=== PATIENT | male | born 1990 | race Caucasian/White ===

== ENCOUNTER 2017-07-18 14:12 | Emergency (ER) | payer MEDICAID, OTHER ==
[~2017-07-18] VITALS: Ht 177.8 cm; Wt 77.1 kg
[2017-07-18 14:45] LABS: BASOPHILS # (AUTO) 0.1 10^3/uL (0.0-0.1); BASOPHILS % (AUTO) 1 % (0-10); EOSINOPHILS # (AUTO) 0.3 10^3/uL (0.0-0.3); EOSINOPHILS % (AUTO) 3 % (0-10); LYMPHOCYTES # (AUTO) 2.3 X 10^3 (1.0-4.0); LYMPHOCYTES % (AUTO) 24 % (12-44); MEAN CORPUSCULAR HEMOGLOBIN 33 PG (25-34); MEAN CORPUSCULAR HGB CONC 35 G/DL (32-36); MEAN CORPUSCULAR VOLUME 94 FL (80-99); MONOCYTES # (AUTO) 0.6 X 10^3 (0.0-1.0); MONOCYTES % (AUTO) 6 % (0-12); NEUTROPHILS # (AUTO) 6.3 X 10^3 (1.8-7.8); NEUTROPHILS % (AUTO) 66 % (42-75); PLATELET COUNT 215 10^3/uL (130-400); RED BLOOD COUNT 4.99 10^6/uL (4.35-5.85); RED CELL DISTRIBUTION WIDTH 13.3 % (10.0-14.5); WHITE BLOOD COUNT 9.5 10^3/uL (4.3-11.0)
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
[2017-07-18 14:53] LABS: ALANINE AMINOTRANSFERASE 31 U/L (0-55); ALBUMIN 4.3 GM/DL (3.2-4.5); ANION GAP 8 MMOL/L (5-14); ASPARTATE AMINO TRANSFERASE 23 U/L (5-34); BILIRUBIN,TOTAL 0.4 MG/DL (0.1-1.0); BLOOD UREA NITROGEN 14 MG/DL (7-18); BUN/CREATININE RATIO 17; CALCIUM 9.3 MG/DL (8.5-10.1); CARBON DIOXIDE 26 MMOL/L (21-32); CHLORIDE 105 MMOL/L (98-107); CREATININE SERUM 0.83 MG/DL (0.60-1.30); GFR ESTIMATED > 60; GLUCOSE 94 MG/DL (70-105); POTASSIUM 3.8 MMOL/L (3.6-5.0); SODIUM 139 MMOL/L (135-145); TOTAL PROTEIN 6.8 GM/DL (6.4-8.2)
[2017-07-18 14:59] LABS: CARBAMAZEPINE (TEGRETOL) < 2.0 UG/ML (4.0-12.0)
--- NOTE | 2017-07-18 15:24 | Diagnostic Imaging Report ---
INDICATION: Syncopal episode. TECHNIQUE: Routine non contrast-enhanced axial images were obtained from the skull base to the vertex. COMPARISON: None. FINDINGS: The ventricles and cortical sulci are normal in size and contour. There is no midline shift or mass-effect. No acute intra-axial hemorrhage is seen. There are no abnormal areas of increased or decreased density to suggest acute hemorrhage or edema. No extra-axial masses or collections are present. The bony calvarium is intact. The visualized paranasal sinuses are unremarkable. The mastoid air cells are clear. IMPRESSION: 1. No acute intracranial abnormality. No CT evidence of mass, acute infarct or intracranial hemorrhage. Dictated by: Dictated on workstation # [id number]
[2017-07-18 16:45] VITALS: BP 130/86
== END 2017-07-18 16:45 | disposition home or self-care (01) ==
LOC: ER 14:18
DX: G40.909 Epilepsy, unspecified, not intractable, without status epilepticus (principal)
CPT/HCPCS: 36415; 70450; 80053; 80156; 83735; 85025

== ENCOUNTER 2017-07-21 14:02 | Emergency (ER) | payer MEDICAID ==
[~2017-07-21] VITALS: Ht 177.8 cm; Wt 81.6 kg
[2017-07-21 14:21] LABS: BASOPHILS # (AUTO) 0.1 10^3/uL (0.0-0.1); BASOPHILS % (AUTO) 1 % (0-10); EOSINOPHILS # (AUTO) 0.3 10^3/uL (0.0-0.3); EOSINOPHILS % (AUTO) 5 % (0-10); LYMPHOCYTES # (AUTO) 1.4 X 10^3 (1.0-4.0); LYMPHOCYTES % (AUTO) 21 % (12-44); MEAN CORPUSCULAR HEMOGLOBIN 33 PG (25-34); MEAN CORPUSCULAR HGB CONC 35 G/DL (32-36); MEAN CORPUSCULAR VOLUME 93 FL (80-99); MEAN PLATELET VOLUME 9.8 FL (7.4-10.4); MONOCYTES # (AUTO) 0.5 X 10^3 (0.0-1.0); MONOCYTES % (AUTO) 7 % (0-12); NEUTROPHILS # (AUTO) 4.5 X 10^3 (1.8-7.8); NEUTROPHILS % (AUTO) 66 % (42-75); PLATELET COUNT 218 10^3/uL (130-400); RED BLOOD COUNT 5.11 10^6/uL (4.35-5.85); RED CELL DISTRIBUTION WIDTH 13.4 % (10.0-14.5); WHITE BLOOD COUNT 6.8 10^3/uL (4.3-11.0)
[2017-07-21 14:44] LABS: ALANINE AMINOTRANSFERASE 29 U/L (0-55); ALBUMIN 4.2 GM/DL (3.2-4.5); ALCOHOL < 10 MG/DL (<10); ANION GAP 10 MMOL/L (5-14); ASPARTATE AMINO TRANSFERASE 23 U/L (5-34); BILIRUBIN,TOTAL 0.3 MG/DL (0.1-1.0); BLOOD UREA NITROGEN 12 MG/DL (7-18); BUN/CREATININE RATIO 15; CALCIUM 9.6 MG/DL (8.5-10.1); CARBON DIOXIDE 25 MMOL/L (21-32); CHLORIDE 106 MMOL/L (98-107); GFR ESTIMATED > 60; GLUCOSE 80 MG/DL (70-105); MAGNESIUM 1.9 MG/DL (1.8-2.4); POTASSIUM 3.8 MMOL/L (3.6-5.0); SODIUM 141 MMOL/L (135-145); TOTAL PROTEIN 6.7 GM/DL (6.4-8.2)
--- NOTE | 2017-07-21 15:31 | ED Neurological Problem ---
General Chief Complaint: Neurological Problems Stated Complaint: SEIZURES Nursing Triage Note: [facility] staff reports pt had seizure like activity friday and again today. Staff reports pt has been in there care since June and Friday was first witnessed seizure. Staff reports previous facilty reported "behavioral seizures". 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 Pt sedated upon arrival. Nursing Sepsis Screen: No Definite Risk Allergies and Home Medications Allergies Coded Allergies: No Known Drug Allergies (Unverified , 07/18/17) Home Medications Levetiracetam 500 Mg Tablet, 500 MG PO BID, #60 Prescribed by: ELROY GONZALEZ on 07/21/17 1719 Oxcarbazepine 600 Mg Tablet, 600 MG PO TID, #90 Prescribed by: ELROY GONZALEZ on 07/21/17 1719 Past Nfapvwe-Ammmqc-Qdlrpn Hx Patient Social History Alcohol Use: Denies Use Recreational Drug Use: No Smoking Status: Current Everyday Smoker Type Used: Cigarettes Recent Foreign Travel: No Contact w/Someone Who Travel: No Recent Infectious Disease Expo: No Recent Hopitalizations: No Physical Abuse: No Sexual Abuse: No Mistreated: No Fear: No Surgeries History of Surgeries: No (UNKNOWN) Respiratory History of Respiratory Disorde: No Cardiovascular History of Cardiac Disorders: Yes (UNKNOWN) Neurological History of Neurological Disord: Yes Neurological Disorders: Seizure Disorder Genitourinary History of Genitourinary Disor: Yes (urinary incontinence) Musculoskeletal History of Musculoskeletal Dis: No (UNKNOWN) Psychosocial History of Psychiatric Problem: Yes (PSYCOSIS) Behavioral Health Disorders: Sleep Difficulties, Anxiety Suicide Risk Score: 0 Family Medical History Significant Family History: No Pertinent Family Hx Physical Exam Vital Signs Vital Sign - Last 12Hours 07/21/17 14:30 Temp 98.1 Pulse 77 Resp 18 B/P (MAP) 118/73 Pulse Ox 96 Capillary Refill : Less Than 3 Seconds Progress/Results/Core Measures Results/Orders Lab Results Laboratory Tests Test 07/21/17 14:12 07/21/17 15:41 07/21/17 16:25 Range/Units White Blood Count 6.8 4.3-11.0 10^3/uL Red Blood Count 5.11 4.35-5.85 10^6/uL Hemoglobin 16.6 13.3-17.7 G/DL Hematocrit 48 40-54 % Mean Corpuscular Volume 93 80-99 FL Mean Corpuscular Hemoglobin 33 25-34 PG Mean Corpuscular Hemoglobin Concent 35 32-36 G/DL Red Cell Distribution Width 13.4 10.0-14.5 % Platelet Count 218 130-400 10^3/uL Mean Platelet Volume 9.8 7.4-10.4 FL Neutrophils (%) (Auto) 66 42-75 % Lymphocytes (%) (Auto) 21 12-44 % Monocytes (%) (Auto) 7 0-12 % Eosinophils (%) (Auto) 5 0-10 % Basophils (%) (Auto) 1 0-10 % Neutrophils # (Auto) 4.5 1.8-7.8 X 10^3 Lymphocytes # (Auto) 1.4 1.0-4.0 X 10^3 Monocytes # (Auto) 0.5 0.0-1.0 X 10^3 Eosinophils # (Auto) 0.3 0.0-0.3 10^3/uL Basophils # (Auto) 0.1 0.0-0.1 10^3/uL Sodium Level 141 135-145 MMOL/L Potassium Level 3.8 3.6-5.0 MMOL/L Chloride Level 106 98-107 MMOL/L Carbon Dioxide Level 25 21-32 MMOL/L Anion Gap 10 5-14 MMOL/L Blood Urea Nitrogen 12 7-18 MG/DL Creatinine 0.80 0.60-1.30 MG/DL Estimat Glomerular Filtration Rate > 60 BUN/Creatinine Ratio 15 Glucose Level 80 70-105 MG/DL Calcium Level 9.6 8.5-10.1 MG/DL Magnesium Level 1.9 1.8-2.4 MG/DL Total Bilirubin 0.3 0.1-1.0 MG/DL Aspartate Amino Transf (AST/SGOT) 23 5-34 U/L Alanine Aminotransferase (ALT/SGPT) 29 0-55 U/L Alkaline Phosphatase 56 40-136 U/L Total Protein 6.7 6.4-8.2 GM/DL Albumin 4.2 3.2-4.5 GM/DL Serum Alcohol < 10 <10 MG/DL Urine Color YELLOW Urine Clarity CLEAR Urine pH 6.5 5-9 Urine Specific [place] 1.020 1.016-1.022 Urine Protein NEGATIVE NEGATIVE Urine Glucose (UA) NEGATIVE NEGATIVE Urine Ketones NEGATIVE NEGATIVE Urine Nitrite NEGATIVE NEGATIVE Urine Bilirubin NEGATIVE NEGATIVE Urine Urobilinogen NORMAL NORMAL MG/DL Urine Leukocyte Esterase 1+ H NEGATIVE Urine RBC (Auto) NEGATIVE NEGATIVE Urine RBC RARE /HPF Urine WBC RARE /HPF Urine Crystals NONE /LPF Urine Bacteria NEGATIVE /HPF Urine Casts NONE /LPF Urine Mucus NEGATIVE /LPF Urine Culture Indicated NO Urine Opiates Screen NEGATIVE NEGATIVE Urine Oxycodone Screen NEGATIVE NEGATIVE Urine Methadone Screen NEGATIVE NEGATIVE Urine Propoxyphene Screen NEGATIVE NEGATIVE Urine Barbiturates Screen NEGATIVE NEGATIVE Ur Tricyclic Antidepressants Screen NEGATIVE NEGATIVE Urine Phencyclidine Screen NEGATIVE NEGATIVE Urine Amphetamines Screen NEGATIVE NEGATIVE Urine Methamphetamines Screen NEGATIVE NEGATIVE Urine Benzodiazepines Screen NEGATIVE NEGATIVE Urine Cocaine Screen NEGATIVE NEGATIVE Urine Cannabinoids Screen NEGATIVE NEGATIVE My Orders Orders - ELROY CHAMORRO MD Alcohol (07/21/17 14:06) Cbc With Automated Diff (07/21/17 14:06) Comprehensive Metabolic Panel (07/21/17 14:06) Drug Screen Stat (Urine) (07/21/17 14:06) Magnesium (07/21/17 14:06) Ua Culture If Indicated (07/21/17 14:06) Accucheck Stat ONCE (07/21/17 14:06) Saline Lock/Iv-Start (07/21/17 14:06) Monitor-Rhythm Ecg Trace Only (07/21/17 14:06) Trileptal (07/21/17 15:27) Oxcarbazepine Tablet (Trileptal Tablet) (07/21/17 15:45) Levetiracetam Injection (Keppra Injectio (07/21/17 21:00) Ns (Ivpb) (Sodium Chloride 0.9% Ivpb Bag (07/21/17 16:53) Levetiracetam Injection (Keppra Injectio (07/21/17 16:54) Medications Given in ED Current Medications Medications Dose Ordered Sig/Omar Route Start Time Stop Time Status Last Admin Dose Admin Levetiracetam 500 mg/Sodium Chloride 55 ml @ 220 mls/hr BID ONCE IV 07/21/17 21:00 07/21/17 21:14 07/21/17 17:10 220 MLS/HR Oxcarbazepine 600 mg ONCE ONCE PO 07/21/17 15:45 07/21/17 15:46 DC 07/21/17 16:28 600 MG Vital Signs/I&O Vital Sign - Last 12Hours 07/21/17 14:30 Temp 98.1 Pulse 77 Resp 18 B/P (MAP) 118/73 Pulse Ox 96 Intake and Output 07/22/17 00:00 Intake Total 500 ml Balance 500 ml Blood Pressure Mean: 88 Progress Note : Progress Note Patient is now arousable. He states he feels sleepy. Documentation from prior visit was reviewed. Unfortunately, a Tegretol level was ordered but patient is on Trileptal. A Trileptal level was ordered to be added to present labs. In the meantime an additional dose of Trileptal will be ordered. Departure Impression Impression: Primary Impression: Seizures Additional Impression: Cerumen impaction Qualified Codes: H61.23 - Impacted cerumen, bilateral Disposition: 01 HOME, SELF-CARE Condition: Improved Departure-Patient Inst. Decision time for Depature: 17:15 Referrals: NO,LOCAL PHYSICIAN (PCP/Family) Primary Care Physician Patient Instructions: Ear Wax Impaction, Seizures, Adult (DC) Add. Discharge Instructions: Increase his Trileptal (oxcarbazepine) to 3 times daily. A new prescription is being provided to account for the increased dosing. Add Keppra as prescribed for further seizure treatment. Establish with his new primary care provider or see his old primary care provider as soon as possible. Seek referral to a neurologist. Return to emergency room if symptoms worsen or persist. You may use [id number] ear wax removal drops to start loosening that ear wax. Do not use Q-tips. Irrigation of the ear wax may be possible in the outpatient setting after wax is loosened with drops. All discharge instructions reviewed with patient and/or family. Voiced understanding. Scripts Oxcarbazepine (Oxcarbazepine) 600 Mg Tablet 600 MG PO TID, #90 TAB Prov: ELROY CHAMORRO MD 07/21/17 Levetiracetam (Keppra) 500 Mg Tablet 500 MG PO BID, #60 TAB Prov: ELROY CHAMORRO MD 07/21/17 ELROY CHAMORRO MD Jul 21, 2017 15:31
[2017-07-21] MEDS ORDERED: OXcarbazepine (TRILEPTAL) 300 MG TAB PO ONE (15:45)
[2017-07-21 15:52] LABS: BILIRUBIN,URINE NEGATIVE (NEGATIVE); KETONES,URINE NEGATIVE (NEGATIVE); LEUKOCYTE ESTERASE ,URINE 1+ (NEGATIVE); NITRITE,URINE NEGATIVE (NEGATIVE); PH,URINE 6.5 (5-9); PROTEIN,URINE NEGATIVE (NEGATIVE); UROBILINOGEN,URINE NORMAL (NORMAL)
[2017-07-21 16:00] LABS: WBC,URINE RARE /HPF
[2017-07-21] MEDS ORDERED: NS (IVPB) 50 ML ONE (16:53)
[2017-07-21] MEDS ORDERED: LEVETIRACETAM 500 MG/5 ML (KEPPRA) VIAL IV ONE (16:54)
[2017-07-21] MEDS ORDERED: OXCA600T PO (17:19)
[2017-07-21] MEDS ORDERED: LEVE500T99 PO (17:19)
[2017-07-21 17:38] VITALS: BP 123/70
[2017-07-21] MEDS ORDERED: LEVETIRACETAM INJECTION 500 MG in NS (IVPB) 50 ML IV ONE (21:00)
[2017-07-21] MEDS ORDERED: LOXA10CA (21:32)
[2017-07-21] MEDS ORDERED: OLOP5DRO7 (21:32)
[2017-07-21] MEDS ORDERED: BENZ1TAB6 (21:32)
[2017-07-21] MEDS ORDERED: DESM0.2T2 (21:32)
[2017-07-21] MEDS ORDERED: BUSP10TA95 (21:32)
[2017-07-21] MEDS ORDERED: CYPR4TAB (21:32)
[2017-07-21] MEDS ORDERED: ARIP20TA9 (21:32)
== END 2017-07-21 17:38 | disposition home or self-care (01) ==
LOC: EDUNIT# 14:02 → ER 14:04
DX: G40.909 Epilepsy, unspecified, not intractable, without status epilepticus (principal); H61.20 Impacted cerumen, unspecified ear; F41.9 Anxiety disorder, unspecified; F17.210 Nicotine dependence, cigarettes, uncomplicated
CPT/HCPCS: 36415; 80053; 80183; 80306; 80320; 81000; 83735; 85025; 93041

== ENCOUNTER 2017-07-21 21:25 | Emergency (ER) | payer MEDICAID ==
[~2017-07-21] VITALS: Ht 177.8 cm; Wt 81.6 kg
[~2017-07-21 21:25] MED LIST: LEVE500T99 PO; OXCA600T PO
[2017-07-21] MEDS ORDERED: DESM0.2T2 (21:32)
[2017-07-21] MEDS ORDERED: BENZ1TAB6 (21:32)
[2017-07-21] MEDS ORDERED: OLOP5DRO7 (21:32)
[2017-07-21] MEDS ORDERED: CYPR4TAB (21:32)
[2017-07-21] MEDS ORDERED: LOXA10CA (21:32)
[2017-07-21] MEDS ORDERED: BUSP10TA95 (21:32)
[2017-07-21] MEDS ORDERED: ARIP20TA9 (21:32)
--- NOTE | 2017-07-21 21:49 | ED Neurological Problem ---
General Chief Complaint: Neurological Problems Stated Complaint: SEIZURES Nursing Triage Note: brought in by [facility] for seizure activity Nursing Sepsis Screen: No Definite Risk Source: patient, EMS, old records Exam Limitations: clinical condition History of Present Illness Time seen by provider: 21:24 Initial Comments Patient presents to ER by EMS with chief complaint of seizure-like activity. EMS reports that the staff told them they heard a thud in his room they went and investigate and he was laying on the floor shaking his arm and nonresponsive. They called EMS EMS arrived said that he was shaking his right arm so they loaded him on the gurney and has her putting him in the truck they noticed his right arm began to shake worse and spread to his left arm and then his whole body and he sat up opened his eyes and spoke to them saying he felt cold and did not feel well. He then promptly close his eyes again and laid on the bed with his arm shaking and refused to follow commands. EMS noted when they tried opening his eyelids he resisted. There is no incontinence. They gave him 2-1/2 mg of Versed en route area the patient is sedated on arrival to the ER and unable to give any meaningful history at this time. Reviewed records from this morning when he was here for similar incident and had his Trileptal increased as well as Keppra given IV. Staff advised that he recently moved to their facility from another facility reported he had behavioral seizures around June 2017. He has not had any witnessed seizures until today per staff. No report of him missing any medications. Allergies and Home Medications Allergies Coded Allergies: No Known Drug Allergies (Unverified , 07/18/17) Home Medications Aripiprazole 20 Mg Tablet, (Reported) Benztropine Mesylate 1 Mg Tablet, (Reported) Buspirone HCl 10 Mg Tablet, (Reported) Cyproheptadine HCl 4 Mg Tablet, (Reported) Desmopressin Acetate 0.2 Mg Tablet, (Reported) Levetiracetam 500 Mg Tablet, 500 MG PO BID, #60 Prescribed by: ELROY GONZALEZ on 07/21/171718 Loxapine Succinate 10 Mg Capsule, (Reported) Olopatadine HCl 5 Ml Drops, (Reported) Oxcarbazepine 600 Mg Tablet, 600 MG PO TID, #90 Prescribed by: ELROY GONZALEZ on 10/16/17 1719 Constitutional: see HPI (unable to obtain a meaningful review of systems as the patient is sedated and not giving any history.) Past Wfjzapn-Iwdsgm-Fekdbj Hx Patient Social History Alcohol Use: Denies Use Recreational Drug Use: No Smoking Status: Current Everyday Smoker Type Used: Cigarettes Recent Foreign Travel: No Contact w/Someone Who Travel: No Recent Infectious Disease Expo: No Recent Hopitalizations: Yes (e.d.) Immunizations Up To Date Tetanus Booster (TDap): Unknown Seasonal Allergies Seasonal Allergies: No Surgeries History of Surgeries: No (UNKNOWN) Respiratory History of Respiratory Disorde: No Cardiovascular History of Cardiac Disorders: Yes (UNKNOWN) Neurological History of Neurological Disord: Yes Neurological Disorders: Seizure Disorder Genitourinary History of Genitourinary Disor: Yes (urinary incontinence) Musculoskeletal History of Musculoskeletal Dis: No (UNKNOWN) Psychosocial History of Psychiatric Problem: Yes (PSYCOSIS) Behavioral Health Disorders: Sleep Difficulties, Anxiety Integumentary History of Skin or Integumenta: No Family Medical History Significant Family History: No Pertinent Family Hx Physical Exam Vital Signs Vital Sign - Last 12Hours 07/21/17 21:32 Temp 96.2 Pulse 66 Resp 16 B/P (MAP) 122/74 Pulse Ox 99 O2 Delivery Nasal Cannula O2 Flow Rate 2.00 Capillary Refill : Less Than 3 Seconds General Appearance: WD/WN, no apparent distress (sedate him to sleep) HEENT: PERRL/EOMI, pharynx normal, TM abnormal (R) (cerumen impaction), TM abnormal (L) (cerumen impaction) Neck: non-tender, full range of motion, supple, normal inspection Respiratory: chest non-tender, lungs clear, normal breath sounds, no respiratory distress, no accessory muscle use Cardiovascular: normal peripheral pulses, regular rate, rhythm, no edema, no murmur Peripheral Pulses: 2+ Dorsalis Pedis (R), 2+ Left Dors-Pedis (L) Gastrointestinal: normal bowel sounds, non tender, soft, no organomegaly Extremities: normal range of motion, non-tender, no pedal edema, no calf tenderness Neurologic/Psychiatric: other (muted response to noxious stimuli but resists opening eye and I avoids the light.) Skin: normal color, warm/dry Progress/Results/Core Measures Results/Orders Lab Results Laboratory Tests Test 07/21/17 00:01 07/21/17 21:34 07/21/17 23:59 Range/Units White Blood Count 7.4 4.3-11.0 10^3/uL Red Blood Count 5.04 4.35-5.85 10^6/uL Hemoglobin 16.4 13.3-17.7 G/DL Hematocrit 47 40-54 % Mean Corpuscular Volume 93 80-99 FL Mean Corpuscular Hemoglobin 33 25-34 PG Mean Corpuscular Hemoglobin Concent 35 32-36 G/DL Red Cell Distribution Width 13.4 10.0-14.5 % Platelet Count 206 130-400 10^3/uL Mean Platelet Volume 10.1 7.4-10.4 FL Neutrophils (%) (Auto) 53 42-75 % Lymphocytes (%) (Auto) 33 12-44 % Monocytes (%) (Auto) 7 0-12 % Eosinophils (%) (Auto) 7 0-10 % Basophils (%) (Auto) 1 0-10 % Neutrophils # (Auto) 3.9 1.8-7.8 X 10^3 Lymphocytes # (Auto) 2.4 1.0-4.0 X 10^3 Monocytes # (Auto) 0.5 0.0-1.0 X 10^3 Eosinophils # (Auto) 0.5 H 0.0-0.3 10^3/uL Basophils # (Auto) 0.1 0.0-0.1 10^3/uL Sodium Level 141 135-145 MMOL/L Potassium Level 3.6 3.6-5.0 MMOL/L Chloride Level 106 98-107 MMOL/L Carbon Dioxide Level 25 21-32 MMOL/L Anion Gap 10 5-14 MMOL/L Blood Urea Nitrogen 13 7-18 MG/DL Creatinine 0.79 0.60-1.30 MG/DL Estimat Glomerular Filtration Rate > 60 BUN/Creatinine Ratio 16 Glucose Level 111 H 70-105 MG/DL Calcium Level 9.2 8.5-10.1 MG/DL Total Bilirubin 0.4 0.1-1.0 MG/DL Aspartate Amino Transf (AST/SGOT) 21 5-34 U/L Alanine Aminotransferase (ALT/SGPT) 27 0-55 U/L Alkaline Phosphatase 55 40-136 U/L C-Reactive Protein High Sensitivity 0.22 0.00-0.50 MG/DL Total Protein 6.4 6.4-8.2 GM/DL Albumin 4.1 3.2-4.5 GM/DL Serum Alcohol < 10 <10 MG/DL Urine Opiates Screen NEGATIVE NEGATIVE Urine Oxycodone Screen NEGATIVE NEGATIVE Urine Methadone Screen NEGATIVE NEGATIVE Urine Propoxyphene Screen NEGATIVE NEGATIVE Urine Barbiturates Screen NEGATIVE NEGATIVE Ur Tricyclic Antidepressants Screen NEGATIVE NEGATIVE Urine Phencyclidine Screen NEGATIVE NEGATIVE Urine Amphetamines Screen NEGATIVE NEGATIVE Urine Methamphetamines Screen NEGATIVE NEGATIVE Urine Benzodiazepines Screen NEGATIVE NEGATIVE Urine Cocaine Screen NEGATIVE NEGATIVE Urine Cannabinoids Screen NEGATIVE NEGATIVE My Orders Orders - MIGUEL ÁNGEL APODACA Alcohol (07/21/17 21:40) Cbc With Automated Diff (07/21/17 21:40) Comprehensive Metabolic Panel (07/21/17 21:40) Hs C Reactive Protein (07/21/17 21:40) Drug Screen Stat (Urine) (07/21/17 21:40) Chest 1 View, Ap/Pa Only (07/21/17 21:40) Ekg Tracing (07/21/17 21:59) Ua Culture If Indicated (07/22/17 00:59) Vital Signs/I&O Vital Sign - Last 12Hours 07/21/17 21:32 Temp 96.2 Pulse 66 Resp 16 B/P (MAP) 122/74 Pulse Ox 99 O2 Delivery Nasal Cannula O2 Flow Rate 2.00 Blood Pressure Mean: 90 Progress Note : Time: 02:40 Progress Note Patient is sleeping but easily arouses and states that he is tired and wants to go home. Denies any pain, shortness of breath, nausea, vomiting, diarrhea. Caregiver relates the same story is EMS gave the patient was going out for a smoke and came back and said he was tired and wanted to go to bed went to his room and then caregiver her to side went and found him on the floor with his right arm shaking. Laboratories unrevealing for any concerning issues so we'll go and allow the patient to go home with instructions on seizure management and keep the medications at same level that were raised just this morning. Highly implored the caregiver to get the patient in for neurology. Apparently he has an appointment in the next 1-2 weeks with primary care physician and Linda. ECG Initial ECG Impression Date: Jul 21, 2017 Initial ECG Impression Time: 21:28 Initial ECG Rate: 69 Initial ECG Rhythm: Normal Sinus Initial ECG Intervals: Normal Initial ECG Impression: Normal Initial ECG Comparisson: No Previous ECG Available Comment No T-wave elevation or depression Diagnostic Imaging Diagonstic Imaging: Xray Plain Films/CT/US/NM/MRI: chest (1v) Comments Poor inspiratory effort. No acute cardiopulmonary processes noted. Reviewed: Reviewed by Me Departure Impression Impression: Primary Impression: Seizure disorder Disposition: 01 HOME, SELF-CARE Condition: Stable Departure-Patient Inst. Decision time for Depature: 02:42 Referrals: NO,LOCAL PHYSICIAN (PCP) Primary Care Physician Patient Instructions: Seizures, Adult (DC) Add. Discharge Instructions: If the patient has a seizure or seizure-like activity again and is encouraged to keep the patient in a safe position and do not place anything near and around his mouth. Time the seizure-like activity and if it lasts for more than 20 minutes you may bring him to the ER. Otherwise just allow him to recover and when he feels like he can get up and move around just keep a log of his seizures and present them to the primary care physician. When you next see the primary care physician's important to try and find out what neurologic workup has been done for his seizures and see if he needs a video EEG or other workup to help elucidate what is seizure and what is behavioral. All discharge instructions reviewed with patient and/or family. Voiced understanding. MIGUEL ÁNGEL APODACA Jul 21, 2017 21:49
[2017-07-21 22:06] LABS: BASOPHILS # (AUTO) 0.1 10^3/uL (0.0-0.1); BASOPHILS % (AUTO) 1 % (0-10); EOSINOPHILS # (AUTO) 0.5 10^3/uL (0.0-0.3); EOSINOPHILS % (AUTO) 7 % (0-10); LYMPHOCYTES # (AUTO) 2.4 X 10^3 (1.0-4.0); LYMPHOCYTES % (AUTO) 33 % (12-44); MEAN CORPUSCULAR HEMOGLOBIN 33 PG (25-34); MEAN CORPUSCULAR HGB CONC 35 G/DL (32-36); MEAN CORPUSCULAR VOLUME 93 FL (80-99); MEAN PLATELET VOLUME 10.1 FL (7.4-10.4); MONOCYTES # (AUTO) 0.5 X 10^3 (0.0-1.0); MONOCYTES % (AUTO) 7 % (0-12); NEUTROPHILS # (AUTO) 3.9 X 10^3 (1.8-7.8); NEUTROPHILS % (AUTO) 53 % (42-75); PLATELET COUNT 206 10^3/uL (130-400); RED BLOOD COUNT 5.04 10^6/uL (4.35-5.85); RED CELL DISTRIBUTION WIDTH 13.4 % (10.0-14.5); WHITE BLOOD COUNT 7.4 10^3/uL (4.3-11.0)
[2017-07-21 22:09] LABS: ALANINE AMINOTRANSFERASE 27 U/L (0-55); ALBUMIN 4.1 GM/DL (3.2-4.5); ALCOHOL < 10 MG/DL (<10); ANION GAP 10 MMOL/L (5-14); ASPARTATE AMINO TRANSFERASE 21 U/L (5-34); BILIRUBIN,TOTAL 0.4 MG/DL (0.1-1.0); BLOOD UREA NITROGEN 13 MG/DL (7-18); BUN/CREATININE RATIO 16; CALCIUM 9.2 MG/DL (8.5-10.1); CARBON DIOXIDE 25 MMOL/L (21-32); CHLORIDE 106 MMOL/L (98-107); CREATININE SERUM 0.79 MG/DL (0.60-1.30); GFR ESTIMATED > 60; GLUCOSE 111 MG/DL (70-105); POTASSIUM 3.6 MMOL/L (3.6-5.0); SODIUM 141 MMOL/L (135-145); TOTAL PROTEIN 6.4 GM/DL (6.4-8.2); hs C REACTIVE PROTEIN 0.22 MG/DL (0.00-0.50)
[2017-07-22 02:34] LABS: BILIRUBIN,URINE NEGATIVE (NEGATIVE); KETONES,URINE NEGATIVE (NEGATIVE); LEUKOCYTE ESTERASE ,URINE 1+ (NEGATIVE); NITRITE,URINE NEGATIVE (NEGATIVE); PH,URINE 7 (5-9); PROTEIN,URINE 1+ (NEGATIVE); UROBILINOGEN,URINE 1 MG/DL (NORMAL)
[2017-07-22 02:40] LABS: SQUAMOUS EPITHELIAL CELL,UR RARE /HPF; WBC,URINE RARE /HPF
[2017-07-22 02:49] VITALS: BP 122/76
--- NOTE | 2017-07-22 07:28 | Diagnostic Imaging Report ---
INDICATION: Seizure. FINDINGS: Portable chest shows some volume loss in the lung bases more prominent on the right. Could not exclude mild infiltrate in right lung base as well. The lungs are otherwise clear. Heart is not enlarged. No pulmonary edema. No evidence of rib fractures. IMPRESSION: Right basilar atelectasis. Could not exclude mild infiltrate right lung base as well. Clinical correlation. Dictated by: Dictated on workstation # [id number]
== END 2017-07-22 02:49 | disposition home or self-care (01) ==
LOC: EDUNIT# 21:25 → ER 21:26
DX: G40.909 Epilepsy, unspecified, not intractable, without status epilepticus (principal); F41.9 Anxiety disorder, unspecified; G47.9 Sleep disorder, unspecified; F17.210 Nicotine dependence, cigarettes, uncomplicated
CPT/HCPCS: 36415; 71010; 80053; 80306; 80320; 81000; 85025; 86141; 93005

== ENCOUNTER 2017-09-21 09:04 | Emergency (ER) | payer MEDICAID ==
[~2017-09-21] VITALS: Ht 175.3 cm; Wt 81.6 kg
[~2017-09-21 09:04] MED LIST changes: +ARIP20TA9; +BENZ1TAB6; +BUSP10TA95; +CYPR4TAB; +DESM0.2T2; +LOXA10CA; +OLOP5DRO7
--- NOTE | 2017-09-21 09:51 | ED Abdominal Pain ---
General Chief Complaint: Abdominal/GI Problems Stated Complaint: STOMACH PAIN Nursing Triage Note: PT CO OF ABD PAIN THAT STARTED THIS AM AT APPROX 0630. DENIES N/V HAS PAIN, DISTENTION, TENDERNESS AND DIARRHEA THIS AM Sepsis Screen: No Definite Risk Source of Information: Patient, Caregiver Exam Limitations: Other (the patient's special needs limit his ability to offer a full history.) History of Present Illness Time Seen By Provider: 09:48 Initial Comments This 27-year-old white male presents with a complaint of abdominal pain that began this morning approximately 3 hours ago. He's had associated periumbilical pain and distention. The patient has had an episode of diarrhea this morning. He denies associated nausea or vomiting. Patient is on Depokote. Allergies and Home Medications Allergies Coded Allergies: No Known Drug Allergies (Unverified , 07/18/17) Home Medications Aripiprazole 20 Mg Tablet, (Reported) Benztropine Mesylate 1 Mg Tablet, (Reported) Buspirone HCl 10 Mg Tablet, (Reported) Cyproheptadine HCl 4 Mg Tablet, (Reported) Desmopressin Acetate 0.2 Mg Tablet, (Reported) Levetiracetam 500 Mg Tablet, 500 MG PO BID, #60 Prescribed by: ELROY GONZALEZ on 07/21/17 1719 Loxapine Succinate 10 Mg Capsule, (Reported) Olopatadine HCl 5 Ml Drops, (Reported) Oxcarbazepine 600 Mg Tablet, 600 MG PO TID, #90 Prescribed by: ELROY GONZALEZ on 07/21/17 1719 Review of Systems Constitutional: No chills, No fever EENTM: No Blurred Vision Respiratory: Denies Cough Cardiovascular: Denies Chest Pain Gastrointestinal: Abdomen Distended, Abdominal Pain, Diarrhea, Denies Nausea, Denies Vomiting Genitourinary: Burning, Frequency Musculoskeletal: No back pain Skin: No change in color, No rash Psychiatric/Neurological: No Symptoms Reported Endocrine: No Symptoms Reported Hematologic/Lymphatic: No Symptoms Reported Past [id number] Hx Patient Social History Alcohol Use: Denies Use Recreational Drug Use: No Type Used: Cigarettes Recent Foreign Travel: No Contact w/Someone Who Travel: No Recent Infectious Disease Expo: No Recent Hopitalizations: Yes (e.d.) Physical Abuse: No Sexual Abuse: No Immunizations Up To Date Tetanus Booster (TDap): Unknown Seasonal Allergies Seasonal Allergies: No Surgeries History of Surgeries: Yes (UNKNOWN) Surgeries: Ear Surgery Respiratory History of Respiratory Disorde: No Cardiovascular History of Cardiac Disorders: No (UNKNOWN) Neurological History of Neurological Disord: Yes Neurological Disorders: Seizure Disorder Genitourinary History of Genitourinary Disor: Yes (urinary incontinence) Gastrointestinal History of Gastrointestinal Di: No Musculoskeletal History of Musculoskeletal Dis: No Endocrine History of Endocrine Disorders: No HEENT History of HEENT Disorders: No Cancer History of Cancer: No Psychosocial History of Psychiatric Problem: Yes (PSYCOSIS) Behavioral Health Disorders: Sleep Difficulties, Anxiety Suicide Risk Score: 0 Integumentary History of Skin or Integumenta: No Reviewed Nursing Assessment Reviewed/Agree w Nursing PMH: Yes Family Medical History Significant Family History: No Pertinent Family Hx Physical Exam Vital Signs VS - Last 72 Hours, by Label 09/21/17 09:05 Temp 96.8 Pulse 92 Resp 18 B/P (MAP) 127/81 (96) Pulse Ox 97 Capillary Refill : Less Than 3 Seconds General Appearance: WD/WN, no apparent distress HEENT: normal ENT inspection Neck: normal inspection Respiratory: lungs clear Cardiovascular: normal peripheral pulses, regular rate, rhythm Gastrointestinal: normal bowel sounds, non tender, soft, abnormal bowel sounds (hypoactive), distended Extremities: normal range of motion, non-tender, normal inspection Back: normal inspection Neurologic/Psychiatric: no motor/sensory deficits, alert, normal mood/affect, other (the patient demonstrates developmental delay.) Skin: normal color, warm/dry Progress/Results/Core Measures Results/Orders Lab Results Laboratory Tests Test 09/21/17 09:25 Range/Units White Blood Count 12.7 H 4.3-11.0 10^3/uL Red Blood Count 5.31 4.35-5.85 10^6/uL Hemoglobin 17.1 13.3-17.7 G/DL Hematocrit 49 40-54 % Mean Corpuscular Volume 93 80-99 FL Mean Corpuscular Hemoglobin 32 25-34 PG Mean Corpuscular Hemoglobin Concent 35 32-36 G/DL Red Cell Distribution Width 13.6 10.0-14.5 % Platelet Count 220 130-400 10^3/uL Mean Platelet Volume 10.3 7.4-10.4 FL Neutrophils (%) (Auto) 73 42-75 % Lymphocytes (%) (Auto) 16 12-44 % Monocytes (%) (Auto) 6 0-12 % Eosinophils (%) (Auto) 4 0-10 % Basophils (%) (Auto) 1 0-10 % Neutrophils # (Auto) 9.3 H 1.8-7.8 X 10^3 Lymphocytes # (Auto) 2.0 1.0-4.0 X 10^3 Monocytes # (Auto) 0.8 0.0-1.0 X 10^3 Eosinophils # (Auto) 0.5 H 0.0-0.3 10^3/uL Basophils # (Auto) 0.1 0.0-0.1 10^3/uL Urine Color YELLOW Urine Clarity CLEAR Urine pH 6.5 5-9 Urine Specific [place] 1.020 1.016-1.022 Urine Protein NEGATIVE NEGATIVE Urine Glucose (UA) NEGATIVE NEGATIVE Urine Ketones NEGATIVE NEGATIVE Urine Nitrite NEGATIVE NEGATIVE Urine Bilirubin NEGATIVE NEGATIVE Urine Urobilinogen 1 NORMAL MG/DL Urine Leukocyte Esterase 1+ H NEGATIVE Urine RBC (Auto) NEGATIVE NEGATIVE Urine RBC NONE /HPF Urine WBC 0-2 /HPF Urine Crystals NONE /LPF Urine Bacteria TRACE /HPF Urine Casts NONE /LPF Urine Mucus NEGATIVE /LPF Urine Culture Indicated NO Sodium Level 144 135-145 MMOL/L Potassium Level 4.1 3.6-5.0 MMOL/L Chloride Level 107 98-107 MMOL/L Carbon Dioxide Level 24 21-32 MMOL/L Anion Gap 13 5-14 MMOL/L Blood Urea Nitrogen 12 7-18 MG/DL Creatinine 0.83 0.60-1.30 MG/DL Estimat Glomerular Filtration Rate > 60 BUN/Creatinine Ratio 14 Glucose Level 118 H 70-105 MG/DL Calcium Level 9.8 8.5-10.1 MG/DL Total Bilirubin 0.2 0.1-1.0 MG/DL Aspartate Amino Transf (AST/SGOT) 31 5-34 U/L Alanine Aminotransferase (ALT/SGPT) 37 0-55 U/L Alkaline Phosphatase 64 40-136 U/L Total Protein 7.3 6.4-8.2 GM/DL Albumin 4.3 3.2-4.5 GM/DL Lipase 13 8-78 U/L My Orders Orders - MIRANDA OSBORNE MD Ct Abd/Pelv W (Appendicitis) (09/21/17 09:46) Cbc With Automated Diff (09/21/17 09:46) Comprehensive Metabolic Panel (09/21/17 09:46) Lipase (09/21/17 09:46) Ua Culture If Indicated (09/21/17 09:46) Ns Iv 1000 Ml (Sodium Chloride 0.9%) (09/21/17 10:00) Iohexol Injection (Omnipaque 350 Mg/Ml 1 (09/21/17 10:00) Sodium Chloride Flush (Catheter Flush Sy (09/21/17 10:00) Ns (Ivpb) (Sodium Chloride 0.9% Ivpb Bag (09/21/17 10:00) Pharmacy Communication (Pharmacy Communi (09/21/17 09:53) Medications Given in ED Current Medications Medications Dose Ordered Sig/Omar Route Start Time Stop Time Status Last Admin Dose Admin Iohexol 100 ml ONCE ONCE IV 09/21/17 10:00 09/21/17 10:01 DC 09/21/17 10:04 100 ML Sodium Chloride 10 ml NEEDED PRN IV 09/21/17 10:00 09/21/17 10:04 10 ML Sodium Chloride 100 ml ONCE ONCE IV 09/21/17 10:00 09/21/17 10:01 DC 09/21/17 10:04 80 ML Vital Signs/I&O Vital Sign - Last 12Hours 09/21/17 09:05 Temp 96.8 Pulse 92 Resp 18 B/P (MAP) 127/81 (96) Pulse Ox 97 Blood Pressure Mean: 96 Progress Note : Time: 11:[address] of the abdomen and pelvis failed to demonstrate evidence of acute pathology. The patient's laboratory evaluation was similarly unremarkable. Patient received a liter of normal saline the emergency department. The patient stated that he felt somewhat improved. I believe the patient has a viral gastroenteritis. I do recommend clear liquids rest today. I asked patient to follow-up with his caregivers tomorrow. I invited him to return the emergency Department if any further problems. Departure Impression Impression: Primary Impression: Gastroenteritis Disposition: 01 HOME, SELF-CARE Condition: Improved Departure-Patient Inst. Decision time for Depature: 11:29 Referrals: [facility] (PCP) Primary Care Physician SEEMA GILBERT (Family) Primary Care Physician Patient Instructions: [id number] Add. Discharge Instructions: Clinical liquids today. Rest at home. Follow-up with doctor tomorrow. Return if any problems. All discharge instructions reviewed with patient and/or family. Voiced understanding. MIRANDA OSBORNE MD Sep 21, 2017 09:51
[2017-09-21 09:54] LABS: BASOPHILS # (AUTO) 0.1 10^3/uL (0.0-0.1); BASOPHILS % (AUTO) 1 % (0-10); BILIRUBIN,URINE NEGATIVE (NEGATIVE); EOSINOPHILS # (AUTO) 0.5 10^3/uL (0.0-0.3); EOSINOPHILS % (AUTO) 4 % (0-10); KETONES,URINE NEGATIVE (NEGATIVE); LEUKOCYTE ESTERASE ,URINE 1+ (NEGATIVE); LYMPHOCYTES % (AUTO) 16 % (12-44); MEAN CORPUSCULAR HEMOGLOBIN 32 PG (25-34); MEAN CORPUSCULAR HGB CONC 35 G/DL (32-36); MEAN CORPUSCULAR VOLUME 93 FL (80-99); MEAN PLATELET VOLUME 10.3 FL (7.4-10.4); MONOCYTES # (AUTO) 0.8 X 10^3 (0.0-1.0); MONOCYTES % (AUTO) 6 % (0-12); NEUTROPHILS # (AUTO) 9.3 X 10^3 (1.8-7.8); NEUTROPHILS % (AUTO) 73 % (42-75); NITRITE,URINE NEGATIVE (NEGATIVE); PH,URINE 6.5 (5-9); PLATELET COUNT 220 10^3/uL (130-400); PROTEIN,URINE NEGATIVE (NEGATIVE); RED BLOOD COUNT 5.31 10^6/uL (4.35-5.85); RED CELL DISTRIBUTION WIDTH 13.6 % (10.0-14.5); UROBILINOGEN,URINE 1 MG/DL (NORMAL); WHITE BLOOD COUNT 12.7 10^3/uL (4.3-11.0)
[2017-09-21] MEDS ORDERED: IOHEXOL 350 MG/ML 100 ML (OMNIPAQUE 350) VIAL IV ONE (10:00)
[2017-09-21] MEDS ORDERED: CATHETER FLUSH 10 ML SYR IV PRN (10:00)
[2017-09-21] MEDS ORDERED: NS 100 ML (IVPB) BAG IV ONE (10:00)
[2017-09-21] MEDS ORDERED: NS IV 1000 ML 1,000 ML IV SCH (10:00)
[2017-09-21 10:06] LABS: ALANINE AMINOTRANSFERASE 37 U/L (0-55); ALBUMIN 4.3 GM/DL (3.2-4.5); ANION GAP 13 MMOL/L (5-14); ASPARTATE AMINO TRANSFERASE 31 U/L (5-34); BILIRUBIN,TOTAL 0.2 MG/DL (0.1-1.0); BLOOD UREA NITROGEN 12 MG/DL (7-18); BUN/CREATININE RATIO 14; CALCIUM 9.8 MG/DL (8.5-10.1); CARBON DIOXIDE 24 MMOL/L (21-32); CHLORIDE 107 MMOL/L (98-107); CREATININE SERUM 0.83 MG/DL (0.60-1.30); GFR ESTIMATED > 60; GLUCOSE 118 MG/DL (70-105); LIPASE 13 U/L (8-78); POTASSIUM 4.1 MMOL/L (3.6-5.0); SODIUM 144 MMOL/L (135-145); TOTAL PROTEIN 7.3 GM/DL (6.4-8.2)
--- NOTE | 2017-09-21 10:21 | Diagnostic Imaging Report ---
PROCEDURE: CT abdomen and pelvis with contrast, rule out appendicitis. TECHNIQUE: Multiple contiguous axial images were obtained through the abdomen and pelvis after the administration of intravenous contrast. INDICATION: Mid abdominal pain and diarrhea. COMPARISON: None available. FINDINGS: Lower chest: The lung bases are clear. No pericardial or pleural effusion. Peritoneum: No free intraperitoneal air or fluid. Liver and biliary system: The liver is normal. The gallbladder is normal. No biliary duct dilation. Spleen and Pancreas: Spleen is normal. The pancreas enhances normally without mass lesion or peripancreatic inflammatory changes. Adrenals: Normal. tract: The kidneys enhance normally without suspicious mass or obstruction. Urinary bladder is incompletely distended with apparent wall thickening likely due to incomplete distention. Prostate is normal. GI tract: Stomach is mildly distended with fluid and there is no gastric wall thickening. No bowel obstruction. No pericolonic inflammatory changes. Normal appendix. Vasculature and Lymph nodes: Normal caliber aorta. No abdominal or pelvic lymphadenopathy. Musculoskeletal: No concerning osseous lesion. IMPRESSION: 1. No acute inflammatory or obstructive process in the abdomen or pelvis. 2. The appendix is normal. Dictated by: Dictated on workstation # [id number]
[2017-09-21 10:43] LABS: WBC,URINE 0-2 /HPF
[2017-09-21 12:05] VITALS: BP 123/79
== END 2017-09-21 12:00 | disposition home or self-care (01) ==
LOC: EDUNIT# 09:04 → ER 09:06
DX: K52.9 Noninfective gastroenteritis and colitis, unspecified (principal); F41.9 Anxiety disorder, unspecified; G47.9 Sleep disorder, unspecified; G40.909 Epilepsy, unspecified, not intractable, without status epilepticus; Z98.890 Other specified postprocedural states
CPT/HCPCS: 36415; 74177; 80053; 81000; 83690; 85025

== ENCOUNTER → 2017-11-27 | Outpatient (CLI) | payer MEDICAID | LOC: LAB 10:17 | PROVIDERS: ATTEND Psychiatry & Neurology Neurology | DX: G40.909 Epilepsy, unspecified, not intractable, without status epilepticus (principal); Z79.899 Other long term (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 | CPT/HCPCS: 36415; 80164 ==

== ENCOUNTER 2017-12-23 14:09 | Emergency (ER) | payer MEDICAID ==
[~2017-12-23] VITALS: Ht 175.3 cm; Wt 81.6 kg
--- NOTE | 2017-12-23 14:52 | ED General ---
General Chief Complaint: Psych/Social Disorder Stated Complaint: PSYCH ISSUES Source of Information: Patient Exam Limitations: No Limitations History of Present Illness Date Seen by Provider: Dec 23, 2017 Time Seen by Provider: 14:48 Initial Comments This individual actually disabled young man who is a [employer] client brought to the emergency room by his caregiver from [employer] with reports of "hearing voices ". Patient states that this just began after lunch today and that the voices are telling him to kill. He cannot elaborate on this and states that he does not want to kill himself or anybody that he lives with. He is not sure who the voices want him to kill. He does have extensive psychiatric issues and is on a plethora of psychiatric medications. He is established with [facility] Timing/Duration: 1 Hour Severity: Moderate Allergies and Home Medications Allergies Coded Allergies: No Known Drug Allergies (Unverified , 07/18/17) Home Medications Levetiracetam 500 Mg Tablet, 500 MG PO BID Prescribed by: ELROY GONZALEZ on 07/21/171718 Oxcarbazepine 600 Mg Tablet, 600 MG PO TID Prescribed by: ELROY GONZALEZ on 07/21/171718 Patient Home Medication List Home Medication List Reviewed: Yes Constitutional: see HPI EENTM: see HPI Respiratory: no symptoms reported Cardiovascular: no symptoms reported Genitourinary: no symptoms reported Musculoskeletal: no symptoms reported Skin: no symptoms reported Psychiatric/Neurological: See HPI Hematologic/Lymphatic: No Symptoms Reported Past Ynietqy-Zlstpr-Kyifle Hx Patient Social History Type Used: Cigarettes Recent Foreign Travel: No Contact w/Someone Who Travel: No Recent Hopitalizations: Yes (e.d.) Immunizations Up To Date Tetanus Booster (TDap): Unknown Seasonal Allergies Seasonal Allergies: No Surgeries History of Surgeries: Yes (UNKNOWN) Surgeries: Ear Surgery Respiratory History of Respiratory Disorde: No Cardiovascular History of Cardiac Disorders: No (UNKNOWN) Neurological History of Neurological Disord: Yes Neurological Disorders: Seizure Disorder Genitourinary History of Genitourinary Disor: Yes (urinary incontinence) Gastrointestinal History of Gastrointestinal Di: No Musculoskeletal History of Musculoskeletal Dis: No Endocrine History of Endocrine Disorders: No HEENT History of HEENT Disorders: No Cancer History of Cancer: No Psychosocial History of Psychiatric Problem: Yes (PSYCOSIS) Behavioral Health Disorders: Sleep Difficulties, Anxiety Integumentary History of Skin or Integumenta: No Family Medical History Significant Family History: No Pertinent Family Hx Physical Exam Vital Signs Vital Signs - First Documented 12/23/17 14:35 Temp 98.3 Pulse 81 Resp 18 B/P (MAP) 147/81 (103) Pulse Ox 97 Capillary Refill : General Appearance: No Apparent Distress, WD/WN Eyes: Bilateral Eye Normal Inspection, Bilateral Eye PERRL, Bilateral Eye EOMI HEENT: PERRL/EOMI, TMs Normal Neck: Full Range of Motion, Normal Inspection Respiratory: No Accessory Muscle Use, No Respiratory Distress Cardiovascular: Regular Rate, Rhythm, Normal Peripheral Pulses Gastrointestinal: Normal Bowel Sounds, Non Tender, Soft Extremity: Normal Capillary Refill, Normal Inspection Neurologic/Psychiatric: Alert, Oriented x3, No Motor/Sensory Deficits, Other ( he has alert cooperative and pleasant but states that he is still hearing voices ) Skin: Normal Color, Warm/Dry Progress/Results/Core Measures Suspected Sepsis SIRS Temperature: Pulse: Respiratory Rate: Laboratory Tests 12/23/17 14:55: White Blood Count 8.5 Blood Pressure / Mean: Laboratory Tests 12/23/17 14:55: Creatinine 0.74, Platelet Count 203, Total Bilirubin 0.3 Results/Orders Lab Results Laboratory Tests Test 12/23/17 14:55 12/23/17 15:00 Range/Units White Blood Count 8.5 4.3-11.0 10^3/uL Red Blood Count 4.98 4.35-5.85 10^6/uL Hemoglobin 16.3 13.3-17.7 G/DL Hematocrit 47 40-54 % Mean Corpuscular Volume 95 80-99 FL Mean Corpuscular Hemoglobin 33 25-34 PG Mean Corpuscular Hemoglobin Concent 35 32-36 G/DL Red Cell Distribution Width 13.4 10.0-14.5 % Platelet Count 203 130-400 10^3/uL Mean Platelet Volume 10.1 7.4-10.4 FL Neutrophils (%) (Auto) 63 42-75 % Lymphocytes (%) (Auto) 25 12-44 % Monocytes (%) (Auto) 6 0-12 % Eosinophils (%) (Auto) 5 0-10 % Basophils (%) (Auto) 1 0-10 % Neutrophils # (Auto) 5.3 1.8-7.8 X 10^3 Lymphocytes # (Auto) 2.1 1.0-4.0 X 10^3 Monocytes # (Auto) 0.5 0.0-1.0 X 10^3 Eosinophils # (Auto) 0.4 H 0.0-0.3 10^3/uL Basophils # (Auto) 0.1 0.0-0.1 10^3/uL Sodium Level 138 135-145 MMOL/L Potassium Level 3.7 3.6-5.0 MMOL/L Chloride Level 106 98-107 MMOL/L Carbon Dioxide Level 24 21-32 MMOL/L Anion Gap 8 5-14 MMOL/L Blood Urea Nitrogen 15 7-18 MG/DL Creatinine 0.74 0.60-1.30 MG/DL Estimat Glomerular Filtration Rate > 60 BUN/Creatinine Ratio 20 Glucose Level 119 H 70-105 MG/DL Calcium Level 9.1 8.5-10.1 MG/DL Total Bilirubin 0.3 0.1-1.0 MG/DL Aspartate Amino Transf (AST/SGOT) 32 5-34 U/L Alanine Aminotransferase (ALT/SGPT) 49 0-55 U/L Alkaline Phosphatase 54 40-136 U/L Total Protein 6.4 6.4-8.2 GM/DL Albumin 4.1 3.2-4.5 GM/DL Valproic Acid (Depakene) Level 45.6 L 50.0-100.0 UG/ML Urine Color YELLOW Urine Clarity SLIGHTLY CLOUDY Urine pH 6 5-9 Urine Specific [place] 1.020 1.016-1.022 Urine Protein NEGATIVE NEGATIVE Urine Glucose (UA) NEGATIVE NEGATIVE Urine Ketones NEGATIVE NEGATIVE Urine Nitrite NEGATIVE NEGATIVE Urine Bilirubin NEGATIVE NEGATIVE Urine Urobilinogen NORMAL NORMAL MG/DL Urine Leukocyte Esterase 1+ H NEGATIVE Urine RBC (Auto) 1+ H NEGATIVE Urine RBC 0-2 /HPF Urine WBC RARE /HPF Urine Squamous Epithelial Cells RARE /HPF Urine Crystals NONE /LPF Urine Bacteria NEGATIVE /HPF Urine Casts NONE /LPF Urine Mucus NEGATIVE /LPF Urine Culture Indicated NO Urine Opiates Screen NEGATIVE NEGATIVE Urine Oxycodone Screen NEGATIVE NEGATIVE Urine Methadone Screen NEGATIVE NEGATIVE Urine Propoxyphene Screen NEGATIVE NEGATIVE Urine Barbiturates Screen NEGATIVE NEGATIVE Ur Tricyclic Antidepressants Screen NEGATIVE NEGATIVE Urine Phencyclidine Screen NEGATIVE NEGATIVE Urine Amphetamines Screen NEGATIVE NEGATIVE Urine Methamphetamines Screen NEGATIVE NEGATIVE Urine Benzodiazepines Screen NEGATIVE NEGATIVE Urine Cocaine Screen NEGATIVE NEGATIVE Urine Cannabinoids Screen NEGATIVE NEGATIVE My Orders Orders - CECIL HEREDIA APRN Cbc With Automated Diff (12/23/17 14:48) Comprehensive Metabolic Panel (12/23/17 14:48) Valproic Acid (12/23/17 14:48) Ua Culture If Indicated (12/23/17 14:48) Drug Screen Stat (Urine) (12/23/17 14:48) Olanzapine Orally Dissolve Tab (Zyprexa (12/23/17 15:00) Medications Given in ED Current Medications Medications Dose Ordered Sig/Omar Route Start Time Stop Time Status Last Admin Dose Admin Olanzapine 5 mg ONCE ONCE PO 12/23/17 15:00 12/23/17 15:01 DC 12/23/17 15:07 5 MG Vital Signs/I&O Vital Sign - Last 12Hours 12/23/17 14:35 Temp 98.3 Pulse 81 Resp 18 B/P (MAP) 147/81 (103) Pulse Ox 97 Capillary Refill : Departure Communication (Admissions) Progress Notes 1600-I have made an appointment on the patient's behalf with [facility] nurse practitioner Allison Addison tomorrow at 5 PM. We will discharge him to home with his caregiver. Patient states the voices are gone, he no longer hears voices telling him to kill anyone, they're both ([employer] and caregiver) satisfied with plan to see [facility] tomorrow at 5 PM. Impression Impression: Primary Impression: Hallucinations Disposition: 01 HOME, SELF-CARE Condition: Stable Departure-Patient Inst. Decision time for Depature: 15:52 Referrals: [facility] (PCP/Family) Primary Care Physician Patient Instructions: NO INSTRUCTIONS GIVEN Add. Discharge Instructions: 1. Youre scheduled to see [facility] tomorrow at 5 PM. Return to ER for any concerns. All discharge instructions reviewed with patient and/or family. Voiced understanding. Copy Copies To 1: FRANCO JETER PETER J APRN Dec 23, 2017 14:52
[2017-12-23] MEDS ORDERED: OLANZapine 5 MG ODT (ZyPREXA ZYDIS) PO ONE (15:00)
[2017-12-23 15:09] LABS: BILIRUBIN,URINE NEGATIVE (NEGATIVE); CLARITY,URINE SLIGHTLY CLOUDY; COLOR,URINE YELLOW; GLUCOSE, URINE (UA) NEGATIVE (NEGATIVE); KETONES,URINE NEGATIVE (NEGATIVE); LEUKOCYTE ESTERASE ,URINE 1+ (NEGATIVE); NITRITE,URINE NEGATIVE (NEGATIVE); PH,URINE 6 (5-9); PROTEIN,URINE NEGATIVE (NEGATIVE); UROBILINOGEN,URINE NORMAL (NORMAL)
[2017-12-23 15:14] LABS: BASOPHILS # (AUTO) 0.1 10^3/uL (0.0-0.1); BASOPHILS % (AUTO) 1 % (0-10); EOSINOPHILS # (AUTO) 0.4 10^3/uL (0.0-0.3); EOSINOPHILS % (AUTO) 5 % (0-10); HEMATOCRIT 47 % (40-54); HEMOGLOBIN 16.3 G/DL (13.3-17.7); LYMPHOCYTES # (AUTO) 2.1 X 10^3 (1.0-4.0); LYMPHOCYTES % (AUTO) 25 % (12-44); MEAN CORPUSCULAR HEMOGLOBIN 33 PG (25-34); MEAN CORPUSCULAR HGB CONC 35 G/DL (32-36); MEAN CORPUSCULAR VOLUME 95 FL (80-99); MEAN PLATELET VOLUME 10.1 FL (7.4-10.4); MONOCYTES # (AUTO) 0.5 X 10^3 (0.0-1.0); MONOCYTES % (AUTO) 6 % (0-12); NEUTROPHILS # (AUTO) 5.3 X 10^3 (1.8-7.8); NEUTROPHILS % (AUTO) 63 % (42-75); PLATELET COUNT 203 10^3/uL (130-400); RED BLOOD COUNT 4.98 10^6/uL (4.35-5.85); RED CELL DISTRIBUTION WIDTH 13.4 % (10.0-14.5); WHITE BLOOD COUNT 8.5 10^3/uL (4.3-11.0)
[2017-12-23 15:17] LABS: BACTERIA,URINE NEGATIVE /HPF; RBC,URINE 0-2 /HPF; SQUAMOUS EPITHELIAL CELL,UR RARE /HPF; WBC,URINE RARE /HPF
[2017-12-23 15:35] LABS: ALANINE AMINOTRANSFERASE 49 U/L (0-55); ALBUMIN 4.1 GM/DL (3.2-4.5); ALKALINE PHOSPHATASE 54 U/L (40-136); BILIRUBIN,TOTAL 0.3 MG/DL (0.1-1.0); BUN/CREATININE RATIO 20; CALCIUM 9.1 MG/DL (8.5-10.1); CARBON DIOXIDE 24 MMOL/L (21-32); CHLORIDE 106 MMOL/L (98-107); CREATININE SERUM 0.74 MG/DL (0.60-1.30); GFR ESTIMATED > 60; GLUCOSE 119 MG/DL (70-105); POTASSIUM 3.7 MMOL/L (3.6-5.0); SODIUM 138 MMOL/L (135-145); TOTAL PROTEIN 6.4 GM/DL (6.4-8.2)
[2017-12-23 15:41] LABS: VALPROIC ACID 45.6 UG/ML (50.0-100.0)
[2017-12-23 15:50] LABS: AMPHETAMINE SCREEN, URINE NEGATIVE (NEGATIVE); BARBITURATE SCREEN URINE NEGATIVE (NEGATIVE); BENZODIAZEPINES SCREEN URINE NEGATIVE (NEGATIVE); CANNABINOID SCREEN, URINE NEGATIVE (NEGATIVE); COCAINE SCREEN URINE NEGATIVE (NEGATIVE); METHADONE STAT NEGATIVE (NEGATIVE); METHAMPHETAMINE SCREEN URINE S NEGATIVE (NEGATIVE); OPIATE SCREEN URINE NEGATIVE (NEGATIVE); TRICYCLIC ANTIDEPRESSANTS SCRE NEGATIVE (NEGATIVE)
[2017-12-23 15:51] LABS: OXYCODONE STAT NEGATIVE (NEGATIVE); PROPOXYPHENE STAT NEGATIVE (NEGATIVE)
[2017-12-23 16:01] VITALS: BP 147/81
== END 2017-12-23 16:01 | disposition home or self-care (01) ==
LOC: EDUNIT# 14:09 → ER 14:13
DX: R44.0 Auditory hallucinations (principal); G40.909 Epilepsy, unspecified, not intractable, without status epilepticus; F41.9 Anxiety disorder, unspecified; Z87.448 Personal history of other diseases of urinary system
CPT/HCPCS: 36415; 80053; 80164; 80306; 81000; 85025; 99283

== ENCOUNTER 2018-04-22 21:05 | Emergency (ER) | payer MEDICAID ==
[~2018-04-22] VITALS: Ht 175.3 cm; Wt 81.6 kg
[~2018-04-22 21:05] MED LIST changes: -CYPR4TAB; +CYPR4TAB41; +OLOP5DRO13; -OLOP5DRO7
--- OUTSIDE RECORDS SUMMARY | 2018-04-22 21:11 | XMS REPORT ---
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 Active 55654445 Problem Developmental delay, gross motor F82 Active 311093040 Problem Other schizophrenia F20.89 Active 95566281 Problem Intermittent explosive disorder F63.81 Active 18245417 Problem Schizophrenia, unspecified type F20.9 Active 38147777 Problem Adjustment disorder, unspecified type F43.20 Active 85461190 Problem ADHD (attention deficit hyperactivity disorder), combined type F90.2 Active 52899131 Problem ANA LILIA (generalized anxiety disorder) F41.1 Active 75917062 ALLERGIES No Information ENCOUNTERS Encounter Location Date Diagnosis [facility] [address] [id number] Apr, [facility] [address] [address] Apr, [facility] [id number] [place] [address] Apr, [facility] [address] [address] Apr, [facility] [address] [id number] Mar, Dental examination Z01.20 [facility] [address] [address] Mar, Schizophrenia, unspecified type F20.9 and Intermittent explosive disorder F63.81 [facility] [address], [place] [address] Mar, Acute nonintractable headache, unspecified headache type R51 [facility] [id number] [place] [address] February, Schizophrenia, unspecified type F20.9 ; ANA LILIA (generalized anxiety disorder) F41.1 ; Intermittent explosive disorder F63.81 and ADHD ( attention deficit hyperactivity disorder), combined type F90.2 [facility] [id number] [place] [address] February, Schizophrenia, unspecified type F20.9 and Intermittent explosive disorder F63.81 [facility] [id number] [place] [address] February, [facility] [id number] [place] [address] February, Schizophrenia, unspecified type F20.9 [facility] [id number] [place] [address] Jan, Schizophrenia, unspecified type F20.9 ; ANA LILIA (generalized anxiety disorder) F41.1 ; Intermittent explosive disorder F63.81 and ADHD ( attention deficit hyperactivity disorder), combined type F90.2 [facility] [address], [place] [address] Jan, Schizophrenia, unspecified type F20.9 and Intermittent explosive disorder F63.81 [facility] [address], [place] [address] Jan, Schizophrenia, unspecified type F20.9 ; ANA LILIA (generalized anxiety disorder) F41.1 ; Intermittent explosive disorder F63.81 and ADHD ( attention deficit hyperactivity disorder), combined type F90.2 [facility] [address], [place] [address] Jan, Schizophrenia, unspecified type F20.9 ; ANA LILIA (generalized anxiety disorder) F41.1 ; Intermittent explosive disorder F63.81 and ADHD ( attention deficit hyperactivity disorder), combined type F90.2 [facility] [address], [place] [address] Dec, [facility] [address] [place] [address] Dec, Schizophrenia, unspecified type F20.9 ; ANA LILIA (generalized anxiety disorder) F41.1 ; Intermittent explosive disorder F63.81 and ADHD ( attention deficit hyperactivity disorder), combined type F90.2 [facility] [address], [place] [address] Dec, [facility] [id number] [id number] Dec, Encounter for dental examination Z01.20 [facility] [address], [place] [address] Dec, Schizophrenia, unspecified type F20.9 ; ANA LILIA (generalized anxiety disorder) F41.1 ; Intermittent explosive disorder F63.81 and ADHD ( attention deficit hyperactivity disorder), combined type F90.2 [facility] [address], [place] [address] Dec, Schizophrenia, unspecified type F20.9 ; ANA LILIA (generalized anxiety disorder) F41.1 ; Intermittent explosive disorder F63.81 and ADHD ( attention deficit hyperactivity disorder), combined type F90.2 [facility] [address], [place] [address] Dec, Seizures R56.9 ; Intermittent explosive disorder F63.81 and Developmental delay, gross motor F82 [facility] [address], [place] [address] Nov, ANA LILIA (generalized anxiety disorder) F41.1 ; Intermittent explosive disorder F63.81 ; ADHD (attention deficit hyperactivity disorder), combined type F90.2 ; 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 ; Adjustment disorder, unspecified type F43.20 and Other schizophrenia F20.89 [facility] [address], [place] [address] Nov, Schizophrenia, unspecified type F20.9 [facility] [address] [place] [address] Oct, ANA LILIA (generalized anxiety disorder) F41.1 ; Intermittent explosive disorder F63.81 ; ADHD (attention deficit hyperactivity disorder), combined type F90.2 ; Other [facility]p (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 and Adjustment disorder, unspecified type F43.20 [facility] [address], [place] [address] Oct, Schizophrenia, unspecified type F20.9 ; ANA LILIA (generalized anxiety disorder) F41.1 ; Intermittent explosive disorder F63.81 and ADHD ( attention deficit hyperactivity disorder), combined type F90.2 [facility] [address] [id number] Oct, Dental examination Z01.20 [facility] [address], [place] [address] Oct, [facility] [address] [place] [address] Oct, 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 [facility] [address] [place] [address] Sep, ANA LILIA (generalized anxiety disorder) F41.1 ; Intermittent explosive disorder F63.81 ; ADHD (attention deficit hyperactivity disorder), combined type F90.2 ; Other [facility] (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 and Adjustment disorder, unspecified type F43.20 [facility] [id number] [address] Sep, Schizophrenia, unspecified type F20.9 ; ANA LILIA (generalized anxiety disorder) F41.1 ; Intermittent explosive disorder F63.81 ; ADHD ( attention deficit hyperactivity disorder), combined type F90.2 and 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 [facility] [id number] [address] 18 Sep, 2017 Gastroenteritis K52.9 [facility] [id number] [id number] 13 Sep, 2017 Encounter for dental examination Z01.20 [facility] [address] [place] [address] 22 Aug, 2017 Annual physical exam Z00.00 and Seizures R56.9 [facility] [address] [place] [address] 22 Aug, 2017 Adjustment disorder with disturbance of emotion F43.29 ; Developmental delay disorder R62.50 ; Developmental delay, gross motor F82 and 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 [facility] [address], [place] [address] 15 Aug, 2017 Moderate left ankle sprain, initial encounter S93.402A [facility] [address] [place] [address] 07 Aug, 2017 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 ; Developmental delay, gross motor F82 and Adjustment disorder with disturbance of emotion F43.29 [facility] [address], [place] [address] Aug, Fatigue, unspecified type R53.83 IMMUNIZATIONS No Known Immunizations SOCIAL HISTORY Never Assessed REASON FOR VISIT medication PLAN OF CARE VITAL SIGNS MEDICATIONS Medication Instructions Dosage Frequency Start Date End Date Duration Status Abilify 5 mg Orally Once a day at 4 PM 1 tablet Oct, 30 day(s ) Active RESULTS No Results PROCEDURES No Known procedures INSTRUCTIONS MEDICATIONS ADMINISTERED No Known Medications MEDICAL (GENERAL) HISTORY Type Description Date Medical History Schizophrenia Medical History Intermitten Explosive Disorder Medical History Generalized anxiety disorder Medical History Moderate intellectual disability Medical History Bipolar Medical History asthma exercise induced Medical History Seizure disorder Surgical History Tubes in ears
--- OUTSIDE RECORDS SUMMARY | 2018-04-22 21:11 | XMS REPORT ---
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 93200836 Problem Developmental delay, gross motor F82 Active 649184964 Problem Other schizophrenia F20.89 Active 30790205 Problem Intermittent explosive disorder F63.81 Active 73364359 Problem Schizophrenia, unspecified type F20.9 Active 02953183 Problem Adjustment disorder, unspecified type F43.20 Active 04143814 Problem ADHD (attention deficit hyperactivity disorder), combined type F90.2 Active 86275225 Problem ANA LILIA (generalized anxiety disorder) F41.1 Active 03316851 ALLERGIES No Information ENCOUNTERS Encounter Location Date Diagnosis [facility] [address] [address] Apr, [facility] [id number] [place] [address] Apr, [facility] [id number] [place] [phone] Mar, [facility] [id number] [place] [address] Mar, [facility] [address] [address] February, Schizophrenia, unspecified type F20.9 ; ANA LILIA (generalized anxiety disorder) F41.1 ; Intermittent explosive disorder F63.81 and ADHD ( attention deficit hyperactivity disorder), combined type F90.2 [facility] [address] [address] February, Schizophrenia, unspecified type F20.9 and Intermittent explosive disorder F63.81 [facility] [address], [place] [address] February, [place] [address] [address] February, Schizophrenia, unspecified type F20.9 [place] [address], [place] [address] Jan, Schizophrenia, unspecified type F20.9 ; ANA LILIA (generalized anxiety disorder) F41.1 ; Intermittent explosive disorder F63.81 and ADHD ( attention deficit hyperactivity disorder), combined type F90.2 [place] [address], [place] [address] Jan, Schizophrenia, unspecified type F20.9 and Intermittent explosive disorder F63.81 [place] [address], [place] [address] Jan, Schizophrenia, unspecified type F20.9 ; ANA LILIA (generalized anxiety disorder) F41.1 ; Intermittent explosive disorder F63.81 and ADHD ( attention deficit hyperactivity disorder), combined type F90.2 [place] [address], [place] [address] Jan, Schizophrenia, unspecified type F20.9 ; ANA LILIA (generalized anxiety disorder) F41.1 ; Intermittent explosive disorder F63.81 and ADHD ( attention deficit hyperactivity disorder), combined type F90.2 [place] [address] [address] Dec, [place] [address] [address] Dec, Schizophrenia, unspecified type F20.9 ; ANA LILIA (generalized anxiety disorder) F41.1 ; Intermittent explosive disorder F63.81 and ADHD ( attention deficit hyperactivity disorder), combined type F90.2 [place] [address], [place] [address] Dec, [facility] [id number] [id number] Dec, Encounter for dental examination Z01.20 [facility] [address], [place] [address] Dec, Schizophrenia, unspecified type F20.9 ; ANA LILIA (generalized anxiety disorder) F41.1 ; Intermittent explosive disorder F63.81 and ADHD ( attention deficit hyperactivity disorder), combined type F90.2 [facility] [address], [place] [address] Dec, Schizophrenia, unspecified type F20.9 ; ANA LILIA (generalized anxiety disorder) F41.1 ; Intermittent explosive disorder F63.81 and ADHD ( attention deficit hyperactivity disorder), combined type F90.2 [place] [address], [place] [address] Dec, Seizures R56.9 ; Intermittent explosive disorder F63.81 and Developmental delay, gross motor F82 [facility] [address] [place] [address] Nov, ANA LILIA (generalized anxiety disorder) F41.1 ; Intermittent explosive disorder F63.81 ; ADHD (attention deficit hyperactivity disorder), combined type F90.2 ; Other group home (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 ; Adjustment disorder, unspecified type F43.20 and Other schizophrenia F20.89 [facility] [address], [place] [address] Nov, Schizophrenia, unspecified type F20.9 [facility] [address], [place] [address] Oct, ANA LILIA (generalized anxiety disorder) F41.1 ; Intermittent explosive disorder F63.81 ; ADHD (attention deficit hyperactivity disorder), combined type F90.2 ; Other group home (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 and Adjustment disorder, unspecified type F43.20 [facility] [address], [place] [address] Oct, Schizophrenia, unspecified type F20.9 ; ANA LILIA (generalized anxiety disorder) F41.1 ; Intermittent explosive disorder F63.81 and ADHD ( attention deficit hyperactivity disorder), combined type F90.2 [facility] [address] [place] [id number] Oct, Dental examination Z01.20 [facility] [id number] [place] [address] Oct, [facility] [id number] [place] [address]- [address] Oct, 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 [facility] [id number] [place] [address]- [address] Sep, ANA LILIA (generalized anxiety disorder) F41.1 ; Intermittent explosive disorder F63.81 ; ADHD (attention deficit hyperactivity disorder), combined type F90.2 ; 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 and Adjustment disorder, unspecified type F43.20 [facility] [id number] [place] [address] Sep, Schizophrenia, unspecified type F20.9 ; ANA LILIA (generalized anxiety disorder) F41.1 ; Intermittent explosive disorder F63.81 ; ADHD ( attention deficit hyperactivity disorder), combined type F90.2 and Other group home (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 [facility] [address] [place] [address]- [address] Sep, Gastroenteritis K52.9 [facility] [id number] [place] [phone] Sep, Encounter for dental examination Z01.20 [facility] [address] [place] [address] Aug, Annual physical exam Z00.00 and Seizures R56.9 [facility] [address] [address] Aug, Adjustment disorder with disturbance of emotion F43.29 ; Developmental delay disorder R62.50 ; Developmental delay, gross motor F82 and 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 [facility] [address], [place] [address] Aug, Moderate left ankle sprain, initial encounter S93.402A [facility] [address] [place] [address] Aug, 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 ; Developmental delay, gross motor F82 and Adjustment disorder with disturbance of emotion F43.29 [facility] [address] [place] [address] [address] Aug, Fatigue, unspecified type R53.83 IMMUNIZATIONS No Known Immunizations SOCIAL HISTORY Never Assessed REASON FOR VISIT Eye Exam PLAN OF CARE VITAL SIGNS MEDICATIONS Unknown Medications RESULTS No Results PROCEDURES No Known procedures INSTRUCTIONS MEDICATIONS ADMINISTERED No Known Medications MEDICAL (GENERAL) HISTORY Type Description Date Medical History Schizophrenia Medical History Intermitten Explosive Disorder Medical History Generalized anxiety disorder Medical History Moderate intellectual disability Medical History Bipolar Medical History asthma exercise induced Medical History Seizure disorder Surgical History Tubes in ears
--- OUTSIDE RECORDS SUMMARY | 2018-04-22 21:11 | XMS REPORT ---
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 Active 45057848 Problem Developmental delay, gross motor F82 Active 130954375 Problem Other schizophrenia F20.89 Active 50838207 Problem Intermittent explosive disorder F63.81 Active 28147995 Problem Schizophrenia, unspecified type F20.9 Active 32223822 Problem Adjustment disorder, unspecified type F43.20 Active 29612417 Problem ADHD (attention deficit hyperactivity disorder), combined type F90.2 Active 58637003 Problem ANA LILIA (generalized anxiety disorder) F41.1 Active 01168959 ALLERGIES Substance Reaction Event Type Date Status Augmentin Unknown Drug Allergy Sep, Active Latex Unknown Non Drug Allergy Sep, Active ENCOUNTERS Encounter Location Date Diagnosis [facility] [address] [place] [address] Apr, [facility] [id number] [place] [address]- [address] Apr, [facility] [address] [place] [phone] Mar, [facility] [address] [address] Mar, [facility] [id number] [place] [address]- [address] February, Schizophrenia, unspecified type F20.9 ; ANA LILIA (generalized anxiety disorder) F41.1 ; Intermittent explosive disorder F63.81 and ADHD ( attention deficit hyperactivity disorder), combined type F90.2 [facility] [address], [place] [address] February, Schizophrenia, unspecified type F20.9 and Intermittent explosive disorder F63.81 [facility] [address], [place] [address] February, [place] [id number] [place] [address]- [address] February, Schizophrenia, unspecified type F20.9 [place] [id number] [place] [address]- [address] Jan, Schizophrenia, unspecified type F20.9 ; ANA LILIA (generalized anxiety disorder) F41.1 ; Intermittent explosive disorder F63.81 and ADHD ( attention deficit hyperactivity disorder), combined type F90.2 [place] [id number] [place] [address]- [address] Jan, Schizophrenia, unspecified type F20.9 and Intermittent explosive disorder F63.81 [place] [address], [place] [address] Jan, Schizophrenia, unspecified type F20.9 ; ANA LILIA (generalized anxiety disorder) F41.1 ; Intermittent explosive disorder F63.81 and ADHD ( attention deficit hyperactivity disorder), combined type F90.2 [place] [address], [place] [address]- [address] Jan, Schizophrenia, unspecified type F20.9 ; ANA LILIA (generalized anxiety disorder) F41.1 ; Intermittent explosive disorder F63.81 and ADHD ( attention deficit hyperactivity disorder), combined type F90.2 [facility] [id number] [place] [address]65- 9073 Dec, [facility] [address] [place] [address] 83921- [address]288 Dec, Schizophrenia, unspecified type F20.9 ; ANA LILIA (generalized anxiety disorder) F41.1 ; Intermittent explosive disorder F63.81 and ADHD ( attention deficit hyperactivity disorder), combined type F90.2 [facility] [place] [address], [place] [address] Dec, [facility] [address] [id number] Dec, Encounter for dental examination Z01.20 [facility] [address] [place] [address] 25238- [address]64 Dec, Schizophrenia, unspecified type F20.9 ; ANA LILIA (generalized anxiety disorder) F41.1 ; Intermittent explosive disorder F63.81 and ADHD ( attention deficit hyperactivity disorder), combined type F90.2 [facility] [address] [place] [address] 23556- 2249 Dec, Schizophrenia, unspecified type F20.9 ; ANA LILIA (generalized anxiety disorder) F41.1 ; Intermittent explosive disorder F63.81 and ADHD ( attention deficit hyperactivity disorder), combined type F90.2 [facility] [address], [place] [address] Dec, Seizures R56.9 ; Intermittent explosive disorder F63.81 and Developmental delay, gross motor F82 [facility] [address], [place] [address] Nov, ANA LILIA (generalized anxiety disorder) F41.1 ; Intermittent explosive disorder F63.81 ; ADHD (attention deficit hyperactivity disorder), combined type F90.2 ; 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 ; Adjustment disorder, unspecified type F43.20 and Other schizophrenia F20.89 [facility] [place] [address], [place] [address]- [address] Nov, Schizophrenia, unspecified type F20.9 [facility] [place] [address], [place] [address]- [address] Oct, ANA LILIA (generalized anxiety disorder) F41.1 ; Intermittent explosive disorder F63.81 ; ADHD (attention deficit hyperactivity disorder), combined type F90.2 ; 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 and Adjustment disorder, unspecified type F43.20 [facility] [place] [id number] [place] [address] 8[address]79- [address] Oct, Schizophrenia, unspecified type F20.9 ; ANA LILIA (generalized anxiety disorder) F41.1 ; Intermittent explosive disorder F63.81 and ADHD ( attention deficit hyperactivity disorder), combined type F90.2 [facility] [address] [place] [phone] Oct, Dental examination Z01.20 [facility] [place] [id number] [place] [address]6582- [address] Oct, [facility] [place] [id number] [place] [address] 268[address]- 9804 Oct, Other snf (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 [facility] [id number] [place] [address]42- 9348 Sep, ANA LILIA (generalized anxiety disorder) F41.1 ; Intermittent explosive disorder F63.81 ; ADHD (attention deficit hyperactivity disorder), combined type F90.2 ; Other snf (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 and Adjustment disorder, unspecified type F43.20 [facility] [address] [place] [address] 21454- 78[address] Sep, Schizophrenia, unspecified type F20.9 ; ANA LILIA (generalized anxiety disorder) F41.1 ; Intermittent explosive disorder F63.81 ; ADHD ( attention deficit hyperactivity disorder), combined type F90.2 and 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 [facility] [id number] [place] [address] 01027- 3316 Sep, Gastroenteritis K52.9 [facility] [address] [place] [phone] Sep, Encounter for dental examination Z01.20 [facility] [id number] [place] [address] 12954- 1066 Aug, Annual physical exam Z00.00 and Seizures R56.9 [facility] [address], [place] [address] Aug, Adjustment disorder with disturbance of emotion F43.29 ; Developmental delay disorder R62.50 ; Developmental delay, gross motor F82 and 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 [facility] [address], [place] [address] Aug, 2017 Moderate left ankle sprain, initial encounter S93.402A [facility] [place] [address], [place] [address] 07 Aug, 2017 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 ; Developmental delay, gross motor F82 and Adjustment disorder with disturbance of emotion F43.29 [facility] [address], [place] [address] Aug, Fatigue, unspecified type R53.83 IMMUNIZATIONS No Known Immunizations SOCIAL HISTORY Never Assessed REASON FOR VISIT stomach cramps----DBennettRN, [facility] f/u 09/21/17, gastroenteritis PLAN OF CARE Activity Details Follow Up prn Reason: VITAL SIGNS Weight 195 lbs 2017-09-22 Temperature 98.4 degrees Fahrenheit 2017-09-22 Heart Rate 90 bpm 2017-09-22 Respiratory Rate 20 2017-09-22 Blood pressure systolic 120 mmHg 2017-09-22 Blood pressure diastolic 80 mmHg 2017-09-22 MEDICATIONS Medication Instructions Dosage Frequency Start Date End Date Duration Status Melatonin 3 MG Orally Once a day 1 tablet at bedtime as needed with food 24h Active Acetaminophen 500 MG Orally every 6 hrs 2 capsules as needed 6h Active Levetiracetam 500 MG Orally Twice a day 1 tablet 12h Active Loxitane 10 MG Orally HS 1 capsule Active Chlorhexidine - Active Aripiprazole 10 MG Orally BID 1 tablet 12h Active Siltussin SA 100 MG/5ML Orally every 4 hrs 10 ml as needed 4h Active Clindamycin-Benzoyl Per-Cleans 1-5 % Active Oxcarbazepine 600 MG Orally TID 1 tablet 8h Active Thera M Plus - Active BusPIRone HCl 10 MG Orally Twice a day 1 tablet 12h Active Desmopressin Acetate 0.2 MG Orally Once a day 2 tablet at bedtime 24h Active Olopatadine HCl 0.1 % Ophthalmic TID 1 drop into affected eye 8h Active Benztropine Mesylate 1 MG Orally BID 1 tablet at bedtime 12h Active Cyproheptadine HCl 4 MG Orally HS 2 tablet Active Divalproex Sodium 500 mg Orally at bedtime 1 tablet Active RESULTS No Results PROCEDURES No Known procedures INSTRUCTIONS MEDICATIONS ADMINISTERED No Known Medications MEDICAL (GENERAL) HISTORY Type Description Date Medical History Schizophrenia Medical History Intermitten Explosive Disorder Medical History Generalized anxiety disorder Medical History Moderate intellectual disability Medical History Bipolar Medical History asthma exercise induced Medical History Seizure disorder Surgical History Tubes in ears
--- OUTSIDE RECORDS SUMMARY | 2018-04-22 21:11 | XMS REPORT ---
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 Active 62794301 Problem Developmental delay, gross motor F82 Active 879833814 Problem Other schizophrenia F20.89 Active 18332762 Problem Intermittent explosive disorder F63.81 Active 49424035 Problem Schizophrenia, unspecified type F20.9 Active 17116003 Problem Adjustment disorder, unspecified type F43.20 Active 09917451 Problem ADHD (attention deficit hyperactivity disorder), combined type F90.2 Active 61088653 Problem ANA LILIA (generalized anxiety disorder) F41.1 Active 76098022 ALLERGIES No Known Allergies ENCOUNTERS Encounter Location Date Diagnosis [facility] [address] [id number] Mar, [facility] [id number] [place] [address] 07641[address] 5016 Mar, [facility] [id number] [place] [address] 92430- 4463 February, [facility] [id number] [place] [address] 55503- 1704 February, Schizophrenia, unspecified type F20.9 and Intermittent explosive disorder F63.81 [facility] [id number] [place] [address] 92694- 5394 February, [facility] [id number] [place] [address] 94753- 4895 February, Schizophrenia, unspecified type F20.9 [place] [address], [place] [address] Jan, Schizophrenia, unspecified type F20.9 ; ANA LILIA (generalized anxiety disorder) F41.1 ; Intermittent explosive disorder F63.81 and ADHD ( attention deficit hyperactivity disorder), combined type F90.2 [facility] [address], [place] [address] Jan, Schizophrenia, unspecified type F20.9 and Intermittent explosive disorder F63.81 [facility] [address], [place] [address] Jan, Schizophrenia, unspecified type F20.9 ; ANA LILIA (generalized anxiety disorder) F41.1 ; Intermittent explosive disorder F63.81 and ADHD ( attention deficit hyperactivity disorder), combined type F90.2 [facility] [address], [place] [address] Jan, Schizophrenia, unspecified type F20.9 ; ANA LILIA (generalized anxiety disorder) F41.1 ; Intermittent explosive disorder F63.81 and ADHD ( attention deficit hyperactivity disorder), combined type F90.2 [facility] [address] [place] [address] 27289[address] Dec, [facility] [address], [place] [address] Dec, Schizophrenia, unspecified type F20.9 ; ANA LILIA (generalized anxiety disorder) F41.1 ; Intermittent explosive disorder F63.81 and ADHD ( attention deficit hyperactivity disorder), combined type F90.2 [facility] [address], [place] [address] Dec, [facility] [address] [place] [id number] Dec, Encounter for dental examination Z01.20 [facility] [address], [place] [address] Dec, Schizophrenia, unspecified type F20.9 ; ANA LILIA (generalized anxiety disorder) F41.1 ; Intermittent explosive disorder F63.81 and ADHD ( attention deficit hyperactivity disorder), combined type F90.2 [facility] [address] [place] [address] 63062- 3840 Dec, Schizophrenia, unspecified type F20.9 ; ANA LILIA (generalized anxiety disorder) F41.1 ; Intermittent explosive disorder F63.81 and ADHD ( attention deficit hyperactivity disorder), combined type F90.2 [facility] [id number] [place] [address] 24452- 9364 Dec, Seizures R56.9 ; Intermittent explosive disorder F63.81 and Developmental delay, gross motor F82 [facility] [id number] [place] [address] 46823- 4351 Nov, ANA LILIA (generalized anxiety disorder) F41.1 ; Intermittent explosive disorder F63.81 ; ADHD (attention deficit hyperactivity disorder), combined type F90.2 ; 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 ; Adjustment disorder, unspecified type F43.20 and Other schizophrenia F20.89 [facility] [address], [place] [address] Nov, Schizophrenia, unspecified type F20.9 [facility] [address] [place] [address] 20237- 7315 Oct, ANA LILIA (generalized anxiety disorder) F41.1 ; Intermittent explosive disorder F63.81 ; ADHD (attention deficit hyperactivity disorder), combined type F90.2 ; 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 and Adjustment disorder, unspecified type F43.20 [facility] [address], [place] [address] Oct, Schizophrenia, unspecified type F20.9 ; ANA LILIA (generalized anxiety disorder) F41.1 ; Intermittent explosive disorder F63.81 and ADHD ( attention deficit hyperactivity disorder), combined type F90.2 [facility] [address] [id number] Oct, Dental examination Z01.20 [facility] [address] [place] [address] 82113- 2566 03 Oct, 2017 [facility] [id number] [place] [address] 76383- 3876 Oct, Other prison (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 [facility] [id number] [place] [address] 65213- 9892 Sep, ANA LILIA (generalized anxiety disorder) F41.1 ; Intermittent explosive disorder F63.81 ; ADHD (attention deficit hyperactivity disorder), combined type F90.2 ; Other prison (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 and Adjustment disorder, unspecified type F43.20 [facility] [id number] [place] [address] 74884- 1229 Sep, Schizophrenia, unspecified type F20.9 ; ANA LILIA (generalized anxiety disorder) F41.1 ; Intermittent explosive disorder F63.81 ; ADHD ( attention deficit hyperactivity disorder), combined type F90.2 and 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 [facility] [id number] [place] [address] 04138- 5018 18 Sep, 2017 Gastroenteritis K52.9 [facility] [id number] [place] [address] [id number] 13 Sep, 2017 Encounter for dental examination Z01.20 [facility] [id number] [place] [address] 06192- 6132 22 Aug, 2017 Annual physical exam Z00.00 and Seizures R56.9 [facility] [id number] [place] [address] 78580- 9931 22 Aug, 2017 Adjustment disorder with disturbance of emotion F43.29 ; Developmental delay disorder R62.50 ; Developmental delay, gross motor F82 and 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 [facility] [address] [place] [address] 68042 -7158 15 Aug, 2017 Moderate left ankle sprain, initial encounter S93.402A [facility] [address] [facility] [id number] [place] [address] Aug, 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 ; Developmental delay, gross motor F82 and Adjustment disorder with disturbance of emotion F43.29 [facility] [address] [facility] [id number] [place] [address] Aug, Fatigue, unspecified type R53.83 IMMUNIZATIONS No Known Immunizations SOCIAL HISTORY Never Assessed REASON FOR VISIT Fell today and injured left foot/ankle JStrasseRRN PLAN OF CARE VITAL SIGNS Weight 195.4 lbs 2017-08-20 Temperature 98.9 degrees Fahrenheit 2017-08-20 Heart Rate 92 bpm 2017-08-20 Respiratory Rate 22 2017-08-20 Blood pressure systolic 140 mmHg 2017-08-20 Blood pressure diastolic 90 mmHg 2017-08-20 MEDICATIONS Medication Instructions Dosage Frequency Start Date End Date Duration Status Loxitane 10 MG Orally HS 1 capsule Active Chlorhexidine - Active Oxcarbazepine 600 MG Orally TID 1 tablet 8h Active Melatonin 3 MG Orally Once a day 1 tablet at bedtime as needed with food 24h Active Siltussin SA 100 MG/5ML Orally every 4 hrs 10 ml as needed 4h Active Benztropine Mesylate 1 MG Orally BID 1 tablet at bedtime 12h Active Cyproheptadine HCl 4 MG Orally HS 2 tablet Active Acetaminophen 500 MG Orally every 6 hrs 2 capsules as needed 6h Active Thera M Plus - Active Clindamycin-Benzoyl Per-Cleans 1-5 % Active BusPIRone HCl 10 MG Orally Twice a day 1 tablet 12h Active Olopatadine HCl 0.1 % Ophthalmic TID 1 drop into affected eye 8h Active Levetiracetam 500 MG Orally Twice a day 1 tablet 12h Active Aripiprazole 10 MG Orally BID 1 tablet 12h Active Desmopressin Acetate 0.2 MG Orally Once a day 2 tablet at bedtime 24h Active RESULTS Name Result Date Reference Range Xray : Ankle, Left, 3 views (IN HOUSE) 2017-08-20 PROCEDURES Procedure Date Ordered Result Body Site X-RAY EXAM OF ANKLE Aug 20, 2017 INSTRUCTIONS MEDICATIONS ADMINISTERED No Known Medications MEDICAL (GENERAL) HISTORY Type Description Date Medical History Schizophrenia Medical History Intermitten Explosive Disorder Medical History Generalized anxiety disorder Medical History Moderate intellectual disability Medical History Bipolar Medical History asthma exercise induced Medical History Seizure disorder Surgical History Tubes in ears
--- OUTSIDE RECORDS SUMMARY | 2018-04-22 21:12 | XMS REPORT ---
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 Active 36146979 Problem Developmental delay, gross motor F82 Active 836397620 Problem Other schizophrenia F20.89 Active 31099399 Problem Intermittent explosive disorder F63.81 Active 74754012 Problem Schizophrenia, unspecified type F20.9 Active 25000293 Problem Adjustment disorder, unspecified type F43.20 Active 06317444 Problem ADHD (attention deficit hyperactivity disorder), combined type F90.2 Active 41202954 Problem ANA LILIA (generalized anxiety disorder) F41.1 Active 73138162 ALLERGIES No Information ENCOUNTERS Encounter Location Date Diagnosis [facility] [id number] [place] [id number] Mar, [facility] [id number] [place] [address] 48893- 5542 February, [facility] [id number] [place] [address] 07369- 8455 February, [facility] [id number] [place] [address] 34883- 8927 February, [facility] [id number] [place] [address] 01390- 9646 February, Schizophrenia, unspecified type F20.9 [facility] [id number] [place] [address] 06011- 8160 Jan, Schizophrenia, unspecified type F20.9 ; ANA LILIA (generalized anxiety disorder) F41.1 ; Intermittent explosive disorder F63.81 and ADHD ( attention deficit hyperactivity disorder), combined type F90.2 [facility] [id number] [place] [address] 07147- 3785 Jan, Schizophrenia, unspecified type F20.9 and Intermittent explosive disorder F63.81 [facility] [id number] [place] [address] 77004- 7633 Jan, Schizophrenia, unspecified type F20.9 ; ANA LILIA (generalized anxiety disorder) F41.1 ; Intermittent explosive disorder F63.81 and ADHD ( attention deficit hyperactivity disorder), combined type F90.2 [facility] [id number] [place] [address] 22019- 6256 Jan, Schizophrenia, unspecified type F20.9 ; ANA LILIA (generalized anxiety disorder) F41.1 ; Intermittent explosive disorder F63.81 and ADHD ( attention deficit hyperactivity disorder), combined type F90.2 [facility] [id number] [place] [address] 81754- 6592 Dec, [facility] [id number] [place] [address] 37705- 9302 Dec, Schizophrenia, unspecified type F20.9 ; ANA LILIA (generalized anxiety disorder) F41.1 ; Intermittent explosive disorder F63.81 and ADHD ( attention deficit hyperactivity disorder), combined type F90.2 [facility] [id number] [place] [address] 58209- 8316 Dec, [facility] [id number] [place] [address] [id number] Dec, Encounter for dental examination Z01.20 [facility] [id number] [place] [address] 18444- 3837 Dec, Schizophrenia, unspecified type F20.9 ; ANA LILIA (generalized anxiety disorder) F41.1 ; Intermittent explosive disorder F63.81 and ADHD ( attention deficit hyperactivity disorder), combined type F90.2 [facility] [id number] [place] [address] 55319- 6689 Dec, Schizophrenia, unspecified type F20.9 ; ANA LILIA (generalized anxiety disorder) F41.1 ; Intermittent explosive disorder F63.81 and ADHD ( attention deficit hyperactivity disorder), combined type F90.2 [facility] [id number] [place] [address] 85146- 3865 Dec, Seizures R56.9 ; Intermittent explosive disorder F63.81 and Developmental delay, gross motor F82 [facility] [id number] [place] [address] 74201- 7252 Nov, ANA LILIA (generalized anxiety disorder) F41.1 ; Intermittent explosive disorder F63.81 ; ADHD (attention deficit hyperactivity disorder), combined type F90.2 ; Other assisted (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 ; Adjustment disorder, unspecified type F43.20 and Other schizophrenia F20.89 [facility] [id number] [place] [address] 86410- 5682 Nov, Schizophrenia, unspecified type F20.9 [facility] [id number] [place] [address] 96806- 4845 Oct, ANA LILIA (generalized anxiety disorder) F41.1 ; Intermittent explosive disorder F63.81 ; ADHD (attention deficit hyperactivity disorder), combined type F90.2 ; Other assisted (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 and Adjustment disorder, unspecified type F43.20 [facility] [id number] [place] [address] 90344- 0630 Oct, Schizophrenia, unspecified type F20.9 ; ANA LILIA (generalized anxiety disorder) F41.1 ; Intermittent explosive disorder F63.81 and ADHD ( attention deficit hyperactivity disorder), combined type F90.2 [facility] [id number] [place] [address] [id number] Oct, Dental examination Z01.20 [facility] [address], [place] [address] Oct, [facility] [id number] [place] [address] 54737- 4277 Oct, 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 [facility] [id number] [place] [address] 01779- 4358 Sep, ANA LILIA (generalized anxiety disorder) F41.1 ; Intermittent explosive disorder F63.81 ; ADHD (attention deficit hyperactivity disorder), combined type F90.2 ; 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 and Adjustment disorder, unspecified type F43.20 [facility] [id number] [place] [address] 15914- 0428 21 Sep, 2017 Schizophrenia, unspecified type F20.9 ; ANA LILIA (generalized anxiety disorder) F41.1 ; Intermittent explosive disorder F63.81 ; ADHD ( attention deficit hyperactivity disorder), combined type F90.2 and 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 [facility] [id number] [place] [address] 83888- 4528 18 Sep, 2017 Gastroenteritis K52.9 [facility] [address] [id number] 13 Sep, 2017 Encounter for dental examination Z01.20 [facility] [id number] [place] [address] 49201- 9219 22 Aug, 2017 Annual physical exam Z00.00 and Seizures R56.9 [facility] [id number] [place] [address] 76298- 2656 Aug, Adjustment disorder with disturbance of emotion F43.29 ; Developmental delay disorder R62.50 ; Developmental delay, gross motor F82 and 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 [facility] [id number] [place] [address] 22930 -8450 15 Aug, 2017 Moderate left ankle sprain, initial encounter S93.402A [facility] [address] [place] [address] 33058- 7218 07 Aug, 2017 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 ; Developmental delay, gross motor F82 and Adjustment disorder with disturbance of emotion F43.29 [facility] [address] [facility] [id number] [place] [address] Aug, Fatigue, unspecified type R53.83 IMMUNIZATIONS No Known Immunizations SOCIAL HISTORY Never Assessed REASON FOR VISIT Fatigue since starting new meds JStrasserRN PLAN OF CARE Activity Details Follow Up prn Reason: VITAL SIGNS Weight 192 lbs 2017-08-06 Temperature 99.3 degrees Fahrenheit 2017-08-06 Heart Rate 80 bpm 2017-08-06 Respiratory Rate 20 2017-08-06 Blood pressure systolic 130 mmHg 2017-08-06 Blood pressure diastolic 90 mmHg 2017-08-06 MEDICATIONS Medication Instructions Dosage Frequency Start Date End Date Duration Status Thera M Plus - Active Benztropine Mesylate 1 MG Orally BID 1 tablet at bedtime 12h Active Acetaminophen 500 MG Orally every 6 hrs 2 capsules as needed 6h Active Chlorhexidine - Active Aripiprazole 10 MG Orally BID 1 tablet 12h Active Olopatadine HCl 0.1 % Ophthalmic TID 1 drop into affected eye 8h Active Oxcarbazepine 600 MG Orally TID 1 tablet 8h Active BusPIRone HCl 10 MG Orally Twice a day 1 tablet 12h Active Desmopressin Acetate 0.2 MG Orally Once a day 2 tablet at bedtime 24h Active Cyproheptadine HCl 4 MG Orally HS 2 tablet Active Loxitane 10 MG Orally HS 1 capsule Active Clindamycin-Benzoyl Per-Cleans 1-5 % Active Siltussin SA 100 MG/5ML Orally every 4 hrs 10 ml as needed 4h Active Melatonin 3 MG Orally Once a day 1 tablet at bedtime as needed with food 24h Active Levetiracetam 500 MG Orally Twice a day 1 tablet 12h Active RESULTS No Results PROCEDURES Procedure Date Ordered Result Body Site LAB NOT B[facility] Aug 06, 2017 VENIPUNCT, ROUTINE* Aug 06, 2017 INSTRUCTIONS MEDICATIONS ADMINISTERED No Known Medications MEDICAL (GENERAL) HISTORY Type Description Date Medical History Schizophrenia Medical History Intermitten Explosive Disorder Medical History Generalized anxiety disorder Medical History Moderate intellectual disability Medical History Bipolar Medical History asthma exercise induced Medical History Seizure disorder Surgical History Tubes in ears
--- OUTSIDE RECORDS SUMMARY | 2018-04-22 21:12 | XMS REPORT ---
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 Active 48395947 Problem Developmental delay, gross motor F82 Active 431624922 Problem Other schizophrenia F20.89 Active 28029271 Problem Intermittent explosive disorder F63.81 Active 66763091 Problem Schizophrenia, unspecified type F20.9 Active 11460207 Problem Adjustment disorder, unspecified type F43.20 Active 08017273 Problem ADHD (attention deficit hyperactivity disorder), combined type F90.2 Active 33901585 Problem ANA LILIA (generalized anxiety disorder) F41.1 Active 29908015 ALLERGIES Substance Reaction Event Type Date Status PredniSONE Unknown Drug Allergy Sep, Active Augmentin Unknown Drug Allergy Sep, Active Natural Rubber Unknown Non Drug Allergy Sep, Active Latex Unknown Non Drug Allergy Sep, Active ENCOUNTERS Encounter Location Date Diagnosis [facility] [id number], [place] [address] Apr, [facility] [id number] [place] [address] Apr, [facility] [id number] [id number] Mar, [facility] [id number] [place] [address]69[address] Mar, [facility] [address], [place] [address] February, Schizophrenia, unspecified type F20.9 ; ANA LILIA (generalized anxiety disorder) F41.1 ; Intermittent explosive disorder F63.81 and ADHD ( attention deficit hyperactivity disorder), combined type F90.2 [place] [address] [place] [address] February, Schizophrenia, unspecified type F20.9 and Intermittent explosive disorder F63.81 [facility] [address], [place] [address] February, [place] [id number] [place] [address] 24961[address] 5162 February, Schizophrenia, unspecified type F20.9 [place] [id number] [place] [address] Jan, Schizophrenia, unspecified type F20.9 ; ANA LILIA (generalized anxiety disorder) F41.1 ; Intermittent explosive disorder F63.81 and ADHD ( attention deficit hyperactivity disorder), combined type F90.2 [place] [address] [place] [address]3664- 9158 Jan, Schizophrenia, unspecified type F20.9 and Intermittent explosive disorder F63.81 [place] [address], [place] [address] Jan, Schizophrenia, unspecified type F20.9 ; ANA LILIA (generalized anxiety disorder) F41.1 ; Intermittent explosive disorder F63.81 and ADHD ( attention deficit hyperactivity disorder), combined type F90.2 [place] [address], [place] [address] Jan, Schizophrenia, unspecified type F20.9 ; ANA LILIA (generalized anxiety disorder) F41.1 ; Intermittent explosive disorder F63.81 and ADHD ( attention deficit hyperactivity disorder), combined type F90.2 [facility] [address], [place] [address] Dec, [place] [address], [place] [address] Dec, Schizophrenia, unspecified type F20.9 ; ANA LILIA (generalized anxiety disorder) F41.1 ; Intermittent explosive disorder F63.81 and ADHD ( attention deficit hyperactivity disorder), combined type F90.2 [facility] [address], [place] [address] Dec, [facility] [id number] [id number] Dec, Encounter for dental examination Z01.20 [facility] [id number] [place] [address]68[address] Dec, Schizophrenia, unspecified type F20.9 ; ANA LILIA (generalized anxiety disorder) F41.1 ; Intermittent explosive disorder F63.81 and ADHD ( attention deficit hyperactivity disorder), combined type F90.2 [facility] [address], [place] [address] Dec, Schizophrenia, unspecified type F20.9 ; ANA LILIA (generalized anxiety disorder) F41.1 ; Intermittent explosive disorder F63.81 and ADHD ( attention deficit hyperactivity disorder), combined type F90.2 [facility] [address], [place] [address] Dec, Seizures R56.9 ; Intermittent explosive disorder F63.81 and Developmental delay, gross motor F82 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 [address], [place] [address] Nov, Schizophrenia, unspecified type F20.9 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 [address] [place] [address]29[address] 9662 Oct, Schizophrenia, unspecified type F20.9 ; ANA LILIA (generalized anxiety disorder) F41.1 ; Intermittent explosive disorder F63.81 and ADHD ( attention deficit hyperactivity disorder), combined type F90.2 [facility] [id number] [place] [id number] Oct, Dental examination Z01.20 [facility] [id number] [place] [address] 38678[address]896 Oct, [facility] [id number] [place] [address] 09025- 2971 Oct, Other halfway (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 [id number], [place] [address] Sep, Schizophrenia, unspecified type F20.9 ; ANA LILIA (generalized anxiety disorder) F41.1 ; Intermittent explosive disorder F63.81 ; ADHD ( attention deficit hyperactivity disorder), combined type F90.2 and Other halfway (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 [facility] [id number] [place] [address] 40857- 2696 Sep, Gastroenteritis K52.9 [facility] [address] [facility] [id number] [place] [id number] 13 Sep, 2017 Encounter for dental examination Z01.20 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 [facility] [id number] [place] [address]28 [address] 15 Aug, 2017 Moderate left ankle sprain, initial encounter S93.402A [place] [id number] [place] [address] 07 Aug, 2017 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 ; Developmental delay, gross motor F82 and Adjustment disorder with disturbance of emotion F43.29 [facility] [place] [id number] [place] [address] Aug, Fatigue, unspecified type R53.83 IMMUNIZATIONS No Known Immunizations SOCIAL HISTORY Never Assessed REASON FOR VISIT intake PLAN OF CARE Activity Details Follow Up 4 Weeks Reason: f/u VITAL SIGNS Height 70.25 in 2017-09-25 Weight 192.5 lbs 2017-09-25 Heart Rate 92 bpm 2017-09-25 Respiratory Rate 20 2017-09-25 BMI 27.42 kg/m2 2017-09-25 Blood pressure systolic 120 mmHg 2017-09-25 Blood pressure diastolic 82 mmHg 2017-09-25 MEDICATIONS Medication Instructions Dosage Frequency Start Date End Date Duration Status Thera M Plus - Active Divalproex Sodium 500 mg Orally 2 times a day 1 tablet 12h Active Clindamycin-Benzoyl Per-Cleans 1-5 % Active Acetaminophen 500 MG Orally every 6 hrs 2 capsules as needed 6h Active Siltussin SA 100 MG/5ML Orally every 4 hrs 10 ml as needed 4h Active Desmopressin Acetate 0.2 MG Orally Once a day 2 tablet at bedtime 24h Active Loxitane 10 MG Orally HS 1 capsule Active Cyproheptadine HCl 4 MG Orally HS 2 tablet Active Aripiprazole 10 MG Orally BID 1 tablet 12h Active Benztropine Mesylate 1 MG Orally BID 1 tablet 12h Active Melatonin 3 MG Orally Once a day 1 tablet at bedtime as needed with food 24h Active Oxcarbazepine 600 MG Orally TID 1 tablet 8h Active Chlorhexidine - Active Levetiracetam 500 MG Orally Twice a day 1 tablet 12h Active Olopatadine HCl 0.1 % Ophthalmic TID 1 drop into affected eye 8h Active BusPIRone HCl 10 MG Orally Twice a day 1 tablet 12h Active RESULTS No Results PROCEDURES No Known procedures INSTRUCTIONS MEDICATIONS ADMINISTERED No Known Medications MEDICAL (GENERAL) HISTORY Type Description Date Medical History Schizophrenia Medical History Intermitten Explosive Disorder Medical History Generalized anxiety disorder Medical History Moderate intellectual disability Medical History Bipolar Medical History asthma exercise induced Medical History Seizure disorder Surgical History Tubes in ears
--- OUTSIDE RECORDS SUMMARY | 2018-04-22 21:12 | XMS REPORT ---
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 Active 80396348 Problem Developmental delay, gross motor F82 Active 178120671 Problem Other schizophrenia F20.89 Active 61741196 Problem Intermittent explosive disorder F63.81 Active 30189266 Problem Schizophrenia, unspecified type F20.9 Active 87890617 Problem Adjustment disorder, unspecified type F43.20 Active 95545691 Problem ADHD (attention deficit hyperactivity disorder), combined type F90.2 Active 07402038 Problem ANA LILIA (generalized anxiety disorder) F41.1 Active 39169310 ALLERGIES No Information ENCOUNTERS Encounter Location Date Diagnosis [facility] [address] [place] [address] 14769- [address]97 Apr, [facility] [id number] [place] [address] 20338- 3881 Apr, [facility] [id number] [place] [id number] Mar, [facility] [id number] [place] [address] 28123- 4130 Mar, [facility] [address] [address] February, Schizophrenia, unspecified type F20.9 ; ANA LILIA (generalized anxiety disorder) F41.1 ; Intermittent explosive disorder F63.81 and ADHD ( attention deficit hyperactivity disorder), combined type F90.2 [facility] [address], [place] [address] February, Schizophrenia, unspecified type F20.9 and Intermittent explosive disorder F63.81 [facility] [address] [address] February, [place] [address], [place] [address] February, Schizophrenia, unspecified type F20.9 [place] [address], [place] [address] Jan, Schizophrenia, unspecified type F20.9 ; ANA LILIA (generalized anxiety disorder) F41.1 ; Intermittent explosive disorder F63.81 and ADHD ( attention deficit hyperactivity disorder), combined type F90.2 [place] [address], [place] [address] Jan, Schizophrenia, unspecified type F20.9 and Intermittent explosive disorder F63.81 [place] [address], [place] [address] Jan, Schizophrenia, unspecified type F20.9 ; ANA LILIA (generalized anxiety disorder) F41.1 ; Intermittent explosive disorder F63.81 and ADHD ( attention deficit hyperactivity disorder), combined type F90.2 [place] [address], [place] [address]- [address] Jan, Schizophrenia, unspecified type F20.9 ; ANA LILIA (generalized anxiety disorder) F41.1 ; Intermittent explosive disorder F63.81 and ADHD ( attention deficit hyperactivity disorder), combined type F90.2 [place] [address], [place] [address] Dec, [facility] [address], [place] [address] Dec, Schizophrenia, unspecified type F20.9 ; ANA LILIA (generalized anxiety disorder) F41.1 ; Intermittent explosive disorder F63.81 and ADHD ( attention deficit hyperactivity disorder), combined type F90.2 [facility] [id number], [place] [address] Dec, [facility] [address] [id number] Dec, Encounter for dental examination Z01.20 [facility] [address], [place] [address] Dec, Schizophrenia, unspecified type F20.9 ; ANA LILIA (generalized anxiety disorder) F41.1 ; Intermittent explosive disorder F63.81 and ADHD ( attention deficit hyperactivity disorder), combined type F90.2 [facility] [address], [place] [address] Dec, Schizophrenia, unspecified type F20.9 ; ANA LILIA (generalized anxiety disorder) F41.1 ; Intermittent explosive disorder F63.81 and ADHD ( attention deficit hyperactivity disorder), combined type F90.2 [facility] [address], [place] [address] Dec, Seizures R56.9 ; Intermittent explosive disorder F63.81 and Developmental delay, gross motor F82 [facility] [address] [place] [address] 61722- 5846 Nov, ANA LILIA (generalized anxiety disorder) F41.1 ; Intermittent explosive disorder F63.81 ; ADHD (attention deficit hyperactivity disorder), combined type F90.2 ; Other long term care phlebotomist (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 ; Adjustment disorder, unspecified type F43.20 and Other schizophrenia F20.89 [facility] [id number], [place] [address] Nov, Schizophrenia, unspecified type F20.9 [facility] [address], [place] [address] Oct, ANA LILIA (generalized anxiety disorder) F41.1 ; Intermittent explosive disorder F63.81 ; ADHD (attention deficit hyperactivity disorder), combined type F90.2 ; Other senior living (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 and Adjustment disorder, unspecified type F43.20 [facility] [address] [place] [address] 47424- 2653 Oct, Schizophrenia, unspecified type F20.9 ; ANA LILIA (generalized anxiety disorder) F41.1 ; Intermittent explosive disorder F63.81 and ADHD ( attention deficit hyperactivity disorder), combined type F90.2 [facility] [address] [place] [phone] Oct, Dental examination Z01.20 [facility] [address] [address] Oct, [facility] [address] [address]- [address] Oct, Other senior living (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 [facility] [id number] [place] [address] 54522- 1129 Sep, ANA LILIA (generalized anxiety disorder) F41.1 ; Intermittent explosive disorder F63.81 ; ADHD (attention deficit hyperactivity disorder), combined type F90.2 ; Other senior living (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 and Adjustment disorder, unspecified type F43.20 [facility] [id number] [place] [address] 60824- 1409 Sep, Schizophrenia, unspecified type F20.9 ; ANA LILIA (generalized anxiety disorder) F41.1 ; Intermittent explosive disorder F63.81 ; ADHD ( attention deficit hyperactivity disorder), combined type F90.2 and Other long term care phlebotomist (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 [facility] [address] [place] [address] 92093- 8143 Sep, Gastroenteritis K52.9 [facility] [id number] [place] [phone] Sep, Encounter for dental examination Z01.20 [facility] [id number] [place] [address] 29769- 3492 Aug, Annual physical exam Z00.00 and Seizures R56.9 [facility] [address] [facility] [id number] [address] Aug, Adjustment disorder with disturbance of emotion F43.29 ; Developmental delay disorder R62.50 ; Developmental delay, gross motor F82 and 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 [facility] [address], [place] [address] 15 Aug, 2017 Moderate left ankle sprain, initial encounter S93.402A [facility] [id number] [place] [address] 78698- [address] 07 Aug, 2017 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 ; Developmental delay, gross motor F82 and Adjustment disorder with disturbance of emotion F43.29 [facility] [id number], [place] [address] Aug, Fatigue, unspecified type R53.83 IMMUNIZATIONS No Known Immunizations SOCIAL HISTORY Never Assessed REASON FOR VISIT intake PLAN OF CARE Activity Details Follow Up 2 Weeks Reason:Adjustment disorder VITAL SIGNS MEDICATIONS Medication Instructions Dosage Frequency Start Date End Date Duration Status Aripiprazole 10 MG Orally BID 1 tablet 12h Unknown Levetiracetam 500 MG Orally Twice a day 1 tablet 12h Unknown BusPIRone HCl 10 MG Orally Twice a day 1 tablet 12h Unknown Siltussin SA 100 MG/5ML Orally every 4 hrs 10 ml as needed 4h Unknown Melatonin 3 MG Orally Once a day 1 tablet at bedtime as needed with food 24h Unknown Thera M Plus - Unknown Oxcarbazepine 600 MG Orally TID 1 tablet 8h Unknown Loxitane 10 MG Orally HS 1 capsule Unknown Cyproheptadine HCl 4 MG Orally HS 2 tablet Unknown Desmopressin Acetate 0.2 MG Orally Once a day 2 tablet at bedtime 24h Unknown Chlorhexidine - Unknown Benztropine Mesylate 1 MG Orally BID 1 tablet at bedtime 12h Unknown Acetaminophen 500 MG Orally every 6 hrs 2 capsules as needed 6h Unknown Olopatadine HCl 0.1 % Ophthalmic TID 1 drop into affected eye 8h Unknown Clindamycin-Benzoyl Per-Cleans 1-5 % Unknown RESULTS No Results PROCEDURES Procedure Date Ordered Result Body Site Psych diagnostic evaluation, new patient Aug 12, 2017 INSTRUCTIONS MEDICATIONS ADMINISTERED No Known Medications MEDICAL (GENERAL) HISTORY Type Description Date Medical History Schizophrenia Medical History Intermitten Explosive Disorder Medical History Generalized anxiety disorder Medical History Moderate intellectual disability Medical History Bipolar Medical History asthma exercise induced Medical History Seizure disorder Surgical History Tubes in ears
--- OUTSIDE RECORDS SUMMARY | 2018-04-22 21:12 | XMS REPORT ---
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 Active 76166407 Problem Developmental delay, gross motor F82 Active 679765728 Problem Other schizophrenia F20.89 Active 91026670 Problem Intermittent explosive disorder F63.81 Active 49352001 Problem Schizophrenia, unspecified type F20.9 Active 73570440 Problem Adjustment disorder, unspecified type F43.20 Active 11564105 Problem ADHD (attention deficit hyperactivity disorder), combined type F90.2 Active 02946662 Problem ANA LILIA (generalized anxiety disorder) F41.1 Active 60536067 ALLERGIES No Information ENCOUNTERS Encounter Location Date Diagnosis [facility] [id number] [place] [address] Apr, [facility] [id number] [place] [address]87- 2606 Apr, [facility] [id number] [place] [address] [id number] Mar, [facility] [id number] [place] [address] 06[address] Mar, [facility] [address] [address] February, Schizophrenia, unspecified type F20.9 ; ANA LILIA (generalized anxiety disorder) F41.1 ; Intermittent explosive disorder F63.81 and ADHD ( attention deficit hyperactivity disorder), combined type F90.2 [facility] [address] [address] February, Schizophrenia, unspecified type F20.9 and Intermittent explosive disorder F63.81 [facility] [id number] [address] February, [place] [address] [address] February, Schizophrenia, unspecified type F20.9 [place] [address] [address] Jan, Schizophrenia, unspecified type F20.9 ; ANA LILIA (generalized anxiety disorder) F41.1 ; Intermittent explosive disorder F63.81 and ADHD ( attention deficit hyperactivity disorder), combined type F90.2 [place] [address] [address] Jan, Schizophrenia, unspecified type F20.9 and Intermittent explosive disorder F63.81 [place] [address] [address] Jan, Schizophrenia, unspecified type F20.9 ; ANA LILIA (generalized anxiety disorder) F41.1 ; Intermittent explosive disorder F63.81 and ADHD ( attention deficit hyperactivity disorder), combined type F90.2 [place] [address] [address] Jan, Schizophrenia, unspecified type F20.9 ; ANA LILIA (generalized anxiety disorder) F41.1 ; Intermittent explosive disorder F63.81 and ADHD ( attention deficit hyperactivity disorder), combined type F90.2 [place] [address] [address] Dec, [facility] [address] [address] Dec, Schizophrenia, unspecified type F20.9 ; ANA LILIA (generalized anxiety disorder) F41.1 ; Intermittent explosive disorder F63.81 and ADHD ( attention deficit hyperactivity disorder), combined type F90.2 [facility] [id number], [place] [address] Dec, [facility] [address] [address] Dec, Encounter for dental examination Z01.20 [facility] [address], [place] [address] Dec, Schizophrenia, unspecified type F20.9 ; ANA LILIA (generalized anxiety disorder) F41.1 ; Intermittent explosive disorder F63.81 and ADHD ( attention deficit hyperactivity disorder), combined type F90.2 [facility] [address], [place] [address] Dec, Schizophrenia, unspecified type F20.9 ; ANA LILIA (generalized anxiety disorder) F41.1 ; Intermittent explosive disorder F63.81 and ADHD ( attention deficit hyperactivity disorder), combined type F90.2 [facility] [address], [place] [address] Dec, Seizures R56.9 ; Intermittent explosive disorder F63.81 and Developmental delay, gross motor F82 [facility] [address] [place] [address]- 7061 Nov, ANA LILIA (generalized anxiety disorder) F41.1 ; Intermittent explosive disorder F63.81 ; ADHD (attention deficit hyperactivity disorder), combined type F90.2 ; Other wind energy project manager (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 ; Adjustment disorder, unspecified type F43.20 and Other schizophrenia F20.89 [facility] [id number] [address] Nov, Schizophrenia, unspecified type F20.9 [facility] [address], [place] [address] Oct, ANA LILIA (generalized anxiety disorder) F41.1 ; Intermittent explosive disorder F63.81 ; ADHD (attention deficit hyperactivity disorder), combined type F90.2 ; Other half-way (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 and Adjustment disorder, unspecified type F43.20 [facility] [address] [place] [address] Oct, Schizophrenia, unspecified type F20.9 ; ANA LILIA (generalized anxiety disorder) F41.1 ; Intermittent explosive disorder F63.81 and ADHD ( attention deficit hyperactivity disorder), combined type F90.2 [facility] [address] [place] [id number] Oct, Dental examination Z01.20 [facility] [address] [address] Oct, [facility] [address] [address] Oct, Other half-way (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 [facility] [id number] [place] [address] 25306- 26[address] Sep, ANA LILIA (generalized anxiety disorder) F41.1 ; Intermittent explosive disorder F63.81 ; ADHD (attention deficit hyperactivity disorder), combined type F90.2 ; Other half-way (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 and Adjustment disorder, unspecified type F43.20 [facility] [id number] [place] [address]- 3883 Sep, Schizophrenia, unspecified type F20.9 ; ANA LILIA (generalized anxiety disorder) F41.1 ; Intermittent explosive disorder F63.81 ; ADHD ( attention deficit hyperactivity disorder), combined type F90.2 and Other wind energy project manager (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 [facility] [address] [place] [address]282- 4246 Sep, Gastroenteritis K52.9 [facility] [id number] [place] [address] [id number] Sep, Encounter for dental examination Z01.20 [facility] [id number] [place] [address]71 Aug, Annual physical exam Z00.00 and Seizures R56.9 [facility] [address] 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 [id number] [address] Aug, Fatigue, unspecified type R53.83 IMMUNIZATIONS No Known Immunizations SOCIAL HISTORY Never Assessed REASON FOR VISIT f/u PLAN OF CARE Activity Details Follow Up Next available Reason:Adjustment disorder VITAL SIGNS MEDICATIONS Medication Instructions Dosage Frequency Start Date End Date Duration Status Clindamycin-Benzoyl Per-Cleans 1-5 % Unknown Benztropine Mesylate 1 MG Orally BID 1 tablet 12h Active Aripiprazole 10 MG Orally BID 1 tablet 12h Active Chlorhexidine - Unknown Cyproheptadine HCl 4 MG Orally HS 2 tablet Active BusPIRone HCl 10 MG Orally Twice a day 1 tablet 12h Active Levetiracetam 500 MG Orally Twice a day 1 tablet 12h Unknown Loxitane 10 MG Orally HS 1 capsule Active Siltussin SA 100 MG/5ML Orally every 4 hrs 10 ml as needed 4h Unknown Divalproex Sodium 500 mg Orally 2 times a day 1 tablet 12h Unknown Desmopressin Acetate 0.2 MG Orally Once a day 2 tablet at bedtime 24h Unknown Acetaminophen 500 MG Orally every 6 hrs 2 capsules as needed 6h Unknown Thera M Plus - Unknown Melatonin 3 MG Orally Once a day 1 tablet at bedtime as needed with food 24h Active Oxcarbazepine 600 MG Orally TID 1 tablet 8h Unknown Olopatadine HCl 0.1 % Ophthalmic TID 1 drop into affected eye 8h Unknown RESULTS No Results PROCEDURES Procedure Date Ordered Result Body Site Psychotherapy, patient &/family, 45 minutes, established patient Sep 25, 2017 INSTRUCTIONS MEDICATIONS ADMINISTERED No Known Medications MEDICAL (GENERAL) HISTORY Type Description Date Medical History Schizophrenia Medical History Intermitten Explosive Disorder Medical History Generalized anxiety disorder Medical History Moderate intellectual disability Medical History Bipolar Medical History asthma exercise induced Medical History Seizure disorder Surgical History Tubes in ears
--- OUTSIDE RECORDS SUMMARY | 2018-04-22 21:13 | XMS REPORT ---
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 Active 60944633 Problem Developmental delay, gross motor F82 Active 774654398 Problem Other schizophrenia F20.89 Active 31693517 Problem Intermittent explosive disorder F63.81 Active 30138690 Problem Schizophrenia, unspecified type F20.9 Active 47363833 Problem Adjustment disorder, unspecified type F43.20 Active 79791843 Problem ADHD (attention deficit hyperactivity disorder), combined type F90.2 Active 04233605 Problem ANA LILIA (generalized anxiety disorder) F41.1 Active 64064134 ALLERGIES No Information ENCOUNTERS Encounter Location Date Diagnosis [facility] [id number] [place] [address] Apr, [facility] [id number] [place] [address] 85522- 2441 Apr, [facility] [address] [place] [id number] Mar, [facility] [id number] [place] [address] 55586- 7746 Mar, [facility] [address] [address] February, Schizophrenia, unspecified type F20.9 ; ANA LILIA (generalized anxiety disorder) F41.1 ; Intermittent explosive disorder F63.81 and ADHD ( attention deficit hyperactivity disorder), combined type F90.2 [facility] [address] [address] February, Schizophrenia, unspecified type F20.9 and Intermittent explosive disorder F63.81 [facility] [id number] [address] February, [facility] [address] [address] February, Schizophrenia, unspecified type F20.9 [facility] [id number] [place] [address] 96496- 8889 Jan, Schizophrenia, unspecified type F20.9 ; ANA LILIA (generalized anxiety disorder) F41.1 ; Intermittent explosive disorder F63.81 and ADHD ( attention deficit hyperactivity disorder), combined type F90.2 [place] [address] [address] Jan, Schizophrenia, unspecified type F20.9 and Intermittent explosive disorder F63.81 [place] [address] [address] Jan, Schizophrenia, unspecified type F20.9 ; ANA LILIA (generalized anxiety disorder) F41.1 ; Intermittent explosive disorder F63.81 and ADHD ( attention deficit hyperactivity disorder), combined type F90.2 [place] [address] [address] Jan, Schizophrenia, unspecified type F20.9 ; ANA LILIA (generalized anxiety disorder) F41.1 ; Intermittent explosive disorder F63.81 and ADHD ( attention deficit hyperactivity disorder), combined type F90.2 [facility] [address], [place] [address] Dec, [facility] [id number] [place] [address] 20911- 0363 Dec, Schizophrenia, unspecified type F20.9 ; ANA LILIA (generalized anxiety disorder) F41.1 ; Intermittent explosive disorder F63.81 and ADHD ( attention deficit hyperactivity disorder), combined type F90.2 [place] [address] [address] Dec, [facility] [address] [id number] Dec, Encounter for dental examination Z01.20 [facility] [address] [address] Dec, Schizophrenia, unspecified type F20.9 ; ANA LILIA (generalized anxiety disorder) F41.1 ; Intermittent explosive disorder F63.81 and ADHD ( attention deficit hyperactivity disorder), combined type F90.2 [facility] [address] [place] [address] 19652- 7773 Dec, Schizophrenia, unspecified type F20.9 ; ANA LILIA (generalized anxiety disorder) F41.1 ; Intermittent explosive disorder F63.81 and ADHD ( attention deficit hyperactivity disorder), combined type F90.2 [facility] [address] [place] [address] 98387- 5081 Dec, Seizures R56.9 ; Intermittent explosive disorder F63.81 and Developmental delay, gross motor F82 [facility] [address] [place] [address] 13667- 9503 Nov, ANA LILIA (generalized anxiety disorder) F41.1 ; Intermittent explosive disorder F63.81 ; ADHD (attention deficit hyperactivity disorder), combined type F90.2 ; Other fci (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 ; Adjustment disorder, unspecified type F43.20 and Other schizophrenia F20.89 [facility] [address] [address] Nov, Schizophrenia, unspecified type F20.9 [facility] [id number] [place] [address] 09625- 0136 Oct, ANA LILIA (generalized anxiety disorder) F41.1 ; Intermittent explosive disorder F63.81 ; ADHD (attention deficit hyperactivity disorder), combined type F90.2 ; Other sample maker (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 and Adjustment disorder, unspecified type F43.20 [facility] [address] [place] [address] 16436- 4866 Oct, Schizophrenia, unspecified type F20.9 ; ANA LILIA (generalized anxiety disorder) F41.1 ; Intermittent explosive disorder F63.81 and ADHD ( attention deficit hyperactivity disorder), combined type F90.2 [facility] [id number] [place] [address] [id number] Oct, Dental examination Z01.20 [facility] [id number] [place] [address] 44915- 2712 Oct, [place] [address] [address]- [address] Oct, Other sample maker (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 [facility] [id number] [place] [address] 16276- 3242 Sep, ANA LILIA (generalized anxiety disorder) F41.1 ; Intermittent explosive disorder F63.81 ; ADHD (attention deficit hyperactivity disorder), combined type F90.2 ; Other sample maker (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 and Adjustment disorder, unspecified type F43.20 [facility] [id number] [place] [address] 04514- 9109 Sep, Schizophrenia, unspecified type F20.9 ; ANA LILIA (generalized anxiety disorder) F41.1 ; Intermittent explosive disorder F63.81 ; ADHD ( attention deficit hyperactivity disorder), combined type F90.2 and Other fci (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 [facility] [address] [place] [address] 94488- 4428 Sep, Gastroenteritis K52.9 [facility] [id number] [place] [address] [phone] Sep, Encounter for dental examination Z01.20 [facility] [id number] [place] [address] 82978- 3604 Aug, Annual physical exam Z00.00 and Seizures R56.9 [facility] [id number] [address] Aug, Adjustment disorder with disturbance of emotion F43.29 ; Developmental delay disorder R62.50 ; Developmental delay, gross motor F82 and 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 [facility] [id number] [address] 15 Aug, 2017 Moderate left ankle sprain, initial encounter S93.402A [facility] [id number] [place] [address] 67128- 9362 07 Aug, 2017 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 ; Developmental delay, gross motor F82 and Adjustment disorder with disturbance of emotion F43.29 [facility] [id number] [address] Aug, Fatigue, unspecified type R53.83 IMMUNIZATIONS No Known Immunizations SOCIAL HISTORY Never Assessed REASON FOR VISIT Lab (walk-in) PLAN OF CARE VITAL SIGNS MEDICATIONS Unknown Medications RESULTS No Results PROCEDURES Procedure Date Ordered Result Body Site LAB NOT BILLED BY [facility] Oct 08, 2017 VENIPUNCT, ROUTINE* Oct 08, 2017 INSTRUCTIONS MEDICATIONS ADMINISTERED No Known Medications MEDICAL (GENERAL) HISTORY Type Description Date Medical History Schizophrenia Medical History Intermitten Explosive Disorder Medical History Generalized anxiety disorder Medical History Moderate intellectual disability Medical History Bipolar Medical History asthma exercise induced Medical History Seizure disorder Surgical History Tubes in ears
--- OUTSIDE RECORDS SUMMARY | 2018-04-22 21:13 | XMS REPORT ---
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 Active 51810838 Problem Developmental delay, gross motor F82 Active 160439448 Problem Other schizophrenia F20.89 Active 93103017 Problem Intermittent explosive disorder F63.81 Active 85212375 Problem Schizophrenia, unspecified type F20.9 Active 46150275 Problem Adjustment disorder, unspecified type F43.20 Active 87838641 Problem ADHD (attention deficit hyperactivity disorder), combined type F90.2 Active 72219501 Problem ANA LILIA (generalized anxiety disorder) F41.1 Active 21766840 ALLERGIES Substance Reaction Event Type Date Status Augmentin Unknown Drug Allergy Sep, Active Latex Unknown Non Drug Allergy Sep, Active ENCOUNTERS Encounter Location Date Diagnosis [facility] [id number] [place] [address] Apr, [facility] [id number] [place] [address] 66742[address] 3[address] Apr, [facility] [address] [place] [id number] Mar, [facility] [id number] [place] [address] 19164- 9476 Mar, [facility] [id number] [place] [address] 78301- [address]9 February, Schizophrenia, unspecified type F20.9 ; ANA LILIA (generalized anxiety disorder) F41.1 ; Intermittent explosive disorder F63.81 and ADHD ( attention deficit hyperactivity disorder), combined type F90.2 [facility] [address] [address] February, Schizophrenia, unspecified type F20.9 and Intermittent explosive disorder F63.81 [facility] [address] [address] February, [facility] [address] [address] February, Schizophrenia, unspecified type F20.9 [facility] [address] [address] Jan, Schizophrenia, unspecified type F20.9 ; ANA LILIA (generalized anxiety disorder) F41.1 ; Intermittent explosive disorder F63.81 and ADHD ( attention deficit hyperactivity disorder), combined type F90.2 [facility] [address] [address] Jan, Schizophrenia, unspecified type F20.9 and Intermittent explosive disorder F63.81 [facility] [address] [address] Jan, Schizophrenia, unspecified type F20.9 ; ANA LILIA (generalized anxiety disorder) F41.1 ; Intermittent explosive disorder F63.81 and ADHD ( attention deficit hyperactivity disorder), combined type F90.2 [facility] [address] [address] Jan, Schizophrenia, unspecified type F20.9 ; ANA LILIA (generalized anxiety disorder) F41.1 ; Intermittent explosive disorder F63.81 and ADHD ( attention deficit hyperactivity disorder), combined type F90.2 [facility] [address] [address] Dec, [facility] [address] [address] Dec, Schizophrenia, unspecified type F20.9 ; ANA LILIA (generalized anxiety disorder) F41.1 ; Intermittent explosive disorder F63.81 and ADHD ( attention deficit hyperactivity disorder), combined type F90.2 [facility] [address] [address] Dec, [facility] [id number] [id number] Dec, Encounter for dental examination Z01.20 [facility] [address] [place] [address] 576[address] 7[address] Dec, Schizophrenia, unspecified type F20.9 ; ANA LILIA (generalized anxiety disorder) F41.1 ; Intermittent explosive disorder F63.81 and ADHD ( attention deficit hyperactivity disorder), combined type F90.2 [facility] [address] [place] [address] 02575- 8[address] Dec, Schizophrenia, unspecified type F20.9 ; ANA LILIA (generalized anxiety disorder) F41.1 ; Intermittent explosive disorder F63.81 and ADHD ( attention deficit hyperactivity disorder), combined type F90.2 [facility] [address] [address] Dec, Seizures R56.9 ; Intermittent explosive disorder F63.81 and Developmental delay, gross motor F82 [facility] [address] [address] Nov, ANA LILIA (generalized anxiety disorder) F41.1 ; Intermittent explosive disorder F63.81 ; ADHD (attention deficit hyperactivity disorder), combined type F90.2 ; Other residential (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 ; Adjustment disorder, unspecified type F43.20 and Other schizophrenia F20.89 [facility] [address] [address] Nov, Schizophrenia, unspecified type F20.9 [facility] [address] [address] Oct, ANA LILIA (generalized anxiety disorder) F41.1 ; Intermittent explosive disorder F63.81 ; ADHD (attention deficit hyperactivity disorder), combined type F90.2 ; Other rn long term care (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 and Adjustment disorder, unspecified type F43.20 [facility] [id number] [place] [address] 80602- 5557 Oct, Schizophrenia, unspecified type F20.9 ; ANA LILIA (generalized anxiety disorder) F41.1 ; Intermittent explosive disorder F63.81 and ADHD ( attention deficit hyperactivity disorder), combined type F90.2 [facility] [id number] [place] [id number] Oct, Dental examination Z01.20 [facility] [id number] [place] [address] 15516- 8866 Oct, [facility] [id number] [place] [address] 53843- 0771 Oct, Other rn long term care (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 [facility] [id number] [place] [address] 63518- 0265 Sep, ANA LILIA (generalized anxiety disorder) F41.1 ; Intermittent explosive disorder F63.81 ; ADHD (attention deficit hyperactivity disorder), combined type F90.2 ; Other rn long term care (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 and Adjustment disorder, unspecified type F43.20 [facility] [address] [place] [address] 54985- 8171 Sep, Schizophrenia, unspecified type F20.9 ; ANA LILIA (generalized anxiety disorder) F41.1 ; Intermittent explosive disorder F63.81 ; ADHD ( attention deficit hyperactivity disorder), combined type F90.2 and Other residential (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 [facility] [address] [place] [address] 93689- 8156 Sep, Gastroenteritis K52.9 [facility] [id number] [place] [id number] Sep, Encounter for dental examination Z01.20 [facility] [id number] [place] [address] 11638- 4642 Aug, Annual physical exam Z00.00 and Seizures R56.9 [facility] [id number] [address] Aug, Adjustment disorder with disturbance of emotion F43.29 ; Developmental delay disorder R62.50 ; Developmental delay, gross motor F82 and 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 [facility] [address] [address] Aug, 2017 Moderate left ankle sprain, initial encounter S93.402A [facility] [id number] [address] 07 Aug, 2017 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 ; Developmental delay, gross motor F82 and Adjustment disorder with disturbance of emotion F43.29 [facility] [id number] [address] Aug, Fatigue, unspecified type R53.83 IMMUNIZATIONS No Known Immunizations SOCIAL HISTORY Never Assessed REASON FOR VISIT PROPHY/IRASEMA PLAN OF CARE Activity Details Follow Up FRANDY Reason:TE #16 VITAL SIGNS Heart Rate 73 bpm 2017-09-17 Blood pressure systolic 126 mmHg 2017-09-17 Blood pressure diastolic 86 mmHg 2017-09-17 MEDICATIONS Medication Instructions Dosage Frequency Start Date End Date Duration Status Loxitane 10 MG Orally HS 1 capsule Active Thera M Plus - Active Olopatadine HCl 0.1 % Ophthalmic TID 1 drop into affected eye 8h Active Levetiracetam 500 MG Orally Twice a day 1 tablet 12h Active Chlorhexidine - Active Siltussin SA 100 MG/5ML Orally every 4 hrs 10 ml as needed 4h Active BusPIRone HCl 10 MG Orally Twice a day 1 tablet 12h Active Oxcarbazepine 600 MG Orally TID 1 tablet 8h Active Clindamycin-Benzoyl Per-Cleans 1-5 % Active Acetaminophen 500 MG Orally every 6 hrs 2 capsules as needed 6h Active Benztropine Mesylate 1 MG Orally BID 1 tablet at bedtime 12h Active Melatonin 3 MG Orally Once a day 1 tablet at bedtime as needed with food 24h Active Desmopressin Acetate 0.2 MG Orally Once a day 2 tablet at bedtime 24h Active Cyproheptadine HCl 4 MG Orally HS 2 tablet Active Aripiprazole 10 MG Orally BID 1 tablet 12h Active RESULTS No Results PROCEDURES Procedure Date Ordered Result Body Site COMP ORAL EVALUATION - NEW/EST PT Sep 17, 2017 INTRAORL-PERIAPICAL 1 FILM 68133 Sep 17, 2017 PROPHYLAXIS - ADULT Sep 17, 2017 PANORAMIC FILM SEE ALSO CODE 03200 Sep 17, 2017 TOPICAL FLUORIDE VARNISH Sep 17, 2017 INTRAORL-PERIAPICAL EA ADD FILM Sep 17, 2017 INTRAORL-PERIAPICAL EA ADD FILM Sep 17, 2017 BITEWINGS - FOUR FILMS Sep 17, 2017 INTRAORL-PERIAPICAL EA ADD FILM Sep 17, 2017 INSTRUCTIONS MEDICATIONS ADMINISTERED No Known Medications MEDICAL (GENERAL) HISTORY Type Description Date Medical History Schizophrenia Medical History Intermitten Explosive Disorder Medical History Generalized anxiety disorder Medical History Moderate intellectual disability Medical History Bipolar Medical History asthma exercise induced Medical History Seizure disorder Surgical History Tubes in ears
--- OUTSIDE RECORDS SUMMARY | 2018-04-22 21:14 | XMS REPORT ---
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 Active 29376923 Problem Developmental delay, gross motor F82 Active 995894064 Problem Other schizophrenia F20.89 Active 04208709 Problem Intermittent explosive disorder F63.81 Active 44100634 Problem Schizophrenia, unspecified type F20.9 Active 39063230 Problem Adjustment disorder, unspecified type F43.20 Active 71936688 Problem ADHD (attention deficit hyperactivity disorder), combined type F90.2 Active 52905790 Problem ANA LILIA (generalized anxiety disorder) F41.1 Active 27986385 ALLERGIES No Known Allergies ENCOUNTERS Encounter Location Date Diagnosis [facility] [id number] [place] [address]243- 5049 Apr, [facility] [id number] [place] [address] 60662- 2986 Apr, [facility] [id number] [place] [address] [id number] Mar, [facility] [id number] [place] [address] 57585- 6995 Mar, [facility] [address] [address] February, Schizophrenia, unspecified type F20.9 ; ANA LILIA (generalized anxiety disorder) F41.1 ; Intermittent explosive disorder F63.81 and ADHD ( attention deficit hyperactivity disorder), combined type F90.2 [facility] [id number] [address] February, Schizophrenia, unspecified type F20.9 and Intermittent explosive disorder F63.81 [facility] [id number] [address] February, [place] [id number], [place] [address]- [address] February, Schizophrenia, unspecified type F20.9 [place] [address], [place] [address]- [address] Jan, Schizophrenia, unspecified type F20.9 ; ANA LILIA (generalized anxiety disorder) F41.1 ; Intermittent explosive disorder F63.81 and ADHD ( attention deficit hyperactivity disorder), combined type F90.2 [place] [address] [address], [place] [address]- 8[address] Jan, Schizophrenia, unspecified type F20.9 and Intermittent explosive disorder F63.81 [place] [address], [place] [address]- [address] Jan, Schizophrenia, unspecified type F20.9 ; ANA LILIA (generalized anxiety disorder) F41.1 ; Intermittent explosive disorder F63.81 and ADHD ( attention deficit hyperactivity disorder), combined type F90.2 [place] [address], [place] [address]- [address] Jan, Schizophrenia, unspecified type F20.9 ; ANA LILIA (generalized anxiety disorder) F41.1 ; Intermittent explosive disorder F63.81 and ADHD ( attention deficit hyperactivity disorder), combined type F90.2 [place] [address], [place] [address]- [address] Dec, [facility] [address] [place] [address] 67312- 2957 Dec, Schizophrenia, unspecified type F20.9 ; ANA LILIA (generalized anxiety disorder) F41.1 ; Intermittent explosive disorder F63.81 and ADHD ( attention deficit hyperactivity disorder), combined type F90.2 [facility] [id number], [place] [address] Dec, [facility] [id number] [id number] Dec, Encounter for dental examination Z01.20 [facility] [address], [place] [address]- [address] Dec, Schizophrenia, unspecified type F20.9 ; ANA LILIA (generalized anxiety disorder) F41.1 ; Intermittent explosive disorder F63.81 and ADHD ( attention deficit hyperactivity disorder), combined type F90.2 [facility] [address], [place] [address]- 9[address] Dec, Schizophrenia, unspecified type F20.9 ; ANA LILIA (generalized anxiety disorder) F41.1 ; Intermittent explosive disorder F63.81 and ADHD ( attention deficit hyperactivity disorder), combined type F90.2 [facility] [address], [place] [address]- 4568 Dec, Seizures R56.9 ; Intermittent explosive disorder F63.81 and Developmental delay, gross motor F82 [facility] [address] [place] [address] 56772- 5411 Nov, ANA LILIA (generalized anxiety disorder) F41.1 ; Intermittent explosive disorder F63.81 ; ADHD (attention deficit hyperactivity disorder), combined type F90.2 ; 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 ; Adjustment disorder, unspecified type F43.20 and Other schizophrenia F20.89 [facility] [id number], [place] [address]- 39[address] Nov, Schizophrenia, unspecified type F20.9 [facility] [address], [place] [address]- 5489 Oct, ANA LILIA (generalized anxiety disorder) F41.1 ; Intermittent explosive disorder F63.81 ; ADHD (attention deficit hyperactivity disorder), combined type F90.2 ; Other custodial (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 and Adjustment disorder, unspecified type F43.20 [facility] [address] [place] [address] 12272- 2659 Oct, Schizophrenia, unspecified type F20.9 ; ANA LILIA (generalized anxiety disorder) F41.1 ; Intermittent explosive disorder F63.81 and ADHD ( attention deficit hyperactivity disorder), combined type F90.2 [facility] [address] [place] [id number] Oct, Dental examination Z01.20 [facility] [address] [address] Oct, [facility] [address] [address]- 2824 Oct, Other custodial (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 [facility] [id number] [place] [address] 07657- 2014 Sep, ANA LILIA (generalized anxiety disorder) F41.1 ; Intermittent explosive disorder F63.81 ; ADHD (attention deficit hyperactivity disorder), combined type F90.2 ; Other custodial (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 and Adjustment disorder, unspecified type F43.20 [facility] [id number] [place] [address] 99082- 7572 Sep, Schizophrenia, unspecified type F20.9 ; ANA LILIA (generalized anxiety disorder) F41.1 ; Intermittent explosive disorder F63.81 ; ADHD ( attention deficit hyperactivity disorder), combined type F90.2 and 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 [facility] [address] [place] [address] 66010- 9293 Sep, Gastroenteritis K52.9 [facility] [id number] [place] [address] [id number] Sep, Encounter for dental examination Z01.20 [facility] [id number] [place] [address] 85334- 6311 Aug, Annual physical exam Z00.00 and Seizures R56.9 [place] [id number] [facility] [id number] [address] Aug, Adjustment disorder with disturbance of emotion F43.29 ; Developmental delay disorder R62.50 ; Developmental delay, gross motor F82 and 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 [facility] [address], [place] [address] 15 Aug, 2017 Moderate left ankle sprain, initial encounter S93.402A [facility] [id number] [place] [address] 81062- 7571 07 Aug, 2017 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 ; Developmental delay, gross motor F82 and Adjustment disorder with disturbance of emotion F43.29 [facility] [id number], [place] [address] Aug, Fatigue, unspecified type R53.83 IMMUNIZATIONS No Known Immunizations SOCIAL HISTORY Never Assessed REASON FOR VISIT Mosia physical--Daryl Rowell MA PLAN OF CARE Activity Details Follow Up 6 Weeks Reason:seizures VITAL SIGNS Weight 198.4 lbs 2017-08-27 Temperature 98.1 degrees Fahrenheit 2017-08-27 Heart Rate 80 bpm 2017-08-27 Respiratory Rate 20 2017-08-27 Oximetry 98 % 2017-08-27 Blood pressure systolic 130 mmHg 2017-08-27 Blood pressure diastolic 88 mmHg 2017-08-27 MEDICATIONS Medication Instructions Dosage Frequency Start Date End Date Duration Status Desmopressin Acetate 0.2 MG Orally Once a day 2 tablet at bedtime 24h Active Olopatadine HCl 0.1 % Ophthalmic TID 1 drop into affected eye 8h Active Benztropine Mesylate 1 MG Orally BID 1 tablet at bedtime 12h Active Cyproheptadine HCl 4 MG Orally HS 2 tablet Active Thera M Plus - Active Acetaminophen 500 MG Orally every 6 hrs 2 capsules as needed 6h Active Clindamycin-Benzoyl Per-Cleans 1-5 % Active Oxcarbazepine 600 MG Orally TID 1 tablet 8h Active Loxitane 10 MG Orally HS 1 capsule Active Melatonin 3 MG Orally Once a day 1 tablet at bedtime as needed with food 24h Active Siltussin SA 100 MG/5ML Orally every 4 hrs 10 ml as needed 4h Active Aripiprazole 10 MG Orally BID 1 tablet 12h Active Levetiracetam 500 MG Orally Twice a day 1 tablet 12h Active Chlorhexidine - Active BusPIRone HCl 10 MG Orally Twice a day 1 tablet 12h Active RESULTS No Results PROCEDURES Procedure Date Ordered Result Body Site MEASURE BLOOD OXYGEN LEVEL Aug 27, 2017 INSTRUCTIONS MEDICATIONS ADMINISTERED No Known Medications MEDICAL (GENERAL) HISTORY Type Description Date Medical History Schizophrenia Medical History Intermitten Explosive Disorder Medical History Generalized anxiety disorder Medical History Moderate intellectual disability Medical History Bipolar Medical History asthma exercise induced Medical History Seizure disorder Surgical History Tubes in ears
--- OUTSIDE RECORDS SUMMARY | 2018-04-22 21:14 | XMS REPORT ---
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 Active 48681394 Problem Developmental delay, gross motor F82 Active 010466502 Problem Other schizophrenia F20.89 Active 58895281 Problem Intermittent explosive disorder F63.81 Active 12535463 Problem Schizophrenia, unspecified type F20.9 Active 04455126 Problem Adjustment disorder, unspecified type F43.20 Active 37056842 Problem ADHD (attention deficit hyperactivity disorder), combined type F90.2 Active 51656091 Problem ANA LILIA (generalized anxiety disorder) F41.1 Active 78801018 ALLERGIES Substance Reaction Event Type Date Status PredniSONE Unknown Drug Allergy Oct, Active Augmentin Unknown Drug Allergy Oct, Active Natural Rubber Unknown Non Drug Allergy Oct, Active Latex Unknown Non Drug Allergy Oct, Active ENCOUNTERS Encounter Location Date Diagnosis [facility] [address] [id number] Apr, [facility] [id number] [place] [address]698[address] 7947 Apr, [facility] [id number] [place] [address] 06379- 6783 Apr, [facility] [id number] [place] [address] [phone] Apr, [facility] [address] [id number] Mar, Dental examination Z01.20 [facility] [address], [place] [address] Mar, Schizophrenia, unspecified type F20.9 and Intermittent explosive disorder F63.81 [facility] [address], [place] [address] Mar, Acute nonintractable headache, unspecified headache type R51 [facility] [id number] [place] [address] 78610[address] February, Schizophrenia, unspecified type F20.9 ; ANA LILIA (generalized anxiety disorder) F41.1 ; Intermittent explosive disorder F63.81 and ADHD ( attention deficit hyperactivity disorder), combined type F90.2 [facility] [id number] [place] [address] 22349[address] February, Schizophrenia, unspecified type F20.9 and Intermittent explosive disorder F63.81 [facility] [id number] [place] [address] 55905- 60[address] February, [facility] [id number] [place] [address] 88158- 9129 February, Schizophrenia, unspecified type F20.9 [facility] [id number] [place] [address] 01149- 5[address] Jan, Schizophrenia, unspecified type F20.9 ; ANA LILIA (generalized anxiety disorder) F41.1 ; Intermittent explosive disorder F63.81 and ADHD ( attention deficit hyperactivity disorder), combined type F90.2 [facility] [address], [place] [address] Jan, Schizophrenia, unspecified type F20.9 and Intermittent explosive disorder F63.81 [facility] [address], [place] [address] Jan, Schizophrenia, unspecified type F20.9 ; ANA LILIA (generalized anxiety disorder) F41.1 ; Intermittent explosive disorder F63.81 and ADHD ( attention deficit hyperactivity disorder), combined type F90.2 [facility] [address], [place] [address] Jan, Schizophrenia, unspecified type F20.9 ; ANA LILIA (generalized anxiety disorder) F41.1 ; Intermittent explosive disorder F63.81 and ADHD ( attention deficit hyperactivity disorder), combined type F90.2 [facility] [address], [place] [address] Dec, [facility] [id number] [place] [address] 41761- 5068 Dec, Schizophrenia, unspecified type F20.9 ; ANA LILIA (generalized anxiety disorder) F41.1 ; Intermittent explosive disorder F63.81 and ADHD ( attention deficit hyperactivity disorder), combined type F90.2 [facility] [address], [place] [address] Dec, [facility] [id number] [place] [id number] Dec, Encounter for dental examination Z01.20 [facility] [id number] [place] [address] 96085- 2506 Dec, Schizophrenia, unspecified type F20.9 ; ANA LILIA (generalized anxiety disorder) F41.1 ; Intermittent explosive disorder F63.81 and ADHD ( attention deficit hyperactivity disorder), combined type F90.2 [facility] [address], [place] [address] Dec, Schizophrenia, unspecified type F20.9 ; ANA LILIA (generalized anxiety disorder) F41.1 ; Intermittent explosive disorder F63.81 and ADHD ( attention deficit hyperactivity disorder), combined type F90.2 [facility] [address] [place] [address] 55957- 9698 Dec, Seizures R56.9 ; Intermittent explosive disorder F63.81 and Developmental delay, gross motor F82 [facility] [address], [place] [address] Nov, ANA LILIA (generalized anxiety disorder) F41.1 ; Intermittent explosive disorder F63.81 ; ADHD (attention deficit hyperactivity disorder), combined type F90.2 ; Other group home (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 ; Adjustment disorder, unspecified type F43.20 and Other schizophrenia F20.89 [facility] [address], [place] [address] Nov, Schizophrenia, unspecified type F20.9 [facility] [id number] [place] [address] 78426- 2875 Oct, ANA LILIA (generalized anxiety disorder) F41.1 ; Intermittent explosive disorder F63.81 ; ADHD (attention deficit hyperactivity disorder), combined type F90.2 ; Other intermediate designer (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 and Adjustment disorder, unspecified type F43.20 [facility] [address] [place] [address] 70559- 6699 Oct, Schizophrenia, unspecified type F20.9 ; ANA LILIA (generalized anxiety disorder) F41.1 ; Intermittent explosive disorder F63.81 and ADHD ( attention deficit hyperactivity disorder), combined type F90.2 [facility] [address] [place] [phone] Oct, Dental examination Z01.20 [facility] [address] [place] [address] 96069- 5342 Oct, [facility] [address] [place] [address] 49078- 2360 Oct, Other group home (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 [facility] [address] [place] [address] 34060- 5574 Sep, ANA LILIA (generalized anxiety disorder) F41.1 ; Intermittent explosive disorder F63.81 ; ADHD (attention deficit hyperactivity disorder), combined type F90.2 ; Other intermediate designer (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 and Adjustment disorder, unspecified type F43.20 [facility] [address] [place] [address] 95942- 2580 21 Dec, 2017 Schizophrenia, unspecified type F20.9 ; ANA LILIA (generalized anxiety disorder) F41.1 ; Intermittent explosive disorder F63.81 ; ADHD ( attention deficit hyperactivity disorder), combined type F90.2 and Other group home (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 [facility] [id number] [place] [address] 69878- 0944 18 Sep, 2017 Gastroenteritis K52.9 [facility] [address] [id number] 13 Sep, 2017 Encounter for dental examination Z01.20 [facility] [address] [address] 22 Aug, 2017 Annual physical exam Z00.00 and Seizures R56.9 [facility] [id number] [place] [address] 33694- 5322 22 Aug, 2017 Adjustment disorder with disturbance of emotion F43.29 ; Developmental delay disorder R62.50 ; Developmental delay, gross motor F82 and 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 [facility] [id number] [place] [address] 27297 [address]10[address] 15 Aug, 2017 Moderate left ankle sprain, initial encounter S93.402A [facility] [id number] [place] [address] 35982- 2478 07 Aug, 2017 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 ; Developmental delay, gross motor F82 and Adjustment disorder with disturbance of emotion F43.29 [facility] [id number] [place] [address] 07093 -0594 Aug, Fatigue, unspecified type R53.83 IMMUNIZATIONS No Known Immunizations SOCIAL HISTORY Never Assessed REASON FOR VISIT f/u PLAN OF CARE Activity Details Follow Up Next available Reason:Adjustment disorderA VITAL SIGNS MEDICATIONS Medication Instructions Dosage Frequency Start Date End Date Duration Status Benztropine Mesylate 1 MG Orally BID 1 tablet 12h Active Acetaminophen 500 MG Orally every 6 hrs 2 capsules as needed 6h Unknown Loxitane 10 MG Orally HS 1 capsule Active Benztropine Mesylate 1 MG TAKE 1 TABLET BY MOUTH TWICE DAILY Unknown Clindamycin-Benzoyl Per-Cleans 1-5 % Unknown Aripiprazole 10 MG Orally BID 1 tablet 12h Active Melatonin 3 MG Orally Once a day 1 tablet at bedtime as needed with food 24h Active Divalproex Sodium 500 mg Orally 2 times a day 1 tablet 12h Unknown Oxcarbazepine 600 MG Orally TID 1 tablet 8h Unknown Thera M Plus - Unknown BusPIRone HCl 10 MG Orally Twice a day 1 tablet 12h Active Desmopressin Acetate 0.2 MG Orally Once a day 2 tablet at bedtime 24h Unknown Cyproheptadine HCl 4 MG Orally HS 2 tablet Active Cyproheptadine HCl 4 MG TAKE TWO TABLETS BY MOUTH DAILY AT BEDTIME Unknown Olopatadine HCl 0.1 % Ophthalmic TID 1 drop into affected eye 8h Unknown Loxapine Succinate 10 mg Orally Once a day at bedtime 1 capsule Unknown Abilify 5 mg Orally Once a day at 4 PM 1 tablet Oct, 30 day(s ) Unknown Chlorhexidine - Unknown Siltussin SA 100 MG/5ML Orally every 4 hrs 10 ml as needed 4h Unknown Aripiprazole 20 MG TAKE 1/2 TABLET BY MOUTH TWICE DAILY Unknown Levetiracetam 500 MG Orally Twice a day 1 tablet 12h Unknown RESULTS No Results PROCEDURES Procedure Date Ordered Result Body Site Psychotherapy, patient &/family, 30 minutes, established patient Oct 27, 2017 INSTRUCTIONS MEDICATIONS ADMINISTERED No Known Medications MEDICAL (GENERAL) HISTORY Type Description Date Medical History Schizophrenia Medical History Intermitten Explosive Disorder Medical History Generalized anxiety disorder Medical History Moderate intellectual disability Medical History Bipolar Medical History asthma exercise induced Medical History Seizure disorder Surgical History Tubes in ears
[2018-04-22] MEDS ORDERED: fentaNYL INJECTION 100 MCG/2 ML AMP IVP ONE ×2 (21:15→22:30)
--- OUTSIDE RECORDS SUMMARY | 2018-04-22 21:15 | XMS REPORT ---
Author Author CESIA Roberts Organization 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 [address] [place] [address]321[address] Apr, [facility] [id number] [place] [address] 39675[phone] Apr, [facility] [id number] [place] [id number] Mar, [facility] [id number] [place] [address] 22075- 2767 Mar, [facility] [address] [address] February, Schizophrenia, unspecified type F20.9 ; ANA LILIA (generalized anxiety disorder) F41.1 ; Intermittent explosive disorder F63.81 and ADHD ( attention deficit hyperactivity disorder), combined type F90.2 [facility] [address] [address] February, Schizophrenia, unspecified type F20.9 and Intermittent explosive disorder F63.81 [facility] [id number] [address] February, [facility] [address] [address] February, Schizophrenia, unspecified type F20.9 [facility] [address] [address] Jan, Schizophrenia, unspecified type F20.9 ; ANA LILIA (generalized anxiety disorder) F41.1 ; Intermittent explosive disorder F63.81 and ADHD ( attention deficit hyperactivity disorder), combined type F90.2 [facility] [address] [address] Jan, Schizophrenia, unspecified type F20.9 and Intermittent explosive disorder F63.81 [facility] [address] [address]- [address] Jan, Schizophrenia, unspecified type F20.9 ; ANA LILIA (generalized anxiety disorder) F41.1 ; Intermittent explosive disorder F63.81 and ADHD ( attention deficit hyperactivity disorder), combined type F90.2 [facility] [address] [address] Jan, Schizophrenia, unspecified type F20.9 ; ANA LILIA (generalized anxiety disorder) F41.1 ; Intermittent explosive disorder F63.81 and ADHD ( attention deficit hyperactivity disorder), combined type F90.2 [facility] [address] [address] Dec, [facility] [address] [address] Dec, Schizophrenia, unspecified type F20.9 ; ANA LILIA (generalized anxiety disorder) F41.1 ; Intermittent explosive disorder F63.81 and ADHD ( attention deficit hyperactivity disorder), combined type F90.2 [facility] [id number] [address] Dec, [facility] [address] [id number] Dec, Encounter for dental examination Z01.20 [facility] [address] [address] Dec, Schizophrenia, unspecified type F20.9 ; ANA LILIA (generalized anxiety disorder) F41.1 ; Intermittent explosive disorder F63.81 and ADHD ( attention deficit hyperactivity disorder), combined type F90.2 [facility] [address] [address] Dec, Schizophrenia, unspecified type F20.9 ; ANA LILIA (generalized anxiety disorder) F41.1 ; Intermittent explosive disorder F63.81 and ADHD ( attention deficit hyperactivity disorder), combined type F90.2 [facility] [address] [address]- [address] Dec, Seizures R56.9 ; Intermittent explosive disorder F63.81 and Developmental delay, gross motor F82 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 [id number] [address] Nov, Schizophrenia, unspecified type F20.9 [facility] [address] [address] Oct, ANA LILIA (generalized anxiety disorder) F41.1 ; Intermittent explosive disorder F63.81 ; ADHD (attention deficit hyperactivity disorder), combined type F90.2 ; Other detention (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 and Adjustment disorder, unspecified type F43.20 [facility] [address] [place] [address] 62980- 9071 Oct, Schizophrenia, unspecified type F20.9 ; ANA LILIA (generalized anxiety disorder) F41.1 ; Intermittent explosive disorder F63.81 and ADHD ( attention deficit hyperactivity disorder), combined type F90.2 [facility] [address] [place] [id number] Oct, Dental examination Z01.20 [facility] [address] [address] Oct, [facility] [address] [address] Oct, Other detention (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 [facility] [id number] [place] [address] 61465- 7779 Sep, ANA LILIA (generalized anxiety disorder) F41.1 ; Intermittent explosive disorder F63.81 ; ADHD (attention deficit hyperactivity disorder), combined type F90.2 ; Other detention (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 and Adjustment disorder, unspecified type F43.20 [facility] [id number] [place] [address] 25150- 4261 Sep, Schizophrenia, unspecified type F20.9 ; ANA LILIA (generalized anxiety disorder) F41.1 ; Intermittent explosive disorder F63.81 ; ADHD ( attention deficit hyperactivity disorder), combined type F90.2 and Other transit mixer driver (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 [facility] [address] [place] [address] 29307- 4693 Sep, Gastroenteritis K52.9 [facility] [id number] [place] [address] [id number] Sep, Encounter for dental examination Z01.20 [facility] [id number] [place] [address] 46846- 9218 Aug, Annual physical exam Z00.[address] 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 ; Developmental delay, gross motor F82 and Adjustment disorder with disturbance of emotion F43.29 [facility] [id number] [address] Aug, Fatigue, unspecified type R53.83 IMMUNIZATIONS No Known Immunizations SOCIAL HISTORY Never Assessed REASON FOR VISIT f/u PLAN OF CARE Activity Details Follow Up Next available, 4 Weeks Reason:Adjustment Disorder, social anxiety VITAL SIGNS MEDICATIONS Unknown Medications RESULTS No Results PROCEDURES Procedure Date Ordered Result Body Site Psychotherapy, patient &/family, 60 minutes, new patient Aug 27, 2017 INSTRUCTIONS MEDICATIONS ADMINISTERED No Known Medications MEDICAL (GENERAL) HISTORY Type Description Date Medical History Schizophrenia Medical History Intermitten Explosive Disorder Medical History Generalized anxiety disorder Medical History Moderate intellectual disability Medical History Bipolar Medical History asthma exercise induced Medical History Seizure disorder Surgical History Tubes in ears
--- NOTE | 2018-04-22 21:17 | ED Lower Extremity ---
General Chief Complaint: Lower Extremity Stated Complaint: FALL, ANKLE PAIN Source: patient, EMS Exam Limitations: physical impairment (patient is a resident at and is [place].) History of Present Illness Date Seen by Provider: Apr 22, 2018 Time Seen by Provider: 21:12 Initial Comments Patient is a 28-year-old male who is brought in by [facility] for a fall, left ankle pain and left ankle deformity. The patient reports that he was just walking and his left ankle gave out from under him. EMS gave him 50 g of fentanyl in route seemed to help his pain. On arrival to ED his pulses in the foot are adequate. Onset: just prior to arrival Pain/Injury Location: left ankle Method of Injury: fell Modifying Factors: Improves With Immobilization; Worse With Movement; Improves With Pain Medication Allergies and Home Medications Allergies Coded Allergies: No Known Drug Allergies (Unverified , 07/18/17) Home Medications Levetiracetam 500 Mg Tablet, 500 MG PO BID Prescribed by: ELROY GONZALEZ on 07/21/171718 Oxcarbazepine 600 Mg Tablet, 600 MG PO TID Prescribed by: ELROY GONZALEZ on 07/21/171718 Patient Home Medication List Home Medication List Reviewed: Yes Constitutional: see HPI; No chills, No diaphoresis EENTM: no symptoms reported Respiratory: see HPI; No dyspnea on exertion, No short of breath, No wheezing Cardiovascular: see HPI; No edema, No Hx of Intervention, No palpitations Gastrointestinal: see HPI; No abdominal pain, No constipation, No diarrhea Genitourinary: see HPI; No decreased output, No discharge, No dysuria Musculoskeletal: see HPI, joint pain (left ankle pain and deformity), joint swelling Skin: see HPI; No change in color, No change in hair/nails, No dryness Psychiatric/Neurological: See HPI; Denies Anxiety, Denies Depressed All Other Systems Reviewed Negative Unless Noted: Yes Past Odyhsms-Uosrbt-Japuhu Hx Past Med/Social Hx: Reviewed Nursing Past Med/Soc Hx Patient Social History Alcohol Use: Denies Use Recreational Drug Use: No Type Used: Cigars 2nd Hand Smoke Exposure: Yes Recent Hopitalizations: No Immunizations Up To Date Tetanus Booster (TDap): Unknown Seasonal Allergies Seasonal Allergies: No Past Medical History Surgeries: Yes (UNKNOWN) Ear Surgery Respiratory: No Cardiac: No (UNKNOWN) Neurological: Yes Seizure Disorder Genitourinary: Yes (urinary incontinence) UTI-Chronic Gastrointestinal: No Musculoskeletal: No Endocrine: No HEENT: No Cancer: No Psychosocial: Yes (MR) Schizophrenia Integumentary: No Blood Disorders: No Family Medical History Reviewed Nursing Family Hx No Pertinent Family Hx Physical Exam Vital Signs Vital Signs - First Documented 04/22/18 21:05 Temp 97.1 Pulse 97 Resp 18 B/P (MAP) 126/87 (100) Pulse Ox 94 O2 Delivery Room Air Capillary Refill : Height, Weight, BMI Height: 5'9.00" Weight: 180lbs. oz. 81.118885aq; BMI Method:Estimated General Appearance: WD/WN, no apparent distress HEENT: PERRL/EOMI, normal ENT inspection, TMs normal, pharynx normal Neck: non-tender, full range of motion, supple, normal inspection Cardiovascular: regular rate, rhythm, no edema, no gallop, no JVD, no murmur Respiratory: chest non-tender, lungs clear, normal breath sounds, no respiratory distress, no accessory muscle use Gastrointestinal: normal bowel sounds, non tender, soft, no organomegaly, no pulsatile mass Back: normal inspection, no CVA tenderness, no vertebral tenderness Hips: bilateral hip non-tender, bilateral hip normal inspection, bilateral hip normal range of motion, bilateral hip no evidence of injury Legs: bilateral leg non-tender, bilateral leg normal inspection, bilateral leg normal range of motion, bilateral leg no evidence of injury Knees: bilateral knee non-tender, bilateral knee normal inspection, bilateral knee normal range of motion, bilateral knee no evidence of injury Ankles: right ankle bone tenderness; bilateral ankle deformity (the patient has bilateral talipes equinovarus); right ankle pain, right ankle swelling ( effusion to the calcaneal joint.) Feet: bilateral foot non-tender, bilateral foot normal inspection, bilateral foot normal range of motion, bilateral foot no evidence of injury, bilateral foot deformity (bilateral talipes equinovarus) Neurologic/Psychiatric: alert, normal mood/affect, oriented x 3 Skin: normal color, warm/dry Lymphatic: no adenopathy Progress/Results/Core Measures Results/Orders My Orders Orders - MOHIT CAMPOS Ankle, Left, 3 Views (04/22/18 21:10) Fentanyl Injection (Sublimaze Injection (04/22/18 21:15) Fentanyl Injection (Sublimaze Injection (04/22/18 22:30) Ct Extremity Lower Left Wo (04/22/18 22:16) Iv Push Toxicology Teacher Ed (04/22/18 ) Medications Given in ED Vital Signs/I&O 04/22/18 04/22/18 21:05 23:37 Temp 97.1 97.0 Pulse 97 81 Resp 18 18 B/P (MAP) 126/87 (100) 122/78 (100) Pulse Ox 94 95 O2 Delivery Room Air Room Air Progress Progress Note : Time: 22:45 Progress Note The patient was able to stand and bear weight and transfer into a wheelchair with minimal difficulty to go to CT scan. 2[address] CT report showed talipies equinovarus the patient was able to ambulate the length of the room without difficulty. An air stirrup was placed for support. Diagnostic Imaging Diagonstic Imaging: Xray Plain Films/CT/US/NM/MRI: ankle Comments NAME: MEGAN TIDWELL J MED REC#: [id number] PT STATUS: REG ER : 1990 PHYSICIAN: MOHIT CAMPOS ADMIT DATE: 04/22/18/ER Signed Date of Exam:04/22/18 ANKLE, LEFT, 3 VIEWS Clinical indication: Patient states that the left leg along the now complains of pain. Exam: X-ray of the left ankle, 3 views. Comparison: None. Findings: There are calcification seen distal to the lateral malleolus of unknown age. There is mild spurring of the medial malleolus distally. There is varus angulation of the tibiotalar joint seen with minimal widening of the lateral ankle mortise region. Unknown if this is due to patient positioning or true joint abnormality. There are also small calcifications seen posterior to the distal tibia only seen on lateral view. Os trigonum is noted. Impression: 1: There is small calcification seen distal to the lateral malleolus and posterior to the distal tibia region which are of unknown age. Small fracture fragments can't be completely excluded versus chronic calcifications. Comparison to prior x-rays of left ankle would better evaluate. Otherwise CT scan would better evaluate if there is concern for point tenderness in these regions. 2: There is varus angulation of the tibiotalar joint which may be related to patient positioning or true joint abnormality. If there is concern for ligamentous injury, then MRI would better evaluate. Dictated by: Dictated on workstation # [id number] Dict: 04/22/[id number] Trans: 04/22/182217 JOSE [id number] Interpreted by: MONICA MACIAS MD Electronically signed by: MONICA MACIAS MD 04/22/182217 Reviewed: Reviewed by Me Departure Impression Primary Impression: Ankle sprain Qualified Codes: S93.412A - Sprain of calcaneofibular ligament of left ankle, initial encounter Disposition: HOME, SELF-CARE Condition: Stable/Unchanged Departure-Patient Inst. Decision time for Depature: 23:31 Referrals: [facility] (PCP/Family) Primary Care Physician Patient Instructions: Ankle Sprain (DC) Add. Discharge Instructions: You may use ibuprofen and Tylenol as needed for pain. He may use ice pack was provided in the emergency room at 20 minute intervals. Follow-up with his doctor within 1 week for recheck. Return back to the emergency room for any concerns as needed. All discharge instructions reviewed with patient and/or family. Voiced understanding. MOHIT CAMPOS Apr 22, 2018 21:17
--- NOTE | 2018-04-22 22:00 | Diagnostic Imaging Report ---
Clinical indication: Patient states that the left leg along the now complains of pain. Exam: X-ray of the left ankle, 3 views. Comparison: None. Findings: There are calcification seen distal to the lateral malleolus of unknown age. There is mild spurring of the medial malleolus distally. There is varus angulation of the tibiotalar joint seen with minimal widening of the lateral ankle mortise region. Unknown if this is due to patient positioning or true joint abnormality. There are also small calcifications seen posterior to the distal tibia only seen on lateral view. Os trigonum is noted. Impression: 1: There is small calcification seen distal to the lateral malleolus and posterior to the distal tibia region which are of unknown age. Small fracture fragments can't be completely excluded versus chronic calcifications. Comparison to prior x-rays of left ankle would better evaluate. Otherwise CT scan would better evaluate if there is concern for point tenderness in these regions. 2: There is varus angulation of the tibiotalar joint which may be related to patient positioning or true joint abnormality. If there is concern for ligamentous injury, then MRI would better evaluate. Dictated by: Dictated on workstation # [id number]
[2018-04-22 23:37] VITALS: BP 122/78
--- NOTE | 2018-04-23 08:47 | Diagnostic Imaging Report ---
PROCEDURE: CT left lower extremity without contrast. TECHNIQUE: Multiple contiguous axial images were obtained through the left lower extremity without the use of intravenous contrast. Sagittal and coronal reformations were then performed. INDICATION: Left ankle deformity. Status post injury. EXAMINATION: CT left lower extremity 04/22/2018 FINDINGS: Deformity at the ankle is noted with a deviation of the foot at the level of the tibiotalar joint space. Widening of the lateral ankle mortise is noted. There are multiple osseous fragments about the ankle however these appear well-corticated and chronic in appearance with a definite acute fracture not seen. Soft tissues demonstrate minimal edema about the foot but no significant edema with minimal lateral edema also noted at the level of the ankle. No significant edema however is appreciated. The remaining visualized soft tissues within normal limits. IMPRESSION: 1. 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 If prior imaging is available for comparison this would be useful as well. 2. No obvious acute fractures visualized with osseous densities about the ankle, likely all chronic but if there is persistent pain, MRI could evaluate for edema in these regions. Dictated by: Dictated on workstation # [id number]
== END 2018-04-22 23:39 | disposition home or self-care (01) ==
LOC: EDUNIT# 21:05 → ER 21:06
DX: S93.412A Sprain of calcaneofibular ligament of left ankle, initial encounter (principal); G40.909 Epilepsy, unspecified, not intractable, without status epilepticus; F20.9 Schizophrenia, unspecified; Z87.440 Personal history of urinary (tract) infections; Z77.22 Contact with and (suspected) exposure to environmental tobacco smoke (acute) (chronic); W18.30XA Fall on same level, unspecified, initial encounter; Y93.01 Activity, walking, marching and hiking
CPT/HCPCS: 73610; 73700; 96374; 96376

== ENCOUNTER 2018-07-17 21:13 | Emergency (ER) | payer MEDICAID ==
[~2018-07-17] VITALS: Ht 160 cm; Wt 95.3 kg
[~2018-07-17 21:13] MED LIST changes: -OXCA600T PO; +OXCA600T10 PO
[2018-07-17] MEDS ORDERED: NS IV 1000 ML 1,000 ML IV ONE (22:24)
[2018-07-17] MEDS ORDERED: KETOROLAC 30 MG/ML VIAL IVP STA (22:25)
[2018-07-17] MEDS ORDERED: HYOSCYAMINE 0.125 MG (LEVSIN) TAB SL ONE (22:30)
--- NOTE | 2018-07-17 22:31 | ED Abdominal Pain ---
General Chief Complaint: Abdominal/GI Problems Stated Complaint: STOMACH PAIN Nursing Triage Note: Pt ambulatory to ED room 6 acc by program admin from [facility]. Pt reports lower abd pain starting this evening. Pt denies n/v/d and states he feels "gassy". Sepsis Screen: No Definite Risk Source of Information: Patient Exam Limitations: No Limitations History of Present Illness Date Seen by Provider: Jul 17, 2018 Time Seen by Provider: 22:11 Initial Comments Here with report of lower abdominal pain and significant this pain. Denies nausea, vomiting, diarrhea or fever. This is been intermittent over a couple months but much worse tonight causing them to present to the emergency department. Pain is periumbilical and lower. Patient does have underlying mental delay and seizure disorder. Pain onset after eating tonight. Apparently had bland broiled steak and to fried eggs. Had significant gas pain and passing gas afterwards with significant lower abdominal. Reports 10 out of 10 currently. Timing/Duration: 1-3 Hours, Intermittent, Other (chronic her child months) Severity/Quality: Moderate, Aching, Cramping Location: Periumbilical, Suprapubic Radiation: RLQ, LLQ Activities at Onset: None Modifying Factors: Worsens With Eating; Improves With Resting Associated Symptoms: No Back Pain, No Chest Pain, No Fever/Chills, No Nausea/ Vomiting, No Shortness of Air, No Weakness Allergies and Home Medications Allergies Coded Allergies: Latex, Natural Rubber (Unverified Allergy, Unknown, 07/17/18) amoxicillin (Unverified Allergy, Unknown, 07/17/18) clavulanic acid (Unverified Allergy, Unknown, 07/17/18) prednisone (Unverified Allergy, Unknown, 07/17/18) Home Medications Levetiracetam 500 Mg Tablet, 500 MG PO BID Prescribed by: ELROY GONZALEZ on 07/21/171718 Oxcarbazepine 600 Mg Tablet, 600 MG PO TID Prescribed by: ELROY GONZALEZ on 07/21/171718 Patient Home Medication List Home Medication List Reviewed: Yes Review of Systems Review of Systems Constitutional: see HPI; No chills, No fever EENTM: No Symptoms Reported Respiratory: No Symptoms Reported Cardiovascular: No Symptoms Reported Gastrointestinal: See HPI, Abdominal Pain; Denies Constipated, Denies Diarrhea Genitourinary: No Symptoms Reported Musculoskeletal: no symptoms reported All Other Systems Reviewed Negative Unless Noted: Yes Past Pcfwhtr-Kkyzzs-Adgnte Hx Past Med/Social Hx: Reviewed Nursing Past Med/Soc Hx Patient Social History Alcohol Use: Denies Use Recreational Drug Use: No Smoking Status: Never a Smoker Type Used: Cigars 2nd Hand Smoke Exposure: Yes Recent Foreign Travel: No Contact w/Someone Who Travel: No Recent Infectious Disease Expo: No Recent Hopitalizations: No Immunizations Up To Date Tetanus Booster (TDap): Unknown Seasonal Allergies Seasonal Allergies: No Past Medical History Surgeries: Yes (UNKNOWN) Ear Surgery Respiratory: No Cardiac: No (UNKNOWN) Neurological: Yes Seizure Disorder Genitourinary: Yes (urinary incontinence) UTI-Chronic Gastrointestinal: No Musculoskeletal: No Endocrine: No HEENT: No Cancer: No Psychosocial: Yes (MR) Schizophrenia Integumentary: No Blood Disorders: No Family Medical History Reviewed Nursing Family Hx No Pertinent Family Hx Physical Exam Vital Signs Vital Signs - First Documented 07/17/18 21:40 Temp 97.3 Pulse 75 Resp 18 B/P (MAP) 131/96 (108) Pulse Ox 97 O2 Delivery Room Air Capillary Refill : Less Than 3 Seconds Height/Weight/BMI Height: 5'3.00" Weight: 210lbs. oz. 95.201339qr; BMI Method:Stated General Appearance: WD/WN, no apparent distress HEENT: PERRL/EOMI, pharynx normal Neck: full range of motion, supple Respiratory: lungs clear, normal breath sounds Cardiovascular: regular rate, rhythm, no murmur Gastrointestinal: soft; No guarding, No rebound; tenderness (periumbilical/ suprapubic region) Extremities: non-tender, normal inspection Back: normal inspection, no CVA tenderness, no vertebral tenderness Neurologic/Psychiatric: alert, oriented x 3 Skin: normal color, warm/dry Progress/Results/Core Measures Results/Orders Lab Results Laboratory Tests Test 07/17/18 22:31 07/17/18 22:34 Range/Units White Blood Count 8.1 4.3-11.0 10^3/uL Red Blood Count 4.94 4.35-5.85 10^6/uL Hemoglobin 16.0 13.3-17.7 G/DL Hematocrit 44 40-54 % Mean Corpuscular Volume 89 80-99 FL Mean Corpuscular Hemoglobin 32 25-34 PG Mean Corpuscular Hemoglobin Concent 37 H 32-36 G/DL Red Cell Distribution Width 12.9 10.0-14.5 % Platelet Count 248 130-400 10^3/uL Mean Platelet Volume 9.0 7.4-10.4 FL Neutrophils (%) (Auto) 39 L 42-75 % Lymphocytes (%) (Auto) 45 H 12-44 % Monocytes (%) (Auto) 8 0-12 % Eosinophils (%) (Auto) 6 0-10 % Basophils (%) (Auto) 1 0-10 % Neutrophils # (Auto) 3.2 1.8-7.8 X 10^3 Lymphocytes # (Auto) 3.7 1.0-4.0 X 10^3 Monocytes # (Auto) 0.6 0.0-1.0 X 10^3 Eosinophils # (Auto) 0.5 H 0.0-0.3 10^3/uL Basophils # (Auto) 0.1 0.0-0.1 10^3/uL Sodium Level 130 L 135-145 MMOL/L Potassium Level 3.8 3.6-5.0 MMOL/L Chloride Level 93 L 98-107 MMOL/L Carbon Dioxide Level 23 21-32 MMOL/L Anion Gap 14 5-14 MMOL/L Blood Urea Nitrogen 8 7-18 MG/DL Creatinine 0.80 0.60-1.30 MG/DL Estimat Glomerular Filtration Rate > 60 BUN/Creatinine Ratio 10 Glucose Level 88 70-105 MG/DL Calcium Level 10.0 8.5-10.1 MG/DL Corrected Calcium 9.7 8.5-10.1 MG/DL Total Bilirubin 0.4 0.1-1.0 MG/DL Aspartate Amino Transf (AST/SGOT) 27 5-34 U/L Alanine Aminotransferase (ALT/SGPT) 40 0-55 U/L Alkaline Phosphatase 47 40-136 U/L Total Protein 6.6 6.4-8.2 GM/DL Albumin 4.4 3.2-4.5 GM/DL Urine Color YELLOW Urine Clarity SLIGHTLY CLOUDY Urine pH 8 5-9 Urine Specific [place] 1.010 L 1.016-1.022 Urine Protein NEGATIVE NEGATIVE Urine Glucose (UA) NEGATIVE NEGATIVE Urine Ketones NEGATIVE NEGATIVE Urine Nitrite NEGATIVE NEGATIVE Urine Bilirubin NEGATIVE NEGATIVE Urine Urobilinogen NORMAL NORMAL MG/DL Urine Leukocyte Esterase NEGATIVE NEGATIVE Urine RBC (Auto) NEGATIVE NEGATIVE Urine RBC NONE /HPF Urine WBC RARE /HPF Urine Crystals PRESENT H /LPF Urine Amorphous Sediment LARGE JAMES PHOSPHATE H /LPF Urine Bacteria NEGATIVE /HPF Urine Casts NONE /LPF Urine Mucus NEGATIVE /LPF Urine Culture Indicated NO My Orders Orders - JERRY HANKS MD Cbc With Automated Diff (07/17/18 22:24) Comprehensive Metabolic Panel (07/17/18 22:24) Ua Culture If Indicated (07/17/18 22:24) Saline Lock/Iv-Start (07/17/18 22:24) Ns Iv 1000 Ml (Sodium Chloride 0.9%) (07/17/18 22:24) Ct Abdomen/Pelvis W (07/17/18 22:24) Ketorolac Injection (Toradol Injection) (07/17/18 22:25) Hyoscyamine Sl Tablet (Levsin Sl Tablet) (07/17/18 22:30) Iohexol Injection (Omnipaque 350 Mg/Ml 1 (07/17/18 23:15) Ns (Ivpb) (Sodium Chloride 0.9%) (07/17/18 23:15) Medications Given in ED Current Medications Medications Dose Ordered Sig/Omar Route Start Time Stop Time Status Last Admin Dose Admin Hyoscyamine Sulfate 0.125 mg ONCE ONCE SL 07/17/18 22:30 07/17/18 22:31 DC 07/17/18 23:15 0.125 MG Iohexol 100 ml ONCE ONCE IV 07/17/18 23:15 07/17/18 23:16 DC 07/17/18 23:02 100 ML Sodium Chloride 250 ml ONCE ONCE IV 07/17/18 23:15 07/17/18 23:16 DC 07/17/18 23:02 80 ML Sodium Chloride 1,000 ml @ 0 mls/hr Q0M ONCE IV 07/17/18 22:24 07/17/18 22:26 DC 07/17/18 23:15 999 MLS/HR Vital Signs/I&O 07/17/18 21:40 Temp 97.3 Pulse 75 Resp 18 B/P (MAP) 131/96 (108) Pulse Ox 97 O2 Delivery Room Air Blood Pressure Mean: 108 Progress Progress Note : Progress Note Seen and evaluated. IV, labs, UA, normal saline 1 L bolus, Toradol 30 mg IV, Levsin 0.125 mg by mouth and CT abdomen pelvis ordered. Monitor patient. 2330 : CT complete. Patient does feel better. CT findings reviewed with the patient and family. I did also discuss the case with Dr. Fairbanks. Patient likely needs colonoscopy to evaluate the cecum further. He is to call Dr. Fairbanks's office this week for appointment. This was discussed with the patient and family who agree. Discharged home with return precautions. Patient family verbalize understanding instructions and agreement with plan. Diagnostic Imaging Diagonstic Imaging: CT Plain Films/CT/US/NM/MRI: abdomen, pelvis Comments Mild inflammation of the cecum. No evidence of appendicitis. Reviewed: Reviewed [place] Hawk Study, Reviewed by Me Departure Impression Primary Impression: Lower abdominal pain Disposition: HOME, SELF-CARE Condition: Improved Departure-Patient Inst. Decision time for Depature: 23:37 Referrals: [facility] (PCP/Family) Primary Care Physician MEGAN FAIRBANKS DO Patient Instructions: Acute Abdomen (Belly Pain), Adult (DC) Add. Discharge Instructions: All discharge instructions reviewed with patient and/or family. Voiced understanding. You need to eat a light diet and avoid heavy or fatty foods. Drink plenty of fluids. Call Dr. Fairbanks's office on Friday for appointment this week. Return for worse pain, fever, vomiting, weakness, breathing problems or other concerns as needed. Continue probiotic as previously prescribed. Copy Copies To 1: MEGAN FAIRBANKS TIMOTHY D MD Jul 17, 2018 22:31
[2018-07-17 22:39] LABS: BASOPHILS # (AUTO) 0.1 10^3/uL (0.0-0.1); BASOPHILS % (AUTO) 1 % (0-10); EOSINOPHILS # (AUTO) 0.5 10^3/uL (0.0-0.3); EOSINOPHILS % (AUTO) 6 % (0-10); HEMATOCRIT 44 % (40-54); LYMPHOCYTES # (AUTO) 3.7 X 10^3 (1.0-4.0); LYMPHOCYTES % (AUTO) 45 % (12-44); MEAN CORPUSCULAR HEMOGLOBIN 32 PG (25-34); MEAN CORPUSCULAR HGB CONC 37 G/DL (32-36); MEAN CORPUSCULAR VOLUME 89 FL (80-99); MONOCYTES # (AUTO) 0.6 X 10^3 (0.0-1.0); MONOCYTES % (AUTO) 8 % (0-12); NEUTROPHILS # (AUTO) 3.2 X 10^3 (1.8-7.8); NEUTROPHILS % (AUTO) 39 % (42-75); PLATELET COUNT 248 10^3/uL (130-400); RED BLOOD COUNT 4.94 10^6/uL (4.35-5.85); RED CELL DISTRIBUTION WIDTH 12.9 % (10.0-14.5); WHITE BLOOD COUNT 8.1 10^3/uL (4.3-11.0)
[2018-07-17 22:45] LABS: BILIRUBIN,URINE NEGATIVE (NEGATIVE); CLARITY,URINE SLIGHTLY CLOUDY; COLOR,URINE YELLOW; GLUCOSE, URINE (UA) NEGATIVE (NEGATIVE); KETONES,URINE NEGATIVE (NEGATIVE); LEUKOCYTE ESTERASE ,URINE NEGATIVE (NEGATIVE); NITRITE,URINE NEGATIVE (NEGATIVE); PH,URINE 8 (5-9); PROTEIN,URINE NEGATIVE (NEGATIVE); UROBILINOGEN,URINE NORMAL (NORMAL)
[2018-07-17 22:55] LABS: AMORPHOUS SEDIMENT,UR LARGE AMOR PHOSPHATE /LPF; BACTERIA,URINE NEGATIVE /HPF; WBC,URINE RARE /HPF
[2018-07-17 22:57] LABS: ALANINE AMINOTRANSFERASE 40 U/L (0-55); ALBUMIN 4.4 GM/DL (3.2-4.5); ALKALINE PHOSPHATASE 47 U/L (40-136); BILIRUBIN,TOTAL 0.4 MG/DL (0.1-1.0); BUN/CREATININE RATIO 10; CARBON DIOXIDE 23 MMOL/L (21-32); CHLORIDE 93 MMOL/L (98-107); GFR ESTIMATED > 60; GLUCOSE 88 MG/DL (70-105); POTASSIUM 3.8 MMOL/L (3.6-5.0); SODIUM 130 MMOL/L (135-145); TOTAL PROTEIN 6.6 GM/DL (6.4-8.2)
[2018-07-17] MEDS ORDERED: IOHEXOL 350 MG/ML 100 ML (OMNIPAQUE 350) VIAL IV ONE (23:15)
[2018-07-17] MEDS ORDERED: NS 250 ML (IVPB) BAG IV ONE (23:15)
[2018-07-17 23:43] VITALS: BP 120/86
--- NOTE | 2018-07-18 07:14 | Diagnostic Imaging Report ---
PROCEDURE: CT abdomen and pelvis with contrast. TECHNIQUE: Multiple contiguous axial images were obtained through the abdomen and pelvis after administration of intravenous contrast. INDICATION: Pain COMPARISON: 09/21/2017 FINDINGS: Stable subpleural 0.6 cm pulmonary nodule within the right lower lobe. Mild subpleural atelectasis within the right lower lobe. The liver, spleen, adrenal glands, and pancreas are unremarkable. The gallbladder is decompressed but otherwise unremarkable. The kidneys are unremarkable. No aneurysmal dilatation of the abdominal aorta. The urinary bladder is unremarkable. The appendix is unremarkable. Mild mural thickening with minimal adjacent fat stranding about the cecum. No bowel obstruction or pneumatosis. No significant adenopathy, free air, or free fluid within the abdomen or pelvis. No acute osseous abnormality. IMPRESSION: Mild inflammatory changes associated with the cecum, favored to relate to an infectious or inflammatory process. No evidence of acute appendicitis. Stable 0.6 cm right lower lobe pulmonary nodule. This is unchanged since September 2017. If patient is at high-risk for lung cancer, then a followup CT of the chest should be obtained in one year. Additional findings as described above. Report was called to Dr. Smyth/RN [facility] ER by enoch at 7:15 am. KATY Nicolas, was also notified. Dictated by: Dictated on workstation # [id number]
--- OUTSIDE RECORDS SUMMARY | 2018-07-18 14:09 | XMS REPORT ---
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 Active 39871910 Problem Adjustment disorder with disturbance of emotion F43.29 Active 58992849 Problem 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 Active 62164892 Problem Neuropathy G62.9 Active 883949956 Problem ADHD (attention deficit hyperactivity disorder), combined type F90.2 Active 39932182 Problem ANA LILIA (generalized anxiety disorder) F41.1 Active 62672648 Problem Other schizophrenia F20.89 Active 04791848 Problem Intermittent explosive disorder F63.81 Active 90526454 ALLERGIES No Information ENCOUNTERS Encounter Location Date Diagnosis [facility] [id number] [place] [address] 10635- 3816 Sep, [facility] [id number] [place] [address] [id number] Jul, [facility] [id number] [place] [address] 73329- 7631 Jul, [facility] [id number] [place] [address] 80244- 8346 Jul, [facility] [id number] [place] [address] 17212- 2962 Jul, Schizophrenia, unspecified type F20.9 ; ANA LILIA (generalized anxiety disorder) F41.1 ; Intermittent explosive disorder F63.81 ; ADHD ( attention deficit hyperactivity disorder), combined type F90.2 and 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 [facility] [id number] [place] [id number] 17 Jun, 2018 Excessive flatus R14.3 [facility] [id number] [place] [address] 89534- 3055 17 Jun, 2018 Schizophrenia, unspecified type F20.9 and Intermittent explosive disorder F63.81 [facility] [address] [address]2120 14 Jun, 2018 Excessive gas R14.3 [facility] [address] [id number] May, Dental examination Z01.20 [place] [address] 83[address]- 7[address] May, Cramp of extremity R25.2 and Neuropathy G62.9 [place] [address] 25341- 2548 May, Schizophrenia, unspecified type F20.9 and Intermittent explosive disorder F63.81 [facility] [id number] [place] [address] 49423 -7640 Apr, Viral URI J06.9 and Epigastric abdominal pain R10.13 [place] [id number] [place] [address] 09804- 7150 Apr, Schizophrenia, unspecified type F20.9 ; ANA LILIA (generalized anxiety disorder) F41.1 ; Intermittent explosive disorder F63.81 and ADHD ( attention deficit hyperactivity disorder), combined type F90.2 [facility] [address] 0[address]01- 8124 Apr, Schizophrenia, unspecified type F20.9 and Intermittent explosive disorder F63.81 [facility] [id number] [place] [address] [id number] Mar, Dental examination Z01.20 [facility] [address] [id number], [place] [address] Mar, Schizophrenia, unspecified type F20.9 and Intermittent explosive disorder F63.81 [facility] [id number] [place] [address] 98019 -7785 Mar, Acute nonintractable headache, unspecified headache type R51 [facility] [id number] [place] [address] 29111- 2399 February, Schizophrenia, unspecified type F20.9 ; ANA LILIA (generalized anxiety disorder) F41.1 ; Intermittent explosive disorder F63.81 and ADHD ( attention deficit hyperactivity disorder), combined type F90.2 [place] [id number] [place] [address] 87125- 5758 February, Schizophrenia, unspecified type F20.9 and Intermittent explosive disorder F63.81 [facility] [id number] [place] [address] 75413- 1273 February, [facility] [id number] [place] [address] 71352- 6627 February, Schizophrenia, unspecified type F20.9 [place] [id number] [place] [address] 07228- 6543 Jan, Schizophrenia, unspecified type F20.9 ; ANA LILIA (generalized anxiety disorder) F41.1 ; Intermittent explosive disorder F63.81 and ADHD ( attention deficit hyperactivity disorder), combined type F90.2 [facility] [address] [place] [address] 81800- 4702 Jan, Schizophrenia, unspecified type F20.9 and Intermittent explosive disorder F63.81 [place] [address] [place] [address] 99888- 0510 Jan, Schizophrenia, unspecified type F20.9 ; ANA LILIA (generalized anxiety disorder) F41.1 ; Intermittent explosive disorder F63.81 and ADHD ( attention deficit hyperactivity disorder), combined type F90.2 [place] [address] [place] [address] Jan, Schizophrenia, unspecified type F20.9 ; ANA LILIA (generalized anxiety disorder) F41.1 ; Intermittent explosive disorder F63.81 and ADHD ( attention deficit hyperactivity disorder), combined type F90.2 [facility] [id number] [place] [address] 92262- 4235 Dec, [facility] [id number] [place] [address] 06406- 7930 Dec, Schizophrenia, unspecified type F20.9 ; ANA LILIA (generalized anxiety disorder) F41.1 ; Intermittent explosive disorder F63.81 and ADHD ( attention deficit hyperactivity disorder), combined type F90.2 [place] [id number] [place] [address] 78682- 6811 Dec, [facility] [id number] [place] [address] [id number] Dec, Encounter for dental examination Z01.20 [facility] [id number] [place] [address] 20194- 7891 Dec, Schizophrenia, unspecified type F20.9 ; ANA LILIA (generalized anxiety disorder) F41.1 ; Intermittent explosive disorder F63.81 and ADHD ( attention deficit hyperactivity disorder), combined type F90.2 [facility] [address], [place] [address]- 9[address] Dec, Schizophrenia, unspecified type F20.9 ; ANA LILIA (generalized anxiety disorder) F41.1 ; Intermittent explosive disorder F63.81 and ADHD ( attention deficit hyperactivity disorder), combined type F90.2 [facility] [address], [place] [address] Dec, Seizures R56.9 ; Intermittent explosive disorder F63.81 and Developmental delay, gross motor F82 [facility] [address] [place] [address] 39551- 4454 Nov, ANA LILIA (generalized anxiety disorder) F41.1 ; Intermittent explosive disorder F63.81 ; ADHD (attention deficit hyperactivity disorder), combined type F90.2 ; Other usp (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 ; Adjustment disorder, unspecified type F43.20 and Other schizophrenia F20.89 [facility] [address], [place] [address] 8[address] Nov, Schizophrenia, unspecified type F20.9 [facility] [id number] [place] [address] 86882- 1284 Oct, ANA LILIA (generalized anxiety disorder) F41.1 ; Intermittent explosive disorder F63.81 ; ADHD (attention deficit hyperactivity disorder), combined type F90.2 ; Other usp (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 and Adjustment disorder, unspecified type F43.20 [facility] [address] [place] [address] 31835- 8387 Oct, Schizophrenia, unspecified type F20.9 ; ANA LILIA (generalized anxiety disorder) F41.1 ; Intermittent explosive disorder F63.81 and ADHD ( attention deficit hyperactivity disorder), combined type F90.2 [facility] [address] [id number] Oct, Dental examination Z01.20 [facility] [address] [place] [address] 81441- 6134 Oct, [facility] [address], [place] [address] 3[address] Oct, Other usp (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 [facility] [address] [place] [address] 29565- 0612 Sep, ANA LILIA (generalized anxiety disorder) F41.1 ; Intermittent explosive disorder F63.81 ; ADHD (attention deficit hyperactivity disorder), combined type F90.2 ; Other usp (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 and Adjustment disorder, unspecified type F43.20 [facility] [address], [place] [address] 9[address] Sep, Schizophrenia, unspecified type F20.9 ; ANA LILIA (generalized anxiety disorder) F41.1 ; Intermittent explosive disorder F63.81 ; ADHD ( attention deficit hyperactivity disorder), combined type F90.2 and Other chro (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 [facility] [address] [place] [address] 96314- 8961 18 Sep, 2017 Gastroenteritis K52.9 [facility] [address] [place] [address] [id number] 13 Sep, 2017 Encounter for dental examination Z01.20 [place] [id number] [place] [address] 11822- 8030 22 Aug, 2017 Annual physical exam Z00.00 and Seizures R56.9 [place] [id number] [place] [address] 09313- 3027 22 Aug, 2017 Adjustment disorder with disturbance of emotion F43.29 ; Developmental delay disorder R62.50 ; Developmental delay, gross motor F82 and 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 [facility] [id number] [place] [address] 37294 -0581 15 Aug, 2017 Moderate left ankle sprain, initial encounter S93.402A [place] [id number] [place] [address] 33679- 3014 07 Aug, 2017 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 ; Developmental delay, gross motor F82 and Adjustment disorder with disturbance of emotion F43.29 [facility] [id number] [place] [address] 21728 -5803 Aug, Fatigue, unspecified type R53.83 IMMUNIZATIONS No Known Immunizations SOCIAL HISTORY Never Assessed REASON FOR VISIT BH f/u PLAN OF CARE Activity Details Follow Up Next available Reason: F/U VITAL SIGNS MEDICATIONS Unknown Medications RESULTS No Results PROCEDURES Procedure Date Ordered Result Body Site Psychotherapy, patient &/family, 30 minutes, established patient Jun 22, 2018 INSTRUCTIONS MEDICATIONS ADMINISTERED No Known Medications MEDICAL (GENERAL) HISTORY Type Description Date Medical History Schizophrenia Medical History Intermitten Explosive Disorder Medical History Generalized anxiety disorder Medical History Moderate intellectual disability Medical History Bipolar Medical History asthma exercise induced Medical History Seizure disorder Surgical History Tubes in ears
--- OUTSIDE RECORDS SUMMARY | 2018-07-18 14:10 | XMS REPORT ---
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 Active 79717474 Problem Adjustment disorder with disturbance of emotion F43.29 Active 98732954 Problem Neuropathy G62.9 Active 015941710 Problem Other schizophrenia F20.89 Active 13462706 Problem ANA LILIA (generalized anxiety disorder) F41.1 Active 83990602 Problem Schizophrenia, unspecified type F20.9 Active 66819747 Problem Intermittent explosive disorder F63.81 Active 22413561 Problem ADHD (attention deficit hyperactivity disorder), combined type F90.2 Active 56399697 ALLERGIES No Information ENCOUNTERS Encounter Location Date Diagnosis [facility] [address] [id number] Jul, [facility] [id number] [place] [address] 80877- 1876 Jul, [facility] [id number] [place] [address] 84700- 6052 Jul, [facility] [address] 23962- 6002 Jul, [facility] [address] 30988- 0174 Jun, Excessive flatus R14.3 [facility] [id number] [place] [address] 66362- 1832 Jun, Schizophrenia, unspecified type F20.9 and Intermittent explosive disorder F63.81 [facility] [id number] [place] [address] 53069 -8026 14 Jun, 2018 Excessive gas R14.3 [facility] [id number] [place] [address] [id number] May, Dental examination Z01.20 [facility] [address] 64333- 0557 20 May, 2018 Cramp of extremity R25.2 and Neuropathy G62.9 [place] [address] 11523- 1728 May, Schizophrenia, unspecified type F20.9 and Intermittent explosive disorder F63.81 [facility] [id number] [place] [address] 95499 -5313 Apr, Viral URI J06.9 and Epigastric abdominal pain R10.13 [facility] [id number] [place] [address] 10720- 8767 Apr, Schizophrenia, unspecified type F20.9 ; ANA LILIA (generalized anxiety disorder) F41.1 ; Intermittent explosive disorder F63.81 and ADHD ( attention deficit hyperactivity disorder), combined type F90.2 [facility] [address] [place] [address] 55620- 8785 Apr, Schizophrenia, unspecified type F20.9 and Intermittent explosive disorder F63.81 [facility] [address] [place] [address] [id number] Mar, Dental examination Z01.20 [facility] [id number] [place] [address] 30039- 2976 Mar, Schizophrenia, unspecified type F20.9 and Intermittent explosive disorder F63.81 [facility] [id number] [place] [address] 07316 -9628 18 Mar, 2018 Acute nonintractable headache, unspecified headache type R51 [place] [id number] [address]- 66[address] February, Schizophrenia, unspecified type F20.9 ; ANA LILIA (generalized anxiety disorder) F41.1 ; Intermittent explosive disorder F63.81 and ADHD ( attention deficit hyperactivity disorder), combined type F90.2 [facility] [address], [place] [address]- 6[address] February, Schizophrenia, unspecified type F20.9 and Intermittent explosive disorder F63.81 [facility] [address], [place] [address]- 1041 February, [facility] [id number] [place] [address] 46233- 9113 February, Schizophrenia, unspecified type F20.9 [place] [id number] [place] [address] 53508- 2730 Jan, Schizophrenia, unspecified type F20.9 ; ANA LILIA (generalized anxiety disorder) F41.1 ; Intermittent explosive disorder F63.81 and ADHD ( attention deficit hyperactivity disorder), combined type F90.2 [facility] [address], [place] [address]- 1360 Jan, Schizophrenia, unspecified type F20.9 and Intermittent explosive disorder F63.81 [facility] [address], [place] [address]- 1515 Jan, Schizophrenia, unspecified type F20.9 ; ANA LILIA (generalized anxiety disorder) F41.1 ; Intermittent explosive disorder F63.81 and ADHD ( attention deficit hyperactivity disorder), combined type F90.2 [facility] [address], [place] [address]- 5690 Jan, Schizophrenia, unspecified type F20.9 ; ANA LILIA (generalized anxiety disorder) F41.1 ; Intermittent explosive disorder F63.81 and ADHD ( attention deficit hyperactivity disorder), combined type F90.2 [facility] [address], [place] [address]- 59[address] Dec, [facility] [address], [place] [address]- 6632 Dec, Schizophrenia, unspecified type F20.9 ; ANA LILIA (generalized anxiety disorder) F41.1 ; Intermittent explosive disorder F63.81 and ADHD ( attention deficit hyperactivity disorder), combined type F90.2 [facility] [address], [place] [address]- 0046 Dec, [facility] [address] [place] [address] [id number] Dec, Encounter for dental examination Z01.20 [place] [id number] [place] [address] 16695- 0235 Dec, Schizophrenia, unspecified type F20.9 ; ANA LILIA (generalized anxiety disorder) F41.1 ; Intermittent explosive disorder F63.81 and ADHD ( attention deficit hyperactivity disorder), combined type F90.2 [facility] [address] [place] [address] 56884- 0019 Dec, Schizophrenia, unspecified type F20.9 ; ANA LILIA (generalized anxiety disorder) F41.1 ; Intermittent explosive disorder F63.81 and ADHD ( attention deficit hyperactivity disorder), combined type F90.2 [facility] [address], [place] [address]- 6927 Dec, Seizures R56.9 ; Intermittent explosive disorder F63.81 and Developmental delay, gross motor F82 [facility] [address] [place] [address] 66736- 5353 Nov, ANA LILIA (generalized anxiety disorder) F41.1 ; Intermittent explosive disorder F63.81 ; ADHD (attention deficit hyperactivity disorder), combined type F90.2 ; Other long-term (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 ; Adjustment disorder, unspecified type F43.20 and Other schizophrenia F20.89 [facility] [address], [place] [address]- 7732 Nov, Schizophrenia, unspecified type F20.9 [place] [address], [place] [address]- 9747 Oct, ANA LILIA (generalized anxiety disorder) F41.1 ; Intermittent explosive disorder F63.81 ; ADHD (attention deficit hyperactivity disorder), combined type F90.2 ; Other long-term (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 and Adjustment disorder, unspecified type F43.20 [facility] [address] [place] [address] 56577- 5022 Oct, Schizophrenia, unspecified type F20.9 ; ANA LILIA (generalized anxiety disorder) F41.1 ; Intermittent explosive disorder F63.81 and ADHD ( attention deficit hyperactivity disorder), combined type F90.2 [facility] [address] [place] [address] [id number] Oct, Dental examination Z01.20 [facility] [id number] [place] [address] 54538- 9321 Oct, [facility] [id number] [place] [address] 33715- 2352 Oct, 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 [facility] [id number] [place] [address] 43140- 2546 Sep, ANA LILIA (generalized anxiety disorder) F41.1 ; Intermittent explosive disorder F63.81 ; ADHD (attention deficit hyperactivity disorder), combined type F90.2 ; Other long-term (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 and Adjustment disorder, unspecified type F43.20 [facility] [address] [place] [address] 68455- 1215 Sep, Schizophrenia, unspecified type F20.9 ; ANA LILIA (generalized anxiety disorder) F41.1 ; Intermittent explosive disorder F63.81 ; ADHD ( attention deficit hyperactivity disorder), combined type F90.2 and Other long-term (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 [facility] [address] [place] [address] 53123- 4282 Sep, Gastroenteritis K52.9 [facility] [id number] [id number] 13 Sep, 2017 Encounter for dental examination Z01.20 [place] [address] [place] [address] 26516- 7910 22 Aug, 2017 Annual physical exam Z00.00 and Seizures R56.9 [facility] [address], [place] [address]- 1113 22 Aug, 2017 Adjustment disorder with disturbance of emotion F43.29 ; Developmental delay disorder R62.50 ; Developmental delay, gross motor F82 and 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 [facility] [address], [place] [address] 15 Aug, 2017 Moderate left ankle sprain, initial encounter S93.[address] [place] [address] [place] [address] 55083- 9773 07 Aug, 2017 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 ; Developmental delay, gross motor F82 and Adjustment disorder with disturbance of emotion F43.29 [facility] [address], [place] [address] Aug, Fatigue, unspecified type R53.83 IMMUNIZATIONS No Known Immunizations SOCIAL HISTORY Never Assessed REASON FOR VISIT f/u PLAN OF CARE Activity Details Follow Up Next available Reason: F/U VITAL SIGNS MEDICATIONS Unknown Medications RESULTS No Results PROCEDURES Procedure Date Ordered Result Body Site Psychotherapy, patient &/family, 30 minutes, established patient May 18, 2018 INSTRUCTIONS MEDICATIONS ADMINISTERED No Known Medications MEDICAL (GENERAL) HISTORY Type Description Date Medical History Schizophrenia Medical History Intermitten Explosive Disorder Medical History Generalized anxiety disorder Medical History Moderate intellectual disability Medical History Bipolar Medical History asthma exercise induced Medical History Seizure disorder Surgical History Tubes in ears
--- OUTSIDE RECORDS SUMMARY | 2018-07-18 14:10 | XMS REPORT ---
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 Active 75099977 Problem Adjustment disorder with disturbance of emotion F43.29 Active 64360413 Problem 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 Active 36684279 Problem Neuropathy G62.9 Active 896412719 Problem ADHD (attention deficit hyperactivity disorder), combined type F90.2 Active 82155843 Problem ANA LILIA (generalized anxiety disorder) F41.1 Active 72033883 Problem Other schizophrenia F20.89 Active 44431302 Problem Intermittent explosive disorder F63.81 Active 61960242 ALLERGIES Substance Reaction Event Type Date Status PredniSONE Unknown Drug Allergy Jun, Active Augmentin Unknown Drug Allergy Jun, Active Natural Rubber Unknown Non Drug Allergy Jun, Active Latex Unknown Non Drug Allergy Jun, Active ENCOUNTERS Encounter Location Date Diagnosis [facility] [id number] [place] [address]245[address] Sep, [facility] [id number] [id number] Jul, [facility] [id number] [place] [address] 24411- 4386 Jul, [facility] [address] [place] [address] 42883- 1582 Jul, [facility] [id number] [place] [address] 27874- 5570 Jul, Schizophrenia, unspecified type F20.9 ; ANA LILIA (generalized anxiety disorder) F41.1 ; Intermittent explosive disorder F63.81 ; ADHD ( attention deficit hyperactivity disorder), combined type F90.2 and 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 [place] [id number] [place] [address] 30316- 3744 17 Jun, 2018 Excessive flatus R14.3 [place] [address] [address]- [address] 17 Jun, 2018 Schizophrenia, unspecified type F20.9 and Intermittent explosive disorder F63.81 [facility] [place] [address] [address]62 Jun, Excessive gas R14.3 [facility] [address] [id number] May, Dental examination Z01.20 [place] [address] [address]65[address] May, Cramp of extremity R25.2 and Neuropathy G62.9 [place] [address] [address] May, Schizophrenia, unspecified type F20.9 and Intermittent explosive disorder F63.81 [facility] [id number] [place] [address] 64661 [address]0380 Apr, Viral URI J06.9 and Epigastric abdominal pain R10.13 [place] [address] [address] Apr, Schizophrenia, unspecified type F20.9 ; ANA LILIA (generalized anxiety disorder) F41.1 ; Intermittent explosive disorder F63.81 and ADHD ( attention deficit hyperactivity disorder), combined type F90.2 [place] [id number] [place] [address] 21092- 8919 Apr, Schizophrenia, unspecified type F20.9 and Intermittent explosive disorder F63.81 [facility] [id number] [id number] Mar, Dental examination Z01.20 [facility] [id number] [place] [address] 63903- 0613 Mar, Schizophrenia, unspecified type F20.9 and Intermittent explosive disorder F63.81 [facility] [address] [place] [address] 40532 -5142 Mar, Acute nonintractable headache, unspecified headache type R51 [facility] [address] [place] [address] 79669- 1536 February, Schizophrenia, unspecified type F20.9 ; ANA LILIA (generalized anxiety disorder) F41.1 ; Intermittent explosive disorder F63.81 and ADHD ( attention deficit hyperactivity disorder), combined type F90.2 [place] [address] [place] [address] 18900- 6878 February, Schizophrenia, unspecified type F20.9 and Intermittent explosive disorder F63.81 [facility] [id number] [place] [address] 84794- 3734 February, [facility] [id number] [place] [address] 99308- 2130 February, Schizophrenia, unspecified type F20.9 [facility] [address] [place] [address] 15727- 9626 Jan, Schizophrenia, unspecified type F20.9 ; ANA LILIA (generalized anxiety disorder) F41.1 ; Intermittent explosive disorder F63.81 and ADHD ( attention deficit hyperactivity disorder), combined type F90.2 [facility] [address] [place] [address] 74799- 9413 Jan, Schizophrenia, unspecified type F20.9 and Intermittent explosive disorder F63.81 [facility] [address] [place] [address] 94361- 1417 Jan, Schizophrenia, unspecified type F20.9 ; ANA LILIA (generalized anxiety disorder) F41.1 ; Intermittent explosive disorder F63.81 and ADHD ( attention deficit hyperactivity disorder), combined type F90.2 [facility] [address] [place] [address] 08365- 3669 Jan, Schizophrenia, unspecified type F20.9 ; ANA LILIA (generalized anxiety disorder) F41.1 ; Intermittent explosive disorder F63.81 and ADHD ( attention deficit hyperactivity disorder), combined type F90.2 [place] [id number] [place] [address] 94989- 4696 Dec, [place] [id number] [place] [address] 27753- 8346 Dec, Schizophrenia, unspecified type F20.9 ; ANA LILIA (generalized anxiety disorder) F41.1 ; Intermittent explosive disorder F63.81 and ADHD ( attention deficit hyperactivity disorder), combined type F90.2 [place] [id number] [place] [address] 62091- 2611 Dec, [facility] [id number] [place] [id number] Dec, Encounter for dental examination Z01.20 [place] [id number] [place] [address] 63813- 0996 Dec, Schizophrenia, unspecified type F20.9 ; ANA LILIA (generalized anxiety disorder) F41.1 ; Intermittent explosive disorder F63.81 and ADHD ( attention deficit hyperactivity disorder), combined type F90.2 [facility] [address] [place] [address] 63311- 4013 Dec, Schizophrenia, unspecified type F20.9 ; NAA LILIA (generalized anxiety disorder) F41.1 ; Intermittent explosive disorder F63.81 and ADHD ( attention deficit hyperactivity disorder), combined type F90.2 [facility] [address] [address] Dec, Seizures R56.9 ; Intermittent explosive disorder F63.81 and Developmental delay, gross motor F82 [facility] [address] [address] Nov, ANA LILIA (generalized anxiety disorder) F41.1 ; Intermittent explosive disorder F63.81 ; ADHD (attention deficit hyperactivity disorder), combined type F90.2 ; Other shelter (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 ; Adjustment disorder, unspecified type F43.20 and Other schizophrenia F20.89 [facility] [address] [place] [address] 92890- 4753 Nov, Schizophrenia, unspecified type F20.9 [place] [address] [place] [address] 23491- 1385 Oct, ANA LILIA (generalized anxiety disorder) F41.1 ; Intermittent explosive disorder F63.81 ; ADHD (attention deficit hyperactivity disorder), combined type F90.2 ; Other shelter (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 and Adjustment disorder, unspecified type F43.20 [place] [address] [place] [address] 72186- 2911 Oct, Schizophrenia, unspecified type F20.9 ; ANA LILIA (generalized anxiety disorder) F41.1 ; Intermittent explosive disorder F63.81 and ADHD ( attention deficit hyperactivity disorder), combined type F90.2 [facility] [address] [id number] Oct, Dental examination Z01.20 [facility] [address] [address] Oct, [facility] [address] [address] Oct, Other shelter (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 [place] [id number] [place] [address] 01581- 5239 Sep, ANA LILIA (generalized anxiety disorder) F41.1 ; Intermittent explosive disorder F63.81 ; ADHD (attention deficit hyperactivity disorder), combined type F90.2 ; 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 and Adjustment disorder, unspecified type F43.20 [facility] [address] [place] [address] 07890- 8118 21 Sep, 2017 Schizophrenia, unspecified type F20.9 ; ANA LILIA (generalized anxiety disorder) F41.1 ; Intermittent explosive disorder F63.81 ; ADHD ( attention deficit hyperactivity disorder), combined type F90.2 and Other shelter (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 [facility] [address] [place] [address] 86412- 3375 18 Sep, 2017 Gastroenteritis K52.9 [facility] [address] [id number] Sep, 2017 Encounter for dental examination Z01.20 [place] [address] [address]- [address] Aug, Annual physical exam Z00.00 and Seizures R56.[address] [address] Aug, Adjustment disorder with disturbance of emotion F43.29 ; Developmental delay disorder R62.50 ; Developmental delay, gross motor F82 and 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 [facility] IN [place] [id number] [place] [address] 51567 -1158 Aug, Moderate left ankle sprain, initial encounter S93.402A [address] [address] Aug, 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 Pt has also having diarrhea off and on for about the same time frame. Pt also has cramping in the abdomen from time to time. Pt stated pain is generalized in all areas of abdomen. VANDA PLAN OF CARE Activity Details Follow Up w/ PCP, prn Reason:if symptoms worsen or not improving VITAL SIGNS Height 70.25 in 2018-06-19 Weight 209 lbs 2018-06-19 Temperature 98.8 degrees Fahrenheit 2018-06-19 Heart Rate 80 bpm 2018-06-19 Respiratory Rate 16 2018-06-19 BMI 29.77 kg/m2 2018-06-19 Blood pressure systolic 100 mmHg 2018-06-19 Blood pressure diastolic 76 mmHg 2018-06-19 MEDICATIONS Medication Instructions Dosage Frequency Start Date End Date Duration Status Olopatadine HCl 0.1 % Ophthalmic TID 1 drop into affected eye 8h Active Loxapine Succinate 10 MG TAKE 1 CAPSULE BY MOUTH TWICE DAILY 31 Active Thera M Plus - Active Acetaminophen 500 MG Orally every 6 hrs 2 capsules as needed 6h Active Divalproex Sodium 500 mg Orally 2 times a day 1 tablet 12h Active Aripiprazole 30 MG Orally Once a day every morning 1 tablet 30 Active BusPIRone HCl 10 MG TAKE 1 TABLET BY MOUTH TWICE DAILY 31 Active Bismuth Subsalicylate 262 MG/15ML Orally twice a day 30 ml as needed 12h Jun, Jun, 5 days Active Siltussin SA 100 MG/5ML Orally every 4 hrs 10 ml as needed 4h Active Oxcarbazepine 600 MG TAKE 1 TABLET BY MOUTH THREE TIMES DAILY 31 Active Melatonin 3 MG Orally Once a day 1 tablet at bedtime as needed with food 24h Active Simethicone 80 MG Orally Four times a day 1 tablet after meals and at bedtime as needed 6h Jun, Jun, 5 days Active Chlorhexidine - Active Desmopressin Acetate 0.2 MG Orally Once a day 3 tablet 24h Active Benztropine Mesylate 1 MG Orally daily 1 tablet in morning and two tablets at night 24h 30 Active Clindamycin-Benzoyl Per-Cleans 1-5 % Active Cyproheptadine HCl 4 MG Orally at bedtime 3 tablets 30 Active RESULTS No Results PROCEDURES No Known procedures INSTRUCTIONS MEDICATIONS ADMINISTERED No Known Medications MEDICAL (GENERAL) HISTORY Type Description Date Medical History Schizophrenia Medical History Intermitten Explosive Disorder Medical History Generalized anxiety disorder Medical History Moderate intellectual disability Medical History Bipolar Medical History asthma exercise induced Medical History Seizure disorder Surgical History Tubes in ears
--- OUTSIDE RECORDS SUMMARY | 2018-07-18 14:10 | XMS REPORT ---
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 Active 00030655 Problem Adjustment disorder with disturbance of emotion F43.29 Active 93606199 Problem Neuropathy G62.9 Active 990211030 Problem Other schizophrenia F20.89 Active 64282778 Problem ANA LILIA (generalized anxiety disorder) F41.1 Active 06080310 Problem Schizophrenia, unspecified type F20.9 Active 96389456 Problem Intermittent explosive disorder F63.81 Active 32601602 Problem ADHD (attention deficit hyperactivity disorder), combined type F90.2 Active 46665201 ALLERGIES Substance Reaction Event Type Date Status PredniSONE Unknown Drug Allergy May, Active Augmentin Unknown Drug Allergy May, Active Natural Rubber Unknown Non Drug Allergy May, Active Latex Unknown Non Drug Allergy May, Active ENCOUNTERS Encounter Location Date Diagnosis [facility] [id number] [id number] Jul, [facility] [id number] [address] Jul, [facility] [id number] [address] Jul, [facility] [id number] [place] [phone] Jul, [facility] [id number] [address] Jun, Excessive flatus R14.3 [facility] [id number] [place] [address] 17 Jun, 2018 Schizophrenia, unspecified type F20.9 and Intermittent explosive disorder F63.81 [facility] [place] [address] [address] 14 Jun, 2018 Excessive gas R14.3 [facility] [address] [id number] May, Dental examination Z01.20 [place] [address] [address] May, Cramp of extremity R25.2 and Neuropathy G62.9 [place] [address] [address] May, Schizophrenia, unspecified type F20.9 and Intermittent explosive disorder F63.81 [facility] [place] [address] [address] Apr, Viral URI J06.9 and Epigastric abdominal pain R10.13 [place] [address] [address] Apr, Schizophrenia, unspecified type F20.9 ; ANA LILIA (generalized anxiety disorder) F41.1 ; Intermittent explosive disorder F63.81 and ADHD ( attention deficit hyperactivity disorder), combined type F90.2 [place] [id number] [place] [address] Apr, Schizophrenia, unspecified type F20.9 and Intermittent explosive disorder F63.81 [facility] [id number] [place] [id number] Mar, Dental examination Z01.20 [place] [address] [address] Mar, Schizophrenia, unspecified type F20.9 and Intermittent explosive disorder F63.81 [facility] [id number] [place] [address] Mar, Acute nonintractable headache, unspecified headache type R51 [place] [id number] [place] [address] February, Schizophrenia, unspecified type F20.9 ; ANA LILIA (generalized anxiety disorder) F41.1 ; Intermittent explosive disorder F63.81 and ADHD ( attention deficit hyperactivity disorder), combined type F90.2 [place] [id number] [place] [address] February, Schizophrenia, unspecified type F20.9 and Intermittent explosive disorder F63.81 [place] [id number] [place] [address] February, [place] [id number] [place] [address] February, Schizophrenia, unspecified type F20.9 [place] [id number] [place] [address] Jan, Schizophrenia, unspecified type F20.9 ; ANA LILIA (generalized anxiety disorder) F41.1 ; Intermittent explosive disorder F63.81 and ADHD ( attention deficit hyperactivity disorder), combined type F90.2 [place] [id number] [place] [address] Jan, Schizophrenia, unspecified type F20.9 and Intermittent explosive disorder F63.81 [place] [id number] [place] [address] Jan, Schizophrenia, unspecified type F20.9 ; ANA LILIA (generalized anxiety disorder) F41.1 ; Intermittent explosive disorder F63.81 and ADHD ( attention deficit hyperactivity disorder), combined type F90.2 [place] [id number] [place] [address] Jan, Schizophrenia, unspecified type F20.9 ; ANA LILIA (generalized anxiety disorder) F41.1 ; Intermittent explosive disorder F63.81 and ADHD ( attention deficit hyperactivity disorder), combined type F90.2 [place] [address] [address] Dec, [facility] [id number] [place] [address] Dec, Schizophrenia, unspecified type F20.9 ; ANA LILIA (generalized anxiety disorder) F41.1 ; Intermittent explosive disorder F63.81 and ADHD ( attention deficit hyperactivity disorder), combined type F90.2 [facility] [id number] [place] [address] Dec, [facility] [id number] [place] [phone] Dec, Encounter for dental examination Z01.20 [place] [id number] [place] [address] Dec, Schizophrenia, unspecified type F20.9 ; ANA LILIA (generalized anxiety disorder) F41.1 ; Intermittent explosive disorder F63.81 and ADHD ( attention deficit hyperactivity disorder), combined type F90.2 [place] [address] [address] Dec, Schizophrenia, unspecified type F20.9 ; ANA LILIA (generalized anxiety disorder) F41.1 ; Intermittent explosive disorder F63.81 and ADHD ( attention deficit hyperactivity disorder), combined type F90.2 [place] [address] [address] Dec, Seizures R56.9 ; Intermittent explosive disorder F63.81 and Developmental delay, gross motor F82 [place] [id number] [place] [address] Nov, ANA LILIA (generalized anxiety disorder) F41.1 ; Intermittent explosive disorder F63.81 ; ADHD (attention deficit hyperactivity disorder), combined type F90.2 ; 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 ; Adjustment disorder, unspecified type F43.20 and Other schizophrenia F20.89 [facility] [id number] [place] [address] Nov, Schizophrenia, unspecified type F20.9 [facility] [address] [address] Oct, ANA LILIA (generalized anxiety disorder) F41.1 ; Intermittent explosive disorder F63.81 ; ADHD (attention deficit hyperactivity disorder), combined type F90.2 ; Other longterm (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 and Adjustment disorder, unspecified type F43.20 [facility] [id number] [place] [address] Oct, Schizophrenia, unspecified type F20.9 ; ANA LILIA (generalized anxiety disorder) F41.1 ; Intermittent explosive disorder F63.81 and ADHD ( attention deficit hyperactivity disorder), combined type F90.2 [facility] [address] [place] [phone] Oct, Dental examination Z01.20 [facility] [id number] [place] [address] Oct, [facility] [id number] [place] [address] Oct, Other longterm (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 [facility] [id number] [place] [address] Sep, ANA LILIA (generalized anxiety disorder) F41.1 ; Intermittent explosive disorder F63.81 ; ADHD (attention deficit hyperactivity disorder), combined type F90.2 ; Other longterm (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 and Adjustment disorder, unspecified type F43.20 [facility] [id number] [address] Sep, Schizophrenia, unspecified type F20.9 ; ANA LILIA (generalized anxiety disorder) F41.1 ; Intermittent explosive disorder F63.81 ; ADHD ( attention deficit hyperactivity disorder), combined type F90.2 and 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 [facility] [id number] [place] [address] 18 Sep, 2017 Gastroenteritis K52.9 [facility] [id number] [place] [phone] Sep, 2017 Encounter for dental examination Z01.20 [facility] [id number] [place] [address] 22 Aug, 2017 Annual physical exam Z00.00 and Seizures R56.9 [place] [id number] [place] [address] 22 Aug, 2017 Adjustment disorder with disturbance of emotion F43.29 ; Developmental delay disorder R62.50 ; Developmental delay, gross motor F82 and 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 [facility] [id number] [place] [address] 15 Aug, 2017 Moderate left ankle sprain, initial encounter S93.402A [place] [id number] [place] [address] 07 Aug, 2017 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 ; Developmental delay, gross motor F82 and Adjustment disorder with disturbance of emotion F43.29 [facility] IN [address] [place] [address] Aug, Fatigue, unspecified type R53.83 IMMUNIZATIONS No Known Immunizations SOCIAL HISTORY Never Assessed REASON FOR VISIT ALYSSA PLAN OF CARE Activity Details Follow Up prn Reason:restorative VITAL SIGNS Height 70.25 in 2018-05-27 Blood pressure systolic 100 mmHg 2018-05-27 Blood pressure diastolic 60 mmHg 2018-05-27 MEDICATIONS Medication Instructions Dosage Frequency Start Date End Date Duration Status Benztropine Mesylate 1 MG Orally daily 1 tablet in morning and two tablets at night 24h Active Chlorhexidine - Active Cyproheptadine HCl 4 MG Orally at bedtime 3 tablets Active Acetaminophen 500 MG Orally every 6 hrs 2 capsules as needed 6h Active Desmopressin Acetate 0.2 MG Orally Once a day 3 tablet 24h Active BusPIRone HCl 10 MG Orally Twice a day 1 tablet 12h Active Oxcarbazepine 600 MG TAKE 1 TABLET BY MOUTH THREE TIMES DAILY 31 Active Olopatadine HCl 0.1 % Ophthalmic TID 1 drop into affected eye 8h Active Siltussin SA 100 MG/5ML Orally every 4 hrs 10 ml as needed 4h Active Thera M Plus - Active Loxapine Succinate 10 MG TAKE 1 CAPSULE BY MOUTH TWICE DAILY 31 Active Clindamycin-Benzoyl Per-Cleans 1-5 % Active Aripiprazole 30 MG Orally Once a day every morning 1 tablet Active Divalproex Sodium 500 mg Orally 2 times a day 1 tablet 12h Active Melatonin 3 MG Orally Once a day 1 tablet at bedtime as needed with food 24h Active RESULTS No Results PROCEDURES Procedure Date Ordered Result Body Site PERIODIC ORAL EXAMINATION May 27, 2018 INSTRUCTIONS MEDICATIONS ADMINISTERED No Known Medications MEDICAL (GENERAL) HISTORY Type Description Date Medical History Schizophrenia Medical History Intermitten Explosive Disorder Medical History Generalized anxiety disorder Medical History Moderate intellectual disability Medical History Bipolar Medical History asthma exercise induced Medical History Seizure disorder Surgical History Tubes in ears
--- OUTSIDE RECORDS SUMMARY | 2018-07-18 14:10 | XMS REPORT ---
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 Active 19884908 Problem Adjustment disorder with disturbance of emotion F43.29 Active 18947564 Problem Neuropathy G62.9 Active 147355047 Problem Other schizophrenia F20.89 Active 97279599 Problem ANA LILIA (generalized anxiety disorder) F41.1 Active 51059036 Problem Schizophrenia, unspecified type F20.9 Active 07925642 Problem Intermittent explosive disorder F63.81 Active 13444832 Problem ADHD (attention deficit hyperactivity disorder), combined type F90.2 Active 89633760 ALLERGIES Substance Reaction Event Type Date Status PredniSONE Unknown Drug Allergy May, Active Augmentin Unknown Drug Allergy May, Active Natural Rubber Unknown Non Drug Allergy May, Active Latex Unknown Non Drug Allergy May, Active ENCOUNTERS Encounter Location Date Diagnosis [facility] [id number] [id number] Jul, [facility] [id number] [place] [address]190[address] 9667 Jul, [facility] [id number] [place] [address] 98689- 8317 Jul, [facility] [id number] [place] [address] 59715- 3565 Jul, [facility] [id number] [place] [address] 28687- 3834 Jun, Excessive flatus R14.3 [facility] [id number] [place] [address] 21657- 8771 17 Jun, 2018 Schizophrenia, unspecified type F20.9 and Intermittent explosive disorder F63.81 [facility] [id number] [place] [address] 46569 -9252 14 Jun, 2018 Excessive gas R14.3 [facility] [address] [id number] May, Dental examination Z01.20 [place] [address] [address] May, Cramp of extremity R25.2 and Neuropathy G62.9 [place] [id number] [place] [address] 34866- 4450 May, Schizophrenia, unspecified type F20.9 and Intermittent explosive disorder F63.81 [facility] [id number] [place] [address] 62816 -8706 Apr, Viral URI J06.9 and Epigastric abdominal pain R10.13 [place] [id number] [place] [address] 20946- 3576 Apr, Schizophrenia, unspecified type F20.9 ; ANA LILIA (generalized anxiety disorder) F41.1 ; Intermittent explosive disorder F63.81 and ADHD ( attention deficit hyperactivity disorder), combined type F90.2 [place] [id number] [place] [address] 61095- 2951 Apr, Schizophrenia, unspecified type F20.9 and Intermittent explosive disorder F63.81 [facility] [id number] [place] [id number] Mar, Dental examination Z01.20 [facility] [id number] [place] [address] 26277- 3630 Mar, Schizophrenia, unspecified type F20.9 and Intermittent explosive disorder F63.81 [facility] [id number], [place] [address] Mar, Acute nonintractable headache, unspecified headache type R51 [place] [id number] [place] [address] 86654- 9304 February, Schizophrenia, unspecified type F20.9 ; ANA LILIA (generalized anxiety disorder) F41.1 ; Intermittent explosive disorder F63.81 and ADHD ( attention deficit hyperactivity disorder), combined type F90.2 [place] [id number] [place] [address] 24138- 8277 February, Schizophrenia, unspecified type F20.9 and Intermittent explosive disorder F63.81 [place] [id number] [place] [address] 79964- 3462 February, [place] [id number] [place] [address] 53579- 8278 February, Schizophrenia, unspecified type F20.9 [place] [id number] [place] [address] 92511- 3761 Jan, Schizophrenia, unspecified type F20.9 ; ANA LILIA (generalized anxiety disorder) F41.1 ; Intermittent explosive disorder F63.81 and ADHD ( attention deficit hyperactivity disorder), combined type F90.2 [place] [id number] [place] [address] 14565- 1565 Jan, Schizophrenia, unspecified type F20.9 and Intermittent explosive disorder F63.81 [place] [address], [place] [address] Jan, Schizophrenia, unspecified type F20.9 ; ANA LILIA (generalized anxiety disorder) F41.1 ; Intermittent explosive disorder F63.81 and ADHD ( attention deficit hyperactivity disorder), combined type F90.2 [place] [address], [place] [address] Jan, Schizophrenia, unspecified type F20.9 ; ANA LILIA (generalized anxiety disorder) F41.1 ; Intermittent explosive disorder F63.81 and ADHD ( attention deficit hyperactivity disorder), combined type F90.2 [facility] [address], [place] [address] Dec, [facility] [id number] [place] [address] 66613- 6883 Dec, Schizophrenia, unspecified type F20.9 ; ANA LILIA (generalized anxiety disorder) F41.1 ; Intermittent explosive disorder F63.81 and ADHD ( attention deficit hyperactivity disorder), combined type F90.2 [facility] [address], [place] [address] Dec, [facility] [id number] [place] [id number] Dec, Encounter for dental examination Z01.20 [place] [id number] [place] [address] 60398- 0718 Dec, Schizophrenia, unspecified type F20.9 ; ANA LILIA (generalized anxiety disorder) F41.1 ; Intermittent explosive disorder F63.81 and ADHD ( attention deficit hyperactivity disorder), combined type F90.2 [facility] [address], [place] [address] Dec, Schizophrenia, unspecified type F20.9 ; ANA LILIA (generalized anxiety disorder) F41.1 ; Intermittent explosive disorder F63.81 and ADHD ( attention deficit hyperactivity disorder), combined type F90.2 [facility] [address], [place] [address] Dec, Seizures R56.9 ; Intermittent explosive disorder F63.81 and Developmental delay, gross motor F82 [facility] [id number] [place] [address] 68951- 6044 Nov, ANA LILIA (generalized anxiety disorder) F41.1 ; Intermittent explosive disorder F63.81 ; ADHD (attention deficit hyperactivity disorder), combined type F90.2 ; 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 ; Adjustment disorder, unspecified type F43.20 and Other schizophrenia F20.89 [place] [id number], [place] [address] Nov, Schizophrenia, unspecified type F20.9 [facility] [address], [place] [address] Oct, ANA LILIA (generalized anxiety disorder) F41.1 ; Intermittent explosive disorder F63.81 ; ADHD (attention deficit hyperactivity disorder), combined type F90.2 ; Other prison (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 and Adjustment disorder, unspecified type F43.20 [facility] [address], [place] [address] Oct, Schizophrenia, unspecified type F20.9 ; ANA LILIA (generalized anxiety disorder) F41.1 ; Intermittent explosive disorder F63.81 and ADHD ( attention deficit hyperactivity disorder), combined type F90.2 [facility] [address] [id number] Oct, Dental examination Z01.20 [facility] [address], [place] [address] Oct, [facility] [id number] [place] [address] 26460- 9504 Oct, Other prison (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 [facility] [address], [place] [address] Sep, ANA LILIA (generalized anxiety disorder) F41.1 ; Intermittent explosive disorder F63.81 ; ADHD (attention deficit hyperactivity disorder), combined type F90.2 ; 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 and Adjustment disorder, unspecified type F43.20 [facility] [id number], [place] [address] Sep, Schizophrenia, unspecified type F20.9 ; ANA LILIA (generalized anxiety disorder) F41.1 ; Intermittent explosive disorder F63.81 ; ADHD ( attention deficit hyperactivity disorder), combined type F90.2 and 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 [facility] [address] [place] [address] 18 Sep, 2017 Gastroenteritis K52.9 [facility] [id number] [place] [address] [phone] 13 Sep, 2017 Encounter for dental examination Z01.20 [facility] [id number] [place] [address] 34092- 6586 22 Aug, 2017 Annual physical exam Z00.00 and Seizures R56.9 [facility] [id number] [place] [address] 31050- 9613 22 Aug, 2017 Adjustment disorder with disturbance of emotion F43.29 ; Developmental delay disorder R62.50 ; Developmental delay, gross motor F82 and 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 [facility] [id number] [place] [address] 89046 -9343 15 Aug, 2017 Moderate left ankle sprain, initial encounter S93.[address] [place] [id number] [place] [address] 71020- 5429 07 Aug, 2017 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 - Aureliano ABREU PLAN OF CARE Activity Details Follow Up 6 Months Reason:seizures VITAL SIGNS Height 70.25 in 2018-05-25 Weight 212.9 lbs 2018-05-25 Temperature 97.8 degrees Fahrenheit 2018-05-25 Heart Rate 98 bpm 2018-05-25 Respiratory Rate 2018-05-25 Oximetry 94 % 2018-05-25 BMI 30.33 kg/m2 2018-05-25 Blood pressure systolic 132 mmHg 2018-05-25 Blood pressure diastolic 72 mmHg 2018-05-25 MEDICATIONS Medication Instructions Dosage Frequency Start Date End Date Duration Status Melatonin 3 MG Orally Once a day 1 tablet at bedtime as needed with food 24h Active Olopatadine HCl 0.1 % Ophthalmic TID 1 drop into affected eye 8h Active Cyproheptadine HCl 4 MG Orally at bedtime 3 tablets Active Benztropine Mesylate 1 MG Orally daily 1 tablet in morning and two tablets at night 24h Active Clindamycin-Benzoyl Per-Cleans 1-5 % Active Siltussin SA 100 MG/5ML Orally every 4 hrs 10 ml as needed 4h Active Oxcarbazepine 600 MG TAKE 1 TABLET BY MOUTH THREE TIMES DAILY 31 Active Acetaminophen 500 MG Orally every 6 hrs 2 capsules as needed 6h Active Chlorhexidine - Active Desmopressin Acetate 0.2 MG Orally Once a day 3 tablet 24h Active Divalproex Sodium 500 mg Orally 2 times a day 1 tablet 12h Active Aripiprazole 30 MG Orally Once a day every morning 1 tablet Active BusPIRone HCl 10 MG Orally Twice a day 1 tablet 12h Active Thera M Plus - Active Loxapine Succinate 10 MG TAKE 1 CAPSULE BY MOUTH TWICE DAILY 31 Active RESULTS No Results PROCEDURES Procedure Date Ordered Result [facility] INSTRUCTIONS MEDICATIONS ADMINISTERED No Known Medications MEDICAL (GENERAL) HISTORY Type Description Date Medical History Schizophrenia Medical History Intermitten Explosive Disorder Medical History Generalized anxiety disorder Medical History Moderate intellectual disability Medical History Bipolar Medical History asthma exercise induced Medical History Seizure disorder Surgical History Tubes in ears
--- OUTSIDE RECORDS SUMMARY | 2018-07-18 14:11 | XMS REPORT ---
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 Active 50964350 Problem Adjustment disorder with disturbance of emotion F43.29 Active 52847603 Problem Neuropathy G62.9 Active 171473308 Problem Other schizophrenia F20.89 Active 98648891 Problem ANA LILIA (generalized anxiety disorder) F41.1 Active 20065769 Problem Schizophrenia, unspecified type F20.9 Active 69159338 Problem Intermittent explosive disorder F63.81 Active 59887147 Problem ADHD (attention deficit hyperactivity disorder), combined type F90.2 Active 43087826 ALLERGIES Substance Reaction Event Type Date Status PredniSONE Unknown Drug Allergy Apr, Active Augmentin Unknown Drug Allergy Apr, Active Natural Rubber Unknown Non Drug Allergy Apr, Active Latex Unknown Non Drug Allergy Apr, Active ENCOUNTERS Encounter Location Date Diagnosis [facility] [address] [id number] Jul, [facility] [id number] [place] [address] Jul, [facility] [id number] [place] [address] Jun, [facility] [address] [id number] May, Dental examination Z01.20 [facility] [id number] [place] [address] May, Cramp of extremity R25.2 and Neuropathy G62.9 [place] [address] [address] May, Schizophrenia, unspecified type F20.9 and Intermittent explosive disorder F63.81 [facility] [id number] [place] [address] Apr, Viral URI J06.9 and Epigastric abdominal pain R10.13 [place] [address] [address] Apr, Schizophrenia, unspecified type F20.9 ; ANA LILIA (generalized anxiety disorder) F41.1 ; Intermittent explosive disorder F63.81 and ADHD ( attention deficit hyperactivity disorder), combined type F90.2 [place] [id number] [place] [address] Apr, Schizophrenia, unspecified type F20.9 and Intermittent explosive disorder F63.81 [facility] [address] [id number] Mar, Dental examination Z01.20 [place] [address] [address] Mar, Schizophrenia, unspecified type F20.9 and Intermittent explosive disorder F63.81 [facility] [id number] [place] [address] Mar, Acute nonintractable headache, unspecified headache type R51 [place] [id number] [place] [address] February, Schizophrenia, unspecified type F20.9 ; ANA LILIA (generalized anxiety disorder) F41.1 ; Intermittent explosive disorder F63.81 and ADHD ( attention deficit hyperactivity disorder), combined type F90.2 [facility] [id number] [place] [address] February, Schizophrenia, unspecified type F20.9 and Intermittent explosive disorder F63.81 [facility] [address] [address] February, [facility] [id number] [place] [address] February, Schizophrenia, unspecified type F20.9 [facility] [address] [address] Jan, Schizophrenia, unspecified type F20.9 ; ANA LILIA (generalized anxiety disorder) F41.1 ; Intermittent explosive disorder F63.81 and ADHD ( attention deficit hyperactivity disorder), combined type F90.2 [facility] [address] [place] [address] Jan, Schizophrenia, unspecified type F20.9 and Intermittent explosive disorder F63.81 [facility] [address] [place] [address] Jan, Schizophrenia, unspecified type F20.9 ; ANA LILIA (generalized anxiety disorder) F41.1 ; Intermittent explosive disorder F63.81 and ADHD ( attention deficit hyperactivity disorder), combined type F90.2 [facility] [address] [address] Jan, Schizophrenia, unspecified type F20.9 ; ANA LILIA (generalized anxiety disorder) F41.1 ; Intermittent explosive disorder F63.81 and ADHD ( attention deficit hyperactivity disorder), combined type F90.2 [facility] [address] [address] Dec, [facility] [id number] [address] Dec, Schizophrenia, unspecified type F20.9 ; ANA LILIA (generalized anxiety disorder) F41.1 ; Intermittent explosive disorder F63.81 and ADHD ( attention deficit hyperactivity disorder), combined type F90.2 [facility] [address] [address] Dec, [place] [address] [facility] [id number] [id number] Dec, Encounter for dental examination Z01.20 [facility] [address] [address] Dec, Schizophrenia, unspecified type F20.9 ; ANA LILIA (generalized anxiety disorder) F41.1 ; Intermittent explosive disorder F63.81 and ADHD ( attention deficit hyperactivity disorder), combined type F90.2 [facility] [address] [address] Dec, Schizophrenia, unspecified type F20.9 ; ANA LILIA (generalized anxiety disorder) F41.1 ; Intermittent explosive disorder F63.81 and ADHD ( attention deficit hyperactivity disorder), combined type F90.2 [place] [address] [address] Dec, Seizures R56.9 ; Intermittent explosive disorder F63.81 and Developmental delay, gross motor F82 [facility] [address] [address] Nov, ANA LILIA (generalized anxiety disorder) F41.1 ; Intermittent explosive disorder F63.81 ; ADHD (attention deficit hyperactivity disorder), combined type F90.2 ; Other fpc (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 ; Adjustment disorder, unspecified type F43.20 and Other schizophrenia F20.89 [facility] [address] [address] Nov, Schizophrenia, unspecified type F20.9 [facility] [id number] [address] Oct, ANA LILIA (generalized anxiety disorder) F41.1 ; Intermittent explosive disorder F63.81 ; ADHD (attention deficit hyperactivity disorder), combined type F90.2 ; Other fpc (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 and Adjustment disorder, unspecified type F43.20 [facility] [address] [address] Oct, Schizophrenia, unspecified type F20.9 ; ANA LILIA (generalized anxiety disorder) F41.1 ; Intermittent explosive disorder F63.81 and ADHD ( attention deficit hyperactivity disorder), combined type F90.2 [facility] [address] [place] [phone] Oct, Dental examination Z01.20 [facility] [id number] [place] [address] Oct, [facility] [address] [address] Oct, 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 [facility] [id number] [place] [address] Sep, ANA LILIA (generalized anxiety disorder) F41.1 ; Intermittent explosive disorder F63.81 ; ADHD (attention deficit hyperactivity disorder), combined type F90.2 ; 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 and Adjustment disorder, unspecified type F43.20 [facility] [id number] [place] [address] Sep, Schizophrenia, unspecified type F20.9 ; ANA LILIA (generalized anxiety disorder) F41.1 ; Intermittent explosive disorder F63.81 ; ADHD ( attention deficit hyperactivity disorder), combined type F90.2 and Other fpc (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 [facility] [address] [place] [address] Sep, Gastroenteritis K52.9 [facility] [address] [place] [id number] Sep, Encounter for dental examination Z01.20 [facility] [id number] [place] [address] Aug, Annual physical exam Z00.00 and Seizures R56.9 [facility] [id number] [place] [address] 22 Nov, 2017 Adjustment disorder with disturbance of emotion F43.29 ; Developmental delay disorder R62.50 ; Developmental delay, gross motor F82 and 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 [facility] [address] [facility] [id number] [address] Aug, 2017 Moderate left ankle sprain, initial encounter S93.402A [facility] [id number] [address] 07 Aug, 2017 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 The patient says his chest is hurting but it gets worse when he coughs.--LOIS Serrano PLAN OF CARE Activity Details Follow Up prn Reason: VITAL SIGNS Height 70.25 in 2018-05-04 Weight 215 lbs 2018-05-04 Temperature 99.0 degrees Fahrenheit 2018-05-04 Heart Rate 88 bpm 2018-05-04 Respiratory Rate 20 2018-05-04 BMI 30.63 kg/m2 2018-05-04 Blood pressure systolic 140 mmHg 2018-05-04 Blood pressure diastolic 100 mmHg 2018-05-04 MEDICATIONS Medication Instructions Dosage Frequency Start Date End Date Duration Status Acetaminophen 500 MG Orally every 6 hrs 2 capsules as needed 6h Active Aripiprazole 30 MG Orally Once a day every morning 1 tablet 30 Active Aripiprazole 30 MG Orally Once a day every morning 1 tablet Active Desmopressin Acetate 0.2 MG Orally Once a day 3 tablet 24h Active Olopatadine HCl 0.1 % Ophthalmic TID 1 drop into affected eye 8h Active Melatonin 3 MG Orally Once a day 1 tablet at bedtime as needed with food 24h Active Siltussin SA 100 MG/5ML Orally every 4 hrs 10 ml as needed 4h Active Divalproex Sodium 500 mg Orally 2 times a day 1 tablet 12h Active Clindamycin-Benzoyl Per-Cleans 1-5 % Active Oxcarbazepine 600 MG TAKE 1 TABLET BY MOUTH THREE TIMES DAILY 31 Active Benztropine Mesylate 1 MG Orally daily 1 tablet in morning and two tablets at night 24h 30 Active BusPIRone HCl 10 MG Orally Twice a day 1 tablet 12h Active Chlorhexidine - Active Cyproheptadine HCl 4 MG Orally at bedtime 3 tablets Active Benztropine Mesylate 1 MG Orally daily 1 tablet in morning and two tablets at night 24h Active Cyproheptadine HCl 4 MG Orally at bedtime 3 tablets 30 Active Loxitane 10 mg Orally BID 1 capsule 12h Active Thera M Plus - Active RESULTS No Results PROCEDURES No Known procedures INSTRUCTIONS MEDICATIONS ADMINISTERED No Known Medications MEDICAL (GENERAL) HISTORY Type Description Date Medical History Schizophrenia Medical History Intermitten Explosive Disorder Medical History Generalized anxiety disorder Medical History Moderate intellectual disability Medical History Bipolar Medical History asthma exercise induced Medical History Seizure disorder Surgical History Tubes in ears
--- OUTSIDE RECORDS SUMMARY | 2018-07-18 14:11 | XMS REPORT ---
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 Active 94913456 Problem Adjustment disorder with disturbance of emotion F43.29 Active 82700272 Problem Neuropathy G62.9 Active 943223519 Problem Other schizophrenia F20.89 Active 33860274 Problem ANA LILIA (generalized anxiety disorder) F41.1 Active 56329074 Problem Schizophrenia, unspecified type F20.9 Active 24929786 Problem Intermittent explosive disorder F63.81 Active 51680190 Problem ADHD (attention deficit hyperactivity disorder), combined type F90.2 Active 64171379 ALLERGIES Substance Reaction Event Type Date Status PredniSONE Unknown Drug Allergy Apr, Active Augmentin Unknown Drug Allergy Apr, Active Natural Rubber Unknown Non Drug Allergy Apr, Active Latex Unknown Non Drug Allergy Apr, Active ENCOUNTERS Encounter Location Date Diagnosis [facility] [id number] [place] [address] [id number] Jul, [facility] [id number] [place] [address] 14910- 8750 Jul, [facility] [id number] [place] [address] 34811- 6278 Jun, [facility] [id number] [place] [address] 12686 -1147 Jun, Excessive gas R14.3 [facility] [id number] [place] [address] [id number] May, Dental examination Z01.20 [facility] [address] [place] [address] 32274- 9735 May, Cramp of extremity R25.2 and Neuropathy G62.9 [facility] [id number] [place] [address] 29083- 9015 May, Schizophrenia, unspecified type F20.9 and Intermittent explosive disorder F63.81 [facility] [id number] [place] [address] 82202 -5048 Apr, Viral URI J06.9 and Epigastric abdominal pain R10.13 [place] [id number] [place] [address] 45997- 6826 Apr, Schizophrenia, unspecified type F20.9 ; ANA LILIA (generalized anxiety disorder) F41.1 ; Intermittent explosive disorder F63.81 and ADHD ( attention deficit hyperactivity disorder), combined type F90.2 [place] [id number] [place] [address] 09271- 9572 Apr, Schizophrenia, unspecified type F20.9 and Intermittent explosive disorder F63.81 [facility] [id number] [place] [address] [id number] Mar, Dental examination Z01.20 [place] [id number] [place] [address] 56293- 1944 Mar, Schizophrenia, unspecified type F20.9 and Intermittent explosive disorder F63.81 [facility] [address] [place] [address] 65963 -3297 Mar, Acute nonintractable headache, unspecified headache type R51 [place] [id number] [place] [address] 06913- 9528 February, Schizophrenia, unspecified type F20.9 ; ANA LILIA (generalized anxiety disorder) F41.1 ; Intermittent explosive disorder F63.81 and ADHD ( attention deficit hyperactivity disorder), combined type F90.2 [place] [id number] [address] February, Schizophrenia, unspecified type F20.9 and Intermittent explosive disorder F63.81 [facility] [id number] [address] February, [place] [address] [address] February, Schizophrenia, unspecified type F20.9 [place] [id number] [place] [address] 77756- 7418 Jan, Schizophrenia, unspecified type F20.9 ; ANA LILIA (generalized anxiety disorder) F41.1 ; Intermittent explosive disorder F63.81 and ADHD ( attention deficit hyperactivity disorder), combined type F90.2 [place] [address] [address] 75[address] Jan, Schizophrenia, unspecified type F20.9 and Intermittent explosive disorder F63.81 [place] [address] [address] Jan, Schizophrenia, unspecified type F20.9 ; ANA LILIA (generalized anxiety disorder) F41.1 ; Intermittent explosive disorder F63.81 and ADHD ( attention deficit hyperactivity disorder), combined type F90.2 [place] [address] [address] 0[address] Jan, Schizophrenia, unspecified type F20.9 ; ANA LILIA (generalized anxiety disorder) F41.1 ; Intermittent explosive disorder F63.81 and ADHD ( attention deficit hyperactivity disorder), combined type F90.2 [place] [address] [address] Dec, [place] [address] [place] [address] 68531- 5811 Dec, Schizophrenia, unspecified type F20.9 ; ANA LILIA (generalized anxiety disorder) F41.1 ; Intermittent explosive disorder F63.81 and ADHD ( attention deficit hyperactivity disorder), combined type F90.2 [facility] [id number] [address] Dec, [facility] [address] [id number] Dec, Encounter for dental examination Z01.20 [facility] [address] [address] Dec, Schizophrenia, unspecified type F20.9 ; ANA LILIA (generalized anxiety disorder) F41.1 ; Intermittent explosive disorder F63.81 and ADHD ( attention deficit hyperactivity disorder), combined type F90.2 [facility] [address] [address] Dec, Schizophrenia, unspecified type F20.9 ; ANA LILIA (generalized anxiety disorder) F41.1 ; Intermittent explosive disorder F63.81 and ADHD ( attention deficit hyperactivity disorder), combined type F90.2 [facility] [address] [address] Dec, Seizures R56.9 ; Intermittent explosive disorder F63.81 and Developmental delay, gross motor F82 [facility] [address] [place] [address] 83596- 4834 Nov, ANA LILIA (generalized anxiety disorder) F41.1 ; Intermittent explosive disorder F63.81 ; ADHD (attention deficit hyperactivity disorder), combined type F90.2 ; 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 ; Adjustment disorder, unspecified type F43.20 and Other schizophrenia F20.89 [facility] [address] [address] Nov, Schizophrenia, unspecified type F20.9 [facility] [address] [address] 3[address] Oct, ANA LILIA (generalized anxiety disorder) F41.1 ; Intermittent explosive disorder F63.81 ; ADHD (attention deficit hyperactivity disorder), combined type F90.2 ; Other mcc (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 and Adjustment disorder, unspecified type F43.20 [facility] [address] [place] [address] 38804- 3433 Oct, Schizophrenia, unspecified type F20.9 ; ANA LILIA (generalized anxiety disorder) F41.1 ; Intermittent explosive disorder F63.81 and ADHD ( attention deficit hyperactivity disorder), combined type F90.2 [facility] [address] [place] [address] [id number] Oct, Dental examination Z01.20 [facility] [id number] [place] [address] 00342- 7444 Oct, [facility] [address] 59[address]- 1395 Oct, Other mcc (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 [facility] [id number] [place] [address] 00549- 2355 Sep, ANA LILIA (generalized anxiety disorder) F41.1 ; Intermittent explosive disorder F63.81 ; ADHD (attention deficit hyperactivity disorder), combined type F90.2 ; 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 and Adjustment disorder, unspecified type F43.20 [facility] [id number] [place] [address] 90731- 2689 Sep, Schizophrenia, unspecified type F20.9 ; ANA LILIA (generalized anxiety disorder) F41.1 ; Intermittent explosive disorder F63.81 ; ADHD ( attention deficit hyperactivity disorder), combined type F90.2 and 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 ; Developmental delay, gross motor F82 and Adjustment disorder with disturbance of emotion F43.29 [facility] [id number] [address] Aug, Fatigue, unspecified type R53.83 IMMUNIZATIONS No Known Immunizations SOCIAL HISTORY Never Assessed REASON FOR VISIT f/u Jesus PLAN OF CARE Activity Details Follow Up 2 Months Reason: f/u VITAL SIGNS Height 70.25 in 2018-05-04 Weight 212.2 lbs 2018-05-04 Heart Rate 88 bpm 2018-05-04 Respiratory Rate 20 2018-05-04 BMI 30.23 kg/m2 2018-05-04 Blood pressure systolic 142 mmHg 2018-05-04 Blood pressure diastolic 74 mmHg 2018-05-04 MEDICATIONS Medication Instructions Dosage Frequency Start Date End Date Duration Status Olopatadine HCl 0.1 % Ophthalmic TID 1 drop into affected eye 8h Active Clindamycin-Benzoyl Per-Cleans 1-5 % Active Melatonin 3 MG Orally Once a day 1 tablet at bedtime as needed with food 24h Active Cyproheptadine HCl 4 MG Orally at bedtime 3 tablets 30 Active Aripiprazole 30 MG Orally Once a day every morning 1 tablet 30 Active Loxitane 10 mg Orally BID 1 capsule 12h Active Oxcarbazepine 600 MG TAKE 1 TABLET BY MOUTH THREE TIMES DAILY 31 Active Cyproheptadine HCl 4 MG Orally at bedtime 3 tablets Active Aripiprazole 30 MG Orally Once a day every morning 1 tablet Active BusPIRone HCl 10 MG Orally Twice a day 1 tablet 12h Active Siltussin SA 100 MG/5ML Orally every 4 hrs 10 ml as needed 4h Active Chlorhexidine - Active Desmopressin Acetate 0.2 MG Orally Once a day 3 tablet 24h Active Divalproex Sodium 500 mg Orally 2 times a day 1 tablet 12h Active Thera M Plus - Active Benztropine Mesylate 1 MG Orally daily 1 tablet in morning and two tablets at night 24h 30 Active Benztropine Mesylate 1 MG Orally daily 1 tablet in morning and two tablets at night 24h Active Acetaminophen 500 MG Orally every 6 hrs 2 capsules as needed 6h Active Levetiracetam 500 MG Orally Twice a day 1 tablet 12h Not-Taking RESULTS No Results PROCEDURES No Known procedures INSTRUCTIONS MEDICATIONS ADMINISTERED No Known Medications MEDICAL (GENERAL) HISTORY Type Description Date Medical History Schizophrenia Medical History Intermitten Explosive Disorder Medical History Generalized anxiety disorder Medical History Moderate intellectual disability Medical History Bipolar Medical History asthma exercise induced Medical History Seizure disorder Surgical History Tubes in ears
--- OUTSIDE RECORDS SUMMARY | 2018-07-18 14:11 | XMS REPORT ---
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 Active 10176004 Problem Adjustment disorder with disturbance of emotion F43.29 Active 41203448 Problem Neuropathy G62.9 Active 442277772 Problem Other schizophrenia F20.89 Active 90864308 Problem ANA LILIA (generalized anxiety disorder) F41.1 Active 27269860 Problem Schizophrenia, unspecified type F20.9 Active 64057606 Problem Intermittent explosive disorder F63.81 Active 26578176 Problem ADHD (attention deficit hyperactivity disorder), combined type F90.2 Active 41343537 ALLERGIES No Information ENCOUNTERS Encounter Location Date Diagnosis [facility] [address] [address] Jul, [facility] [address] [address]- [address]27 Jun, [facility] [address] [id number] May, Dental examination Z01.20 [facility] [address] [address]367- [address]329 May, Cramp of extremity R25.2 and Neuropathy G62.9 [facility] [address] [address]21- 2733 May, Schizophrenia, unspecified type F20.9 and Intermittent explosive disorder F63.81 [facility] [address], [place] [address] Apr, Viral URI J06.9 and Epigastric abdominal pain R10.13 [facility] [id number] [place] [address] 12488- 6373 Apr, Schizophrenia, unspecified type F20.9 ; ANA LILIA (generalized anxiety disorder) F41.1 ; Intermittent explosive disorder F63.81 and ADHD ( attention deficit hyperactivity disorder), combined type F90.2 [facility] [id number] [place] [address] 27139- 5604 Apr, Schizophrenia, unspecified type F20.9 and Intermittent explosive disorder F63.81 [facility] [id number] [place] [address] [id number] Mar, Dental examination Z01.20 [facility] [id number] [place] [address] 12773- 0043 Mar, Schizophrenia, unspecified type F20.9 and Intermittent explosive disorder F63.81 [facility] [id number] [place] [address] 84846 -0146 Mar, Acute nonintractable headache, unspecified headache type R51 [facility] [address] [place] [address] 02083- 8882 February, Schizophrenia, unspecified type F20.9 ; ANA LILIA (generalized anxiety disorder) F41.1 ; Intermittent explosive disorder F63.81 and ADHD ( attention deficit hyperactivity disorder), combined type F90.2 [facility] [address] [place] [address] 66089- 8586 February, Schizophrenia, unspecified type F20.9 and Intermittent explosive disorder F63.81 [facility] [id number] [place] [address] 02984- 1619 February, [facility] [id number] [place] [address] 07968- 9368 February, Schizophrenia, unspecified type F20.9 [facility] [address], [place] [address] Jan, Schizophrenia, unspecified type F20.9 ; ANA LILIA (generalized anxiety disorder) F41.1 ; Intermittent explosive disorder F63.81 and ADHD ( attention deficit hyperactivity disorder), combined type F90.2 [facility] [address], [place] [address]- 4687 Jan, Schizophrenia, unspecified type F20.9 and Intermittent explosive disorder F63.81 [facility] [id number] [place] [address] 12680- 0580 Jan, Schizophrenia, unspecified type F20.9 ; ANA LILIA (generalized anxiety disorder) F41.1 ; Intermittent explosive disorder F63.81 and ADHD ( attention deficit hyperactivity disorder), combined type F90.2 [facility] [address], [place] [address]- [address] Jan, Schizophrenia, unspecified type F20.9 ; ANA LILIA (generalized anxiety disorder) F41.1 ; Intermittent explosive disorder F63.81 and ADHD ( attention deficit hyperactivity disorder), combined type F90.2 [facility] [id number] [place] [address] 77929- 6555 Dec, [facility] [address] [place] [address] 00182- 6696 Dec, Schizophrenia, unspecified type F20.9 ; ANA LILIA (generalized anxiety disorder) F41.1 ; Intermittent explosive disorder F63.81 and ADHD ( attention deficit hyperactivity disorder), combined type F90.2 [facility] [address], [place] [address] Dec, [facility] [address] [place] [address] [id number] Dec, Encounter for dental examination Z01.20 [facility] [address] [place] [address] 13849- 1901 Dec, Schizophrenia, unspecified type F20.9 ; ANA LILIA (generalized anxiety disorder) F41.1 ; Intermittent explosive disorder F63.81 and ADHD ( attention deficit hyperactivity disorder), combined type F90.2 [facility] [address] [place] [address] 20118- 3264 Dec, Schizophrenia, unspecified type F20.9 ; ANA LILIA (generalized anxiety disorder) F41.1 ; Intermittent explosive disorder F63.81 and ADHD ( attention deficit hyperactivity disorder), combined type F90.2 [facility] [address] [place] [address] 37715- 6778 Dec, Seizures R56.9 ; Intermittent explosive disorder F63.81 and Developmental delay, gross motor F82 [facility] [id number] [place] [address] 94165- 8734 Nov, ANA LILIA (generalized anxiety disorder) F41.1 ; Intermittent explosive disorder F63.81 ; ADHD (attention deficit hyperactivity disorder), combined type F90.2 ; Other instructor extension work (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 ; Adjustment disorder, unspecified type F43.20 and Other schizophrenia F20.89 [facility] [address], [place] [address] Nov, Schizophrenia, unspecified type F20.9 [facility] [address] [place] [address] 34617- 5269 Oct, ANA LILIA (generalized anxiety disorder) F41.1 ; Intermittent explosive disorder F63.81 ; ADHD (attention deficit hyperactivity disorder), combined type F90.2 ; Other fpc (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 and Adjustment disorder, unspecified type F43.20 [facility] [address], [place] [address] Oct, Schizophrenia, unspecified type F20.9 ; ANA LILIA (generalized anxiety disorder) F41.1 ; Intermittent explosive disorder F63.81 and ADHD ( attention deficit hyperactivity disorder), combined type F90.2 [facility] [address] [place] [address] [id number] Oct, Dental examination Z01.20 [facility] [address] [place] [address] 25673- 7627 03 Oct, 2017 [facility] [id number] [place] [address] 08819- 2051 03 Oct, 2017 Other instructor extension work (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 [facility] [id number] [place] [address] 35454- 7362 Sep, ANA LILIA (generalized anxiety disorder) F41.1 ; Intermittent explosive disorder F63.81 ; ADHD (attention deficit hyperactivity disorder), combined type F90.2 ; Other fpc (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 and Adjustment disorder, unspecified type F43.20 [facility] [address] [place] [address] 91038- 0271 21 Sep, 2017 Schizophrenia, unspecified type F20.9 ; ANA LILIA (generalized anxiety disorder) F41.1 ; Intermittent explosive disorder F63.81 ; ADHD ( attention deficit hyperactivity disorder), combined type F90.2 and Other instructor extension work (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 [facility] [id number] [place] [address] 82056- 8990 18 Sep, 2017 Gastroenteritis K52.9 [facility] [id number] [place] [address] [phone] 13 Sep, 2017 Encounter for dental examination Z01.20 [facility] [id number] [place] [address] 26862- 8263 22 Aug, 2017 Annual physical exam Z00.00 and Seizures R56.9 [facility] [id number] [place] [address] 63793- 0020 22 Aug, 2017 Adjustment disorder with disturbance of emotion F43.29 ; Developmental delay disorder R62.50 ; Developmental delay, gross motor F82 and 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 [facility] [address] [place] [address] 67278 -3110 15 Aug, 2017 Moderate left ankle sprain, initial encounter S93.402A [place] [address] [facility] [id number] [place] [address] Aug, 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 ; Developmental delay, gross motor F82 and Adjustment disorder with disturbance of emotion F43.29 [facility] [address] [facility] [id number] [place] [address] Aug, Fatigue, unspecified type R53.83 IMMUNIZATIONS No Known Immunizations SOCIAL HISTORY Never Assessed REASON FOR VISIT f/u PLAN OF CARE Activity Details Follow Up Next available Reason: F/U VITAL SIGNS MEDICATIONS Unknown Medications RESULTS No Results PROCEDURES Procedure Date Ordered Result Body Site Psychotherapy, patient &/family, 30 minutes, established patient April 21, 2018 INSTRUCTIONS MEDICATIONS ADMINISTERED No Known Medications MEDICAL (GENERAL) HISTORY Type Description Date Medical History Schizophrenia Medical History Intermitten Explosive Disorder Medical History Generalized anxiety disorder Medical History Moderate intellectual disability Medical History Bipolar Medical History asthma exercise induced Medical History Seizure disorder Surgical History Tubes in ears
--- OUTSIDE RECORDS SUMMARY | 2018-07-18 14:12 | XMS REPORT ---
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 Active 66229262 Problem Adjustment disorder with disturbance of emotion F43.29 Active 90185723 Problem Neuropathy G62.9 Active 702638495 Problem Other schizophrenia F20.89 Active 52293590 Problem ANA LILIA (generalized anxiety disorder) F41.1 Active 30003700 Problem Schizophrenia, unspecified type F20.9 Active 80276594 Problem Intermittent explosive disorder F63.81 Active 13883080 Problem ADHD (attention deficit hyperactivity disorder), combined type F90.2 Active 49771549 ALLERGIES Substance Reaction Event Type Date Status PredniSONE Unknown Drug Allergy Mar, Active Augmentin Unknown Drug Allergy Mar, Active Latex Unknown Non Drug Allergy Mar, Active Natural Rubber Unknown Non Drug Allergy Mar, Active ENCOUNTERS Encounter Location Date Diagnosis [facility] [id number] [place] [address] 81250- 3504 Jul, [facility] [id number] [place] [address] 81434- 5901 Jun, [facility] [address] [id number] May, Dental examination Z01.20 [facility] [id number] [place] [address] 65114- 6679 May, Cramp of extremity R25.2 and Neuropathy G62.9 [facility] [id number] [place] [address] 70878- 8267 May, Schizophrenia, unspecified type F20.9 and Intermittent explosive disorder F63.81 [facility] [id number] [place] [address]01 -9764 Apr, Viral URI J06.9 and Epigastric abdominal pain R10.13 [facility] [id number] [place] [address] 61506- 9494 Apr, Schizophrenia, unspecified type F20.9 ; ANA LILIA (generalized anxiety disorder) F41.1 ; Intermittent explosive disorder F63.81 and ADHD ( attention deficit hyperactivity disorder), combined type F90.2 [facility] [id number] [place] [address] 03052- 4760 Apr, Schizophrenia, unspecified type F20.9 and Intermittent explosive disorder F63.81 [facility] [address] [id number] Mar, Dental examination Z01.20 [facility] [id number] [place] [address] 30174- 6157 Mar, Schizophrenia, unspecified type F20.9 and Intermittent explosive disorder F63.[address] [facility] IN [facility] [id number] [place] [address] 24436 -9048 Mar, Acute nonintractable headache, unspecified headache type R51 [facility] [facility] [id number] [place] [address] 07050- 5561 February, Schizophrenia, unspecified type F20.9 ; ANA LILIA (generalized anxiety disorder) F41.1 ; Intermittent explosive disorder F63.81 and ADHD ( attention deficit hyperactivity disorder), combined type F90.2 [facility] [id number] [place] [address] 42742- 7712 February, Schizophrenia, unspecified type F20.9 and Intermittent explosive disorder F63.81 [facility] [id number] [place] [address] 51162- 9589 February, [facility] [address] [address] February, Schizophrenia, unspecified type F20.9 [facility] [address] [address] 0[address] Jan, Schizophrenia, unspecified type F20.9 ; ANA LILIA (generalized anxiety disorder) F41.1 ; Intermittent explosive disorder F63.81 and ADHD ( attention deficit hyperactivity disorder), combined type F90.2 [facility] [address] [address] Jan, Schizophrenia, unspecified type F20.9 and Intermittent explosive disorder F63.81 [facility] [address] [address] Jan, Schizophrenia, unspecified type F20.9 ; ANA LILIA (generalized anxiety disorder) F41.1 ; Intermittent explosive disorder F63.81 and ADHD ( attention deficit hyperactivity disorder), combined type F90.2 [facility] [id number] [place] [address] 32570- 8402 Jan, Schizophrenia, unspecified type F20.9 ; ANA LILIA (generalized anxiety disorder) F41.1 ; Intermittent explosive disorder F63.81 and ADHD ( attention deficit hyperactivity disorder), combined type F90.2 [facility] [address] [address] Dec, [facility] [id number] [place] [address] 57399- 7344 Dec, Schizophrenia, unspecified type F20.9 ; ANA LILIA (generalized anxiety disorder) F41.1 ; Intermittent explosive disorder F63.81 and ADHD ( attention deficit hyperactivity disorder), combined type F90.2 [facility] [address] [address] Dec, [facility] [address] [id number] Dec, Encounter for dental examination Z01.20 [facility] [address] [address] Dec, Schizophrenia, unspecified type F20.9 ; ANA LILIA (generalized anxiety disorder) F41.1 ; Intermittent explosive disorder F63.81 and ADHD ( attention deficit hyperactivity disorder), combined type F90.2 [facility] [id number] [place] [address] 77108- 6614 Dec, Schizophrenia, unspecified type F20.9 ; ANA LILIA (generalized anxiety disorder) F41.1 ; Intermittent explosive disorder F63.81 and ADHD ( attention deficit hyperactivity disorder), combined type F90.2 [facility] [id number] [place] [address] 65107- 3736 Dec, Seizures R56.9 ; Intermittent explosive disorder F63.81 and Developmental delay, gross motor F82 [facility] [id number] [place] [address] 32742- 7470 Nov, ANA LILIA (generalized anxiety disorder) F41.1 ; Intermittent explosive disorder F63.81 ; ADHD (attention deficit hyperactivity disorder), combined type F90.2 ; Other jail (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 ; Adjustment disorder, unspecified type F43.20 and Other schizophrenia F20.89 [facility] [address] [place] [address] 39256- 1966 Nov, Schizophrenia, unspecified type F20.9 [facility] [address] [place] [address] 18645- 9378 Oct, ANA LILIA (generalized anxiety disorder) F41.1 ; Intermittent explosive disorder F63.81 ; ADHD (attention deficit hyperactivity disorder), combined type F90.2 ; Other manager intermediate (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 and Adjustment disorder, unspecified type F43.20 [facility] [address] [place] [address] 19852- 7595 Oct, Schizophrenia, unspecified type F20.9 ; ANA LILIA (generalized anxiety disorder) F41.1 ; Intermittent explosive disorder F63.81 and ADHD ( attention deficit hyperactivity disorder), combined type F90.2 [facility] [address] [id number] Oct, Dental examination Z01.20 [facility] [address] [place] [address] 22840- 3098 Oct, [facility] [id number] [place] [address] 43902- 1849 Oct, Other manager intermediate (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 [facility] [address] [place] [address] 32733- 8193 Sep, ANA LILIA (generalized anxiety disorder) F41.1 ; Intermittent explosive disorder F63.81 ; ADHD (attention deficit hyperactivity disorder), combined type F90.2 ; Other manager intermediate (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 and Adjustment disorder, unspecified type F43.20 [facility] [address] [place] [address] 41210- 6955 Sep, Schizophrenia, unspecified type F20.9 ; ANA LILIA (generalized anxiety disorder) F41.1 ; Intermittent explosive disorder F63.81 ; ADHD ( attention deficit hyperactivity disorder), combined type F90.2 and Other jail (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 [facility] [address] [place] [address] 35899- 9360 18 Sep, 2017 Gastroenteritis K52.9 [facility] [address] [place] [address] [id number] Sep, Encounter for dental examination Z01.20 [facility] [address] [place] [address] 86946- 7060 Aug, Annual physical exam Z00.00 and Seizures R56.9 [facility] [address] [place] [address] 15317- 2294 Aug, Adjustment disorder with disturbance of emotion F43.29 ; Developmental delay disorder R62.50 ; Developmental delay, gross motor F82 and 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 [id number] [address] 15 Aug, 2017 Moderate left ankle sprain, initial encounter S93.402A [facility] [address] 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 [id number] [address] Aug, Fatigue, unspecified type R53.83 IMMUNIZATIONS No Known Immunizations SOCIAL HISTORY Never Assessed REASON FOR VISIT Headache started this morning- had 2 Tylenol about 30 minutes ago JStrasserRN PLAN OF CARE Activity Details Follow Up prn Reason: VITAL SIGNS Height 70.25 in 2018-03-23 Weight 208 lbs 2018-03-23 Temperature 98.7 degrees Fahrenheit 2018-03-23 Heart Rate 92 bpm 2018-03-23 Respiratory Rate 18 2018-03-23 BMI 29.63 kg/m2 2018-03-23 Blood pressure systolic 140 mmHg 2018-03-23 Blood pressure diastolic 98 mmHg 2018-03-23 MEDICATIONS Medication Instructions Dosage Frequency Start Date End Date Duration Status Divalproex Sodium 500 mg Orally 2 times a day 1 tablet 12h Active Acetaminophen 500 MG Orally every 6 hrs 2 capsules as needed 6h Active Melatonin 3 MG Orally Once a day 1 tablet at bedtime as needed with food 24h Active Loxitane 10 mg Orally BID 1 capsule 12h Active Clindamycin-Benzoyl Per-Cleans 1-5 % Active Thera M Plus - Active Aripiprazole 30 MG Orally Once a day every morning 1 tablet 30 Active Desmopressin Acetate 0.2 MG Orally Once a day 3 tablet 24h Active Oxcarbazepine 600 MG TAKE 1 TABLET BY MOUTH THREE TIMES DAILY 31 Active BusPIRone HCl 10 MG Orally Twice a day 1 tablet 12h Active Cyproheptadine HCl 4 MG Orally at bedtime 3 tablets 30 Active Levetiracetam 500 MG Orally Twice a day 1 tablet 12h Unknown Siltussin SA 100 MG/5ML Orally every 4 hrs 10 ml as needed 4h Active Olopatadine HCl 0.1 % Ophthalmic TID 1 drop into affected eye 8h Active Chlorhexidine - Active Benztropine Mesylate 1 MG Orally daily 1 tablet in morning and two tablets at night 24h 30 Active RESULTS No Results PROCEDURES No Known procedures INSTRUCTIONS MEDICATIONS ADMINISTERED No Known Medications MEDICAL (GENERAL) HISTORY Type Description Date Medical History Schizophrenia Medical History Intermitten Explosive Disorder Medical History Generalized anxiety disorder Medical History Moderate intellectual disability Medical History Bipolar Medical History asthma exercise induced Medical History Seizure disorder Surgical History Tubes in ears
--- OUTSIDE RECORDS SUMMARY | 2018-07-18 14:12 | XMS REPORT ---
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 Active 54031199 Problem Adjustment disorder with disturbance of emotion F43.29 Active 70055861 Problem Neuropathy G62.9 Active 411900835 Problem Other schizophrenia F20.89 Active 72368055 Problem ANA LILIA (generalized anxiety disorder) F41.1 Active 26857250 Problem Schizophrenia, unspecified type F20.9 Active 11978968 Problem Intermittent explosive disorder F63.81 Active 64712536 Problem ADHD (attention deficit hyperactivity disorder), combined type F90.2 Active 71045518 ALLERGIES Substance Reaction Event Type Date Status PredniSONE Unknown Drug Allergy February, Active Augmentin Unknown Drug Allergy February, Active Natural Rubber Unknown Non Drug Allergy February, Active Latex Unknown Non Drug Allergy February, Active ENCOUNTERS Encounter Location Date Diagnosis [facility] [address] [place] [address] 59218- 1804 Jul, [facility] [id number] [place] [address] 69451- 2627 Jun, [facility] [address] [place] [address] [id number] May, [facility] [id number] [place] [address] 85351- 2742 May, Cramp of extremity R25.2 and Neuropathy G62.9 [facility] [id number] [place] [address] 79631- 8665 May, Schizophrenia, unspecified type F20.9 and Intermittent explosive disorder F63.81 [facility] [id number] [place] [address] 21772 -9027 Apr, Viral URI J06.9 and Epigastric abdominal pain R10.13 [facility] [address] 8[address]31- 2807 Apr, Schizophrenia, unspecified type F20.9 ; ANA LILIA (generalized anxiety disorder) F41.1 ; Intermittent explosive disorder F63.81 and ADHD ( attention deficit hyperactivity disorder), combined type F90.2 [facility] [id number] [place] [address] 65212- 5068 Apr, Schizophrenia, unspecified type F20.9 and Intermittent explosive disorder F63.81 [facility] [id number] [place] [address] [id number] Mar, Dental examination Z01.20 [facility] [id number] [place] [address] 14422- 6515 Mar, Schizophrenia, unspecified type F20.9 and Intermittent explosive disorder F63.81 [facility] [id number] [place] [address] 85084 -8097 Mar, Acute nonintractable headache, unspecified headache type R51 [place] [id number] [place] [address] 94346- 4031 February, Schizophrenia, unspecified type F20.9 ; ANA LILIA (generalized anxiety disorder) F41.1 ; Intermittent explosive disorder F63.81 and ADHD ( attention deficit hyperactivity disorder), combined type F90.2 [facility] [id number] [place] [address] 63848- 8386 February, Schizophrenia, unspecified type F20.9 and Intermittent explosive disorder F63.81 [facility] [id number] [place] [address] 79183- 8769 February, [facility] [address] [address] February, Schizophrenia, unspecified type F20.9 [facility] [address], [place] [address]- 96[address] Jan, Schizophrenia, unspecified type F20.9 ; ANA LILIA (generalized anxiety disorder) F41.1 ; Intermittent explosive disorder F63.81 and ADHD ( attention deficit hyperactivity disorder), combined type F90.2 [facility] [address] [address]- 8897 Jan, Schizophrenia, unspecified type F20.9 and Intermittent explosive disorder F63.81 [place] [address] [place] [address] 13801- 3834 Jan, Schizophrenia, unspecified type F20.9 ; ANA LILIA (generalized anxiety disorder) F41.1 ; Intermittent explosive disorder F63.81 and ADHD ( attention deficit hyperactivity disorder), combined type F90.2 [facility] [address] [address]- 12[address] Jan, Schizophrenia, unspecified type F20.9 ; ANA LILIA (generalized anxiety disorder) F41.1 ; Intermittent explosive disorder F63.81 and ADHD ( attention deficit hyperactivity disorder), combined type F90.2 [place] [address] [address]- [address] Dec, [facility] [address] [address]- 4[address] Dec, Schizophrenia, unspecified type F20.9 ; ANA LILIA (generalized anxiety disorder) F41.1 ; Intermittent explosive disorder F63.81 and ADHD ( attention deficit hyperactivity disorder), combined type F90.2 [facility] [address], [place] [address]- 5692 Dec, [facility] [address] [id number] Dec, Encounter for dental examination Z01.20 [facility] [address] [address]- [address]2 Dec, Schizophrenia, unspecified type F20.9 ; ANA LILIA (generalized anxiety disorder) F41.1 ; Intermittent explosive disorder F63.81 and ADHD ( attention deficit hyperactivity disorder), combined type F90.2 [place] [address] [place] [address] 54095- 9905 Dec, Schizophrenia, unspecified type F20.9 ; ANA LILIA (generalized anxiety disorder) F41.1 ; Intermittent explosive disorder F63.81 and ADHD ( attention deficit hyperactivity disorder), combined type F90.2 [facility] [id number] [place] [address] 89237- 9699 Dec, Seizures R56.9 ; Intermittent explosive disorder F63.81 and Developmental delay, gross motor F82 [facility] [id number] [place] [address] 33013- 6077 Nov, ANA LILIA (generalized anxiety disorder) F41.1 ; Intermittent explosive disorder F63.81 ; ADHD (attention deficit hyperactivity disorder), combined type F90.2 ; Other snf (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 ; Adjustment disorder, unspecified type F43.20 and Other schizophrenia F20.89 [facility] [place] [address], [place] [address] Nov, Schizophrenia, unspecified type F20.9 [facility] [place] [address] [place] [address] 73738- 2328 Oct, ANA LILIA (generalized anxiety disorder) F41.1 ; Intermittent explosive disorder F63.81 ; ADHD (attention deficit hyperactivity disorder), combined type F90.2 ; Other snf (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 and Adjustment disorder, unspecified type F43.20 [facility] [place] [address] [place] [address] 27980- 6537 Oct, Schizophrenia, unspecified type F20.9 ; ANA LILIA (generalized anxiety disorder) F41.1 ; Intermittent explosive disorder F63.81 and ADHD ( attention deficit hyperactivity disorder), combined type F90.2 [facility] [id number] [id number] Oct, Dental examination Z01.20 [facility] [address] [address]- [address] 03 Oct, 2017 [facility] [address] [address]- 0698 Oct, 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 [facility] [id number] [place] [address] 12053- 3214 Sep, ANA LILIA (generalized anxiety disorder) F41.1 ; Intermittent explosive disorder F63.81 ; ADHD (attention deficit hyperactivity disorder), combined type F90.2 ; 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 and Adjustment disorder, unspecified type F43.20 [facility] [address] [place] [address] 19677- 6639 Sep, Schizophrenia, unspecified type F20.9 ; ANA LILIA (generalized anxiety disorder) F41.1 ; Intermittent explosive disorder F63.81 ; ADHD ( attention deficit hyperactivity disorder), combined type F90.2 and 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 [facility] [address] [place] [address] 71907- 9527 18 Sep, 2017 Gastroenteritis K52.9 [facility] [address] [place] [address] [id number] 13 Sep, 2017 Encounter for dental examination Z01.20 [facility] [address] [place] [address] 09824- 8612 22 Aug, 2017 Annual physical exam Z00.00 and Seizures R56.9 [place] [address] [place] [address] 34867- 7637 22 Aug, 2017 Adjustment disorder with disturbance of emotion F43.29 ; Developmental delay disorder R62.50 ; Developmental delay, gross motor F82 and 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 [facility] [id number] [address] 15 Aug, 2017 Moderate left ankle sprain, initial encounter S93.402A [facility] [address] [facility] [id number] [address] 07 Aug, 2017 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 ; Developmental delay, gross motor F82 and Adjustment disorder with disturbance of emotion F43.29 [facility] [address] [facility] [id number] [address] Aug, Fatigue, unspecified type R53.83 IMMUNIZATIONS No Known Immunizations SOCIAL HISTORY Never Assessed REASON FOR VISIT f/u-Apollo ABREU PLAN OF CARE Activity Details Follow Up 2 Months Reason: f/u VITAL SIGNS Height 70.25 in 2018-03-03 Weight 205.4 lbs 2018-03-03 Heart Rate 82 bpm 2018-03-03 Respiratory Rate 20 2018-03-03 BMI 29.26 kg/m2 2018-03-03 Blood pressure systolic 124 mmHg 2018-03-03 Blood pressure diastolic 78 mmHg 2018-03-03 MEDICATIONS Medication Instructions Dosage Frequency Start Date End Date Duration Status Siltussin SA 100 MG/5ML Orally every 4 hrs 10 ml as needed 4h Not- Taking BusPIRone HCl 10 MG Orally Twice a day 1 tablet 12h Active Clindamycin-Benzoyl Per-Cleans 1-5 % Active Acetaminophen 500 MG Orally every 6 hrs 2 capsules as needed 6h Active Loxitane 10 mg Orally BID 1 capsule 12h Active BusPIRone HCl 10 MG TAKE 1 TABLET BY MOUTH TWICE DAILY 30 Not- Taking Benztropine Mesylate 1 MG Orally daily 1 tablet in morning and two tablets at night 24h Active Desmopressin Acetate 0.2 MG Orally Once a day 3 tablet 24h Active Divalproex Sodium 500 mg Orally 2 times a day 1 tablet 12h Not- Taking Melatonin 3 MG Orally Once a day 1 tablet at bedtime as needed with food 24h Active Levetiracetam 500 MG Orally Twice a day 1 tablet 12h Active Cyproheptadine HCl 4 MG Orally at bedtime 3 tablets Active Chlorhexidine - Not-Taking Thera M Plus - Not-Taking Oxcarbazepine 600 MG TAKE 1 TABLET BY MOUTH THREE TIMES DAILY 31 Active Olopatadine HCl 0.1 % Ophthalmic TID 1 drop into affected eye 8h Not-Taking Aripiprazole 30 MG Orally Once a day every morning 1 tablet Active RESULTS No Results PROCEDURES [...]
--- OUTSIDE RECORDS SUMMARY | 2018-07-18 14:12 | XMS REPORT ---
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 Active 36251917 Problem Adjustment disorder with disturbance of emotion F43.29 Active 94974012 Problem Neuropathy G62.9 Active 340449123 Problem Other schizophrenia F20.89 Active 50096344 Problem ANA LILIA (generalized anxiety disorder) F41.1 Active 52479368 Problem Schizophrenia, unspecified type F20.9 Active 71280072 Problem Intermittent explosive disorder F63.81 Active 94370955 Problem ADHD (attention deficit hyperactivity disorder), combined type F90.2 Active 92419707 ALLERGIES Substance Reaction Event Type Date Status PredniSONE Unknown Drug Allergy Mar, Active Augmentin Unknown Drug Allergy Mar, Active Natural Rubber Unknown Non Drug Allergy Mar, Active Latex Unknown Non Drug Allergy Mar, Active ENCOUNTERS Encounter Location Date Diagnosis [facility] [id number] [place] [address]1991[address] 0817 Jul, [facility] [id number] [place] [address] 44260- 9646 Jun, [facility] [id number] [place] [address] [id number] May, Dental examination Z01.20 [facility] [id number] [place] [address] 07815- 6495 May, Cramp of extremity R25.2 and Neuropathy G62.9 [facility] [id number] [place] [address] 31658- 8095 May, Schizophrenia, unspecified type F20.9 and Intermittent explosive disorder F63.81 [facility] [id number] [place] [address] 84583 -6112 Apr, Viral URI J06.9 and Epigastric abdominal pain R10.13 [facility] [address] 7[address] 9671 Apr, Schizophrenia, unspecified type F20.9 ; ANA LILIA (generalized anxiety disorder) F41.1 ; Intermittent explosive disorder F63.81 and ADHD ( attention deficit hyperactivity disorder), combined type F90.2 [facility] [address] 18722- [address]7 Apr, Schizophrenia, unspecified type F20.9 and Intermittent explosive disorder F63.81 [facility] [address] [id number] Mar, Dental examination Z01.20 [facility] [address] 729[address] Mar, Schizophrenia, unspecified type F20.9 and Intermittent explosive disorder F63.81 [facility] [id number] [place] [address] 73501 -7618 Mar, Acute nonintractable headache, unspecified headache type R51 [facility] [id number] [place] [address] 39595- 7058 February, Schizophrenia, unspecified type F20.9 ; ANA LILIA (generalized anxiety disorder) F41.1 ; Intermittent explosive disorder F63.81 and ADHD ( attention deficit hyperactivity disorder), combined type F90.2 [facility] [address] 68254- 6[address] February, Schizophrenia, unspecified type F20.9 and Intermittent explosive disorder F63.81 [facility] [address] 31481- 7892 February, [facility] [address] [place] [address] February, Schizophrenia, unspecified type F20.9 [facility] [id number] [place] [address] 67529- 4890 Jan, Schizophrenia, unspecified type F20.9 ; ANA LILIA (generalized anxiety disorder) F41.1 ; Intermittent explosive disorder F63.81 and ADHD ( attention deficit hyperactivity disorder), combined type F90.2 [facility] [id number] [place] [address] 98456- 6161 Jan, Schizophrenia, unspecified type F20.9 and Intermittent explosive disorder F63.81 [facility] [address] 02917- 4299 Jan, Schizophrenia, unspecified type F20.9 ; ANA LILIA (generalized anxiety disorder) F41.1 ; Intermittent explosive disorder F63.81 and ADHD ( attention deficit hyperactivity disorder), combined type F90.2 [facility] [id number] [place] [address] 97737- 0919 Jan, Schizophrenia, unspecified type F20.9 ; ANA LILIA (generalized anxiety disorder) F41.1 ; Intermittent explosive disorder F63.81 and ADHD ( attention deficit hyperactivity disorder), combined type F90.2 [facility] [id number] [place] [address] 77592- 4862 Dec, [facility] [id number] [place] [address] 39734- 9171 Dec, Schizophrenia, unspecified type F20.9 ; ANA LILIA (generalized anxiety disorder) F41.1 ; Intermittent explosive disorder F63.81 and ADHD ( attention deficit hyperactivity disorder), combined type F90.2 [facility] [id number] [place] [address] 77973- 8097 Dec, [facility] [id number] [place] [address] [id number] Dec, Encounter for dental examination Z01.20 [facility] [address] [place] [address] Dec, Schizophrenia, unspecified type F20.9 ; ANA LILIA (generalized anxiety disorder) F41.1 ; Intermittent explosive disorder F63.81 and ADHD ( attention deficit hyperactivity disorder), combined type F90.2 [facility] [address] [place] [address] 46723- 6680 Dec, Schizophrenia, unspecified type F20.9 ; ANA LILIA (generalized anxiety disorder) F41.1 ; Intermittent explosive disorder F63.81 and ADHD ( attention deficit hyperactivity disorder), combined type F90.2 [place] [id number] [place] [address] 37913- 3261 Dec, Seizures R56.9 ; Intermittent explosive disorder F63.81 and Developmental delay, gross motor F82 [facility] [id number] [place] [address] 88269- 5043 Nov, ANA LILIA (generalized anxiety disorder) F41.1 ; Intermittent explosive disorder F63.81 ; ADHD (attention deficit hyperactivity disorder), combined type F90.2 ; Other mcc (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 ; Adjustment disorder, unspecified type F43.20 and Other schizophrenia F20.89 [facility] [id number] [place] [address] 41384- 4080 Nov, Schizophrenia, unspecified type F20.9 [facility] [address] [place] [address] 26017- 8341 Oct, ANA LILIA (generalized anxiety disorder) F41.1 ; Intermittent explosive disorder F63.81 ; ADHD (attention deficit hyperactivity disorder), combined type F90.2 ; 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 and Adjustment disorder, unspecified type F43.20 [facility] [id number] [place] [address] 55089- 0133 Oct, Schizophrenia, unspecified type F20.9 ; ANA LILIA (generalized anxiety disorder) F41.1 ; Intermittent explosive disorder F63.81 and ADHD ( attention deficit hyperactivity disorder), combined type F90.2 [place] [address] [place] [address] [id number] Oct, Dental examination Z01.20 [facility] [id number] [place] [address] 48928- 5928 03 Oct, 2017 [facility] [id number] [place] [address] 16524- 4364 Oct, 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 [facility] [address] 023340- 3199 Sep, ANA LILIA (generalized anxiety disorder) F41.1 ; Intermittent explosive disorder F63.81 ; ADHD (attention deficit hyperactivity disorder), combined type F90.2 ; 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 and Adjustment disorder, unspecified type F43.20 [facility] [address] [place] [address] 91320- 1306 Sep, Schizophrenia, unspecified type F20.9 ; ANA LILIA (generalized anxiety disorder) F41.1 ; Intermittent explosive disorder F63.81 ; ADHD ( attention deficit hyperactivity disorder), combined type F90.2 and 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 [facility] [address] [place] [address] 08164- 6830 18 Sep, 2017 Gastroenteritis K52.9 [facility] [address] [place] [address] [phone] 13 Sep, 2017 Encounter for dental examination Z01.20 [facility] [address] [place] [address] 37000- 9146 22 Aug, 2017 Annual physical exam Z00.00 and Seizures R56.9 [facility] [address] 95322- 5889 Aug, Adjustment disorder with disturbance of emotion F43.29 ; Developmental delay disorder R62.50 ; Developmental delay, gross motor F82 and 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 [facility] [id number] [place] [address] 46610 -7521 Aug, Moderate left ankle sprain, initial encounter S93.402A [facility] [address] [facility] [id number] [address] 07 Aug, 2017 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 ; Developmental delay, gross motor F82 and Adjustment disorder with disturbance of emotion F43.29 [facility] [address] [facility] [id number] [address] Aug, Fatigue, unspecified type R53.83 IMMUNIZATIONS No Known Immunizations SOCIAL HISTORY Never Assessed REASON FOR VISIT 3 mo recall PLAN OF CARE VITAL SIGNS Blood pressure systolic 145 mmHg 2018-03-27 Blood pressure diastolic 96 mmHg 2018-03-27 MEDICATIONS Medication Instructions Dosage Frequency Start Date End Date Duration Status Levetiracetam 500 MG Orally Twice a day 1 tablet 12h Unknown Acetaminophen 500 MG Orally every 6 hrs 2 capsules as needed 6h Not-Taking Loxitane 10 mg Orally BID 1 capsule 12h Not-Taking Melatonin 3 MG Orally Once a day 1 tablet at bedtime as needed with food 24h Not-Taking Cyproheptadine HCl 4 MG Orally at bedtime 3 tablets 30 Not-Taking Chlorhexidine - Not-Taking Siltussin SA 100 MG/5ML Orally every 4 hrs 10 ml as needed 4h Not- Taking Benztropine Mesylate 1 MG Orally daily 1 tablet in morning and two tablets at night 24h 30 Not-Taking Oxcarbazepine 600 MG TAKE 1 TABLET BY MOUTH THREE TIMES DAILY 31 Not-Taking Desmopressin Acetate 0.2 MG Orally Once a day 3 tablet 24h Not- Taking Thera M Plus - Not-Taking BusPIRone HCl 10 MG Orally Twice a day 1 tablet 12h Not-Taking Clindamycin-Benzoyl Per-Cleans 1-5 % Not-Taking Aripiprazole 30 MG Orally Once a day every morning 1 tablet 30 Not -Taking Divalproex Sodium 500 mg Orally 2 times a day 1 tablet 12h Not- Taking Olopatadine HCl 0.1 % Ophthalmic TID 1 drop into affected eye 8h Not-Taking RESULTS No Results PROCEDURES Procedure Date Ordered Result Body Site PROPHYLAXIS - ADULT March 27, 2018 TOPICAL FLUORIDE VARNISH March 27, 2018 INSTRUCTIONS MEDICATIONS ADMINISTERED No Known Medications MEDICAL (GENERAL) HISTORY Type Description Date Medical History Schizophrenia Medical History Intermitten Explosive Disorder Medical History Generalized anxiety disorder Medical History Moderate intellectual disability Medical History Bipolar Medical History asthma exercise induced Medical History Seizure disorder Surgical History Tubes in ears
--- OUTSIDE RECORDS SUMMARY | 2018-07-18 14:12 | XMS REPORT ---
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 Active 10432820 Problem Adjustment disorder with disturbance of emotion F43.29 Active 10290949 Problem Neuropathy G62.9 Active 465105543 Problem Other schizophrenia F20.89 Active 17793842 Problem ANA LILIA (generalized anxiety disorder) F41.1 Active 17834111 Problem Schizophrenia, unspecified type F20.9 Active 62819851 Problem Intermittent explosive disorder F63.81 Active 42032960 Problem ADHD (attention deficit hyperactivity disorder), combined type F90.2 Active 96609518 ALLERGIES No Information ENCOUNTERS Encounter Location Date Diagnosis [facility] [address] [address] Jul, [facility] [address] [address] Jun, [facility] [address] [id number] May, Dental examination Z01.20 [facility] [address] [address]- [address] May, Cramp of extremity R25.2 and Neuropathy G62.9 [facility] [address] [address]- [address] May, Schizophrenia, unspecified type F20.9 and Intermittent explosive disorder F63.81 [facility] [address] [address] Apr, Viral URI J06.9 and Epigastric abdominal pain R10.13 [facility] [id number] [place] [address] 64125- 6813 Apr, Schizophrenia, unspecified type F20.9 ; ANA LILIA (generalized anxiety disorder) F41.1 ; Intermittent explosive disorder F63.81 and ADHD ( attention deficit hyperactivity disorder), combined type F90.2 [facility] [id number] [place] [address] 88068- 8164 Apr, Schizophrenia, unspecified type F20.9 and Intermittent explosive disorder F63.81 [facility] [id number] [place] [phone] Mar, Dental examination Z01.20 [facility] [id number] [place] [address] 57501- 4770 Mar, Schizophrenia, unspecified type F20.9 and Intermittent explosive disorder F63.81 [facility] [id number] [place] [address]81 -[address]177 Mar, Acute nonintractable headache, unspecified headache type R51 [facility] [address] [place] [address] 31364- 5253 February, Schizophrenia, unspecified type F20.9 ; ANA LILIA (generalized anxiety disorder) F41.1 ; Intermittent explosive disorder F63.81 and ADHD ( attention deficit hyperactivity disorder), combined type F90.2 [facility] [address] [place] [address] 31836- 7384 February, Schizophrenia, unspecified type F20.9 and Intermittent explosive disorder F63.81 [facility] [id number] [place] [address] 88797- 4144 February, [facility] [id number] [place] [address] 43194- 8326 February, Schizophrenia, unspecified type F20.9 [facility] [address] [address] Jan, Schizophrenia, unspecified type F20.9 ; ANA LILIA (generalized anxiety disorder) F41.1 ; Intermittent explosive disorder F63.81 and ADHD ( attention deficit hyperactivity disorder), combined type F90.2 [facility] [address] [address] Jan, Schizophrenia, unspecified type F20.9 and Intermittent explosive disorder F63.81 [facility] [id number] [place] [address] 66473- 0270 Jan, Schizophrenia, unspecified type F20.9 ; ANA LILIA (generalized anxiety disorder) F41.1 ; Intermittent explosive disorder F63.81 and ADHD ( attention deficit hyperactivity disorder), combined type F90.2 [facility] [address] [address] Jan, Schizophrenia, unspecified type F20.9 ; ANA LILIA (generalized anxiety disorder) F41.1 ; Intermittent explosive disorder F63.81 and ADHD ( attention deficit hyperactivity disorder), combined type F90.2 [facility] [id number] [place] [address] 14186- 8026 Dec, [facility] [address] [place] [address] 61791- 6213 Dec, Schizophrenia, unspecified type F20.9 ; ANA LILIA (generalized anxiety disorder) F41.1 ; Intermittent explosive disorder F63.81 and ADHD ( attention deficit hyperactivity disorder), combined type F90.2 [facility] [address], [place] [address] Dec, [facility] [address] [place] [address] [phone] Dec, Encounter for dental examination Z01.20 [facility] [address] [place] [address] 00038- 4400 Dec, Schizophrenia, unspecified type F20.9 ; ANA LILIA (generalized anxiety disorder) F41.1 ; Intermittent explosive disorder F63.81 and ADHD ( attention deficit hyperactivity disorder), combined type F90.2 [facility] [address] [place] [address] 30658- 8053 Dec, Schizophrenia, unspecified type F20.9 ; ANA LILIA (generalized anxiety disorder) F41.1 ; Intermittent explosive disorder F63.81 and ADHD ( attention deficit hyperactivity disorder), combined type F90.2 [facility] [address] [place] [address] 12999- 1485 Dec, Seizures R56.9 ; Intermittent explosive disorder F63.81 and Developmental delay, gross motor F82 [facility] [id number] [place] [address] 67682- 9845 Nov, ANA LILIA (generalized anxiety disorder) F41.1 ; Intermittent explosive disorder F63.81 ; ADHD (attention deficit hyperactivity disorder), combined type F90.2 ; Other manager terminal (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 ; Adjustment disorder, unspecified type F43.20 and Other schizophrenia F20.89 [facility] [address] [place] [address] Nov, Schizophrenia, unspecified type F20.9 [facility] [address] [place] [address] 25729- 5606 Oct, ANA LILIA (generalized anxiety disorder) F41.1 ; Intermittent explosive disorder F63.81 ; ADHD (attention deficit hyperactivity disorder), combined type F90.2 ; Other alf (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 and Adjustment disorder, unspecified type F43.20 [facility] [address] [place] [address] Oct, Schizophrenia, unspecified type F20.9 ; ANA LILIA (generalized anxiety disorder) F41.1 ; Intermittent explosive disorder F63.81 and ADHD ( attention deficit hyperactivity disorder), combined type F90.2 [facility] [address] [place] [address] [phone] Oct, Dental examination Z01.20 [facility] [address] [place] [address] 97628- 1779 03 Oct, 2017 [facility] [id number] [place] [address] 28196- 8506 03 Oct, 2017 Other manager terminal (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 [facility] [id number] [place] [address] 99705- 1535 Sep, ANA LILIA (generalized anxiety disorder) F41.1 ; Intermittent explosive disorder F63.81 ; ADHD (attention deficit hyperactivity disorder), combined type F90.2 ; Other alf (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 and Adjustment disorder, unspecified type F43.20 [facility] [address] [place] [address] 27103- 2733 21 Sep, 2017 Schizophrenia, unspecified type F20.9 ; ANA LILIA (generalized anxiety disorder) F41.1 ; Intermittent explosive disorder F63.81 ; ADHD ( attention deficit hyperactivity disorder), combined type F90.2 and Other manager terminal (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 [facility] [id number] [place] [address] 29119- 9097 18 Sep, [address] [facility] [id number] [place] [address] [phone] 13 Sep, 2017 Encounter for dental examination Z01.20 [facility] [id number] [place] [address] 83661- 8754 22 Aug, 2017 Annual physical exam Z00.00 and Seizures R56.9 [facility] [id number] [place] [address] 46152- 6163 22 Aug, 2017 Adjustment disorder with disturbance of emotion F43.29 ; Developmental delay disorder R62.50 ; Developmental delay, gross motor F82 and 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 [facility] [address] [place] [address] 69031 -1143 15 Aug, 2017 Moderate left ankle sprain, initial encounter S93.402A [place] [address] [facility] [id number] [place] [address] Aug, 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 ; Developmental delay, gross motor F82 and Adjustment disorder with disturbance of emotion F43.29 [facility] [address] [facility] [id number] [place] [address] Aug, Fatigue, unspecified type R53.83 IMMUNIZATIONS No Known Immunizations SOCIAL HISTORY Never Assessed REASON FOR VISIT f/u PLAN OF CARE Activity Details Follow Up Next available Reason: F/U VITAL SIGNS MEDICATIONS Unknown Medications RESULTS No Results PROCEDURES Procedure Date Ordered Result Body Site Psychotherapy, patient &/family, 45 minutes, established patient March 24, 2018 INSTRUCTIONS MEDICATIONS ADMINISTERED No Known Medications MEDICAL (GENERAL) HISTORY Type Description Date Medical History Schizophrenia Medical History Intermitten Explosive Disorder Medical History Generalized anxiety disorder Medical History Moderate intellectual disability Medical History Bipolar Medical History asthma exercise induced Medical History Seizure disorder Surgical History Tubes in ears
--- OUTSIDE RECORDS SUMMARY | 2018-07-18 14:13 | XMS REPORT ---
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 Active 25256504 Problem Developmental delay, gross motor F82 Active 994427365 Problem Other schizophrenia F20.89 Active 85837955 Problem Intermittent explosive disorder F63.81 Active 07866385 Problem Schizophrenia, unspecified type F20.9 Active 34166275 Problem Adjustment disorder, unspecified type F43.20 Active 18615396 Problem ADHD (attention deficit hyperactivity disorder), combined type F90.2 Active 28471346 Problem ANA LILIA (generalized anxiety disorder) F41.1 Active 01007453 ALLERGIES No Information ENCOUNTERS Encounter Location Date Diagnosis [facility] [address] [address] Jul, [facility] [address] [address] Jun, [facility] [address] [id number] May, [facility] [address] [address] May, [facility] [address] [address] May, Schizophrenia, unspecified type F20.9 and Intermittent explosive disorder F63.81 [facility] [address] [address] Apr, Viral URI J06.9 and Epigastric abdominal pain R10.13 [facility] [id number] [place] [address] 77828- [address]189 Apr, Schizophrenia, unspecified type F20.9 ; ANA LILIA (generalized anxiety disorder) F41.1 ; Intermittent explosive disorder F63.81 and ADHD ( attention deficit hyperactivity disorder), combined type F90.2 [facility] [id number] [place] [address] 57219- 5522 Apr, Schizophrenia, unspecified type F20.9 and Intermittent explosive disorder F63.81 [facility] [id number] [place] [id number] Mar, Dental examination Z01.20 [facility] [id number] [place] [address] 78007- 4167 Mar, Schizophrenia, unspecified type F20.9 and Intermittent explosive disorder F63.81 [facility] [id number] [place] [address]996 [address]64 Mar, Acute nonintractable headache, unspecified headache type R51 [facility] [id number] [place] [address]8936- [address] February, Schizophrenia, unspecified type F20.9 ; ANA LILIA (generalized anxiety disorder) F41.1 ; Intermittent explosive disorder F63.81 and ADHD ( attention deficit hyperactivity disorder), combined type F90.2 [facility] [id number] [place] [address] 62618- 2634 February, Schizophrenia, unspecified type F20.9 and Intermittent explosive disorder F63.81 [facility] [id number] [place] [address] 79573- 1446 February, [facility] [id number] [place] [address] 19492- 1686 February, Schizophrenia, unspecified type F20.9 [facility] [id number] [place] [address] 08266- 9508 Jan, Schizophrenia, unspecified type F20.9 ; ANA LILIA (generalized anxiety disorder) F41.1 ; Intermittent explosive disorder F63.81 and ADHD ( attention deficit hyperactivity disorder), combined type F90.2 [facility] [address] [place] [address] 19891- 2438 Jan, Schizophrenia, unspecified type F20.9 and Intermittent explosive disorder F63.81 [facility] [id number] [place] [address] 16096- 2533 Jan, Schizophrenia, unspecified type F20.9 ; ANAL ILIA (generalized anxiety disorder) F41.1 ; Intermittent explosive disorder F63.81 and ADHD ( attention deficit hyperactivity disorder), combined type F90.2 [facility] [address] [place] [address] 62768- 9338 Jan, Schizophrenia, unspecified type F20.9 ; ANA LILIA (generalized anxiety disorder) F41.1 ; Intermittent explosive disorder F63.81 and ADHD ( attention deficit hyperactivity disorder), combined type F90.2 [facility] [address] [place] [address] 18275- 5198 Dec, [facility] [id number] [place] [address] 88976- 4878 Dec, Schizophrenia, unspecified type F20.9 ; ANA LILIA (generalized anxiety disorder) F41.1 ; Intermittent explosive disorder F63.81 and ADHD ( attention deficit hyperactivity disorder), combined type F90.2 [facility] [address] [place] [address] 60957- 5947 Dec, [facility] [address] [place] [id number] Dec, Encounter for dental examination Z01.20 [facility] [address] [place] [address] 69728- 4660 Dec, Schizophrenia, unspecified type F20.9 ; ANA LILIA (generalized anxiety disorder) F41.1 ; Intermittent explosive disorder F63.81 and ADHD ( attention deficit hyperactivity disorder), combined type F90.2 [facility] [address] [address] Dec, Schizophrenia, unspecified type F20.9 ; ANA LILIA (generalized anxiety disorder) F41.1 ; Intermittent explosive disorder F63.81 and ADHD ( attention deficit hyperactivity disorder), combined type F90.2 [facility] [id number] [place] [address] 90274- 2825 Dec, Seizures R56.9 ; Intermittent explosive disorder F63.81 and Developmental delay, gross motor F82 [facility] [id number] [place] [address] 10794- 8840 Nov, ANA LILIA (generalized anxiety disorder) F41.1 ; Intermittent explosive disorder F63.81 ; ADHD (attention deficit hyperactivity disorder), combined type F90.2 ; Other shelter (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 ; Adjustment disorder, unspecified type F43.20 and Other schizophrenia F20.89 [facility] [id number] [place] [address] 00646- 4798 Nov, Schizophrenia, unspecified type F20.9 [facility] [id number] [place] [address] 13118- 3850 Oct, ANA LILIA (generalized anxiety disorder) F41.1 ; Intermittent explosive disorder F63.81 ; ADHD (attention deficit hyperactivity disorder), combined type F90.2 ; 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 and Adjustment disorder, unspecified type F43.20 [facility] [address] [place] [address] 04378- 8164 Oct, Schizophrenia, unspecified type F20.9 ; ANA LILIA (generalized anxiety disorder) F41.1 ; Intermittent explosive disorder F63.81 and ADHD ( attention deficit hyperactivity disorder), combined type F90.2 [facility] [address] [id number] Oct, Dental examination Z01.20 [facility] [id number] [place] [address] 99983- 7480 Oct, [facility] [address] [place] [address] 14828- 8772 03 Oct, 2017 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 [facility] [id number] [place] [address] 64034- 6906 Sep, ANA LILIA (generalized anxiety disorder) F41.1 ; Intermittent explosive disorder F63.81 ; ADHD (attention deficit hyperactivity disorder), combined type F90.2 ; Other shelter (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 and Adjustment disorder, unspecified type F43.20 [facility] [id number] [place] [address] 29177- 1561 Sep, Schizophrenia, unspecified type F20.9 ; ANA LILIA (generalized anxiety disorder) F41.1 ; Intermittent explosive disorder F63.81 ; ADHD ( attention deficit hyperactivity disorder), combined type F90.2 and 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 [facility] [id number] [place] [address] 09490- 3572 18 Sep, 2017 Gastroenteritis K52.9 [facility] [address] [id number] 13 Sep, 2017 Encounter for dental examination Z01.20 [facility] [id number] [place] [address] 08038- 3304 22 Aug, 2017 Annual physical exam Z00.00 and Seizures R56.9 [facility] [id number] [place] [address] 64374- 4346 22 Aug, 2017 Adjustment disorder with disturbance of emotion F43.29 ; Developmental delay disorder R62.50 ; Developmental delay, gross motor F82 and 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 [facility] [id number] [place] [address] 58223 -4450 15 Aug, 2017 Moderate left ankle sprain, initial encounter S93.402A [facility] [address] [address]- [address] 07 Aug, 2017 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
--- OUTSIDE RECORDS SUMMARY | 2018-07-18 14:13 | XMS REPORT ---
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 Active 33447648 Problem Developmental delay, gross motor F82 Active 477432553 Problem Other schizophrenia F20.89 Active 75482400 Problem Intermittent explosive disorder F63.81 Active 09823205 Problem Schizophrenia, unspecified type F20.9 Active 62626319 Problem Adjustment disorder, unspecified type F43.20 Active 59827932 Problem ADHD (attention deficit hyperactivity disorder), combined type F90.2 Active 12968202 Problem ANA LILIA (generalized anxiety disorder) F41.1 Active 44265928 ALLERGIES No Information ENCOUNTERS Encounter Location Date Diagnosis [facility] [address] [address] Jul, [facility] [address] [id number] May, [facility] [address] [address] May, [facility] [address] [address] May, [facility] [address] [address] Apr, Viral URI J06.9 and Epigastric abdominal pain R10.13 [facility] [address] [address]10- 14[address] Apr, Schizophrenia, unspecified type F20.9 ; ANA LILIA (generalized anxiety disorder) F41.1 ; Intermittent explosive disorder F63.81 and ADHD ( attention deficit hyperactivity disorder), combined type F90.2 [facility] [id number] [place] [address] 07170- 7890 Apr, Schizophrenia, unspecified type F20.9 and Intermittent explosive disorder F63.81 [facility] [address] [place] [address] [id number] Mar, Dental examination Z01.20 [facility] [id number] [place] [address] 03904- 5616 Mar, Schizophrenia, unspecified type F20.9 and Intermittent explosive disorder F63.81 [facility] [id number] [place] [address] 84400 -[address] Mar, Acute nonintractable headache, unspecified headache type R51 [facility] [id number] [place] [address] 27882- 3397 February, Schizophrenia, unspecified type F20.9 ; ANA LILIA (generalized anxiety disorder) F41.1 ; Intermittent explosive disorder F63.81 and ADHD ( attention deficit hyperactivity disorder), combined type F90.2 [facility] [id number] [place] [address] 21709- 0033 February, Schizophrenia, unspecified type F20.9 and Intermittent explosive disorder F63.81 [facility] [id number] [place] [address] 11437- 7202 February, [facility] [id number] [place] [address] 21729- 9423 February, Schizophrenia, unspecified type F20.9 [facility] [id number] [place] [address] 16318- 2154 Jan, Schizophrenia, unspecified type F20.9 ; ANA LILIA (generalized anxiety disorder) F41.1 ; Intermittent explosive disorder F63.81 and ADHD ( attention deficit hyperactivity disorder), combined type F90.2 [facility] [address] [address] Jan, Schizophrenia, unspecified type F20.9 and Intermittent explosive disorder F63.81 [facility] [id number] [place] [address] 64078- 0060 Jan, Schizophrenia, unspecified type F20.9 ; ANA LILIA (generalized anxiety disorder) F41.1 ; Intermittent explosive disorder F63.81 and ADHD ( attention deficit hyperactivity disorder), combined type F90.2 [facility] [id number] [place] [address] 78469- 7686 Jan, Schizophrenia, unspecified type F20.9 ; ANA LILIA (generalized anxiety disorder) F41.1 ; Intermittent explosive disorder F63.81 and ADHD ( attention deficit hyperactivity disorder), combined type F90.2 [facility] [id number] [place] [address] 47586- 0821 Dec, [facility] [id number] [place] [address] 97911- 2510 Dec, Schizophrenia, unspecified type F20.9 ; ANA LILIA (generalized anxiety disorder) F41.1 ; Intermittent explosive disorder F63.81 and ADHD ( attention deficit hyperactivity disorder), combined type F90.2 [facility] [address] [address] Dec, [facility] [address] [place] [address] [id number] Dec, Encounter for dental examination Z01.20 [facility] [address] [place] [address] 96576- 4930 Dec, Schizophrenia, unspecified type F20.9 ; ANA LILIA (generalized anxiety disorder) F41.1 ; Intermittent explosive disorder F63.81 and ADHD ( attention deficit hyperactivity disorder), combined type F90.2 [facility] [address], [place] [address] Dec, Schizophrenia, unspecified type F20.9 ; ANA LILIA (generalized anxiety disorder) F41.1 ; Intermittent explosive disorder F63.81 and ADHD ( attention deficit hyperactivity disorder), combined type F90.2 [facility] [id number] [place] [address] 30528- 8079 Dec, Seizures R56.9 ; Intermittent explosive disorder F63.81 and Developmental delay, gross motor F82 [facility] [id number] [place] [address] 75995- 2377 Nov, ANA LILIA (generalized anxiety disorder) F41.1 ; Intermittent explosive disorder F63.81 ; ADHD (attention deficit hyperactivity disorder), combined type F90.2 ; Other snf (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 ; Adjustment disorder, unspecified type F43.20 and Other schizophrenia F20.89 [facility] [id number] [place] [address] 71874- 0614 Nov, Schizophrenia, unspecified type F20.9 [facility] [id number] [place] [address] 87867- 3369 Oct, ANA LILIA (generalized anxiety disorder) F41.1 ; Intermittent explosive disorder F63.81 ; ADHD (attention deficit hyperactivity disorder), combined type F90.2 ; Other snf (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 and Adjustment disorder, unspecified type F43.20 [facility] [address] [place] [address] 75641- 1494 Oct, Schizophrenia, unspecified type F20.9 ; ANA LILIA (generalized anxiety disorder) F41.1 ; Intermittent explosive disorder F63.81 and ADHD ( attention deficit hyperactivity disorder), combined type F90.2 [facility] [address] [place] [address] [id number] Oct, Dental examination Z01.20 [facility] [id number] [place] [address] 41104- 4765 Oct, [facility] [id number] [place] [address] 17687- 6754 Oct, 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 [facility] [address] [place] [address] 83484- 9281 21 Sep, 2017 ANA LILIA (generalized anxiety disorder) F41.1 ; Intermittent explosive disorder F63.81 ; ADHD (attention deficit hyperactivity disorder), combined type F90.2 ; Other snf (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 and Adjustment disorder, unspecified type F43.20 [facility] [id number] [place] [address] 28445- 6617 21 Sep, 2017 Schizophrenia, unspecified type F20.9 ; ANA LILIA (generalized anxiety disorder) F41.1 ; Intermittent explosive disorder F63.81 ; ADHD ( attention deficit hyperactivity disorder), combined type F90.2 and Other snf (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 [facility] [id number] [place] [address] 59122- 0958 18 Sep, 2017 Gastroenteritis K52.9 [facility] [address] [id number] 13 Sep, 2017 Encounter for dental examination Z01.20 [facility] [id number] [place] [address] 78909- 7752 22 Aug, 2017 Annual physical exam Z00.00 and Seizures R56.9 [facility] [id number] [place] [address] 78219- 1921 22 Aug, 2017 Adjustment disorder with disturbance of emotion F43.29 ; Developmental delay disorder R62.50 ; Developmental delay, gross motor F82 and 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 [facility] [id number] [place] [address] 84410 -9932 15 Aug, 2017 Moderate left ankle sprain, initial encounter S93.402A [facility] [address] 35048- [address]8 07 Aug, 2017 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 ; Developmental delay, gross motor F82 and Adjustment disorder with disturbance of emotion F43.29 [facility] [id number] [place] [address] 74287 -1449 Aug, Fatigue, unspecified type R53.83 IMMUNIZATIONS No Known Immunizations SOCIAL HISTORY Never Assessed REASON FOR VISIT med refill PLAN OF CARE VITAL SIGNS MEDICATIONS Medication Instructions Dosage Frequency Start Date End Date Duration Status Loxitane 10 mg Orally BID 1 capsule 12h 30 days Active RESULTS No Results PROCEDURES No Known procedures INSTRUCTIONS MEDICATIONS ADMINISTERED No Known Medications MEDICAL (GENERAL) HISTORY Type Description Date Medical History Schizophrenia Medical History Intermitten Explosive Disorder Medical History Generalized anxiety disorder Medical History Moderate intellectual disability Medical History Bipolar Medical History asthma exercise induced Medical History Seizure disorder Surgical History Tubes in ears
--- OUTSIDE RECORDS SUMMARY | 2018-07-18 14:13 | XMS REPORT ---
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 Active 04723630 Problem Developmental delay, gross motor F82 Active 037535704 Problem Other schizophrenia F20.89 Active 57285574 Problem Intermittent explosive disorder F63.81 Active 44763556 Problem Schizophrenia, unspecified type F20.9 Active 01057122 Problem Adjustment disorder, unspecified type F43.20 Active 57307559 Problem ADHD (attention deficit hyperactivity disorder), combined type F90.2 Active 96844451 Problem ANA LILIA (generalized anxiety disorder) F41.1 Active 40410109 ALLERGIES No Information ENCOUNTERS Encounter Location Date Diagnosis [facility] [address] [address] Jul, [facility] [place] [address] [address] Jun, [facility] [id number] [place] [address] [id number] May, [facility] [place] [address] [address] May, [facility] [place] [address] [address] May, Schizophrenia, unspecified type F20.9 and Intermittent explosive disorder F63.81 [facility] [address] [address] Apr, Viral URI J06.9 and Epigastric abdominal pain R10.13 [facility] [place] [id number] [place] [address] 86363- 5707 Apr, Schizophrenia, unspecified type F20.9 ; ANA LILIA (generalized anxiety disorder) F41.1 ; Intermittent explosive disorder F63.81 and ADHD ( attention deficit hyperactivity disorder), combined type F90.2 [facility] [place] [id number] [place] [address] 64328- 6[address] Apr, Schizophrenia, unspecified type F20.9 and Intermittent explosive disorder F63.81 [facility] [id number] [place] [address] [id number] Mar, Dental examination Z01.20 [facility] [place] [id number] [place] [address] 43181- 6432 Mar, Schizophrenia, unspecified type F20.9 and Intermittent explosive disorder F63.81 [facility] [id number] [place] [address] 83692 -[phone] Mar, Acute nonintractable headache, unspecified headache type R51 [facility] [place] [id number] [place] [address] 82129- 1314 February, Schizophrenia, unspecified type F20.9 ; ANA LILIA (generalized anxiety disorder) F41.1 ; Intermittent explosive disorder F63.81 and ADHD ( attention deficit hyperactivity disorder), combined type F90.2 [facility] [place] [id number] [place] [address] 64930- 0553 February, Schizophrenia, unspecified type F20.9 and Intermittent explosive disorder F63.81 [facility] [place] [id number] [place] [address] 61191- 5673 February, [facility] [place] [id number] [place] [address] 13346- 7300 February, Schizophrenia, unspecified type F20.9 [facility] [place] [id number] [place] [address] 77783- 5209 Jan, Schizophrenia, unspecified type F20.9 ; ANA LILIA (generalized anxiety disorder) F41.1 ; Intermittent explosive disorder F63.81 and ADHD ( attention deficit hyperactivity disorder), combined type F90.2 [facility] [place] [id number] [place] [address] 41312- 2547 Jan, Schizophrenia, unspecified type F20.9 and Intermittent explosive disorder F63.81 [facility] [place] [id number] [place] [address] 50767- 7243 Jan, Schizophrenia, unspecified type F20.9 ; ANA LILIA (generalized anxiety disorder) F41.1 ; Intermittent explosive disorder F63.81 and ADHD ( attention deficit hyperactivity disorder), combined type F90.2 [facility] [place] [id number] [place] [address] 98193- 4704 Jan, Schizophrenia, unspecified type F20.9 ; ANA LILIA (generalized anxiety disorder) F41.1 ; Intermittent explosive disorder F63.81 and ADHD ( attention deficit hyperactivity disorder), combined type F90.2 [facility] [place] [id number] [place] [address] 91635- 5702 Dec, [facility] [place] [id number] [place] [address] 42130- 4370 Dec, Schizophrenia, unspecified type F20.9 ; ANA LILIA (generalized anxiety disorder) F41.1 ; Intermittent explosive disorder F63.81 and ADHD ( attention deficit hyperactivity disorder), combined type F90.2 [facility] [place] [id number] [place] [address] 75627- 6276 Dec, [facility] [id number] [place] [address] [id number] Dec, Encounter for dental examination Z01.20 [facility] [place] [id number] [place] [address] 71184- 9228 Dec, Schizophrenia, unspecified type F20.9 ; ANA LILIA (generalized anxiety disorder) F41.1 ; Intermittent explosive disorder F63.81 and ADHD ( attention deficit hyperactivity disorder), combined type F90.2 [facility] [place] [address] [address] Dec, Schizophrenia, unspecified type F20.9 ; ANA LILIA (generalized anxiety disorder) F41.1 ; Intermittent explosive disorder F63.81 and ADHD ( attention deficit hyperactivity disorder), combined type F90.2 [facility] [place] [id number] [place] [address] 17340- 4226 Dec, Seizures R56.9 ; Intermittent explosive disorder F63.81 and Developmental delay, gross motor F82 [facility] [place] [id number] [place] [address] 06894- 1690 Nov, ANA LILIA (generalized anxiety disorder) F41.1 ; Intermittent explosive disorder F63.81 ; ADHD (attention deficit hyperactivity disorder), combined type F90.2 ; 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 ; Adjustment disorder, unspecified type F43.20 and Other schizophrenia F20.89 [facility] [place] [id number] [place] [address] 50310- 2994 Nov, Schizophrenia, unspecified type F20.9 [facility] [place] [id number] [place] [address] 27112- 3336 Oct, ANA LILIA (generalized anxiety disorder) F41.1 ; Intermittent explosive disorder F63.81 ; ADHD (attention deficit hyperactivity disorder), combined type F90.2 ; 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 and Adjustment disorder, unspecified type F43.20 [facility] [place] [address] [place] [address] 38975- 3733 Oct, Schizophrenia, unspecified type F20.9 ; ANA LILIA (generalized anxiety disorder) F41.1 ; Intermittent explosive disorder F63.81 and ADHD ( attention deficit hyperactivity disorder), combined type F90.2 [facility] [address] [place] [address] [id number] Oct, Dental examination Z01.20 [facility] [place] [id number] [place] [address] 60015- 6860 Oct, [facility] [place] [address] [place] [address] 51656- 4681 03 Oct, 2017 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 [facility] [place] [id number] [place] [address] 75283- 2150 Sep, ANA LILIA (generalized anxiety disorder) F41.1 ; Intermittent explosive disorder F63.81 ; ADHD (attention deficit hyperactivity disorder), combined type F90.2 ; Other long-term (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 and Adjustment disorder, unspecified type F43.20 [facility] [place] [id number] [place] [address] 22272- 5226 21 Sep, 2017 Schizophrenia, unspecified type F20.9 ; ANA LILIA (generalized anxiety disorder) F41.1 ; Intermittent explosive disorder F63.81 ; ADHD ( attention deficit hyperactivity disorder), combined type F90.2 and 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 [facility] [place] [id number] [place] [address] 76077- 8827 18 Sep, 2017 Gastroenteritis K52.9 [facility] [address] [id number] 13 Sep, 2017 Encounter for dental examination Z01.20 [facility] [place] [id number] [place] [address] 22061- 5450 22 Aug, 2017 Annual physical exam Z00.00 and Seizures R56.9 [facility] [place] [id number] [place] [address] 16489- 1081 22 Aug, 2017 Adjustment disorder with disturbance of emotion F43.29 ; Developmental delay disorder R62.50 ; Developmental delay, gross motor F82 and 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 [id number] [address] Aug, Fatigue, unspecified type R53.83 IMMUNIZATIONS No Known Immunizations SOCIAL HISTORY Never Assessed REASON FOR VISIT f/u PLAN OF CARE Activity Details Follow Up Next available Reason: F/U VITAL SIGNS MEDICATIONS Unknown Medications RESULTS No Results PROCEDURES Procedure Date Ordered Result Body Site Psychotherapy, patient &/family, 45 minutes, established patient February 26, 2018 INSTRUCTIONS MEDICATIONS ADMINISTERED No Known Medications MEDICAL (GENERAL) HISTORY Type Description Date Medical History Schizophrenia Medical History Intermitten Explosive Disorder Medical History Generalized anxiety disorder Medical History Moderate intellectual disability Medical History Bipolar Medical History asthma exercise induced Medical History Seizure disorder Surgical History Tubes in ears
--- OUTSIDE RECORDS SUMMARY | 2018-07-18 14:13 | XMS REPORT ---
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 Active 20469972 Problem Developmental delay, gross motor F82 Active 377175321 Problem Other schizophrenia F20.89 Active 77658630 Problem Intermittent explosive disorder F63.81 Active 94984136 Problem Schizophrenia, unspecified type F20.9 Active 37347403 Problem Adjustment disorder, unspecified type F43.20 Active 17354950 Problem ADHD (attention deficit hyperactivity disorder), combined type F90.2 Active 87198590 Problem ANA LILIA (generalized anxiety disorder) F41.1 Active 55713389 ALLERGIES Substance Reaction Event Type Date Status PredniSONE Unknown Drug Allergy Jan, Active Augmentin Unknown Drug Allergy Jan, Active Natural Rubber Unknown Non Drug Allergy Jan, Active Latex Unknown Non Drug Allergy Jan, Active ENCOUNTERS Encounter Location Date Diagnosis [facility] [address] [address] Jul, [facility] [id number] [place] [address] [phone] May, [facility] [address] [address] May, [facility] [id number] [place] [address] 70457- 9961 May, [facility] [address] [address] Apr, Viral URI J06.9 and Epigastric abdominal pain R10.13 [facility] [address] [address] Apr, Schizophrenia, unspecified type F20.9 ; ANA LILIA (generalized anxiety disorder) F41.1 ; Intermittent explosive disorder F63.81 and ADHD ( attention deficit hyperactivity disorder), combined type F90.2 [facility] [id number] [place] [address] 18847- 4359 Apr, Schizophrenia, unspecified type F20.9 and Intermittent explosive disorder F63.81 [facility] [address] [place] [address] [id number] Mar, Dental examination Z01.20 [facility] [id number] [place] [address] 58762- 7899 Mar, Schizophrenia, unspecified type F20.9 and Intermittent explosive disorder F63.81 [facility] [id number] [place] [address] 44363 -5724 Mar, Acute nonintractable headache, unspecified headache type R51 [facility] [id number] [place] [address] 86807- 4382 February, Schizophrenia, unspecified type F20.9 ; ANA LILIA (generalized anxiety disorder) F41.1 ; Intermittent explosive disorder F63.81 and ADHD ( attention deficit hyperactivity disorder), combined type F90.2 [facility] [address] [place] [address] 94313- 3301 February, Schizophrenia, unspecified type F20.9 and Intermittent explosive disorder F63.81 [facility] [id number] [place] [address] 84621- 1124 February, [facility] [id number] [place] [address] 70174- 8778 February, Schizophrenia, unspecified type F20.9 [facility] [id number] [place] [address] 55321- 5592 Jan, Schizophrenia, unspecified type F20.9 ; ANA LILIA (generalized anxiety disorder) F41.1 ; Intermittent explosive disorder F63.81 and ADHD ( attention deficit hyperactivity disorder), combined type F90.2 [facility] [address] [place] [address] 13462- 9365 Jan, Schizophrenia, unspecified type F20.9 and Intermittent explosive disorder F63.81 [facility] [facility] [id number] [place] [address] 63533- 2591 Jan, Schizophrenia, unspecified type F20.9 ; ANA LILIA (generalized anxiety disorder) F41.1 ; Intermittent explosive disorder F63.81 and ADHD ( attention deficit hyperactivity disorder), combined type F90.2 [place] [facility] [id number] [place] [address] 30201- 1099 Jan, Schizophrenia, unspecified type F20.9 ; ANA LILIA (generalized anxiety disorder) F41.1 ; Intermittent explosive disorder F63.81 and ADHD ( attention deficit hyperactivity disorder), combined type F90.2 [facility] [address] [place] [address] 45934- 8099 Dec, [facility] [id number] [place] [address] 66917- 6889 Dec, Schizophrenia, unspecified type F20.9 ; ANA LILIA (generalized anxiety disorder) F41.1 ; Intermittent explosive disorder F63.81 and ADHD ( attention deficit hyperactivity disorder), combined type F90.2 [facility] [address] [place] [address] 36883- 9484 Dec, [facility] [address] [place] [address] [id number] Dec, Encounter for dental examination Z01.20 [facility] [id number] [place] [address] 48803- 8066 Dec, Schizophrenia, unspecified type F20.9 ; ANA LILIA (generalized anxiety disorder) F41.1 ; Intermittent explosive disorder F63.81 and ADHD ( attention deficit hyperactivity disorder), combined type F90.2 [place] [facility] [address] [place] [address] 37870- 0720 Dec, Schizophrenia, unspecified type F20.9 ; ANA LILIA (generalized anxiety disorder) F41.1 ; Intermittent explosive disorder F63.81 and ADHD ( attention deficit hyperactivity disorder), combined type F90.2 [place] [id number] [place] [address] 53558- 5074 Dec, Seizures R56.9 ; Intermittent explosive disorder F63.81 and Developmental delay, gross motor F82 [place] [facility] [id number] [place] [address] 33131- 1721 Nov, ANA LILIA (generalized anxiety disorder) F41.1 ; Intermittent explosive disorder F63.81 ; ADHD (attention deficit hyperactivity disorder), combined type F90.2 ; Other longterm (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 ; Adjustment disorder, unspecified type F43.20 and Other schizophrenia F20.89 [place] [id number] [place] [address] 60425- 6421 Nov, Schizophrenia, unspecified type F20.9 [place] [id number] [place] [address] 56794- 2808 Oct, ANA LILIA (generalized anxiety disorder) F41.1 ; Intermittent explosive disorder F63.81 ; ADHD (attention deficit hyperactivity disorder), combined type F90.2 ; 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 and Adjustment disorder, unspecified type F43.20 [place] [address] [place] [address] 91915- 5914 Oct, Schizophrenia, unspecified type F20.9 ; ANA LILIA (generalized anxiety disorder) F41.1 ; Intermittent explosive disorder F63.81 and ADHD ( attention deficit hyperactivity disorder), combined type F90.2 [facility] [address] [place] [address] [phone] Oct, Dental examination Z01.20 [facility] [id number] [place] [address] 79879- 8616 Oct, [facility] [address] [place] [address] 24611- 5431 Oct, Other longterm (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 [facility] [id number] [place] [address] 67946- 4657 Sep, ANA LILIA (generalized anxiety disorder) F41.1 ; Intermittent explosive disorder F63.81 ; ADHD (attention deficit hyperactivity disorder), combined type F90.2 ; Other longterm (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 and Adjustment disorder, unspecified type F43.20 [facility] [id number] [place] [address] 05841- 7612 Sep, Schizophrenia, unspecified type F20.9 ; ANA LILIA (generalized anxiety disorder) F41.1 ; Intermittent explosive disorder F63.81 ; ADHD ( attention deficit hyperactivity disorder), combined type F90.2 and 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 [facility] [id number] [place] [address] 66705- 7523 18 Sep, 2017 Gastroenteritis K52.9 [facility] [id number] [place] [address] [phone] 13 Sep, 2017 Encounter for dental examination Z01.20 [facility] [id number] [place] [address] 13045- 1860 22 Aug, 2017 Annual physical exam Z00.00 and Seizures R56.9 [facility] [id number] [place] [address] 56413- 6679 22 Aug, 2017 Adjustment disorder with disturbance of emotion F43.29 ; Developmental delay disorder R62.50 ; Developmental delay, gross motor F82 and 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 [facility] [id number] [place] [address] 52188 -6119 15 Aug, 2017 Moderate left ankle sprain, initial encounter S93.402A [facility] [id number] [place] [address] 81784- 1072 07 Aug, 2017 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 ; Developmental delay, gross motor F82 and Adjustment disorder with disturbance of emotion F43.29 [facility] [address] [facility] [id number] [address] Aug, Fatigue, unspecified type R53.83 IMMUNIZATIONS No Known Immunizations SOCIAL HISTORY Never Assessed REASON FOR VISIT f/u PLAN OF CARE Activity Details Follow Up 4 Weeks Reason: f/u VITAL SIGNS Height 70.25 in 2018-02-02 Weight 205.6 lbs 2018-02-02 Heart Rate 84 bpm 2018-02-02 Respiratory Rate 20 2018-02-02 BMI 29.29 kg/m2 2018-02-02 Blood pressure systolic 130 mmHg 2018-02-02 Blood pressure diastolic 88 mmHg 2018-02-02 MEDICATIONS Medication Instructions Dosage Frequency Start Date End Date Duration Status Benztropine Mesylate 1 MG Orally daily 1 tablet in morning and two tablets at night 24h Active Cyproheptadine HCl 4 MG Orally at bedtime 3 tablets Active Loxitane 10 mg Orally BID 1 capsule 12h Active BusPIRone HCl 10 MG Orally Twice a day 1 tablet 12h Active Olopatadine HCl 0.1 % Ophthalmic TID 1 drop into affected eye 8h Active Acetaminophen 500 MG Orally every 6 hrs 2 capsules as needed 6h Active Clindamycin-Benzoyl Per-Cleans 1-5 % Active Thera M Plus - Active Oxcarbazepine 600 MG TAKE 1 TABLET BY MOUTH THREE TIMES DAILY 31 Active Levetiracetam 500 MG Orally Twice a day 1 tablet 12h Active Divalproex Sodium 500 mg Orally 2 times a day 1 tablet 12h Active Desmopressin Acetate 0.2 MG Orally Once a day 3 tablet 24h Active Aripiprazole 30 MG Orally Once a day every morning 1 tablet Active Chlorhexidine - Active Melatonin 3 MG Orally Once a day 1 tablet at bedtime as needed with food 24h Active Siltussin SA 100 MG/5ML Orally every 4 hrs 10 ml as needed 4h Active RESULTS No Results PROCEDURES No Known procedures INSTRUCTIONS MEDICATIONS ADMINISTERED No Known Medications MEDICAL (GENERAL) HISTORY Type Description Date Medical History Schizophrenia Medical History Intermitten Explosive Disorder Medical History Generalized anxiety disorder Medical History Moderate intellectual disability Medical History Bipolar Medical History asthma exercise induced Medical History Seizure disorder Surgical History Tubes in ears
--- OUTSIDE RECORDS SUMMARY | 2018-07-18 14:14 | XMS REPORT ---
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 Active 56219911 Problem Developmental delay, gross motor F82 Active 884004971 Problem Other schizophrenia F20.89 Active 99986280 Problem Intermittent explosive disorder F63.81 Active 38593822 Problem Schizophrenia, unspecified type F20.9 Active 31996609 Problem Adjustment disorder, unspecified type F43.20 Active 89379200 Problem ADHD (attention deficit hyperactivity disorder), combined type F90.2 Active 70440334 Problem ANA LILIA (generalized anxiety disorder) F41.1 Active 39386290 ALLERGIES Substance Reaction Event Type Date Status PredniSONE Unknown Drug Allergy Dec, Active Augmentin Unknown Drug Allergy Dec, Active Natural Rubber Unknown Non Drug Allergy Dec, Active Latex Unknown Non Drug Allergy Dec, Active ENCOUNTERS Encounter Location Date Diagnosis [facility] [id number] [id number] May, [facility] [address], [place] [address] May, [facility] [address], [place] [address] May, [facility] [id number] [place] [address] 10596- 1429 Apr, [facility] [address], [place] [address] Apr, Schizophrenia, unspecified type F20.9 and Intermittent explosive disorder F63.81 [facility] [id number] [id number] Mar, Dental examination Z01.20 [facility] [id number] [place] [address] 74959- 6477 Mar, Schizophrenia, unspecified type F20.9 and Intermittent explosive disorder F63.81 [facility] [address] [place] [address]654 [address] Mar, Acute nonintractable headache, unspecified headache type R51 [facility] [address] [place] [address] 79904- 2444 February, Schizophrenia, unspecified type F20.9 ; ANA LILIA (generalized anxiety disorder) F41.1 ; Intermittent explosive disorder F63.81 and ADHD ( attention deficit hyperactivity disorder), combined type F90.2 [place] [id number] [place] [address] 24561- 4765 February, Schizophrenia, unspecified type F20.9 and Intermittent explosive disorder F63.81 [facility] [address] [place] [address] 79403- 6275 February, [facility] [id number] [place] [address] 46766- 7900 February, Schizophrenia, unspecified type F20.9 [facility] [address] [place] [address] 33143- 0321 Jan, Schizophrenia, unspecified type F20.9 ; ANA LILIA (generalized anxiety disorder) F41.1 ; Intermittent explosive disorder F63.81 and ADHD ( attention deficit hyperactivity disorder), combined type F90.2 [facility] [id number] [place] [address] 50151- 4278 Jan, Schizophrenia, unspecified type F20.9 and Intermittent explosive disorder F63.81 [facility] [address] [place] [address] 55450- 6832 Jan, Schizophrenia, unspecified type F20.9 ; ANA LILIA (generalized anxiety disorder) F41.1 ; Intermittent explosive disorder F63.81 and ADHD ( attention deficit hyperactivity disorder), combined type F90.2 [place] [id number] [place] [address] 69883- 8630 Jan, Schizophrenia, unspecified type F20.9 ; ANA LILIA (generalized anxiety disorder) F41.1 ; Intermittent explosive disorder F63.81 and ADHD ( attention deficit hyperactivity disorder), combined type F90.2 [place] [id number] [place] [address] 91386- 4268 Dec, [facility] [facility] [id number] [place] [address] 52443- 1161 Dec, Schizophrenia, unspecified type F20.9 ; ANA LILIA (generalized anxiety disorder) F41.1 ; Intermittent explosive disorder F63.81 and ADHD ( attention deficit hyperactivity disorder), combined type F90.2 [place] [id number] [place] [address] 01120- 7642 Dec, [facility] [id number] [place] [phone] Dec, Encounter for dental examination Z01.20 [facility] [facility] [id number] [place] [address] 00920- 3355 Dec, Schizophrenia, unspecified type F20.9 ; ANA LILIA (generalized anxiety disorder) F41.1 ; Intermittent explosive disorder F63.81 and ADHD ( attention deficit hyperactivity disorder), combined type F90.2 [place] [address] [place] [address] 79487- 2904 Dec, Schizophrenia, unspecified type F20.9 ; ANA LILIA (generalized anxiety disorder) F41.1 ; Intermittent explosive disorder F63.81 and ADHD ( attention deficit hyperactivity disorder), combined type F90.2 [place] [address] [place] [address] 87769- 0865 Dec, Seizures R56.9 ; Intermittent explosive disorder F63.81 and Developmental delay, gross motor F82 [facility] [address], [place] [address] Nov, ANA LILIA (generalized anxiety disorder) F41.1 ; Intermittent explosive disorder F63.81 ; ADHD (attention deficit hyperactivity disorder), combined type F90.2 ; 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 ; Adjustment disorder, unspecified type F43.20 and Other schizophrenia F20.89 [facility] [address] [place] [address] 58774- 3011 Nov, Schizophrenia, unspecified type F20.9 [facility] [address] [place] [address] 54663- 7411 Oct, ANA LILIA (generalized anxiety disorder) F41.1 ; Intermittent explosive disorder F63.81 ; ADHD (attention deficit hyperactivity disorder), combined type F90.2 ; Other prison (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 and Adjustment disorder, unspecified type F43.20 [facility] [address] [place] [address] 01388- 0512 Oct, Schizophrenia, unspecified type F20.9 ; ANA LILIA (generalized anxiety disorder) F41.1 ; Intermittent explosive disorder F63.81 and ADHD ( attention deficit hyperactivity disorder), combined type F90.2 [facility] [address] [place] [phone] Oct, Dental examination Z01.20 [facility] [address] [place] [address] 97816- 4268 Oct, [facility] [address] [place] [address] 95644- 2235 Oct, 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 [facility] [id number] [place] [address] 25758- 5398 Sep, ANA LILIA (generalized anxiety disorder) F41.1 ; Intermittent explosive disorder F63.81 ; ADHD (attention deficit hyperactivity disorder), combined type F90.2 ; Other prison (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 and Adjustment disorder, unspecified type F43.20 [facility] [address] [place] [address] 41832- 8349 21 Sep, 2017 Schizophrenia, unspecified type F20.9 ; ANA LIILA (generalized anxiety disorder) F41.1 ; Intermittent explosive disorder F63.81 ; ADHD ( attention deficit hyperactivity disorder), combined type F90.2 and Other prison (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 [facility] [address] [address]709- [address] 18 Sep, 2017 Gastroenteritis K52.9 [facility] [address] [id number] 13 Sep, 2017 Encounter for dental examination Z01.20 [facility] [facility] [id number] [place] [address] 02685- 4377 22 Aug, 2017 Annual physical exam Z00.00 and Seizures R56.9 [facility] [address] [place] [id number] [place] [address] 77590- 7309 Aug, Adjustment disorder with disturbance of emotion F43.29 ; Developmental delay disorder R62.50 ; Developmental delay, gross motor F82 and 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 [facility] [id number] [place] [address] 97398 -4952 15 Aug, 2017 Moderate left ankle sprain, initial encounter [id number] [place] [address] 87374- 1592 07 Aug, 2017 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 ; Developmental delay, gross motor F82 and Adjustment disorder with disturbance of emotion F43.29 [facility] [id number] [place] [address] 29060 -0307 Aug, Fatigue, unspecified type R53.83 IMMUNIZATIONS No Known Immunizations SOCIAL HISTORY Never Assessed REASON FOR VISIT 3 MO RECALL PLAN OF CARE Activity Details Follow Up 3 Months Reason:Recall VITAL SIGNS Blood pressure systolic 113 mmHg 2017-12-25 Blood pressure diastolic 78 mmHg 2017-12-25 MEDICATIONS Medication Instructions Dosage Frequency Start Date End Date Duration Status Oxcarbazepine 600 MG TAKE 1 TABLET BY MOUTH THREE TIMES DAILY Active Cyproheptadine HCl 4 MG 3 tablets Active Divalproex Sodium 500 mg Orally 2 [...] needed 4h Active Benztropine Mesylate 1 MG TAKE 1 TABLET BY MOUTH TWICE DAILY Active Levetiracetam 500 MG Orally Twice a day 1 tablet 12h Active Melatonin 3 MG Orally Once a day 1 tablet at bedtime as needed with food 24h Active Thera M Plus - Active Aripiprazole 30 MG Orally Once a day 1 tablet 24h 30 days Active Loxitane 10 MG Orally HS 1 capsule Active Clindamycin-Benzoyl Per-Cleans 1-5 % Active BusPIRone HCl 10 MG Orally Twice a day 1 tablet 12h Active Chlorhexidine - Active RESULTS No Results PROCEDURES Procedure Date Ordered Result Body Site PROPHYLAXIS - ADULT December 25, 2017 TOPICAL FLUORIDE VARNISH December 25, 2017 INSTRUCTIONS MEDICATIONS ADMINISTERED No Known Medications MEDICAL (GENERAL) HISTORY Type Description Date Medical History Schizophrenia Medical History Intermitten Explosive Disorder Medical History Generalized anxiety disorder Medical History Moderate intellectual disability Medical History Bipolar Medical History asthma exercise induced Medical History Seizure disorder Surgical History Tubes in ears
--- OUTSIDE RECORDS SUMMARY | 2018-07-18 14:14 | XMS REPORT ---
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 Active 84922593 Problem Developmental delay, gross motor F82 Active 300460255 Problem Other schizophrenia F20.89 Active 99109699 Problem Intermittent explosive disorder F63.81 Active 61021690 Problem Schizophrenia, unspecified type F20.9 Active 99012298 Problem Adjustment disorder, unspecified type F43.20 Active 51165053 Problem ADHD (attention deficit hyperactivity disorder), combined type F90.2 Active 18349893 Problem ANA LILIA (generalized anxiety disorder) F41.1 Active 49762390 ALLERGIES No Information ENCOUNTERS Encounter Location Date Diagnosis [facility] [id number] [place] [phone] May, [facility] [address] [address] May, [facility] [id number] [place] [address] 08090- 6734 May, [facility] [id number] [place] [address] 04538- 3746 Apr, [facility] [address] 80383- [address]709 Apr, Schizophrenia, unspecified type F20.9 and Intermittent explosive disorder F63.81 [facility] [id number] [place] [phone] Mar, Dental examination Z01.20 [facility] [address], [place] [address] Mar, Schizophrenia, unspecified type F20.9 and Intermittent explosive disorder F63.81 [facility] [address], [place] [address] Mar, Acute nonintractable headache, unspecified headache type R51 [facility] [id number] [place] [address] 49438- 6031 February, Schizophrenia, unspecified type F20.9 ; ANA LILIA (generalized anxiety disorder) F41.1 ; Intermittent explosive disorder F63.81 and ADHD ( attention deficit hyperactivity disorder), combined type F90.2 [place] [id number] [place] [address] 20530- 1943 February, Schizophrenia, unspecified type F20.9 and Intermittent explosive disorder F63.81 [facility] [id number] [place] [address] 29050- 5988 February, [facility] [id number] [place] [address] 93596- 5505 February, Schizophrenia, unspecified type F20.9 [facility] [id number] [place] [address] 54061- 0819 Jan, Schizophrenia, unspecified type F20.9 ; ANA LILIA (generalized anxiety disorder) F41.1 ; Intermittent explosive disorder F63.81 and ADHD ( attention deficit hyperactivity disorder), combined type F90.2 [facility] [address] [place] [address] 83485- 1594 Jan, Schizophrenia, unspecified type F20.9 and Intermittent explosive disorder F63.81 [facility] [id number] [place] [address] 01014- 2117 Jan, Schizophrenia, unspecified type F20.9 ; ANA LILIA (generalized anxiety disorder) F41.1 ; Intermittent explosive disorder F63.81 and ADHD ( attention deficit hyperactivity disorder), combined type F90.2 [facility] [address], [place] [address]- [address] Jan, Schizophrenia, unspecified type F20.9 ; ANA LILIA (generalized anxiety disorder) F41.1 ; Intermittent explosive disorder F63.81 and ADHD ( attention deficit hyperactivity disorder), combined type F90.2 [facility] [address], [place] [address] Dec, [facility] [id number] [place] [address] 95226- 6361 Dec, Schizophrenia, unspecified type F20.9 ; ANA LILIA (generalized anxiety disorder) F41.1 ; Intermittent explosive disorder F63.81 and ADHD ( attention deficit hyperactivity disorder), combined type F90.2 [place] [address], [place] [address] Dec, [facility] [id number] [place] [address] [phone] Dec, Encounter for dental examination Z01.20 [facility] [id number] [place] [address] 58318- 1264 Dec, Schizophrenia, unspecified type F20.9 ; ANA LILIA (generalized anxiety disorder) F41.1 ; Intermittent explosive disorder F63.81 and ADHD ( attention deficit hyperactivity disorder), combined type F90.2 [facility] [address], [place] [address]- 6[address] Dec, Schizophrenia, unspecified type F20.9 ; ANA LILIA (generalized anxiety disorder) F41.1 ; Intermittent explosive disorder F63.81 and ADHD ( attention deficit hyperactivity disorder), combined type F90.2 [place] [address] [place] [address] 07802- 5096 Dec, Seizures R56.9 ; Intermittent explosive disorder F63.81 and Developmental delay, gross motor F82 [facility] [address], [place] [address] Nov, ANA LILIA (generalized anxiety disorder) F41.1 ; Intermittent explosive disorder F63.81 ; ADHD (attention deficit hyperactivity disorder), combined type F90.2 ; 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 ; Adjustment disorder, unspecified type F43.20 and Other schizophrenia F20.89 [facility] [address], [place] [address] Nov, Schizophrenia, unspecified type F20.9 [facility] [id number] [place] [address] 30491- 6386 Oct, ANA LILIA (generalized anxiety disorder) F41.1 ; Intermittent explosive disorder F63.81 ; ADHD (attention deficit hyperactivity disorder), combined type F90.2 ; 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 and Adjustment disorder, unspecified type F43.20 [facility] [address] [place] [address] 24374- 1199 Oct, Schizophrenia, unspecified type F20.9 ; ANA LILIA (generalized anxiety disorder) F41.1 ; Intermittent explosive disorder F63.81 and ADHD ( attention deficit hyperactivity disorder), combined type F90.2 [facility] [address] [place] [address] [id number] Oct, Dental examination Z01.20 [facility] [address] [place] [address] 50301- 0730 Oct, [facility] [address] [place] [address] 32916- 5922 Oct, 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 [facility] [address] [place] [address] 04647- 6790 Sep, ANA LILIA (generalized anxiety disorder) F41.1 ; Intermittent explosive disorder F63.81 ; ADHD (attention deficit hyperactivity disorder), combined type F90.2 ; Other intermediate (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 and Adjustment disorder, unspecified type F43.20 [facility] [address] [place] [address] 56954- 3000 Sep, Schizophrenia, unspecified type F20.9 ; ANA LILIA (generalized anxiety disorder) F41.1 ; Intermittent explosive disorder F63.81 ; ADHD ( attention deficit hyperactivity disorder), combined type F90.2 and 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 [facility] [address] [place] [address] 44945- 0615 18 Sep, 2017 Gastroenteritis K52.9 [facility] [address] [id number] 13 Sep, 2017 Encounter for dental examination Z01.20 [place] [address] [address] 22 Aug, 2017 Annual physical exam Z00.00 and Seizures R56.9 [facility] [id number] [place] [address] 78574- 9685 22 Aug, 2017 Adjustment disorder with disturbance of emotion F43.29 ; Developmental delay disorder R62.50 ; Developmental delay, gross motor F82 and 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 [id number] [place] [address] 77666 -7535 Aug, Fatigue, unspecified type R53.83 IMMUNIZATIONS No Known Immunizations SOCIAL HISTORY Never Assessed REASON FOR VISIT f/u PLAN OF CARE Activity Details Follow Up 2 Weeks Reason:psychotic experiences, adjustment disorder VITAL SIGNS MEDICATIONS Medication Instructions Dosage Frequency Start Date End Date Duration Status Cyproheptadine HCl 4 MG Orally at bedtime 3 tablets 30 days Unknown Thera M Plus - Unknown Benztropine Mesylate 1 MG Orally daily 1 tablet in morning and two tablets at night 24h 30 days Unknown Aripiprazole 30 MG Orally Once a day every morning 1 tablet 30 days Unknown Acetaminophen 500 MG Orally every 6 hrs 2 capsules as needed 6h Unknown Oxcarbazepine 600 MG TAKE 1 TABLET BY MOUTH THREE TIMES DAILY Unknown Siltussin SA 100 MG/5ML Orally every 4 hrs 10 ml as needed 4h Unknown Olopatadine HCl 0.1 % Ophthalmic TID 1 drop into affected eye 8h Unknown Chlorhexidine - Unknown Clindamycin-Benzoyl Per-Cleans 1-5 % Unknown Melatonin 3 MG Orally Once a day 1 tablet at bedtime as needed with food 24h Unknown BusPIRone HCl 10 MG Orally Twice a day 1 tablet 12h Unknown Levetiracetam 500 MG Orally Twice a day 1 tablet 12h Unknown Desmopressin Acetate 0.2 MG Orally Once a day 2 tablet at bedtime 24h Unknown Loxitane 10 MG Orally HS 1 capsule Unknown Divalproex Sodium 500 mg Orally 2 times a day 1 tablet 12h Unknown RESULTS No Results PROCEDURES Procedure Date Ordered Result Body Site Psychotherapy, patient &/family, 45 minutes, established patient January 07, 2018 INSTRUCTIONS MEDICATIONS ADMINISTERED No Known Medications MEDICAL (GENERAL) HISTORY Type Description Date Medical History Schizophrenia Medical History Intermitten Explosive Disorder Medical History Generalized anxiety disorder Medical History Moderate intellectual disability Medical History Bipolar Medical History asthma exercise induced Medical History Seizure disorder Surgical History Tubes in ears
--- OUTSIDE RECORDS SUMMARY | 2018-07-18 14:14 | XMS REPORT ---
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 Active 59367150 Problem Developmental delay, gross motor F82 Active 904965636 Problem Other schizophrenia F20.89 Active 32724696 Problem Intermittent explosive disorder F63.81 Active 25017183 Problem Schizophrenia, unspecified type F20.9 Active 36536230 Problem Adjustment disorder, unspecified type F43.20 Active 85739231 Problem ADHD (attention deficit hyperactivity disorder), combined type F90.2 Active 50653441 Problem ANA LILIA (generalized anxiety disorder) F41.1 Active 98615990 ALLERGIES No Information ENCOUNTERS Encounter Location Date Diagnosis [facility] [address] [address] Jul, [facility] [address] [id number] May, [facility] [address] [address] May, [facility] [address] [address] May, [facility] [address] [address] Apr, Viral URI J06.9 and Epigastric abdominal pain R10.13 [facility] [address] [address] Apr, Schizophrenia, unspecified type F20.9 ; ANA LILIA (generalized anxiety disorder) F41.1 ; Intermittent explosive disorder F63.81 and ADHD ( attention deficit hyperactivity disorder), combined type F90.2 [facility] [id number] [place] [address]50[address]38 Apr, Schizophrenia, unspecified type F20.9 and Intermittent explosive disorder F63.81 [facility] [id number] [place] [phone] Mar, Dental examination Z01.20 [facility] [id number] [place] [address] 39557- 1191 Mar, Schizophrenia, unspecified type F20.9 and Intermittent explosive disorder F63.81 [facility] [id number] [place] [address]60 [address] Mar, Acute nonintractable headache, unspecified headache type R51 [facility] [id number] [place] [address] 7[address]93- 42[address] February, Schizophrenia, unspecified type F20.9 ; ANA LILIA (generalized anxiety disorder) F41.1 ; Intermittent explosive disorder F63.81 and ADHD ( attention deficit hyperactivity disorder), combined type F90.2 [facility] [id number] [place] [address] 6[address]69- [address] February, Schizophrenia, unspecified type F20.9 and Intermittent explosive disorder F63.81 [facility] [id number] [place] [address] 16734- 7588 February, [facility] [id number] [place] [address] 07634- 39[address] February, Schizophrenia, unspecified type F20.9 [facility] [id number] [place] [address] 05178- 3112 Jan, Schizophrenia, unspecified type F20.9 ; ANA LILIA (generalized anxiety disorder) F41.1 ; Intermittent explosive disorder F63.81 and ADHD ( attention deficit hyperactivity disorder), combined type F90.2 [facility] [address] [address] Jan, Schizophrenia, unspecified type F20.9 and Intermittent explosive disorder F63.81 [facility] [id number] [place] [address] 81752- 9152 Jan, Schizophrenia, unspecified type F20.9 ; ANA LILIA (generalized anxiety disorder) F41.1 ; Intermittent explosive disorder F63.81 and ADHD ( attention deficit hyperactivity disorder), combined type F90.2 [facility] [id number] [place] [address] 32912- 9229 Jan, Schizophrenia, unspecified type F20.9 ; ANA LILIA (generalized anxiety disorder) F41.1 ; Intermittent explosive disorder F63.81 and ADHD ( attention deficit hyperactivity disorder), combined type F90.2 [facility] [id number] [place] [address] 91921- 8710 Dec, [facility] [id number] [place] [address] 79818- 3852 Dec, Schizophrenia, unspecified type F20.9 ; ANA LILIA (generalized anxiety disorder) F41.1 ; Intermittent explosive disorder F63.81 and ADHD ( attention deficit hyperactivity disorder), combined type F90.2 [facility] [address] [address] Dec, [facility] [id number] [place] [address] [phone] Dec, Encounter for dental examination Z01.20 [facility] [id number] [place] [address] 05865- 4402 Dec, Schizophrenia, unspecified type F20.9 ; ANA LILIA (generalized anxiety disorder) F41.1 ; Intermittent explosive disorder F63.81 and ADHD ( attention deficit hyperactivity disorder), combined type F90.2 [place] [address] [address] Dec, Schizophrenia, unspecified type F20.9 ; ANA LILIA (generalized anxiety disorder) F41.1 ; Intermittent explosive disorder F63.81 and ADHD ( attention deficit hyperactivity disorder), combined type F90.2 [facility] [id number] [place] [address] 08337- 2767 Dec, Seizures R56.9 ; Intermittent explosive disorder F63.81 and Developmental delay, gross motor F82 [facility] [id number] [place] [address] 43970- 3532 Nov, ANA LILIA (generalized anxiety disorder) F41.1 ; Intermittent explosive disorder F63.81 ; ADHD (attention deficit hyperactivity disorder), combined type F90.2 ; Other halfway (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 ; Adjustment disorder, unspecified type F43.20 and Other schizophrenia F20.89 [facility] [id number] [place] [address] 82170- 2994 Nov, Schizophrenia, unspecified type F20.9 [facility] [id number] [place] [address] 57084- 4628 Oct, ANA LILIA (generalized anxiety disorder) F41.1 ; Intermittent explosive disorder F63.81 ; ADHD (attention deficit hyperactivity disorder), combined type F90.2 ; 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 and Adjustment disorder, unspecified type F43.20 [facility] [address] [place] [address] 10087- 1807 Oct, Schizophrenia, unspecified type F20.9 ; ANA LILIA (generalized anxiety disorder) F41.1 ; Intermittent explosive disorder F63.81 and ADHD ( attention deficit hyperactivity disorder), combined type F90.2 [facility] [address] [place] [id number] Oct, Dental examination Z01.20 [facility] [id number] [place] [address] 36080- 5445 Oct, [facility] [id number] [place] [address] 69548- 8351 Oct, Other halfway (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 [facility] [id number] [place] [address] 28013- 5534 21 Sep, 2017 ANA LILIA (generalized anxiety disorder) F41.1 ; Intermittent explosive disorder F63.81 ; ADHD (attention deficit hyperactivity disorder), combined type F90.2 ; 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 and Adjustment disorder, unspecified type F43.20 [facility] [id number] [place] [address] 20770- 1685 21 Sep, 2017 Schizophrenia, unspecified type F20.9 ; ANA LILIA (generalized anxiety disorder) F41.1 ; Intermittent explosive disorder F63.81 ; ADHD ( attention deficit hyperactivity disorder), combined type F90.2 and 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 [place] [id number] [place] [address] 11789- 7525 18 Sep, 2017 Gastroenteritis K52.9 [facility] [address] [id number] 13 Sep, 2017 Encounter for dental examination Z01.20 [facility] [id number] [place] [address] 62484- 1138 22 Aug, 2017 Annual physical exam Z00.00 and Seizures R56.9 [facility] [id number] [place] [address] 67439- 8226 22 Aug, 2017 Adjustment disorder with disturbance of emotion F43.29 ; Developmental delay disorder R62.50 ; Developmental delay, gross motor F82 and 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 [facility] [id number] [place] [address]298 [address]279 15 Aug, 2017 Moderate left ankle sprain, initial encounter S93.402A [place] [address] [address] 07 Aug, 2017 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 ; Developmental delay, gross motor F82 and Adjustment disorder with disturbance of emotion F43.29 [facility] [id number] [place] [address]16 [address] Aug, Fatigue, unspecified type R53.83 IMMUNIZATIONS No Known Immunizations SOCIAL HISTORY Never Assessed REASON FOR VISIT intake PLAN OF CARE Activity Details Follow Up Next Available Reason: F/U VITAL SIGNS MEDICATIONS Medication Instructions Dosage Frequency Start Date End Date Duration Status Levetiracetam 500 MG Orally Twice a day 1 tablet 12h Active Chlorhexidine - Active Aripiprazole 30 MG Orally Once a day every morning 1 tablet Active Oxcarbazepine 600 MG TAKE 1 TABLET BY MOUTH THREE TIMES DAILY 31 Active Siltussin SA 100 MG/5ML Orally every 4 hrs 10 ml as needed 4h Active Melatonin 3 MG Orally Once a day 1 tablet at bedtime as needed with food 24h Active BusPIRone HCl 10 MG Orally Twice a day 1 tablet 12h Active Thera M Plus - Active Acetaminophen 500 MG Orally every 6 hrs 2 capsules as needed 6h Active Clindamycin-Benzoyl Per-Cleans 1-5 % Active Desmopressin Acetate 0.2 MG Orally Once a day 3 tablet 24h Active Cyproheptadine HCl 4 MG Orally at bedtime 3 tablets Active Olopatadine HCl 0.1 % Ophthalmic TID 1 drop into affected eye 8h Active Divalproex Sodium 500 mg Orally 2 times a day 1 tablet 12h Active Benztropine Mesylate 1 MG Orally daily 1 tablet in morning and two tablets at night 24h Active Loxitane 10 mg Orally BID 1 capsule 12h 30 days Active RESULTS No Results PROCEDURES Procedure Date Ordered Result Body Site Psych diagnostic evaluation, established patient February 02, 2018 INSTRUCTIONS MEDICATIONS ADMINISTERED No Known Medications MEDICAL (GENERAL) HISTORY Type Description Date Medical History Schizophrenia Medical History Intermitten Explosive Disorder Medical History Generalized anxiety disorder Medical History Moderate intellectual disability Medical History Bipolar Medical History asthma exercise induced Medical History Seizure disorder Surgical History Tubes in ears
--- OUTSIDE RECORDS SUMMARY | 2018-07-18 14:14 | XMS REPORT ---
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 Active 29033217 Problem Developmental delay, gross motor F82 Active 951466851 Problem Other schizophrenia F20.89 Active 90636234 Problem Intermittent explosive disorder F63.81 Active 51072869 Problem Schizophrenia, unspecified type F20.9 Active 54426193 Problem Adjustment disorder, unspecified type F43.20 Active 59510956 Problem ADHD (attention deficit hyperactivity disorder), combined type F90.2 Active 49958483 Problem ANA LILIA (generalized anxiety disorder) F41.1 Active 25037758 ALLERGIES No Information ENCOUNTERS Encounter Location Date Diagnosis [facility] [address] [id number] May, [facility] [id number] [place] [address] May, [facility] [id number] [place] [address] 12477- 7563 May, [facility] [address] [address] Apr, [facility] [address] [address] Apr, Schizophrenia, unspecified type F20.9 and Intermittent explosive disorder F63.81 [facility] [address] [id number] Mar, Dental examination Z01.20 [place] [address] [address] Mar, Schizophrenia, unspecified type F20.9 and Intermittent explosive disorder F63.[address] [facility] IN [facility] [id number] [place] [address]5317 [address] Mar, Acute nonintractable headache, unspecified headache type R51 [facility] [id number] [place] [address] 42672- 8797 February, Schizophrenia, unspecified type F20.9 ; ANA LILIA (generalized anxiety disorder) F41.1 ; Intermittent explosive disorder F63.81 and ADHD ( attention deficit hyperactivity disorder), combined type F90.2 [place] [id number] [place] [address]- 1986 February, Schizophrenia, unspecified type F20.9 and Intermittent explosive disorder F63.81 [facility] [id number] [place] [address] 37097- 7884 February, [facility] [id number] [place] [address] 80715- 5568 February, Schizophrenia, unspecified type F20.9 [place] [id number] [place] [address] 86059- 0028 Jan, Schizophrenia, unspecified type F20.9 ; ANA LILIA (generalized anxiety disorder) F41.1 ; Intermittent explosive disorder F63.81 and ADHD ( attention deficit hyperactivity disorder), combined type F90.2 [facility] [address] [place] [address] 10596- 3486 Jan, Schizophrenia, unspecified type F20.9 and Intermittent explosive disorder F63.81 [place] [address] [place] [address] 37902- 8616 Jan, Schizophrenia, unspecified type F20.9 ; ANA LILIA (generalized anxiety disorder) F41.1 ; Intermittent explosive disorder F63.81 and ADHD ( attention deficit hyperactivity disorder), combined type F90.2 [place] [address], [place] [address] Jan, Schizophrenia, unspecified type F20.9 ; ANA LILIA (generalized anxiety disorder) F41.1 ; Intermittent explosive disorder F63.81 and ADHD ( attention deficit hyperactivity disorder), combined type F90.2 [facility] [address], [place] [address]- [address] Dec, [place] [id number] [place] [address] 61797- 7761 Dec, Schizophrenia, unspecified type F20.9 ; ANA LILIA (generalized anxiety disorder) F41.1 ; Intermittent explosive disorder F63.81 and ADHD ( attention deficit hyperactivity disorder), combined type F90.2 [place] [address] [place] [address] 57638- 7654 Dec, [facility] [id number] [place] [id number] Dec, Encounter for dental examination Z01.20 [place] [id number] [place] [address] 64216- 5208 Dec, Schizophrenia, unspecified type F20.9 ; ANA LILIA (generalized anxiety disorder) F41.1 ; Intermittent explosive disorder F63.81 and ADHD ( attention deficit hyperactivity disorder), combined type F90.2 [place] [address], [place] [address]- [address] Dec, Schizophrenia, unspecified type F20.9 ; ANA LILIA (generalized anxiety disorder) F41.1 ; Intermittent explosive disorder F63.81 and ADHD ( attention deficit hyperactivity disorder), combined type F90.2 [place] [id number] [place] [address] 53152- 9770 Dec, Seizures R56.9 ; Intermittent explosive disorder F63.81 and Developmental delay, gross motor F82 [facility] [address], [place] [address] Nov, ANA LILIA (generalized anxiety disorder) F41.1 ; Intermittent explosive disorder F63.81 ; ADHD (attention deficit hyperactivity disorder), combined type F90.2 ; Other halfway (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 ; Adjustment disorder, unspecified type F43.20 and Other schizophrenia F20.89 [facility] [address], [place] [address]- [address] Nov, Schizophrenia, unspecified type F20.9 [facility] [id number] [place] [address] 10227- 8102 Oct, ANA LILIA (generalized anxiety disorder) F41.1 ; Intermittent explosive disorder F63.81 ; ADHD (attention deficit hyperactivity disorder), combined type F90.2 ; Other intermodal customer service (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 and Adjustment disorder, unspecified type F43.20 [facility] [address] [place] [address] 06024- 6232 Oct, Schizophrenia, unspecified type F20.9 ; ANA LILIA (generalized anxiety disorder) F41.1 ; Intermittent explosive disorder F63.81 and ADHD ( attention deficit hyperactivity disorder), combined type F90.2 [facility] [address] [place] [id number] Oct, Dental examination Z01.20 [facility] [address], [place] [address]- [address] Oct, [facility] [id number] [place] [address] 53803- 1666 Oct, Other intermodal customer service (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 [facility] [address] [place] [address] 41267- 9422 Sep, ANA LILIA (generalized anxiety disorder) F41.1 ; Intermittent explosive disorder F63.81 ; ADHD (attention deficit hyperactivity disorder), combined type F90.2 ; Other halfway (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 and Adjustment disorder, unspecified type F43.20 [facility] [address], [place] [address] Sep, Schizophrenia, unspecified type F20.9 ; ANA LILIA (generalized anxiety disorder) F41.1 ; Intermittent explosive disorder F63.81 ; ADHD ( attention deficit hyperactivity disorder), combined type F90.2 and Other halfway (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 [facility] [address] [place] [address] 62382- 7428 18 Sep, 2017 Gastroenteritis K52.9 [facility] [address] [id number] 13 Sep, 2017 Encounter for dental examination Z01.20 [place] [address] 95661- 9775 22 Aug, 2017 Annual physical exam Z00.00 and Seizures R56.9 [facility] [id number] [place] [address] 20126- 9708 22 Aug, 2017 Adjustment disorder with disturbance of emotion F43.29 ; Developmental delay disorder R62.50 ; Developmental delay, gross motor F82 and 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 [facility] [id number] [place] [address] 28639 -9674 15 Aug, 2017 Moderate left ankle sprain, initial encounter S93.402A [place] [id number] [place] [address] 18367- 6914 07 Aug, 2017 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 ; Developmental delay, gross motor F82 and Adjustment disorder with disturbance of emotion F43.29 [facility] [id number] [place] [address] 16077 -4189 Aug, Fatigue, unspecified type R53.83 IMMUNIZATIONS No Known Immunizations SOCIAL HISTORY Never Assessed REASON FOR VISIT CHANDNI f/[place] ABREU PLAN OF CARE Activity Details Follow Up 4 Weeks, prn Reason: VITAL SIGNS Height 70.25 in 2018-01-08 Weight 201.0 lbs 2018-01-08 Heart Rate 80 bpm 2018-01-08 Respiratory Rate 20 2018-01-08 BMI 28.63 kg/m2 2018-01-08 Blood pressure systolic 126 mmHg 2018-01-08 Blood pressure diastolic 78 mmHg 2018-01-08 MEDICATIONS Medication Instructions Dosage Frequency Start Date End Date Duration Status Thera M Plus - Active Siltussin SA 100 MG/5ML Orally every 4 hrs 10 ml as needed 4h Active Clindamycin-Benzoyl Per-Cleans 1-5 % Active Acetaminophen 500 MG Orally every 6 hrs 2 capsules as needed 6h Active Divalproex Sodium 500 mg Orally 2 times a day 1 tablet 12h Active Loxitane 10 mg Orally BID 1 capsule 12h 30 days Active BusPIRone HCl 10 MG Orally Twice a day 1 tablet 12h Active Melatonin 3 MG Orally Once a day 1 tablet at bedtime as needed with food 24h Active Desmopressin Acetate 0.2 MG Orally Once a day 3 tablet 24h Active Oxcarbazepine 600 MG TAKE 1 TABLET BY MOUTH THREE TIMES DAILY Active Aripiprazole 30 MG Orally Once a day every morning 1 tablet Active Chlorhexidine - Active Olopatadine HCl 0.1 % Ophthalmic TID 1 drop into affected eye 8h Active Cyproheptadine HCl 4 MG Orally at bedtime 3 tablets Active Levetiracetam 500 MG Orally Twice a day 1 tablet 12h Active Benztropine Mesylate 1 MG Orally daily 1 tablet in morning and two tablets at night 24h Active RESULTS No Results PROCEDURES No Known procedures INSTRUCTIONS MEDICATIONS ADMINISTERED No Known Medications MEDICAL (GENERAL) HISTORY Type Description Date Medical History Schizophrenia Medical History Intermitten Explosive Disorder Medical History Generalized anxiety disorder Medical History Moderate intellectual disability Medical History Bipolar Medical History asthma exercise induced Medical History Seizure disorder Surgical History Tubes in ears
--- OUTSIDE RECORDS SUMMARY | 2018-07-18 14:15 | XMS REPORT ---
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 Active 78445657 Problem Developmental delay, gross motor F82 Active 658819166 Problem Other schizophrenia F20.89 Active 68424731 Problem Intermittent explosive disorder F63.81 Active 77329107 Problem Schizophrenia, unspecified type F20.9 Active 20995628 Problem Adjustment disorder, unspecified type F43.20 Active 91077737 Problem ADHD (attention deficit hyperactivity disorder), combined type F90.2 Active 97644361 Problem ANA LILIA (generalized anxiety disorder) F41.1 Active 98150852 ALLERGIES Substance Reaction Event Type Date Status PredniSONE Unknown Drug Allergy Dec, Active Augmentin Unknown Drug Allergy Dec, Active Natural Rubber Unknown Non Drug Allergy Dec, Active Latex Unknown Non Drug Allergy Dec, Active ENCOUNTERS Encounter Location Date Diagnosis [facility] [address] [facility] [id number] [id number] May, [facility] [id number] [place] [address]4052- 8753 May, [facility] [id number] [address] May, [facility] [id number] [place] [address] 91724- 0581 Apr, [facility] [address] [address] Apr, Schizophrenia, unspecified type F20.9 and Intermittent explosive disorder F63.81 [facility] [id number] [id number] Mar, Dental examination Z01.20 [facility] [id number] [place] [address] 46696- 4170 Mar, Schizophrenia, unspecified type F20.9 and Intermittent explosive disorder F63.81 [facility] [id number] [place] [address] 65211 -[address]695 Mar, Acute nonintractable headache, unspecified headache type R51 [facility] [id number] [place] [address] 61845- 3652 February, Schizophrenia, unspecified type F20.9 ; ANA LILIA (generalized anxiety disorder) F41.1 ; Intermittent explosive disorder F63.81 and ADHD ( attention deficit hyperactivity disorder), combined type F90.2 [facility] [id number] [place] [address] 75526- 8095 February, Schizophrenia, unspecified type F20.9 and Intermittent explosive disorder F63.81 [facility] [id number] [place] [address] 25691- 3041 February, [facility] [id number] [place] [address] 06185- 6612 February, Schizophrenia, unspecified type F20.9 [facility] [id number] [place] [address] 05853- 7928 Jan, Schizophrenia, unspecified type F20.9 ; ANA LILIA (generalized anxiety disorder) F41.1 ; Intermittent explosive disorder F63.81 and ADHD ( attention deficit hyperactivity disorder), combined type F90.2 [facility] [id number] [place] [address] 02912- 0200 Jan, Schizophrenia, unspecified type F20.9 and Intermittent explosive disorder F63.81 [facility] [id number] [place] [address] 59424- 4746 Jan, Schizophrenia, unspecified type F20.9 ; ANA LILIA (generalized anxiety disorder) F41.1 ; Intermittent explosive disorder F63.81 and ADHD ( attention deficit hyperactivity disorder), combined type F90.2 [facility] [address] [place] [address] 49483- 1497 Jan, Schizophrenia, unspecified type F20.9 ; ANA LILIA (generalized anxiety disorder) F41.1 ; Intermittent explosive disorder F63.81 and ADHD ( attention deficit hyperactivity disorder), combined type F90.2 [facility] [address] [address] Dec, [facility] [id number] [place] [address] 61138- 3496 Dec, Schizophrenia, unspecified type F20.9 ; ANA LILIA (generalized anxiety disorder) F41.1 ; Intermittent explosive disorder F63.81 and ADHD ( attention deficit hyperactivity disorder), combined type F90.2 [facility] [id number] [place] [address] 29948- 3940 Dec, [facility] [id number] [place] [id number] Dec, Encounter for dental examination Z01.20 [facility] [id number] [place] [address] 92963- 9643 Dec, Schizophrenia, unspecified type F20.9 ; ANA LILIA (generalized anxiety disorder) F41.1 ; Intermittent explosive disorder F63.81 and ADHD ( attention deficit hyperactivity disorder), combined type F90.2 [facility] [address] [address] Dec, Schizophrenia, unspecified type F20.9 ; ANA LILIA (generalized anxiety disorder) F41.1 ; Intermittent explosive disorder F63.81 and ADHD ( attention deficit hyperactivity disorder), combined type F90.2 [facility] [address] [address] Dec, Seizures R56.9 ; Intermittent explosive disorder F63.81 and Developmental delay, gross motor F82 [facility] [address] [address] Nov, AAN LILIA (generalized anxiety disorder) F41.1 ; Intermittent explosive disorder F63.81 ; ADHD (attention deficit hyperactivity disorder), combined type F90.2 ; Other fdc (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 ; Adjustment disorder, unspecified type F43.20 and Other schizophrenia F20.89 [facility] [address] [address] Nov, Schizophrenia, unspecified type F20.9 [facility] [address] [place] [address] 38572- 4526 Oct, ANA LILIA (generalized anxiety disorder) F41.1 ; Intermittent explosive disorder F63.81 ; ADHD (attention deficit hyperactivity disorder), combined type F90.2 ; Other terminal clerk (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 and Adjustment disorder, unspecified type F43.20 [facility] [address] [address] Oct, Schizophrenia, unspecified type F20.9 ; ANA LILIA (generalized anxiety disorder) F41.1 ; Intermittent explosive disorder F63.81 and ADHD ( attention deficit hyperactivity disorder), combined type F90.2 [facility] [id number] [id number] Oct, Dental examination Z01.20 [facility] [address] [address] Oct, [facility] [address] [address] 8[address] Oct, Other terminal clerk (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 [facility] [id number] [place] [address] 55295- 6826 Sep, ANA LILIA (generalized anxiety disorder) F41.1 ; Intermittent explosive disorder F63.81 ; ADHD (attention deficit hyperactivity disorder), combined type F90.2 ; Other fdc (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 and Adjustment disorder, unspecified type F43.20 [facility] [id number] [place] [address] 25881- 6846 21 Sep, 2017 Schizophrenia, unspecified type F20.9 ; ANA LILIA (generalized anxiety disorder) F41.1 ; Intermittent explosive disorder F63.81 ; ADHD ( attention deficit hyperactivity disorder), combined type F90.2 and Other terminal clerk (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 [facility] [address] [address] 18 Sep, 2017 Gastroenteritis K52.9 [facility] [address] [id number] 13 Sep, 2017 Encounter for dental examination Z01.20 [place] [address] [address] Aug, Annual physical exam Z00.00 and Seizures R56.[address] [address]- [address] Aug, Adjustment disorder with disturbance of emotion F43.29 ; Developmental delay disorder R62.50 ; Developmental delay, gross motor F82 and 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 [facility] [address] [place] [id number] [place] [address] 13149 -6913 15 Aug, 2017 Moderate left ankle sprain, initial encounter S93.402A [address] [address]10- 1486 Aug, 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 ; Developmental delay, gross motor F82 and Adjustment disorder with disturbance of emotion F43.29 [facility] [address] [place] [id number] [place] [address] 99670 -3876 Aug, Fatigue, unspecified type R53.83 IMMUNIZATIONS No Known Immunizations SOCIAL HISTORY Never Assessed REASON FOR VISIT monica/jerrica Kumar RN PLAN OF CARE Activity Details Follow Up 1 Week Reason: VITAL SIGNS MEDICATIONS Medication Instructions Dosage Frequency Start Date End Date Duration Status Loxitane 10 MG Orally HS 1 capsule Active Siltussin SA 100 MG/5ML Orally every 4 hrs 10 ml as needed 4h Active Chlorhexidine - Active BusPIRone HCl 10 MG Orally Twice a day 1 tablet 12h Active Desmopressin Acetate 0.2 MG Orally Once a day 2 tablet at bedtime 24h Active Cyproheptadine HCl 4 MG 3 tablets Active Benztropine Mesylate 1 MG TAKE 1 TABLET BY MOUTH TWICE DAILY Active Oxcarbazepine 600 MG TAKE 1 TABLET BY MOUTH THREE TIMES DAILY Active Clindamycin-Benzoyl Per-Cleans 1-5 % Active Acetaminophen 500 MG Orally every 6 hrs 2 capsules as needed 6h Active Divalproex Sodium 500 mg Orally 2 times a day 1 tablet 12h Active Thera M Plus - Active Levetiracetam 500 MG Orally Twice a day 1 tablet 12h Active Melatonin 3 MG Orally Once a day 1 tablet at bedtime as needed with food 24h Active Olopatadine HCl 0.1 % Ophthalmic TID 1 drop into affected eye 8h Active Aripiprazole 30 MG Orally Once a day 1 tablet 24h 30 days Active RESULTS No Results PROCEDURES [...]
--- OUTSIDE RECORDS SUMMARY | 2018-07-18 14:15 | XMS REPORT ---
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 Active 38855033 Problem Developmental delay, gross motor F82 Active 431513149 Problem Other schizophrenia F20.89 Active 69351521 Problem Intermittent explosive disorder F63.81 Active 15311819 Problem Schizophrenia, unspecified type F20.9 Active 86896614 Problem Adjustment disorder, unspecified type F43.20 Active 03135713 Problem ADHD (attention deficit hyperactivity disorder), combined type F90.2 Active 87224917 Problem ANA LILIA (generalized anxiety disorder) F41.1 Active 29632718 ALLERGIES No Information ENCOUNTERS Encounter Location Date Diagnosis [facility] [address] [id number] May, [facility] [id number] [place] [address] 52910- 8967 May, [facility] [id number] [place] [address] 05036- 2561 May, [facility] [address] [address]- [address] Apr, [facility] [address] [address]86- 8933 Apr, Schizophrenia, unspecified type F20.9 and Intermittent explosive disorder F63.81 [facility] [address] [id number] Mar, Dental examination Z01.20 [place] [address] [address] Mar, Schizophrenia, unspecified type F20.9 and Intermittent explosive disorder F63.81 [facility] [address] [place] [address]12 -[address]370 Mar, Acute nonintractable headache, unspecified headache type R51 [facility] [id number] [place] [address] 43119- 8775 February, Schizophrenia, unspecified type F20.9 ; ANA LILIA (generalized anxiety disorder) F41.1 ; Intermittent explosive disorder F63.81 and ADHD ( attention deficit hyperactivity disorder), combined type F90.2 [place] [id number] [place] [address] 97974- 2180 February, Schizophrenia, unspecified type F20.9 and Intermittent explosive disorder F63.81 [facility] [id number] [place] [address] 69315- 5592 February, [facility] [id number] [place] [address] 19225- 8452 February, Schizophrenia, unspecified type F20.9 [place] [address] [place] [address] 86818- 8338 Jan, Schizophrenia, unspecified type F20.9 ; ANA LILIA (generalized anxiety disorder) F41.1 ; Intermittent explosive disorder F63.81 and ADHD ( attention deficit hyperactivity disorder), combined type F90.2 [facility] [address] [place] [address] 69353- 5087 Jan, Schizophrenia, unspecified type F20.9 and Intermittent explosive disorder F63.81 [place] [address] [place] [address] 77346- 1062 Jan, Schizophrenia, unspecified type F20.9 ; ANA LILIA (generalized anxiety disorder) F41.1 ; Intermittent explosive disorder F63.81 and ADHD ( attention deficit hyperactivity disorder), combined type F90.2 [place] [address], [place] [address] Jan, Schizophrenia, unspecified type F20.9 ; ANA LILIA (generalized anxiety disorder) F41.1 ; Intermittent explosive disorder F63.81 and ADHD ( attention deficit hyperactivity disorder), combined type F90.2 [facility] [address], [place] [address] Dec, [place] [id number] [place] [address] 03379- 3350 Dec, Schizophrenia, unspecified type F20.9 ; ANA LILIA (generalized anxiety disorder) F41.1 ; Intermittent explosive disorder F63.81 and ADHD ( attention deficit hyperactivity disorder), combined type F90.2 [place] [address] [place] [address] 72374- 7886 Dec, [facility] [id number] [place] [id number] Dec, Encounter for dental examination Z01.20 [place] [id number] [place] [address] 32248- 8831 Dec, Schizophrenia, unspecified type F20.9 ; ANA LILIA (generalized anxiety disorder) F41.1 ; Intermittent explosive disorder F63.81 and ADHD ( attention deficit hyperactivity disorder), combined type F90.2 [place] [address], [place] [address] Dec, Schizophrenia, unspecified type F20.9 ; ANA LILIA (generalized anxiety disorder) F41.1 ; Intermittent explosive disorder F63.81 and ADHD ( attention deficit hyperactivity disorder), combined type F90.2 [place] [address] [place] [address] 87151- 9756 Dec, Seizures R56.9 ; Intermittent explosive disorder F63.81 and Developmental delay, gross motor F82 [facility] [address] [address] Nov, ANA LILIA (generalized anxiety disorder) F41.1 ; Intermittent explosive disorder F63.81 ; ADHD (attention deficit hyperactivity disorder), combined type F90.2 ; Other usp (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 ; Adjustment disorder, unspecified type F43.20 and Other schizophrenia F20.89 [facility] [address], [place] [address] Nov, Schizophrenia, unspecified type F20.9 [facility] [id number] [place] [address] 60133- 6299 Oct, ANA LILIA (generalized anxiety disorder) F41.1 ; Intermittent explosive disorder F63.81 ; ADHD (attention deficit hyperactivity disorder), combined type F90.2 ; 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 and Adjustment disorder, unspecified type F43.20 [facility] [address] [place] [address] 72805- 5300 Oct, Schizophrenia, unspecified type F20.9 ; ANA LILIA (generalized anxiety disorder) F41.1 ; Intermittent explosive disorder F63.81 and ADHD ( attention deficit hyperactivity disorder), combined type F90.2 [facility] [address] [place] [id number] Oct, Dental examination Z01.20 [facility] [address], [place] [address] 2[address] Oct, [facility] [address] [place] [address] 74746- 4987 Oct, 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 [facility] [address] [place] [address] 67927- 4008 Sep, ANA LILIA (generalized anxiety disorder) F41.1 ; Intermittent explosive disorder F63.81 ; ADHD (attention deficit hyperactivity disorder), combined type F90.2 ; Other usp (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 and Adjustment disorder, unspecified type F43.20 [facility] [address] [address]- 7[address] Sep, Schizophrenia, unspecified type F20.9 ; ANA LILIA (generalized anxiety disorder) F41.1 ; Intermittent explosive disorder F63.81 ; ADHD ( attention deficit hyperactivity disorder), combined type F90.2 and Other usp (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 [facility] [address] [place] [address] 60831- 0839 18 Sep, 2017 Gastroenteritis K52.9 [facility] [address] [id number] 13 Sep, 2017 Encounter for dental examination Z01.20 [place] [address] 8[address]- [address]64 22 Aug, 2017 Annual physical exam Z00.00 and Seizures R56.9 [facility] [id number] [place] [address] 17566- 6191 22 Aug, 2017 Adjustment disorder with disturbance of emotion F43.29 ; Developmental delay disorder R62.50 ; Developmental delay, gross motor F82 and 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 [facility] [id number] [place] [address] 02226 -0453 15 Aug, 2017 Moderate left ankle sprain, initial encounter S93.402A [place] [id number] [place] [address] 99670- 6385 07 Aug, 2017 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 ; Developmental delay, gross motor F82 and Adjustment disorder with disturbance of emotion F43.29 [facility] [id number] [place] [address] 86321 -6564 Aug, Fatigue, unspecified type R53.83 IMMUNIZATIONS No Known Immunizations SOCIAL HISTORY Never Assessed REASON FOR VISIT f/[place] ABREU PLAN OF CARE Activity Details Follow Up 2 Weeks Reason: VITAL SIGNS Height 70.25 in 2017-12-29 Weight 204.1 lbs 2017-12-29 Heart Rate 82 bpm 2017-12-29 Respiratory Rate 20 2017-12-29 BMI 29.07 kg/m2 2017-12-29 Blood pressure systolic 128 mmHg 2017-12-29 Blood pressure diastolic 82 mmHg 2017-12-29 MEDICATIONS Medication Instructions Dosage Frequency Start Date End Date Duration Status Siltussin SA 100 MG/5ML Orally every 4 hrs 10 ml as needed 4h Active Oxcarbazepine 600 MG TAKE 1 TABLET BY MOUTH THREE TIMES DAILY Active Cyproheptadine HCl 4 MG Orally Once a day 3 tablets 24h Active Benztropine Mesylate 1 MG Orally daily 1 tablet in morning and two tablets at night 24h 30 days Active Divalproex Sodium 500 mg Orally 2 times a day 1 tablet 12h Active Thera M Plus - Active Olopatadine HCl 0.1 % Ophthalmic TID 1 drop into affected eye 8h Active Desmopressin Acetate 0.2 MG Orally Once a day 2 tablet at bedtime 24h Active Melatonin 3 MG Orally Once a day 1 tablet at bedtime as needed with food 24h Active Loxitane 10 MG Orally HS 1 capsule Active BusPIRone HCl 10 MG Orally Twice a day 1 tablet 12h Active Acetaminophen 500 MG Orally every 6 hrs 2 capsules as needed 6h Active Aripiprazole 30 MG Orally Once a day 1 tablet 24h 30 days Active Chlorhexidine - Active Clindamycin-Benzoyl Per-Cleans 1-5 % Active Levetiracetam 500 MG Orally Twice a [...]
--- OUTSIDE RECORDS SUMMARY | 2018-07-18 14:15 | XMS REPORT ---
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 Active 83533442 Problem Developmental delay, gross motor F82 Active 989385975 Problem Other schizophrenia F20.89 Active 53446684 Problem Intermittent explosive disorder F63.81 Active 41208365 Problem Schizophrenia, unspecified type F20.9 Active 36516496 Problem Adjustment disorder, unspecified type F43.20 Active 34993324 Problem ADHD (attention deficit hyperactivity disorder), combined type F90.2 Active 21595387 Problem ANA LILIA (generalized anxiety disorder) F41.1 Active 67499328 ALLERGIES No Information ENCOUNTERS Encounter Location Date Diagnosis [facility] [address] [id number] May, [facility] [id number] [place] [address] 13981- 2828 May, [facility] [id number] [place] [address] 04327- 7004 May, [facility] [address] [address] Apr, [facility] [address] 18[address]85 Apr, Schizophrenia, unspecified type F20.9 and Intermittent explosive disorder F63.81 [facility] [address] [id number] Mar, Dental examination Z01.20 [place] [address] [address] Mar, Schizophrenia, unspecified type F20.9 and Intermittent explosive disorder F63.81 [facility] [address] [place] [address]5967 -7959 Mar, Acute nonintractable headache, unspecified headache type R51 [facility] [id number] [place] [address] 61111- 8543 February, Schizophrenia, unspecified type F20.9 ; ANA LILIA (generalized anxiety disorder) F41.1 ; Intermittent explosive disorder F63.81 and ADHD ( attention deficit hyperactivity disorder), combined type F90.2 [place] [id number] [place] [address] 09273- 7882 February, Schizophrenia, unspecified type F20.9 and Intermittent explosive disorder F63.81 [facility] [id number] [place] [address] 52786- 7872 February, [facility] [id number] [place] [address] 13681- 3709 February, Schizophrenia, unspecified type F20.9 [place] [address] [place] [address] 69922- 1849 Jan, Schizophrenia, unspecified type F20.9 ; ANA LILIA (generalized anxiety disorder) F41.1 ; Intermittent explosive disorder F63.81 and ADHD ( attention deficit hyperactivity disorder), combined type F90.2 [facility] [address] [place] [address] 66566- 2050 Jan, Schizophrenia, unspecified type F20.9 and Intermittent explosive disorder F63.81 [place] [address] [place] [address] 32946- 5006 Jan, Schizophrenia, unspecified type F20.9 ; ANA LILIA (generalized anxiety disorder) F41.1 ; Intermittent explosive disorder F63.81 and ADHD ( attention deficit hyperactivity disorder), combined type F90.2 [place] [address] [address] Jan, Schizophrenia, unspecified type F20.9 ; ANA LILIA (generalized anxiety disorder) F41.1 ; Intermittent explosive disorder F63.81 and ADHD ( attention deficit hyperactivity disorder), combined type F90.2 [facility] [address] [address] Dec, [place] [id number] [place] [address] 21466- 1180 Dec, Schizophrenia, unspecified type F20.9 ; ANA LILIA (generalized anxiety disorder) F41.1 ; Intermittent explosive disorder F63.81 and ADHD ( attention deficit hyperactivity disorder), combined type F90.2 [place] [address] [place] [address] 05826- 0719 Dec, [facility] [id number] [place] [address] [id number] Dec, Encounter for dental examination Z01.20 [place] [id number] [place] [address] 86919- 3362 Dec, Schizophrenia, unspecified type F20.9 ; ANA LILIA (generalized anxiety disorder) F41.1 ; Intermittent explosive disorder F63.81 and ADHD ( attention deficit hyperactivity disorder), combined type F90.2 [place] [address] [address] Dec, Schizophrenia, unspecified type F20.9 ; ANA LILIA (generalized anxiety disorder) F41.1 ; Intermittent explosive disorder F63.81 and ADHD ( attention deficit hyperactivity disorder), combined type F90.2 [place] [address] [place] [address] 69062- 1607 Dec, Seizures R56.9 ; Intermittent explosive disorder F63.81 and Developmental delay, gross motor F82 [facility] [address] [address] 100[address] Nov, ANA LILIA (generalized anxiety disorder) F41.1 ; Intermittent explosive disorder F63.81 ; ADHD (attention deficit hyperactivity disorder), combined type F90.2 ; Other alf (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 ; Adjustment disorder, unspecified type F43.20 and Other schizophrenia F20.89 [facility] [address] [address] Nov, Schizophrenia, unspecified type F20.9 [facility] [id number] [place] [address] 87935- 7915 Oct, ANA LILIA (generalized anxiety disorder) F41.1 ; Intermittent explosive disorder F63.81 ; ADHD (attention deficit hyperactivity disorder), combined type F90.2 ; 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 and Adjustment disorder, unspecified type F43.20 [facility] [address] [place] [address] 22790- 3407 Oct, Schizophrenia, unspecified type F20.9 ; ANA LILIA (generalized anxiety disorder) F41.1 ; Intermittent explosive disorder F63.81 and ADHD ( attention deficit hyperactivity disorder), combined type F90.2 [facility] [address] [place] [id number] Oct, Dental examination Z01.20 [facility] [address] [address] Oct, [facility] [address] [place] [address] 26578- 8078 Oct, 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 [facility] [address] [place] [address] 55243- 2674 Sep, ANA LILIA (generalized anxiety disorder) F41.1 ; Intermittent explosive disorder F63.81 ; ADHD (attention deficit hyperactivity disorder), combined type F90.2 ; Other alf (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 and Adjustment disorder, unspecified type F43.20 [facility] [address] [address] Sep, Schizophrenia, unspecified type F20.9 ; ANA LILIA (generalized anxiety disorder) F41.1 ; Intermittent explosive disorder F63.81 ; ADHD ( attention deficit hyperactivity disorder), combined type F90.2 and Other alf (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 [facility] [address] [place] [address] 15795- 5757 18 Sep, 2017 Gastroenteritis K52.9 [facility] [address] [id number] 13 Sep, 2017 Encounter for dental examination Z01.20 [place] [address] 00730- 9621 22 Aug, 2017 Annual physical exam Z00.00 and Seizures R56.9 [facility] [id number] [place] [address] 00512- 5291 22 Aug, 2017 Adjustment disorder with disturbance of emotion F43.29 ; Developmental delay disorder R62.50 ; Developmental delay, gross motor F82 and 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 [facility] [id number] [place] [address] 96586 -7145 15 Aug, 2017 Moderate left ankle sprain, initial encounter S93.402A [place] [id number] [place] [address] 23967- 0487 07 Aug, 2017 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 ; Developmental delay, gross motor F82 and Adjustment disorder with disturbance of emotion F43.29 [facility] [id number] [place] [address] 73935 -6965 Aug, Fatigue, unspecified type R53.83 IMMUNIZATIONS No Known Immunizations SOCIAL HISTORY Never Assessed REASON FOR VISIT Medication refill request PLAN OF CARE VITAL SIGNS MEDICATIONS Medication Instructions Dosage Frequency Start Date End Date Duration Status Benztropine Mesylate 1 MG Orally daily 1 tablet in morning and two tablets at night 24h 30 days Active Cyproheptadine HCl 4 MG Orally at bedtime 3 tablets 30 days Active Aripiprazole 30 MG Orally Once a day every morning 1 tablet 30 days Active RESULTS No Results PROCEDURES [...]
--- OUTSIDE RECORDS SUMMARY | 2018-07-18 14:15 | XMS REPORT ---
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 Active 31446447 Problem Developmental delay, gross motor F82 Active 283937936 Problem Other schizophrenia F20.89 Active 01670560 Problem Intermittent explosive disorder F63.81 Active 91100572 Problem Schizophrenia, unspecified type F20.9 Active 02684412 Problem Adjustment disorder, unspecified type F43.20 Active 39098243 Problem ADHD (attention deficit hyperactivity disorder), combined type F90.2 Active 40062394 Problem ANA LILIA (generalized anxiety disorder) F41.1 Active 24400349 ALLERGIES Substance Reaction Event Type Date Status PredniSONE Unknown Drug Allergy Dec, Active Augmentin Unknown Drug Allergy Dec, Active Natural Rubber Unknown Non Drug Allergy Dec, Active Latex Unknown Non Drug Allergy Dec, Active ENCOUNTERS Encounter Location Date Diagnosis [facility] [address] [facility] [id number] [id number] May, [facility] [address] [place] [address] 97757- 4636 May, [facility] [address], [place] [address]28 May, [facility] [id number] [place] [address] 59967- 6849 Apr, [facility] [address], [place] [address] Apr, Schizophrenia, unspecified type F20.9 and Intermittent explosive disorder F63.81 [facility] [id number] [id number] Mar, Dental examination Z01.20 [facility] [address] [place] [address] 33436- 6197 Mar, Schizophrenia, unspecified type F20.9 and Intermittent explosive disorder F63.81 [facility] [address] [place] [address] 26832 -4927 Mar, Acute nonintractable headache, unspecified headache type R51 [facility] [address] [place] [address] 97592- 6652 February, Schizophrenia, unspecified type F20.9 ; ANA LILIA (generalized anxiety disorder) F41.1 ; Intermittent explosive disorder F63.81 and ADHD ( attention deficit hyperactivity disorder), combined type F90.2 [facility] [id number] [place] [address] 67986- 2046 February, Schizophrenia, unspecified type F20.9 and Intermittent explosive disorder F63.81 [facility] [address] [place] [address] 58579- 9712 February, [facility] [id number] [place] [address] 80676- 8109 February, Schizophrenia, unspecified type F20.9 [facility] [address] [place] [address] 00294- 4776 Jan, Schizophrenia, unspecified type F20.9 ; ANA LILIA (generalized anxiety disorder) F41.1 ; Intermittent explosive disorder F63.81 and ADHD ( attention deficit hyperactivity disorder), combined type F90.2 [facility] [id number] [place] [address] 46303- 1710 Jan, Schizophrenia, unspecified type F20.9 and Intermittent explosive disorder F63.81 [facility] [id number] [place] [address] 25842- 2447 Jan, Schizophrenia, unspecified type F20.9 ; ANA LILIA (generalized anxiety disorder) F41.1 ; Intermittent explosive disorder F63.81 and ADHD ( attention deficit hyperactivity disorder), combined type F90.2 [facility] [address] [place] [address] 18715- 3207 Jan, Schizophrenia, unspecified type F20.9 ; ANA LILIA (generalized anxiety disorder) F41.1 ; Intermittent explosive disorder F63.81 and ADHD ( attention deficit hyperactivity disorder), combined type F90.2 [facility] [id number] [place] [address] 04267- 6168 Dec, [place] [id number] [place] [address] 33629- 9188 Dec, Schizophrenia, unspecified type F20.9 ; ANA LILIA (generalized anxiety disorder) F41.1 ; Intermittent explosive disorder F63.81 and ADHD ( attention deficit hyperactivity disorder), combined type F90.2 [place] [id number] [place] [address] 97987- 2342 Dec, [facility] [id number] [place] [address] [id number] Dec, Encounter for dental examination Z01.20 [facility] [id number] [place] [address] 44774- 2452 Dec, Schizophrenia, unspecified type F20.9 ; ANA LILIA (generalized anxiety disorder) F41.1 ; Intermittent explosive disorder F63.81 and ADHD ( attention deficit hyperactivity disorder), combined type F90.2 [facility] [address] [place] [address] 72782- 8430 Dec, Schizophrenia, unspecified type F20.9 ; ANA LILIA (generalized anxiety disorder) F41.1 ; Intermittent explosive disorder F63.81 and ADHD ( attention deficit hyperactivity disorder), combined type F90.2 [facility] [address] [place] [address] 33747- 6954 Dec, Seizures R56.9 ; Intermittent explosive disorder F63.81 and Developmental delay, gross motor F82 [facility] [address], [place] [address]- 9166 22 Nov, 2017 ANA LILIA (generalized anxiety disorder) F41.1 ; Intermittent explosive disorder F63.81 ; ADHD (attention deficit hyperactivity disorder), combined type F90.2 ; Other transmitter 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 ; Adjustment disorder, unspecified type F43.20 and Other schizophrenia F20.89 [facility] [address] [place] [address] 24194- 9719 Nov, Schizophrenia, unspecified type F20.9 [facility] [id number] [place] [address] 80030- 6889 Oct, ANA LILIA (generalized anxiety disorder) F41.1 ; Intermittent explosive disorder F63.81 ; ADHD (attention deficit hyperactivity disorder), combined type F90.2 ; Other transmitter 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 and Adjustment disorder, unspecified type F43.20 [facility] [address] [place] [address] 86563- 4547 Oct, Schizophrenia, unspecified type F20.9 ; ANA LILIA (generalized anxiety disorder) F41.1 ; Intermittent explosive disorder F63.81 and ADHD ( attention deficit hyperactivity disorder), combined type F90.2 [facility] [address] [place] [address] [id number] Oct, Dental examination Z01.20 [facility] [address] [place] [address] 63039- 1622 Oct, [facility] [address] [place] [address] 35679- 5400 Oct, Other custodial (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 [place] [address] [place] [address] 36576- 2111 Sep, ANA LILIA (generalized anxiety disorder) F41.1 ; Intermittent explosive disorder F63.81 ; ADHD (attention deficit hyperactivity disorder), combined type F90.2 ; Other custodial (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 and Adjustment disorder, unspecified type F43.20 [facility] [id number] [place] [address] 96424- 1807 21 Sep, 2017 Schizophrenia, unspecified type F20.9 ; ANA LILIA (generalized anxiety disorder) F41.1 ; Intermittent explosive disorder F63.81 ; ADHD ( attention deficit hyperactivity disorder), combined type F90.2 and Other transmitter 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 [facility] [address] 935950- 2509 18 Sep, 2017 Gastroenteritis K52.9 [facility] [address] [id number] 13 Sep, 2017 Encounter for dental examination Z01.20 [place] [address] 15224- 4083 22 Aug, 2017 Annual physical exam Z00.00 and Seizures R56.9 [place] [id number] [place] [address] 94152- 1092 Aug, Adjustment disorder with disturbance of emotion F43.29 ; Developmental delay disorder R62.50 ; Developmental delay, gross motor F82 and 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 [facility] [address] [place] [id number] [place] [address] 91540 -6025 15 Aug, 2017 Moderate left ankle sprain, initial encounter S93.402A [address] 83281- 6428 07 Aug, 2017 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 ; Developmental delay, gross motor F82 and Adjustment disorder with disturbance of emotion F43.29 [facility] [address] [place] [address] 53810 -2956 Aug, Fatigue, unspecified type R53.83 IMMUNIZATIONS No Known Immunizations SOCIAL HISTORY Never Assessed REASON FOR VISIT Seizure- Aureliano ABREU PLAN OF CARE Activity Details Follow Up 6 Months Reason:seizures VITAL SIGNS Height 70.25 in 2017-12-08 Weight 206 lbs 2017-12-08 Temperature 98.6 degrees Fahrenheit 2017-12-08 Heart Rate 80 bpm 2017-12-08 Respiratory Rate 18 2017-12-08 BMI 29.34 kg/m2 2017-12-08 Blood pressure systolic 138 mmHg 2017-12-08 Blood pressure diastolic 73 mmHg 2017-12-08 MEDICATIONS Medication Instructions Dosage Frequency Start Date End Date Duration Status Abilify 5 MG Orally at 4pm 1 tablet Active Levetiracetam 500 MG Orally Twice a day 1 tablet 12h Active Melatonin 3 MG Orally Once a day 1 tablet at bedtime as needed with food 24h Active BusPIRone HCl 10 MG Orally Twice a day 1 tablet 12h Active Desmopressin Acetate 0.2 MG Orally Once a day 2 tablet at bedtime 24h Active Clindamycin-Benzoyl Per-Cleans 1-5 % Active Acetaminophen 500 MG Orally every 6 hrs 2 capsules as needed 6h Active Oxcarbazepine 600 MG TAKE 1 TABLET BY MOUTH THREE TIMES DAILY 31 Active Thera M Plus - Active Olopatadine HCl 0.1 % Ophthalmic TID 1 drop into affected eye 8h Active Aripiprazole 20 MG Orally Once a day 1 tablet 24h Active Divalproex Sodium 500 mg Orally 2 times a day 1 tablet 12h Active Loxitane 10 MG Orally HS 1 capsule Active Cyproheptadine HCl 4 MG Orally HS 2 tablet Active Chlorhexidine - Active Benztropine Mesylate 1 [...]
--- OUTSIDE RECORDS SUMMARY | 2018-07-18 14:16 | XMS REPORT ---
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 Active 04531948 Problem Developmental delay, gross motor F82 Active 736607236 Problem Other schizophrenia F20.89 Active 42568057 Problem Intermittent explosive disorder F63.81 Active 67088233 Problem Schizophrenia, unspecified type F20.9 Active 68773489 Problem Adjustment disorder, unspecified type F43.20 Active 84807762 Problem ADHD (attention deficit hyperactivity disorder), combined type F90.2 Active 70035551 Problem ANA LILIA (generalized anxiety disorder) F41.1 Active 51292881 ALLERGIES No Information ENCOUNTERS Encounter Location Date Diagnosis [facility] [address] [id number] May, [facility] [id number] [place] [address] 81918- 1561 May, [facility] [id number] [place] [address] 40351- 0753 May, [facility] [address] [address] Apr, [facility] [address] [address] Apr, Schizophrenia, unspecified type F20.9 and Intermittent explosive disorder F63.81 [facility] [address] [id number] Mar, Dental examination Z01.20 [place] [address] [address] Mar, Schizophrenia, unspecified type F20.9 and Intermittent explosive disorder F63.81 [facility] [address] [place] [address]30 [address]2218 Mar, Acute nonintractable headache, unspecified headache type R51 [facility] [id number] [place] [address] 56498- 6889 February, Schizophrenia, unspecified type F20.9 ; ANA LILIA (generalized anxiety disorder) F41.1 ; Intermittent explosive disorder F63.81 and ADHD ( attention deficit hyperactivity disorder), combined type F90.2 [place] [id number] [place] [address] 85263- 2348 February, Schizophrenia, unspecified type F20.9 and Intermittent explosive disorder F63.81 [facility] [id number] [place] [address] 90997- 9704 February, [facility] [id number] [place] [address] 45636- 7858 February, Schizophrenia, unspecified type F20.9 [place] [address] [place] [address] 30457- 8754 Jan, Schizophrenia, unspecified type F20.9 ; ANA LILIA (generalized anxiety disorder) F41.1 ; Intermittent explosive disorder F63.81 and ADHD ( attention deficit hyperactivity disorder), combined type F90.2 [facility] [address] [place] [address] 55386- 5644 Jan, Schizophrenia, unspecified type F20.9 and Intermittent explosive disorder F63.81 [place] [address] [place] [address] 91274- 4447 Jan, Schizophrenia, unspecified type F20.9 ; ANA LILIA (generalized anxiety disorder) F41.1 ; Intermittent explosive disorder F63.81 and ADHD ( attention deficit hyperactivity disorder), combined type F90.2 [place] [address] [address] Jan, Schizophrenia, unspecified type F20.9 ; ANA LILIA (generalized anxiety disorder) F41.1 ; Intermittent explosive disorder F63.81 and ADHD ( attention deficit hyperactivity disorder), combined type F90.2 [facility] [address] [address] Dec, [place] [id number] [place] [address] 43204- 6309 Dec, Schizophrenia, unspecified type F20.9 ; ANA LILIA (generalized anxiety disorder) F41.1 ; Intermittent explosive disorder F63.81 and ADHD ( attention deficit hyperactivity disorder), combined type F90.2 [place] [address] [place] [address] 74728- 7862 Dec, [facility] [id number] [place] [address] [id number] Dec, Encounter for dental examination Z01.20 [place] [id number] [place] [address] 80549- 2929 Dec, Schizophrenia, unspecified type F20.9 ; ANA LILIA (generalized anxiety disorder) F41.1 ; Intermittent explosive disorder F63.81 and ADHD ( attention deficit hyperactivity disorder), combined type F90.2 [place] [address] [address] Dec, Schizophrenia, unspecified type F20.9 ; ANA LILIA (generalized anxiety disorder) F41.1 ; Intermittent explosive disorder F63.81 and ADHD ( attention deficit hyperactivity disorder), combined type F90.2 [place] [address] [place] [address] 47501- 4705 Dec, Seizures R56.9 ; Intermittent explosive disorder F63.81 and Developmental delay, gross motor F82 [facility] [address] [address] Nov, ANA LILIA (generalized anxiety disorder) F41.1 ; Intermittent explosive disorder F63.81 ; ADHD (attention deficit hyperactivity disorder), combined type F90.2 ; Other fdc (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 ; Adjustment disorder, unspecified type F43.20 and Other schizophrenia F20.89 [facility] [address] [address] Nov, Schizophrenia, unspecified type F20.9 [facility] [id number] [place] [address] 59724- 0462 Oct, ANA LILAI (generalized anxiety disorder) F41.1 ; Intermittent explosive disorder F63.81 ; ADHD (attention deficit hyperactivity disorder), combined type F90.2 ; Other meterman (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 and Adjustment disorder, unspecified type F43.20 [facility] [address] [place] [address] 40971- 1187 Oct, Schizophrenia, unspecified type F20.9 ; ANA LILIA (generalized anxiety disorder) F41.1 ; Intermittent explosive disorder F63.81 and ADHD ( attention deficit hyperactivity disorder), combined type F90.2 [facility] [address] [place] [address] [id number] Oct, Dental examination Z01.20 [facility] [address] [address] 0[address] Oct, [facility] [address] [place] [address] 31645- 6134 Oct, Other meterman (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 [facility] [address] [place] [address] 75663- 4065 Sep, ANA LILIA (generalized anxiety disorder) F41.1 ; Intermittent explosive disorder F63.81 ; ADHD (attention deficit hyperactivity disorder), combined type F90.2 ; Other fdc (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 and Adjustment disorder, unspecified type F43.20 [facility] [address] [address] Sep, Schizophrenia, unspecified type F20.9 ; ANA LILIA (generalized anxiety disorder) F41.1 ; Intermittent explosive disorder F63.81 ; ADHD ( attention deficit hyperactivity disorder), combined type F90.2 and Other fdc (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 [facility] [address] [place] [address] 91690- 2355 18 Sep, 2017 Gastroenteritis K52.9 [facility] [address] [id number] 13 Sep, 2017 Encounter for dental examination Z01.20 [place] [id number] [place] [address] 15594- 1931 22 Aug, 2017 Annual physical exam Z00.00 and Seizures R56.9 [facility] [id number] [place] [address] 51771- 5140 22 Aug, 2017 Adjustment disorder with disturbance of emotion F43.29 ; Developmental delay disorder R62.50 ; Developmental delay, gross motor F82 and 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 [facility] [id number] [place] [address] 33900 -3034 15 Aug, 2017 Moderate left ankle sprain, initial encounter S93.402A [place] [id number] [place] [address] 47450- 0570 07 Aug, 2017 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 ; Developmental delay, gross motor F82 and Adjustment disorder with disturbance of emotion F43.29 [facility] [id number] [place] [address] 34285 -8105 Aug, Fatigue, unspecified type R53.83 IMMUNIZATIONS No Known Immunizations SOCIAL HISTORY Never Assessed REASON FOR VISIT medication PLAN OF CARE VITAL SIGNS MEDICATIONS Medication Instructions Dosage Frequency Start Date End Date Duration Status Aripiprazole 30 MG Orally Once a day 1 tablet 24h 30 days Active Cyproheptadine HCl 4 MG Orally Once a day 3 tablets 24h 30 days Active RESULTS No Results [...]
--- OUTSIDE RECORDS SUMMARY | 2018-07-18 14:16 | XMS REPORT ---
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 Active 67182852 Problem Developmental delay, gross motor F82 Active 691692182 Problem Other schizophrenia F20.89 Active 84938270 Problem Intermittent explosive disorder F63.81 Active 13674746 Problem Schizophrenia, unspecified type F20.9 Active 70245465 Problem Adjustment disorder, unspecified type F43.20 Active 54509289 Problem ADHD (attention deficit hyperactivity disorder), combined type F90.2 Active 72027409 Problem ANA LILIA (generalized anxiety disorder) F41.1 Active 24350884 ALLERGIES No Information ENCOUNTERS Encounter Location Date Diagnosis [facility] [id number] [place] [address] 92499- 4254 May, [facility] [id number] [place] [address] 75893- 3891 May, [facility] [id number] [place] [address] [phone] Apr, [facility] [id number] [place] [address] 27272- 9172 Apr, [facility] [address] [address]- [address]65 Apr, Schizophrenia, unspecified type F20.9 and Intermittent explosive disorder F63.81 [facility] [id number] [place] [address] [id number] Mar, Dental examination Z01.20 [facility] [address] [address] Mar, Schizophrenia, unspecified type F20.9 and Intermittent explosive disorder F63.81 [facility] [address] [address] Mar, Acute nonintractable headache, unspecified headache type R51 [facility] [id number] [place] [address] 46710- 1083 February, Schizophrenia, unspecified type F20.9 ; ANA LILIA (generalized anxiety disorder) F41.1 ; Intermittent explosive disorder F63.81 and ADHD ( attention deficit hyperactivity disorder), combined type F90.2 [place] [id number] [place] [address] 30730- 5645 February, Schizophrenia, unspecified type F20.9 and Intermittent explosive disorder F63.81 [facility] [id number] [place] [address] 96738- 2797 February, [facility] [id number] [place] [address] 85587- 0222 February, Schizophrenia, unspecified type F20.9 [facility] [id number] [place] [address] 21539- 8015 Jan, Schizophrenia, unspecified type F20.9 ; ANA LILIA (generalized anxiety disorder) F41.1 ; Intermittent explosive disorder F63.81 and ADHD ( attention deficit hyperactivity disorder), combined type F90.2 [facility] [address] [place] [address] 70048- 9926 Jan, Schizophrenia, unspecified type F20.9 and Intermittent explosive disorder F63.81 [facility] [id number] [place] [address] 89693- 0243 Jan, Schizophrenia, unspecified type F20.9 ; ANA LILIA (generalized anxiety disorder) F41.1 ; Intermittent explosive disorder F63.81 and ADHD ( attention deficit hyperactivity disorder), combined type F90.2 [facility] [address], [place] [address]- [address] Jan, Schizophrenia, unspecified type F20.9 ; ANA LILIA (generalized anxiety disorder) F41.1 ; Intermittent explosive disorder F63.81 and ADHD ( attention deficit hyperactivity disorder), combined type F90.2 [facility] [address], [place] [address]- [address] Dec, [facility] [id number] [place] [address] 48033- 7935 Dec, Schizophrenia, unspecified type F20.9 ; ANA LILIA (generalized anxiety disorder) F41.1 ; Intermittent explosive disorder F63.81 and ADHD ( attention deficit hyperactivity disorder), combined type F90.2 [place] [address], [place] [address]- [address] Dec, [facility] [id number] [place] [address] [id number] Dec, Encounter for dental examination Z01.20 [facility] [id number] [place] [address] 65263- 6972 Dec, Schizophrenia, unspecified type F20.9 ; ANA LILIA (generalized anxiety disorder) F41.1 ; Intermittent explosive disorder F63.81 and ADHD ( attention deficit hyperactivity disorder), combined type F90.2 [facility] [address], [place] [address]- 8077 Dec, Schizophrenia, unspecified type F20.9 ; ANA LILIA (generalized anxiety disorder) F41.1 ; Intermittent explosive disorder F63.81 and ADHD ( attention deficit hyperactivity disorder), combined type F90.2 [place] [address] [place] [address] 10480- 3285 Dec, Seizures R56.9 ; Intermittent explosive disorder F63.81 and Developmental delay, gross motor F82 [facility] [address], [place] [address]- 7[address] Nov, ANA LILIA (generalized anxiety disorder) F41.1 ; Intermittent explosive disorder F63.81 ; ADHD (attention deficit hyperactivity disorder), combined type F90.2 ; 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 ; Adjustment disorder, unspecified type F43.20 and Other schizophrenia F20.89 [facility] [address], [place] [address]- [address] Nov, Schizophrenia, unspecified type F20.9 [facility] [id number] [place] [address] 51059- 3971 Oct, ANA LILIA (generalized anxiety disorder) F41.1 ; Intermittent explosive disorder F63.81 ; ADHD (attention deficit hyperactivity disorder), combined type F90.2 ; 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 [address] [place] [address] [id number] Oct, Dental examination Z01.20 [facility] [address] [place] [address] 15991- 6973 Oct, [facility] [address] [place] [address] 70173- 5424 Oct, 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 [facility] [address] [place] [address] 58473- 3041 Sep, ANA LILIA (generalized anxiety disorder) F41.1 ; Intermittent explosive disorder F63.81 ; ADHD (attention deficit hyperactivity disorder), combined type F90.2 ; Other retirement (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 and Adjustment disorder, unspecified type F43.20 [facility] [address] [place] [address] 67092- 9808 Sep, Schizophrenia, unspecified type F20.9 ; ANA LILIA (generalized anxiety disorder) F41.1 ; Intermittent explosive disorder F63.81 ; ADHD ( attention deficit hyperactivity disorder), combined type F90.2 and 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 [facility] [address] [place] [address] 81810- 7018 18 Sep, 2017 Gastroenteritis K52.9 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 [facility] [id number] [place] [address] 52313 -5660 15 Aug, 2017 Moderate left ankle sprain, initial encounter S93.402A [facility] [id number] [place] [address] 08958- 9960 07 Aug, 2017 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 ; Developmental delay, gross motor F82 and Adjustment disorder with disturbance of emotion F43.29 [facility] [id number] [place] [address] 32334 -1460 Aug, Fatigue, unspecified type R53.83 IMMUNIZATIONS No Known Immunizations SOCIAL HISTORY Never Assessed REASON FOR VISIT f/u PLAN OF CARE Activity Details Follow Up 6 Weeks Reason:Intermittent explosive disorder, VITAL SIGNS MEDICATIONS Medication Instructions Dosage Frequency Start Date End Date Duration Status Melatonin 3 MG Orally Once a day 1 tablet at bedtime as needed with food 24h Unknown Thera M Plus - Unknown Aripiprazole 30 MG Orally Once a day 1 tablet 24h 30 days Unknown Desmopressin Acetate 0.2 MG Orally Once a day 2 tablet at bedtime 24h Unknown Chlorhexidine - Unknown Acetaminophen 500 MG Orally every 6 hrs 2 capsules as needed 6h Unknown Siltussin SA 100 MG/5ML Orally every 4 hrs 10 ml as needed 4h Unknown Benztropine Mesylate 1 MG TAKE 1 TABLET BY MOUTH TWICE DAILY Unknown Olopatadine HCl 0.1 % Ophthalmic TID 1 drop into affected eye 8h Unknown Levetiracetam 500 MG Orally Twice a day 1 tablet 12h Unknown Loxitane 10 MG Orally HS 1 capsule Unknown Divalproex Sodium 500 mg Orally 2 times a day 1 tablet 12h Unknown Cyproheptadine HCl 4 MG 3 tablets Unknown Clindamycin-Benzoyl Per-Cleans 1-5 % Unknown Oxcarbazepine 600 MG TAKE 1 TABLET BY MOUTH THREE TIMES DAILY Unknown BusPIRone HCl 10 MG Orally Twice a day 1 tablet 12h Unknown RESULTS No Results PROCEDURES Procedure Date Ordered Result Body Site Psychotherapy, patient &/family, 30 minutes, established patient December 25, 2017 INSTRUCTIONS MEDICATIONS ADMINISTERED No Known Medications MEDICAL (GENERAL) HISTORY Type Description Date Medical History Schizophrenia Medical History Intermitten Explosive Disorder Medical History Generalized anxiety disorder Medical History Moderate intellectual disability Medical History Bipolar Medical History asthma exercise induced Medical History Seizure disorder Surgical History Tubes in ears
== END 2018-07-17 23:43 | disposition home or self-care (01) ==
LOC: EDUNIT# 21:13 → ER 21:14
DX: R10.31 Right lower quadrant pain (principal); R10.32 Left lower quadrant pain; G40.909 Epilepsy, unspecified, not intractable, without status epilepticus; F20.9 Schizophrenia, unspecified; Z87.440 Personal history of urinary (tract) infections; Z77.22 Contact with and (suspected) exposure to environmental tobacco smoke (acute) (chronic); Z91.040 Latex allergy status; Z88.8 Allergy status to other drugs, medicaments and biological substances; Z88.0 Allergy status to penicillin
CPT/HCPCS: 36415; 74177; 80053; 81000; 85025

== ENCOUNTER 2018-07-23 06:13 | Outpatient (CLI) | payer MEDICAID ==
[~2018-07-23] VITALS: Ht 160 cm; Wt 95.3 kg
[~2018-07-23 06:13] MED LIST changes: -CYPR4TAB41; +CYPR4TAB41 PO
[2018-07-23] MEDS ORDERED: MELA3TAB12 PO (12:52)
[2018-07-23] MEDS ORDERED: LACT1CAP62 PO (12:52)
[2018-07-23] MEDS ORDERED: SUCR1TAB36 PO (12:52)
[2018-07-23] MEDS ORDERED: CALC250T2 PO (12:52)
[2018-07-23] MEDS ORDERED: ARIP5TAB20 PO (12:52)
== END 2018-07-23 13:21 | disposition home or self-care (01) ==
LOC: PREOP 06:13
PROVIDERS: ATTEND Surgery
DX: Z01.818 Encounter for other preprocedural examination (principal)

== ENCOUNTER 2018-07-27 11:31 | Day surgery (SDC) | payer MEDICAID ==
[~2018-07-27] VITALS: Ht 160 cm; Wt 95.3 kg
[~2018-07-27 11:31] MED LIST changes: +ARIP5TAB20 PO; +CALC250T2 PO; +LACT1CAP62 PO; +MELA3TAB12 PO; +SUCR1TAB36 PO
--- OUTSIDE RECORDS SUMMARY | 2018-07-27 11:41 | XMS REPORT ---
Author Author SEEMA GILBERT Organization [facility] [place] Address [address] [place] [address] Care Team Providers Care Funeral Service Practitioner/Embalmer Name Role Phone SEEMA GILBERT Unavailable PROBLEMS Type Condition ICD9-CM Code FIN55-IW Code Onset Dates Condition Status SNOMED Code Problem Schizophrenia, unspecified type F20.9 Active 73704078 Problem ADHD (attention deficit hyperactivity disorder), combined type F90.2 Active 24341726 Problem ANA LILIA (generalized anxiety disorder) F41.1 Active 22773842 Problem Adjustment disorder with disturbance of emotion F43.29 Active 72798557 Problem Developmental delay, gross motor F82 Active 118765207 Problem 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 Active 67411385 Problem Adjustment disorder, unspecified type F43.20 Active 84781188 Problem Pulmonary nodule R91.1 Active 537096190 Problem Gastroesophageal reflux disease with esophagitis K21.0 Active 213019606 Problem Other schizophrenia F20.89 Active 69722928 Problem Intermittent explosive disorder F63.81 Active 22160301 Problem 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 Active 73822825 Problem Neuropathy G62.9 Active 857217301 ALLERGIES No Information ENCOUNTERS Encounter Location Date Diagnosis [facility] [place] [address], [place] [address] Sep, [facility] [id number] [place] [id number] Jul, [facility] [place] [address] [place] [id number] [place] [phone] Jul, [facility] [place] [id number] [place] [phone] Jul, Pulmonary nodule R91.1 [facility] [place] [id number] [place] [address] Jul, Gastroesophageal reflux disease with esophagitis K21.0 [place] [id number] [place] [phone] Jul, Schizophrenia, unspecified type F20.9 ; ANA LILIA (generalized anxiety disorder) F41.1 ; Intermittent explosive disorder F63.81 ; ADHD ( attention deficit hyperactivity disorder), combined type F90.2 and 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 [place] [address] [address] 17 Jun, 2018 Excessive flatus R14.3 [place] [address] [address] 17 Jun, 2018 Schizophrenia, unspecified type F20.9 and Intermittent explosive disorder F63.81 [facility] [place] [address] [address] 14 Jun, 2018 Excessive gas R14.3 [facility] [address] [id number] May, Dental examination Z01.20 [place] [address] [address] May, Cramp of extremity R25.2 and Neuropathy G62.9 [place] [address] [address] May, Schizophrenia, unspecified type F20.9 and Intermittent explosive disorder F63.81 [facility] [place] [id number] [place] [address] Apr, Viral URI J06.9 and Epigastric abdominal pain R10.13 [place] [address] [address] Apr, Schizophrenia, unspecified type F20.9 ; ANA LILIA (generalized anxiety disorder) F41.1 ; Intermittent explosive disorder F63.81 and ADHD ( attention deficit hyperactivity disorder), combined type F90.2 [place] [address] [address] Apr, Schizophrenia, unspecified type F20.9 and Intermittent explosive disorder F63.81 [facility] [address] [id number] Mar, Dental examination Z01.20 [facility] [place] [address], [place] [address] Mar, Schizophrenia, unspecified type F20.9 and Intermittent explosive disorder F63.81 [facility] [address], [place] [address] Mar, Acute nonintractable headache, unspecified headache type R51 [facility] [place] [address] [place] [address] February, Schizophrenia, unspecified type F20.9 ; ANA LILIA (generalized anxiety disorder) F41.1 ; Intermittent explosive disorder F63.81 and ADHD ( attention deficit hyperactivity disorder), combined type F90.2 [facility] [place] [address], [place] [address] February, Schizophrenia, unspecified type F20.9 and Intermittent explosive disorder F63.81 [facility] [place] [address], [place] [address] February, [facility] [place] [address], [place] [address] February, Schizophrenia, unspecified type F20.9 [facility] [place] [address], [place] [address] Jan, Schizophrenia, unspecified type F20.9 ; ANA LILIA (generalized anxiety disorder) F41.1 ; Intermittent explosive disorder F63.81 and ADHD ( attention deficit hyperactivity disorder), combined type F90.2 [facility] [place] [address], [place] [address] Jan, Schizophrenia, unspecified type F20.9 and Intermittent explosive disorder F63.81 [facility] [place] [address], [place] [address] Jan, Schizophrenia, unspecified type F20.9 ; ANA LILIA (generalized anxiety disorder) F41.1 ; Intermittent explosive disorder F63.81 and ADHD ( attention deficit hyperactivity disorder), combined type F90.2 [facility] [place] [address], [place] [address] Jan, Schizophrenia, unspecified type F20.9 ; ANA LILIA (generalized anxiety disorder) F41.1 ; Intermittent explosive disorder F63.81 and ADHD ( attention deficit hyperactivity disorder), combined type F90.2 [facility] [place] [address] [place] [address] Dec, [facility] [place] [id number] [place] [address] Dec, Schizophrenia, unspecified type F20.9 ; ANA LILIA (generalized anxiety disorder) F41.1 ; Intermittent explosive disorder F63.81 and ADHD ( attention deficit hyperactivity disorder), combined type F90.2 [facility] [place] [address], [place] [address] Dec, [facility] [address] [place] [phone] Dec, Encounter for dental examination Z01.20 [facility] [place] [address], [place] [address] Dec, Schizophrenia, unspecified type F20.9 ; ANA LILIA (generalized anxiety disorder) F41.1 ; Intermittent explosive disorder F63.81 and ADHD ( attention deficit hyperactivity disorder), combined type F90.2 [facility] [place] [address], [place] [address] Dec, Schizophrenia, unspecified type F20.9 ; ANA LILIA (generalized anxiety disorder) F41.1 ; Intermittent explosive disorder F63.81 and ADHD ( attention deficit hyperactivity disorder), combined type F90.2 [facility] [place] [address], [place] [address] Dec, Seizures R56.9 ; Intermittent explosive disorder F63.81 and Developmental delay, gross motor F82 [facility] [place] [address] [place] [address] Nov, ANA LILIA (generalized anxiety disorder) F41.1 ; Intermittent explosive disorder F63.81 ; ADHD (attention deficit hyperactivity disorder), combined type F90.2 ; 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 ; Adjustment disorder, unspecified type F43.20 and Other schizophrenia F20.89 [facility] [place] [address] [place] [address] Nov, Schizophrenia, unspecified type F20.9 [facility] [place] [address] [id number] [place] [address] Oct, ANA LILIA (generalized anxiety disorder) F41.1 ; Intermittent explosive disorder F63.81 ; ADHD (attention deficit hyperactivity disorder), combined type F90.2 ; Other intermediate (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 and Adjustment disorder, unspecified type F43.20 [facility] [place] [address] [place] [address] Oct, Schizophrenia, unspecified type F20.9 ; ANA LILIA (generalized anxiety disorder) F41.1 ; Intermittent explosive disorder F63.81 and ADHD ( attention deficit hyperactivity disorder), combined type F90.2 [facility] [address] [place] [phone] Oct, Dental examination Z01.20 [facility] [place] [address] [place] [address] Oct, [facility] [place] [id number] [place] [address] Oct, Other intermediate (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 [facility] [place] [address] [place] [address] Sep, ANA LILIA (generalized anxiety disorder) F41.1 ; Intermittent explosive disorder F63.81 ; ADHD (attention deficit hyperactivity disorder), combined type F90.2 ; 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 and Adjustment disorder, unspecified type F43.20 [facility] [place] [id number] [place] [address] 21 Sep, 2017 Schizophrenia, unspecified type F20.9 ; ANA LILIA (generalized anxiety disorder) F41.1 ; Intermittent explosive disorder F63.81 ; ADHD ( attention deficit hyperactivity disorder), combined type F90.2 and 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 [facility] [place] [address] [id number] [place] [address] 18 Sep, 2017 Gastroenteritis K52.9 [facility] [address] [id number] 13 Sep, 2017 Encounter for dental examination Z01.20 [place] [address] [address] 22 Aug, 2017 Annual physical exam Z00.00 and Seizures R56.9 [facility] [place] [address] [id number] [place] [address] Aug, Adjustment disorder with disturbance of emotion F43.29 ; Developmental delay disorder R62.50 ; Developmental delay, gross motor F82 and 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 [facility] [address] [place] [id number] [place] [address] 15 Aug, 2017 Moderate left ankle sprain, initial encounter S93.402A [facility] [place] [id number] [place] [address] 07 Aug, 2017 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
[2018-07-27 11:45] VITALS: BP 120/61
[2018-07-27] MEDS ORDERED: LACTATED RINGERS 1,000 ML IV ONE (11:53)
[2018-07-27] MEDS ORDERED: proPOfol 200 MG/20 ML (DIPRIVAN) VIAL IV ONE ×2 (12:00→12:34)
[2018-07-27] MEDS ORDERED: LIDOCAINE PF 2% 5 ML (XYLOCAINE) VIAL ONE (12:00)
--- NOTE | 2018-07-27 12:21 | Progress Note-Pre Operative ---
Pre-Operative Progress Note H&P Reviewed The H&P was reviewed, patient examined and no changes noted. Time Seen by Provider: 12:18 Date H&P Reviewed: Jul 27, 2018 Time H&P Reviewed: 12:19 Pre-Operative Diagnosis: Colitis, Abdominal pain MEGAN MERIDA DO Jul 27, 2018 12:21
[2018-07-27] MEDS ORDERED: LACTATED RINGERS 1,000 ML IV PRN (12:30)
--- NOTE | 2018-07-27 12:48 | Progress Note-Post Operative ---
Post-Operative Progess Note Surgeon (s)/Information Security Consultant (s) Surgeon MEGAN MERIDA DO Information Security Consultant: none Pre-Operative Diagnosis Colitis, Abdominal pain Post-Operative Diagnosis Same plus Proctitis internal hemorrhoids Procedure & Operative Findings Date of Procedure 07/27/18 Procedure Performed/Findings colon with cold bx Anesthesia Type IV sedation by AIR TOOL OPERATOR Estimated Blood Loss Estimated blood loss (mL): scant Specimens/Packing Specimens Removed rectal bx x 2 MEGAN MERIDA DO Jul 27, 2018 12:48
--- NOTE | 2018-07-27 12:49 | Endoscopy Discharge Instruct ---
Endo Procedure/Findings Findings 1.: Other Findings (Proctitis) 2.: Internal Hemorrhoids Discharge Instructions - Activity: You might feel a little sleepy until tomorrow. This is due to the medicine you received to relax you. Until tomorrow, you should: NOT drive a car, operate machinery or power tools. NOT drink any alcoholic beverages. NOT make any important decisions or sign importortant papers. Do not return to work until tomorrow, unless otherwise instructed. Resume previous activities tomorrow. Diet: Start by taking liquids. If you tolerate liquids, advance to solid food. Make an appointment for one week. Notify Physician - If you experience excessive bleeding, unusual abdominal pain, fever, or chest pain, contact your doctor immediately. Follow-Up: - I have received and understand the above instructions and will call my doctor if I have any further questions. Patient Signature Date Nurse Signature Other (Relationship) MEGAN MERIDA DO Jul 27, 2018 12:49
[2018-07-27 13:05] VITALS: BP 121/88
[2018-07-27 13:30] VITALS: BP 124/82
[2018-07-27 13:40] VITALS: BP 124/82
--- NOTE | 2018-07-27 14:44 | Anesthesia-General Post-Op ---
MAC Patient Condition Mental Status/LOC: Same as Preop Cardiovascular: Satisfactory Nausea/Vomiting: Absent Respiratory: Satisfactory Pain: Controlled Complications: Absent Post Op Complications Complications None Follow Up Care/Instructions Patient Instructions None needed. Anesthesiology Discharge Order Discharge Order Patient is doing well, no complaints, stable vital signs, no apparent adverse anesthesia problems. No complications reported per nursing. JOSE GONZALES CRNA Jul 27, 2018 14:44
--- NOTE | 2018-07-28 08:15 | OPERATIVE REPORT ---
DATE OF SERVICE: PREOPERATIVE DIAGNOSIS: Colitis. POSTOPERATIVE DIAGNOSES: 1. Colitis. 2. Proctitis. 3. Internal hemorrhoids. PROCEDURE: Colonoscopy with cold biopsy. SURGEON: Ankit Fairbanks DO. GANG DRILL OPERATOR: None. ANESTHESIA: IV sedation by the HEAD OF DIGITAL. SPECIMEN: Two biopsies from the rectum. BLOOD LOSS: Scant. FLUIDS: Per anesthesia. POSTOPERATIVE CONDITION: Stable. INDICATION FOR PROCEDURE: The patient is a 28-year-old male who has been having some abdominal pain and went for workup, he went to the ER and had a CAT scan, which showed colitis, needed a colonoscopy to work this up. FINDINGS: The patient actually had some proctitis at the area of the thickening and decompressed bowel, did not see any colitis and he had some very minimal internal hemorrhoids. PROCEDURE NOTE: After informed consent was obtained, the patient was brought to the endoscopy suite and placed in left lateral decubitus position. He was administered IV sedation. During the case, the HEAD OF DIGITAL monitored his vitals the entire time, heart rate, blood pressure and pulse ox, and the scope was inserted, pushed in. Immediately upon entering the rectum, I saw what looked like proctitis. Pushed all the way to the cecum, took a picture of the appendiceal orifice, able to get into the terminal ileum and then slowly withdrew the scope insufflating to look circumferentially at the jimenez, looking at the cecum, up the ascending colon to the hepatic flexure, then down the transverse colon to the splenic flexure. The area that we had seen that looked like thickened wall and colitis, it was in the transverse colon and this looked normal. Once into splenic flexure, then pulled down the descending colon into the sigmoid and finally into rectum, retroflexed in the rectal vault, saw some minimal internal hemorrhoids. Again, saw this, but looked like a proctitis, possibly just inflammation from the prep. I elected to do two biopsies. Two biopsies were obtained. Cold biopsy done. These were sent to pathology. The patient tolerated the procedure, has recovered in the endoscopy suite and then sent home in stable condition. Job ID: [id number] DocumentID: [id number] Dictated Date: 07/27/2018 21:56:01 Supervisor Farm Equipment Maintenance Date: 07/28/2018 04:56:48 Dictated By: ANKIT FAIRBANKS DO MTDD
== END 2018-07-27 13:40 | disposition home or self-care (01) ==
LOC: ENDO 11:31
PROVIDERS: ATTEND Surgery
DX: K52.89 Other specified noninfective gastroenteritis and colitis (principal); K62.89 Other specified diseases of anus and rectum; K64.8 Other hemorrhoids; F31.9 Bipolar disorder, unspecified; I10 Essential (primary) hypertension; F90.9 Attention-deficit hyperactivity disorder, unspecified type; F17.210 Nicotine dependence, cigarettes, uncomplicated; G40.909 Epilepsy, unspecified, not intractable, without status epilepticus; F20.9 Schizophrenia, unspecified; Z79.899 Other long term (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

== ENCOUNTER 2018-07-27 18:33 | Emergency (ER) | payer MEDICAID ==
[~2018-07-27] VITALS: Ht 160 cm; Wt 95.3 kg
--- NOTE | 2018-07-27 19:08 | Diagnostic Imaging Report ---
INDICATION: Abdominal pain after colonoscopy today. TECHNIQUE: Supine and upright view of the abdomen at 7:21 PM CORRELATION STUDY: None FINDINGS: Lung bases appearing clear. Scattered gas-filled loops of bowel are present. A few air-fluid levels are noted. No evidence for obstruction. No findings to suggest significant free intraperitoneal air. IMPRESSION: 1. Unremarkable-appearing bowel gas pattern. No findings to suggest significant free intraperitoneal air. Dictated by: Dictated on workstation # [id number]
--- NOTE | 2018-07-27 19:26 | ED Abdominal Pain ---
General Chief Complaint: Abdominal/GI Problems Stated Complaint: POST COLONOSCOPY/STOMACH PAIN Nursing Triage Note: had colonoscopy today. had turkey sandwich at 1530. 1700 started having mid abd pain, very tender to touch but is soft. passing flatus. no nausea or vomiting Sepsis Screen: No Definite Risk Source of Information: Patient Exam Limitations: No Limitations History of Present Illness Date Seen by Provider: Jul 27, 2018 Time Seen by Provider: 18:35 Initial Comments This 28-year-old young man presents with abdominal pain after colonoscopy performed this morning by Dr. Merida. Patient has some developmental disabilities and presents with his care provider. Patient was able to eat lunch this afternoon. He has had no nausea or vomiting. He is passing flatus. Vital signs are within normal limits. Allergies and Home Medications Allergies Coded Allergies: Latex, Natural Rubber (Unverified Allergy, Unknown, 07/27/18) amoxicillin (Unverified Allergy, Unknown, 07/17/18) clavulanic acid (Unverified Allergy, Unknown, 07/17/18) prednisone (Unverified Allergy, Unknown, 07/17/18) Home Medications Aripiprazole 5 Mg Tablet, 5 MG PO DAILY, (Reported) Calcium Citrate 250 Mg Tablet, 250 MG PO BID, (Reported) Cyproheptadine HCl 4 Mg Tablet, 12 MG PO DAILY, (Reported) Lactobacillus Acidophilus 1 Each Capsule, 1 EACH PO DAILY, (Reported) Levetiracetam 500 Mg Tablet, 500 MG PO BID Prescribed by: ELROY GONZLAEZ on 07/21/171718 Melatonin 3 Mg Tablet.er, 3 MG PO HS, (Reported) Oxcarbazepine 600 Mg Tablet, 600 MG PO TID Prescribed by: ELROY GONZALEZ on 07/21/171718 Sucralfate 1 Gm Tablet, 1 GM PO QID, (Reported) Patient Home Medication List Home Medication List Reviewed: Yes Review of Systems Review of Systems Constitutional: no symptoms reported EENTM: No Symptoms Reported Respiratory: No Symptoms Reported Cardiovascular: No Symptoms Reported Gastrointestinal: See HPI Genitourinary: No Symptoms Reported Musculoskeletal: no symptoms reported Skin: no symptoms reported Psychiatric/Neurological: See HPI Endocrine: No Symptoms Reported Hematologic/Lymphatic: No Symptoms Reported Past Bkkpwzl-Aqcfgh-Abmrtq Hx Past Med/Social Hx: Reviewed and Corrections made Patient Social History Alcohol Use: Denies Use Recreational Drug Use: No Smoking Status: Current Everyday Smoker Type Used: Cigars 2nd Hand Smoke Exposure: Yes Recent Foreign Travel: No Contact w/Someone Who Travel: No Recent Infectious Disease Expo: No Recent Hopitalizations: No Physical Abuse: No Sexual Abuse: No Mistreated: No Fear: No Immunizations Up To Date Tetanus Booster (TDap): Unknown Seasonal Allergies Seasonal Allergies: No Past Medical History Surgeries: Yes Abdominal (Colonoscopy 2018), Ear Surgery Respiratory: No Cardiac: No (UNKNOWN) Neurological: Yes Seizure Disorder Reproductive Disorders: No Genitourinary: Yes (urinary incontinence) UTI-Chronic Gastrointestinal: Yes Colitis, Hemorrhoids (internal) Musculoskeletal: No Endocrine: No HEENT: No Cancer: No Psychosocial: Yes (MR) Schizophrenia Integumentary: No Blood Disorders: No Family Medical History Reviewed Nursing Family Hx No Pertinent Family Hx Physical Exam Vital Signs Vital Signs - First Documented 07/27/18 18:42 Temp 97.4 Pulse 81 Resp 18 B/P (MAP) 139/87 (104) Pulse Ox 97 Capillary Refill : Less Than 3 Seconds Height/Weight/BMI Height: 5'3.00" Weight: 210lbs. 0.0oz. 95.720994iw; 37.2 BMI Method:Stated General Appearance: WD/WN, no apparent distress HEENT: PERRL/EOMI, normal ENT inspection Neck: normal inspection Respiratory: lungs clear, normal breath sounds, no respiratory distress, no accessory muscle use Cardiovascular: regular rate, rhythm, no edema, no murmur Gastrointestinal: normal bowel sounds, soft, distended (minimal), tenderness ( generalized. 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 Merida. He requested an upright abdominal x-ray to evaluate for free air. X-ray was obtained and was unremarkable. Patient's vital signs were normal. He was dismissed home with his care provider with return precautions. See discharge instructions. Diagnostic Imaging Diagonstic Imaging: Xray Plain Films/CT/US/NM/MRI: abdomen, pelvis Comments Abdomen and pelvis x-ray viewed by me and report reviewed. See report below: NAME: MEGAN TIDWELL [facility] REC#: [id number] PT STATUS: REG ER : 1990 PHYSICIAN: ELROY CHAMORRO MD ADMIT DATE: 07/27/18/ER Draft Date of Exam:07/27/18 ABDOMEN, FLAT UPRIGHT/DECUB INDICATION: Abdominal pain after colonoscopy today. TECHNIQUE: Supine and upright view of the abdomen at 7:21 PM CORRELATION STUDY: None FINDINGS: Lung bases appearing clear. Scattered gas-filled loops of bowel are present. A few air-fluid levels are noted. No evidence for obstruction. No findings to suggest significant free intraperitoneal air. IMPRESSION: 1. Unremarkable-appearing bowel gas pattern. No findings to suggest significant free intraperitoneal air. Dictated on workstation # [id number] Dict: 07/27/181904 Trans: 07/27/181907 [facility] [id number] Interpreted by: JEANNIE HANSON DO Departure Impression Primary Impression: Postoperative pain Additional Impression: Generalized abdominal pain Disposition: 01 HOME, SELF-CARE Condition: Stable Departure-Patient Inst. Decision time for Depature: 19:20 Referrals: [facility]/ (PCP) Primary Care Physician SEEMA GILBERT (Family) Primary Care Physician Patient Instructions: Acute Abdomen (Belly Pain), Adult (DC) Add. Discharge Instructions: For pain you may take Tylenol (acetaminophen) up to 1000 mg every 6 hours as needed. Stay with a clear liquid diet this evening. Tomorrow start with a clear liquid breakfast. If tolerated well, you may advance diet as tolerated. If pain intensifies or you develop fevers over 100, vomiting, or other new symptoms, please return to the emergency room. Call Dr. Merida's office tomorrow with any questions or concerns. All discharge instructions reviewed with patient and/or family. Voiced understanding. Copy Copies To 1: MEGAN MERIDA JOSHUA T MD Jul 27, 2018 19:26
[2018-07-27 19:41] VITALS: BP 131/92
== END 2018-07-27 19:40 | disposition home or self-care (01) ==
LOC: EDUNIT# 18:33 → ER 18:34
DX: G89.29 Other chronic pain (principal); R10.84 Generalized abdominal pain; G40.909 Epilepsy, unspecified, not intractable, without status epilepticus; F20.9 Schizophrenia, unspecified; F17.210 Nicotine dependence, cigarettes, uncomplicated; Z91.040 Latex allergy status; Z87.440 Personal history of urinary (tract) infections; Z88.0 Allergy status to penicillin; Z88.8 Allergy status to other drugs, medicaments and biological substances; Z98.890 Other specified postprocedural states
CPT/HCPCS: 74019

== ENCOUNTER → 2018-08-03 | Outpatient (CLI) | payer MEDICAID ==
[~2018-08-03] MED LIST changes: +CEFD300C3 PO; +DOXY100C42 PO
--- NOTE | 2018-08-03 13:51 | Diagnostic Imaging Report ---
PROCEDURE: US Gallbladder. TECHNIQUE: Multiple real-time grayscale images were obtained over the right upper quadrant in various projections. INDICATION: Right upper quadrant pain. COMPARISON: CT abdomen and pelvis from 07/17/2018. FINDINGS: The liver is normal in size and echogenicity. There is no focal hepatic mass. The main portal vein is patent with antegrade flow. The gallbladder is distended without gallstones, wall thickening, or pericholecystic fluid. The common bile duct is obscured by overlying bowel gas. Visualization of the pancreas is obscured by overlying bowel gas. The right kidney is normal in size. No hydronephrosis, shadowing calculi, or suspicious mass lesion. No right upper quadrant ascites. IMPRESSION: 1. Normal gallbladder. 2. Common bile duct is obscured by bowel gas, but there is no intrahepatic biliary duct dilatation. Dictated by: Dictated on workstation # [id number]
== END ==
LOC: RAD 07:57
PROVIDERS: ATTEND Surgery
DX: R10.11 Right upper quadrant pain (principal)
CPT/HCPCS: 76705

== ENCOUNTER → 2018-08-06 | Outpatient (CLI) | payer MEDICAID ==
[~2018-08-06] MED LIST changes: +CATHETER FLUSH 10 ML SYR IV PRN; -CEFD300C3 PO; -DOXY100C42 PO
--- NOTE | 2018-08-06 13:20 | Diagnostic Imaging Report ---
INDICATION: Abdominal pain. TECHNIQUE: Patient was administered 5.2 mCi technetium-99m Choletec intravenously, and imaging over the abdomen was performed. At 1-hour, patient ingested 8 ounces of Ensure, and the gallbladder ejection fraction was calculated. FINDINGS: There is homogeneous uptake of activity by the liver with prompt excretion of activity into the gallbladder and common duct. Normal passage of activity into the small bowel is seen. Gallbladder ejection fraction is normal at 49%. Normal values are 33% or greater. IMPRESSION: Normal HIDA scan and gallbladder ejection fraction. Dictated by: Dictated on workstation # [id number]
== END ==
LOC: CARD 09:54
PROVIDERS: ATTEND Surgery
DX: R10.9 Unspecified abdominal pain (principal)
CPT/HCPCS: 78227

== ENCOUNTER 2018-08-20 18:22 | Emergency (ER) | payer MEDICAID ==
[~2018-08-20] VITALS: Ht 160 cm; Wt 95.3 kg
[~2018-08-20 18:22] MED LIST changes: -CATHETER FLUSH 10 ML SYR IV PRN
--- OUTSIDE RECORDS SUMMARY | 2018-08-20 18:27 | XMS REPORT ---
Author Author SEEMA GILBERT Organization [facility] Address [address] [place] [address] Care Team Providers Care Land Leasing Information Clerk Name Role Phone SEEMA GILBERT Unavailable PROBLEMS Type Condition ICD9-CM Code GQP99-ZO Code Onset Dates Condition Status SNOMED Code Problem Schizophrenia, unspecified type F20.9 Active 19962986 Problem ADHD (attention deficit hyperactivity disorder), combined type F90.2 Active 22842878 Problem ANA LILIA (generalized anxiety disorder) F41.1 Active 25258382 Problem Adjustment disorder with disturbance of emotion F43.29 Active 25597578 Problem Developmental delay, gross motor F82 Active 987144940 Problem 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 Active 29864436 Problem Adjustment disorder, unspecified type F43.20 Active 79178735 Problem Pulmonary nodule R91.1 Active 524328012 Problem Gastroesophageal reflux disease with esophagitis K21.0 Active 248606544 Problem Other schizophrenia F20.89 Active 10952470 Problem Intermittent explosive disorder F63.81 Active 39854393 Problem 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 Active 54366398 Problem Neuropathy G62.9 Active 163313413 ALLERGIES No Information ENCOUNTERS Encounter Location Date Diagnosis [facility] [id number] [place] [address] 70244- 8060 Sep, [facility] [id number] [place] [address] 10001- 9503 Aug, [facility] [id number] [place] [address] 54609- 4478 Jul, [facility] [id number] [place] [address] 79097 -2552 Jul, Exposure to blood-borne pathogen Z77.21 [facility] [address] [id number] Jul, Dental examination Z01.20 [place] [id number] [place] [address] 27272- 4393 Jul, Schizophrenia, unspecified type F20.9 and Intermittent explosive disorder F63.81 [place] [id number] [place] [address] 82568- 4640 Jul, Pulmonary nodule R91.1 [place] [address] 32867- 0853 Jul, Gastroesophageal reflux disease with esophagitis K21.0 [place] [id number] [place] [address] 63232- 6244 Jul, Schizophrenia, unspecified type F20.9 ; ANA LILIA (generalized anxiety disorder) F41.1 ; Intermittent explosive disorder F63.81 ; ADHD ( attention deficit hyperactivity disorder), combined type F90.2 and 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 [place] [address] 15494- 3106 Jun, Excessive flatus R14.3 [place] [id number] [place] [address] 40599- 9997 17 Jun, 2018 Schizophrenia, unspecified type F20.9 and Intermittent explosive disorder F63.81 [facility] [place] [id number] [place] [address] 68883 -2880 Jun, Excessive gas R14.3 [facility] [id number] [place] [address] [id number] May, Dental examination Z01.20 [place] [id number] [place] [address] 50223- 9160 May, Cramp of extremity R25.2 and Neuropathy G62.9 [place] [id number] [place] [address] 93030- 5913 May, Schizophrenia, unspecified type F20.9 and Intermittent explosive disorder F63.81 [facility] [id number] [place] [address] 57990 -2027 Apr, Viral URI J06.9 and Epigastric abdominal pain R10.13 [facility] [id number] [place] [address] 83554- 4719 Apr, Schizophrenia, unspecified type F20.9 ; ANA LILIA (generalized anxiety disorder) F41.1 ; Intermittent explosive disorder F63.81 and ADHD ( attention deficit hyperactivity disorder), combined type F90.2 [facility] [id number] [place] [address] 40637- 6323 Apr, Schizophrenia, unspecified type F20.9 and Intermittent explosive disorder F63.81 [facility] [id number] [place] [address] [id number] Mar, Dental examination Z01.20 [place] [id number] [place] [address] 85022- 4797 Mar, Schizophrenia, unspecified type F20.9 and Intermittent explosive disorder F63.81 [facility] [id number] [place] [address] 59508 -3361 Mar, Acute nonintractable headache, unspecified headache type R51 [facility] [id number] [place] [address] 49231- 8017 February, Schizophrenia, unspecified type F20.9 ; ANA LILIA (generalized anxiety disorder) F41.1 ; Intermittent explosive disorder F63.81 and ADHD ( attention deficit hyperactivity disorder), combined type F90.2 [facility] [address] [place] [address] 83499- 9916 February, Schizophrenia, unspecified type F20.9 and Intermittent explosive disorder F63.81 [facility] [id number] [place] [address] 99201- 4189 February, [facility] [id number] [place] [address] 42245- 3333 February, Schizophrenia, unspecified type F20.9 [facility] [address] [address] Jan, Schizophrenia, unspecified type F20.9 ; ANA LILIA (generalized anxiety disorder) F41.1 ; Intermittent explosive disorder F63.81 and ADHD ( attention deficit hyperactivity disorder), combined type F90.2 [facility] [address] [address] Jan, Schizophrenia, unspecified type F20.9 and Intermittent explosive disorder F63.81 [facility] [id number] [place] [address] 01962- 8230 Jan, Schizophrenia, unspecified type F20.9 ; ANA LILIA (generalized anxiety disorder) F41.1 ; Intermittent explosive disorder F63.81 and ADHD ( attention deficit hyperactivity disorder), combined type F90.2 [facility] [address] [address] Jan, Schizophrenia, unspecified type F20.9 ; ANA LILIA (generalized anxiety disorder) F41.1 ; Intermittent explosive disorder F63.81 and ADHD ( attention deficit hyperactivity disorder), combined type F90.2 [facility] [id number] [place] [address] 17176- 5841 Dec, [facility] [address] [place] [address] 31054- 9631 Dec, Schizophrenia, unspecified type F20.9 ; ANA LILIA (generalized anxiety disorder) F41.1 ; Intermittent explosive disorder F63.81 and ADHD ( attention deficit hyperactivity disorder), combined type F90.2 [facility] [address] [address] Dec, [facility] [address] [place] [address] [id number] Dec, Encounter for dental examination Z01.20 [facility] [address] [address] Dec, Schizophrenia, unspecified type F20.9 ; ANA LILIA (generalized anxiety disorder) F41.1 ; Intermittent explosive disorder F63.81 and ADHD ( attention deficit hyperactivity disorder), combined type F90.2 [facility] [id number] [place] [address] 45076- 2824 Dec, Schizophrenia, unspecified type F20.9 ; ANA LILIA (generalized anxiety disorder) F41.1 ; Intermittent explosive disorder F63.81 and ADHD ( attention deficit hyperactivity disorder), combined type F90.2 [facility] [id number] [place] [address] 32495- 0996 Dec, Seizures R56.9 ; Intermittent explosive disorder F63.81 and Developmental delay, gross motor F82 [facility] [id number] [place] [address] 92664- 6054 Nov, ANA LILIA (generalized anxiety disorder) F41.1 ; Intermittent explosive disorder F63.81 ; ADHD (attention deficit hyperactivity disorder), combined type F90.2 ; [facility] [place] Z79.899 ; Adjustment disorder, unspecified type F43.20 and Other schizophrenia F20.89 [facility] [address] [place] [address] 82815- 3383 Nov, Schizophrenia, unspecified type F20.9 [facility] [address] [place] [address] 19481- 7748 Oct, ANA LILIA (generalized anxiety disorder) F41.1 ; Intermittent explosive disorder F63.81 ; ADHD (attention deficit hyperactivity disorder), combined type F90.2 ; Other [facility] (current) drug therapy Z79.899 and Adjustment disorder, unspecified type F43.20 [facility] [address] [address] Oct, Schizophrenia, unspecified type F20.9 ; ANA LILIA (generalized anxiety disorder) F41.1 ; Intermittent explosive disorder F63.81 and ADHD ( attention deficit hyperactivity disorder), combined type F90.2 [facility] [address] [id number] Oct, Dental examination Z01.20 [facility] [address] [place] [address] 71261- 0334 Oct, [facility] [id number] [place] [address] 88531- 0764 Oct, Other [facility] (current) drug therapy Z79.899 [facility] [id number] [place] [address] 70778- 6055 Sep, ANA LILIA (generalized anxiety disorder) F41.1 ; Intermittent explosive disorder F63.81 ; ADHD (attention deficit hyperactivity disorder), combined type F90.2 ; [facility] [place] drug therapy Z79.899 and Adjustment disorder, unspecified type F43.20 [facility] [id number] [place] [address] 46481- 3875 Sep, Schizophrenia, unspecified type F20.9 ; ANA LILIA (generalized anxiety disorder) F41.1 ; Intermittent explosive disorder F63.81 ; ADHD ( attention deficit hyperactivity disorder), combined type F90.2 and Other [place] drug therapy Z79.899 [facility] [id number] [place] [address] 29161- 5170 18 Sep, 2017 Gastroenteritis K52.9 [facility] [id number] [place] [address] [id number] 13 Sep, 2017 Encounter for dental examination Z01.20 [facility] [id number] [place] [address] 47837- 4796 Aug, Annual physical exam Z00.00 and Seizures R56.9 [facility] [id number] [place] [address] 19361- 3738 22 Aug, 2017 Adjustment disorder with disturbance of emotion F43.29 ; Developmental delay disorder R62.50 ; Developmental delay, gross motor F82 and 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 [facility] [address] [place] [address] 50189 -9544 15 Aug, 2017 Moderate left ankle sprain, initial encounter S93.402A [facility] [id number] [address] Aug, 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
--- OUTSIDE RECORDS SUMMARY | 2018-08-20 18:27 | XMS REPORT ---
Author Author SEEMA GILBERT Organization [facility] Address [address] [place] [address] Care Team Providers Care [employer] Process Operator Name Role Phone SEEMA GILBERT Unavailable PROBLEMS Type Condition ICD9-CM Code [id number] Code Onset Dates Condition Status SNOMED Code Problem Schizophrenia, unspecified type F20.9 Active 63449580 Problem ADHD (attention deficit hyperactivity disorder), combined type F90.2 Active 95803428 Problem ANA LILIA (generalized anxiety disorder) F41.1 Active 81946301 Problem Adjustment disorder with disturbance of emotion F43.29 Active 65724034 Problem Developmental delay, gross motor F82 Active 846293774 Problem 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 Active 33053733 Problem Adjustment disorder, unspecified type F43.20 Active 50271222 Problem Pulmonary nodule R91.1 Active 895286711 Problem Gastroesophageal reflux disease with esophagitis K21.0 Active 928600548 Problem Other schizophrenia F20.89 Active 65438307 Problem Intermittent explosive disorder F63.81 Active 56348023 Problem 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 Active 44243211 Problem Neuropathy G62.9 Active 029236802 ALLERGIES No Information ENCOUNTERS Encounter Location Date Diagnosis [facility] [address] [place] [address] Sep, [facility] [address] [place] [address] 76634- 9225 Aug, [facility] [id number] [place] [address] 02154- 5604 Aug, [facility] [address] [place] [address] 41598- 7157 Aug, [facility] [address] [place] [address] 54914- 0076 Aug, [facility] [id number] [place] [address] 78024- 2678 Jul, [facility] [address] [address] Jul, Exposure to blood-borne pathogen Z77.21 [facility] [address] [id number] Jul, Dental examination Z01.20 [facility] [address] [address] Jul, Schizophrenia, unspecified type F20.9 and Intermittent explosive disorder F63.81 [place] [address] [address] Jul, Pulmonary nodule R91.1 [place] [address] [address] Jul, Gastroesophageal reflux disease with esophagitis K21.0 [facility] [id number] [place] [address] 40838- 5691 Jul, Schizophrenia, unspecified type F20.9 ; ANA LILIA (generalized anxiety disorder) F41.1 ; Intermittent explosive disorder F63.81 ; ADHD ( attention deficit hyperactivity disorder), combined type F90.2 and 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 [place] [id number] [place] [address]- 1985 Jun, Excessive flatus R14.3 [facility] [id number] [place] [address] 92543- [address]127 17 Jun, 2018 Schizophrenia, unspecified type F20.9 and Intermittent explosive disorder F63.81 [facility] [address] [address] 14 Jun, 2018 Excessive gas R14.3 [facility] [id number] [place] [id number] May, Dental examination Z01.20 [place] [address] [place] [address] May, Cramp of extremity R25.2 and Neuropathy G62.9 [place] [address] [address] May, Schizophrenia, unspecified type F20.9 and Intermittent explosive disorder F63.81 [facility] [address] [address] Apr, Viral URI J06.9 and Epigastric abdominal pain R10.13 [place] [address] [address] Apr, Schizophrenia, unspecified type F20.9 ; ANA LILIA (generalized anxiety disorder) F41.1 ; Intermittent explosive disorder F63.81 and ADHD ( attention deficit hyperactivity disorder), combined type F90.2 [place] [address] [address] Apr, Schizophrenia, unspecified type F20.9 and Intermittent explosive disorder F63.81 [facility] [address] [id number] Mar, Dental examination Z01.20 [place] [address] [address] Mar, Schizophrenia, unspecified type F20.9 and Intermittent explosive disorder F63.81 [facility] [id number] [place] [address] Mar, Acute nonintractable headache, unspecified headache type R51 [place] [id number] [place] [address] 15676- 9724 February, Schizophrenia, unspecified type F20.9 ; ANA LILIA (generalized anxiety disorder) F41.1 ; Intermittent explosive disorder F63.81 and ADHD ( attention deficit hyperactivity disorder), combined type F90.2 [place] [id number] [place] [address] 53426- 2460 February, Schizophrenia, unspecified type F20.9 and Intermittent explosive disorder F63.81 [facility] [address] [address] February, [facility] [id number] [address] February, Schizophrenia, unspecified type F20.9 [place] [address] [place] [address] 82603- 9323 Jan, Schizophrenia, unspecified type F20.9 ; ANA LILIA (generalized anxiety disorder) F41.1 ; Intermittent explosive disorder F63.81 and ADHD ( attention deficit hyperactivity disorder), combined type F90.2 [place] [id number] [place] [address] 58014- 4626 Jan, Schizophrenia, unspecified type F20.9 and Intermittent explosive disorder F63.81 [place] [address] [address] Jan, Schizophrenia, unspecified type F20.9 ; ANA LILIA (generalized anxiety disorder) F41.1 ; Intermittent explosive disorder F63.81 and ADHD ( attention deficit hyperactivity disorder), combined type F90.2 [place] [address] [place] [address]12- [address]30 Jan, Schizophrenia, unspecified type F20.9 ; ANA LILIA (generalized anxiety disorder) F41.1 ; Intermittent explosive disorder F63.81 and ADHD ( attention deficit hyperactivity disorder), combined type F90.2 [place] [address] [address] Dec, [place] [address] [address] Dec, Schizophrenia, unspecified type F20.9 ; ANA LILIA (generalized anxiety disorder) F41.1 ; Intermittent explosive disorder F63.81 and ADHD ( attention deficit hyperactivity disorder), combined type F90.2 [place] [address] [place] [address] 60074- 7430 Dec, [facility] [address] [facility] [id number] [id number] Dec, Encounter for dental examination Z01.20 [facility] [address] [address] Dec, Schizophrenia, unspecified type F20.9 ; ANA LILIA (generalized anxiety disorder) F41.1 ; Intermittent explosive disorder F63.81 and ADHD ( attention deficit hyperactivity disorder), combined type F90.2 [facility] [address] [address] Dec, Schizophrenia, unspecified type F20.9 ; ANA LILIA (generalized anxiety disorder) F41.1 ; Intermittent explosive disorder F63.81 and ADHD ( attention deficit hyperactivity disorder), combined type F90.2 [facility] [address] [address] Dec, Seizures R56.9 ; Intermittent explosive disorder F63.81 and Developmental delay, gross motor F82 [facility] [address] [address] Nov, ANA LILIA (generalized anxiety disorder) F41.1 ; Intermittent explosive disorder F63.81 ; ADHD (attention deficit hyperactivity disorder), combined type F90.2 ; 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 ; Adjustment disorder, unspecified type F43.20 and Other schizophrenia F20.89 [facility] [address] [address] Nov, Schizophrenia, unspecified type F20.9 [facility] [address] [place] [address] Oct, ANA LILIA (generalized anxiety disorder) F41.1 ; Intermittent explosive disorder F63.81 ; ADHD (attention deficit hyperactivity disorder), combined type F90.2 ; Other fci (current) drug therapy Z79.899 and Adjustment disorder, unspecified type F43.20 [facility] [address] [place] [address]30- 5860 Oct, Schizophrenia, unspecified type F20.9 ; ANA LILIA (generalized anxiety disorder) F41.1 ; Intermittent explosive disorder F63.81 and ADHD ( attention deficit hyperactivity disorder), combined type F90.2 [facility] [address] [place] [id number] Oct, Dental examination Z01.20 [facility] [address] [address] Oct, [facility] [id number] [place] [address] 49182- 9496 Oct, Other fci (current) drug therapy Z79.899 [facility] [id number] [place] [address] 37549- 2250 Sep, ANA LILIA (generalized anxiety disorder) F41.1 ; Intermittent explosive disorder F63.81 ; ADHD (attention deficit hyperactivity disorder), combined type F90.2 ; Other fci (current) drug therapy Z79.899 and Adjustment disorder, unspecified type F43.20 [facility] [id number] [place] [address] 53175- 5422 Sep, Schizophrenia, unspecified type F20.9 ; ANA LILIA (generalized anxiety disorder) F41.1 ; Intermittent explosive disorder F63.81 ; ADHD ( attention deficit hyperactivity disorder), combined type F90.2 and 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 [facility] [id number] [place] [address] 32223- 0238 Sep, Gastroenteritis K52.9 [facility] [address] [place] [address] [id number] Sep, Encounter for dental examination Z01.20 [facility] [id number] [place] [address] 03980- 5724 Aug, Annual physical exam Z00.00 and Seizures R56.9 [facility] [id number] [place] [address] 41233- 1820 Aug, Adjustment disorder with disturbance of emotion F43.29 ; Developmental delay disorder R62.50 ; Developmental delay, gross motor F82 and 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 [facility] [id number] [address] Aug, Moderate left ankle sprain, initial encounter S93.402A [facility] [id number] [address] Aug, 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
--- OUTSIDE RECORDS SUMMARY | 2018-08-20 18:27 | XMS REPORT ---
Author Author YOMI COBIAN [facility] Address Unknown Care Team Providers Care Freight Dispatcher Name Role Phone YOMI COBIAN Unavailable PROBLEMS Type Condition ICD9-CM Code VIP85-KS Code Onset Dates Condition Status SNOMED Code Problem Schizophrenia, unspecified type F20.9 Active 88305161 Problem ADHD (attention deficit hyperactivity disorder), combined type F90.2 Active 89685232 Problem ANA LILIA (generalized anxiety disorder) F41.1 Active 92030664 Problem Adjustment disorder with disturbance of emotion F43.29 Active 37831732 Problem Developmental delay, gross motor F82 Active 783298381 Problem 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 Active 99292251 Problem Adjustment disorder, unspecified type F43.20 Active 35445398 Problem Pulmonary nodule R91.1 Active 145677881 Problem Gastroesophageal reflux disease with esophagitis K21.0 Active 285552269 Problem Other schizophrenia F20.89 Active 43241634 Problem Intermittent explosive disorder F63.81 Active 04016929 Problem 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 Active 47239246 Problem Neuropathy G62.9 Active [id number] ALLERGIES Substance Reaction Event Type Date Status PredniSONE Unknown Drug Allergy Jul, Active Augmentin Unknown Drug Allergy Jul, Active Latex Unknown Non Drug Allergy Jul, Active Natural Rubber Unknown Non Drug Allergy Jul, Active ENCOUNTERS Encounter Location Date Diagnosis [facility] [id number], [place] [address] Sep, [facility] [id number] [place] [address] Aug, [facility] [address], [place] [address] Jul, [facility] [id number], [place] [address] Jul, Exposure to blood-borne pathogen Z77.21 [facility] [address] [place] [id number] Jul, Dental examination Z01.20 [facility] [id number] [place] [address] Jul, Schizophrenia, unspecified type F20.9 and Intermittent explosive disorder F63.81 [facility] [address] [address] Jul, Pulmonary nodule R91.1 [facility] [address] [address] Jul, Gastroesophageal reflux disease with esophagitis K21.0 [facility] [address] [address] Jul, Schizophrenia, unspecified type F20.9 ; ANA LILIA (generalized anxiety disorder) F41.1 ; Intermittent explosive disorder F63.81 ; ADHD ( attention deficit hyperactivity disorder), combined type F90.2 and 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 [facility] [address] [address] 17 Jun, 2018 Excessive flatus R14.3 [facility] [address] [address] 17 Jun, 2018 Schizophrenia, unspecified type F20.9 and Intermittent explosive disorder F63.81 [facility] [id number] [place] [address] 14 Jun, 2018 Excessive gas R14.3 [facility] [id number] [place] [id number] May, Dental examination Z01.20 [facility] [id number] [place] [address] May, Cramp of extremity R25.2 and Neuropathy G62.9 [facility] [address] [address] May, Schizophrenia, unspecified type F20.9 and Intermittent explosive disorder F63.81 [facility] [id number] [place] [address] Apr, Viral URI J06.9 and Epigastric abdominal pain R10.13 [facility] [id number] [place] [address] Apr, Schizophrenia, unspecified type F20.9 ; ANA LILIA (generalized anxiety disorder) F41.1 ; Intermittent explosive disorder F63.81 and ADHD ( attention deficit hyperactivity disorder), combined type F90.2 [facility] [id number] [place] [address] Apr, Schizophrenia, unspecified type F20.9 and Intermittent explosive disorder F63.81 [facility] [address] [id number] Mar, Dental examination Z01.20 [facility] [address] [address] Mar, Schizophrenia, unspecified type F20.9 and Intermittent explosive disorder F63.81 [facility] [id number] [place] [address] Mar, Acute nonintractable headache, unspecified headache type R51 [facility] [id number] [place] [address] February, Schizophrenia, unspecified type F20.9 ; ANA LILIA (generalized anxiety disorder) F41.1 ; Intermittent explosive disorder F63.81 and ADHD ( attention deficit hyperactivity disorder), combined type F90.2 [facility] [id number] [place] [address] February, Schizophrenia, unspecified type F20.9 and Intermittent explosive disorder F63.81 [facility] [id number] [place] [address] February, [facility] [address] [address] February, Schizophrenia, unspecified type F20.9 [facility] [address], [place] [address] Jan, Schizophrenia, unspecified type F20.9 ; ANA LILIA (generalized anxiety disorder) F41.1 ; Intermittent explosive disorder F63.81 and ADHD ( attention deficit hyperactivity disorder), combined type F90.2 [facility] [id number] [place] [address] Jan, Schizophrenia, unspecified type F20.9 and Intermittent explosive disorder F63.81 [facility] [id number] [place] [address] Jan, Schizophrenia, unspecified type F20.9 ; ANA LILIA (generalized anxiety disorder) F41.1 ; Intermittent explosive disorder F63.81 and ADHD ( attention deficit hyperactivity disorder), combined type F90.2 [facility] [address] [place] [address] Jan, Schizophrenia, unspecified type F20.9 ; ANA LILIA (generalized anxiety disorder) F41.1 ; Intermittent explosive disorder F63.81 and ADHD ( attention deficit hyperactivity disorder), combined type F90.2 [facility] [address] [place] [address] 240[address] Dec, [facility] [address] [place] [address] Dec, Schizophrenia, unspecified type F20.9 ; ANA LILIA (generalized anxiety disorder) F41.1 ; Intermittent explosive disorder F63.81 and ADHD ( attention deficit hyperactivity disorder), combined type F90.2 [facility] [id number] [place] [address] Dec, [facility] [address] [place] [id number] Dec, Encounter for dental examination Z01.20 [facility] [id number] [place] [address] Dec, Schizophrenia, unspecified type F20.9 ; ANA LILIA (generalized anxiety disorder) F41.1 ; Intermittent explosive disorder F63.81 and ADHD ( attention deficit hyperactivity disorder), combined type F90.2 [facility] [address], [place] [address] Dec, Schizophrenia, unspecified type F20.9 ; ANA LILIA (generalized anxiety disorder) F41.1 ; Intermittent explosive disorder F63.81 and ADHD ( attention deficit hyperactivity disorder), combined type F90.2 [facility] [address] [place] [address] 97[address] Dec, Seizures R56.9 ; Intermittent explosive disorder F63.81 and Developmental delay, gross motor F82 [facility] [address] [place] [address] Nov, ANA LILIA (generalized anxiety disorder) F41.1 ; Intermittent explosive disorder F63.81 ; ADHD (attention deficit hyperactivity disorder), combined type F90.2 ; Other retirement (current) drug therapy Z79.899 ; Adjustment disorder, unspecified type F43.20 and Other schizophrenia F20.89 [facility] [address], [place] [address] Nov, Schizophrenia, unspecified type F20.9 [facility] [address], [place] [address] Oct, ANA LILIA (generalized anxiety disorder) F41.1 ; Intermittent explosive disorder F63.81 ; ADHD (attention deficit hyperactivity disorder), combined type F90.2 ; Other retirement (current) drug therapy Z79.899 and Adjustment disorder, unspecified type F43.20 [facility] [address] [place] [address] Oct, Schizophrenia, unspecified type F20.9 ; ANA LILIA (generalized anxiety disorder) F41.1 ; Intermittent explosive disorder F63.81 and ADHD ( attention deficit hyperactivity disorder), combined type F90.2 [facility] [address] [place] [phone] Oct, Dental examination Z01.20 [facility] [id number] [place] [address] 30714[address] Oct, [facility] [id number] [place] [address] 8[address] Oct, 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 [facility] [id number] [place] [address] 60639[address] Sep, ANA LILIA (generalized anxiety disorder) F41.1 ; Intermittent explosive disorder F63.81 ; ADHD (attention deficit hyperactivity disorder), combined type F90.2 ; 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 and Adjustment disorder, unspecified type F43.20 [facility] [id number] [place] [address] Sep, Schizophrenia, unspecified type F20.9 ; ANA LILIA (generalized anxiety disorder) F41.1 ; Intermittent explosive disorder F63.81 ; ADHD ( attention deficit hyperactivity disorder), combined type F90.2 and 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 [facility] [id number] [place] [address] 617[address]- [address] 18 Sep, 2017 Gastroenteritis K52.9 [facility] [address] [place] [phone] 13 Sep, 2017 Encounter for dental examination Z01.20 [facility] [id number] [place] [address] 28476[address] 5[address] Aug, Annual physical exam Z00.00 and Seizures R56.9 [facility] [id number] [place] [address] Aug, Adjustment disorder with disturbance of emotion F43.29 ; Developmental delay disorder R62.50 ; Developmental delay, gross motor F82 and 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 [address] [facility] [id number] [address] Aug, Fatigue, unspecified type R53.83 IMMUNIZATIONS No Known Immunizations SOCIAL HISTORY Never Assessed REASON FOR VISIT Restorative PLAN OF CARE VITAL SIGNS MEDICATIONS Medication Instructions Dosage Frequency Start Date End Date Duration Status Acetaminophen 500 MG Orally every 6 hrs 2 capsules as needed 6h Active Loxapine Succinate 10 MG TAKE 1 CAPSULE BY MOUTH TWICE DAILY Active Thera M Plus - Active Chlorhexidine - Active Oxcarbazepine 600 MG TAKE 1 TABLET BY MOUTH THREE TIMES DAILY 31 Active Acidophilus Probiotic Formula - Orally 2 times a day 1 capsule 12h Jun, Aug, 30 days Active BusPIRone HCl 10 MG TAKE 1 TABLET BY MOUTH TWICE DAILY Active Aripiprazole 30 MG Orally Once a day every morning 1 tablet Active Divalproex Sodium 500 mg Orally 2 times a day 1 tablet 12h Active Siltussin SA 100 MG/5ML Orally every 4 hrs 10 ml as needed 4h Active Cyproheptadine HCl 4 MG Orally at bedtime 3 tablets Active Clindamycin-Benzoyl Per-Cleans 1-5 % Active Melatonin 3 MG Orally Once a day 1 tablet at bedtime as needed with food 24h 30 Active Olopatadine HCl 0.1 % Ophthalmic TID 1 drop into affected eye 8h Active Desmopressin Acetate 0.2 MG Orally Once a day 3 tablet 24h Active Benztropine Mesylate 1 MG Orally daily 1 tablet in morning and two tablets at night 24h Active Carafate 1 GM Orally Twice a day 1 tablet 12h Jun, Aug, 30 day(s) Active Calcium 500 MG Orally Twice a day 1 tablet with meals 12h 30 day(s) Active RESULTS No Results PROCEDURES Procedure Date Ordered Result Body Site [facility] SURFACE PRIMARY/PERM Jul 29, 2018 [facility]FACE PRIMARY/PERM Jul 29, 2018 Billing Notes on claim Jul 29, 2018 INSTRUCTIONS MEDICATIONS ADMINISTERED No Known Medications MEDICAL (GENERAL) HISTORY Type Description Date Medical History Schizophrenia Medical History Intermitten Explosive Disorder Medical History Generalized anxiety disorder Medical History Moderate intellectual disability Medical History Bipolar Medical History asthma exercise induced Medical History Seizure disorder Surgical History Tubes in ears
--- OUTSIDE RECORDS SUMMARY | 2018-08-20 18:28 | XMS REPORT ---
Author Author DEMETRIUS FORDE [facility] Address [address] [place] [address] Care Team Providers Care Wood Repatcher Name Role Phone DEMETRIUS FORDE Unavailable PROBLEMS Type Condition ICD9-CM Code [id number] Code Onset Dates Condition Status SNOMED Code Problem Schizophrenia, unspecified type F20.9 Active 87439397 Problem ADHD (attention deficit hyperactivity disorder), combined type F90.2 Active 91194225 Problem ANA LILIA (generalized anxiety disorder) F41.1 Active 34408543 Problem Adjustment disorder with disturbance of emotion F43.29 Active 94859110 Problem Developmental delay, gross motor F82 Active 557757360 Problem 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 Active 23926471 Problem Adjustment disorder, unspecified type F43.20 Active 84825114 Problem Pulmonary nodule R91.1 Active 317510873 Problem Gastroesophageal reflux disease with esophagitis K21.0 Active 739738907 Problem Other schizophrenia F20.89 Active 01843347 Problem Intermittent explosive disorder F63.81 Active 08153255 Problem 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 Active 38867174 Problem Neuropathy G62.9 Active 900611085 ALLERGIES No Information ENCOUNTERS Encounter Location Date Diagnosis [facility] [id number] [place] [address] [phone]- [phone] Sep, [facility] [id number] [place] [address] [phone]- 4550 Aug, [facility] [id number] [place] [address] [phone] -[phone] Jul, Exposure to blood-borne pathogen Z77.21 [facility] [id number] [place] [address] [phone] Jul, Dental examination Z01.20 [facility] [address] [address] Jul, Schizophrenia, unspecified type F20.9 and Intermittent explosive disorder F63.81 [place] [address] 617167- 4285 Jul, Pulmonary nodule R91.1 [place] [address] [address]- [address] Jul, Gastroesophageal reflux disease with esophagitis K21.0 [place] [address] 47[address]- [address]87 Jul, Schizophrenia, unspecified type F20.9 ; ANA LILIA (generalized anxiety disorder) F41.1 ; Intermittent explosive disorder F63.81 ; ADHD ( attention deficit hyperactivity disorder), combined type F90.2 and 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 [place] [address] [address]- [address]239 17 Jun, 2018 Excessive flatus R14.3 [place] [address] 89483- 6058 17 Jun, 2018 Schizophrenia, unspecified type F20.9 and Intermittent explosive disorder F63.81 [facility] [place] [address] 6[phone] 14 Jun, 2018 Excessive gas R14.3 [facility] [address] [id number] May, Dental examination Z01.20 [place] [address] 43[address] May, Cramp of extremity R25.2 and Neuropathy G62.9 [place] [address] 39646- 9023 13 May, 2018 Schizophrenia, unspecified type F20.9 and Intermittent explosive disorder F63.81 [facility] [address] [address] Apr, Viral URI J06.9 and Epigastric abdominal pain R10.13 [facility] [address] [place] [address] 79795- 3506 Apr, Schizophrenia, unspecified type F20.9 ; ANA LILIA (generalized anxiety disorder) F41.1 ; Intermittent explosive disorder F63.81 and ADHD ( attention deficit hyperactivity disorder), combined type F90.2 [facility] [id number] [place] [address] 77865- 7694 Apr, Schizophrenia, unspecified type F20.9 and Intermittent explosive disorder F63.81 [facility] [address] [place] [address] [phone] Mar, Dental examination Z01.20 [place] [id number] [place] [address] 54782- 0884 Mar, Schizophrenia, unspecified type F20.9 and Intermittent explosive disorder F63.81 [facility] [id number] [place] [address] [phone] -[phone] Mar, Acute nonintractable headache, unspecified headache type R51 [facility] [id number] [place] [address] 36102- 3133 February, Schizophrenia, unspecified type F20.9 ; ANA LILIA (generalized anxiety disorder) F41.1 ; Intermittent explosive disorder F63.81 and ADHD ( attention deficit hyperactivity disorder), combined type F90.2 [facility] [id number] [place] [address] 64852- 3750 February, Schizophrenia, unspecified type F20.9 and Intermittent explosive disorder F63.81 [facility] [id number] [place] [address] 53344- 3333 February, [facility] [id number] [place] [address] 40401- 7050 February, Schizophrenia, unspecified type F20.9 [facility] [id number] [place] [address] 26147- 3094 Jan, Schizophrenia, unspecified type F20.9 ; ANA LILIA (generalized anxiety disorder) F41.1 ; Intermittent explosive disorder F63.81 and ADHD ( attention deficit hyperactivity disorder), combined type F90.2 [facility] [id number] [place] [address] 98526- 1946 Jan, Schizophrenia, unspecified type F20.9 and Intermittent explosive disorder F63.81 [facility] [id number] [place] [address] 95300- 1406 Jan, Schizophrenia, unspecified type F20.9 ; ANA LILIA (generalized anxiety disorder) F41.1 ; Intermittent explosive disorder F63.81 and ADHD ( attention deficit hyperactivity disorder), combined type F90.2 [place] [id number] [place] [address] 20922- 2408 Jan, Schizophrenia, unspecified type F20.9 ; ANA LILIA (generalized anxiety disorder) F41.1 ; Intermittent explosive disorder F63.81 and ADHD ( attention deficit hyperactivity disorder), combined type F90.2 [facility] [id number] [place] [address] 51046- 3924 Dec, [facility] [id number] [place] [address] 84044- [phone] Dec, Schizophrenia, unspecified type F20.9 ; ANA LILIA (generalized anxiety disorder) F41.1 ; Intermittent explosive disorder F63.81 and ADHD ( attention deficit hyperactivity disorder), combined type F90.2 [facility] [address] [place] [address] 41107- 8101 Dec, [facility] [address] [place] [address] [phone] Dec, Encounter for dental examination Z01.20 [facility] [id number] [place] [address] 66027- 8019 Dec, Schizophrenia, unspecified type F20.9 ; ANA LILIA (generalized anxiety disorder) F41.1 ; Intermittent explosive disorder F63.81 and ADHD ( attention deficit hyperactivity disorder), combined type F90.2 [facility] [address] [place] [address] 64775- 7194 Dec, Schizophrenia, unspecified type F20.9 ; ANA LILIA (generalized anxiety disorder) F41.1 ; Intermittent explosive disorder F63.81 and ADHD ( attention deficit hyperactivity disorder), combined type F90.2 [facility] [id number] [place] [address] 28795- 4115 Dec, Seizures R56.9 ; Intermittent explosive disorder F63.81 and Developmental delay, gross motor F82 [place] [id number] [place] [address] 95096- 4831 Nov, ANA LILIA (generalized anxiety disorder) F41.1 ; Intermittent explosive disorder F63.81 ; ADHD (attention deficit hyperactivity disorder), combined type F90.2 ; Other fdc (current) drug therapy Z79.899 ; Adjustment disorder, unspecified type F43.20 and Other schizophrenia F20.89 [facility] [id number] [place] [address] 98444- 8747 Nov, Schizophrenia, unspecified type F20.9 [facility] [id number] [place] [address] 09067- 4736 Oct, ANA LILIA (generalized anxiety disorder) F41.1 ; Intermittent explosive disorder F63.81 ; ADHD (attention deficit hyperactivity disorder), combined type F90.2 ; 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 and Adjustment disorder, unspecified type F43.20 [facility] [address] [place] [address] 67603- 1166 Oct, Schizophrenia, unspecified type F20.9 ; ANA LILIA (generalized anxiety disorder) F41.1 ; Intermittent explosive disorder F63.81 and ADHD ( attention deficit hyperactivity disorder), combined type F90.2 [facility] [address] [place] [address] [phone] Oct, Dental examination Z01.20 [facility] [address] [place] [address] 36486- 2298 Oct, [facility] [address] [place] [address] 55737- 2598 03 Oct, 2017 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 [facility] [id number] [place] [address] 59280- 2815 Sep, ANA LILIA (generalized anxiety disorder) F41.1 ; Intermittent explosive disorder F63.81 ; ADHD (attention deficit hyperactivity disorder), combined type F90.2 ; Other fdc (current) drug therapy Z79.899 and Adjustment disorder, unspecified type F43.20 [facility] [address] [place] [address] 04037- 5219 21 Sep, 2017 Schizophrenia, unspecified type F20.9 ; ANA LILIA (generalized anxiety disorder) F41.1 ; Intermittent explosive disorder F63.81 ; ADHD ( attention deficit hyperactivity disorder), combined type F90.2 and 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 [facility] [id number] [place] [address] 36576- 7202 18 Sep, 2017 Gastroenteritis K52.9 [facility] [id number] [place] [address] [phone] 13 Sep, 2017 Encounter for dental examination Z01.20 [facility] [id number] [place] [address] 46487- 3839 22 Aug, 2017 Annual physical exam Z00.00 and Seizures R56.9 [facility] [id number] [place] [address] 48264- 0435 22 Aug, 2017 Adjustment disorder with disturbance of emotion F43.29 ; Developmental delay disorder R62.50 ; Developmental delay, gross motor F82 and 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 [facility] [id number] [place] [address] 65363 -[phone] 15 Aug, 2017 Moderate left ankle sprain, initial encounter S93.402A [facility] [id number] [place] [address] 76598- 7557 07 Aug, 2017 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 ; Developmental delay, gross motor F82 and Adjustment disorder with disturbance of emotion F43.29 [facility] [address] [facility] [id number] [place] [address] Aug, Fatigue, unspecified type R53.83 IMMUNIZATIONS No Known Immunizations SOCIAL HISTORY Never Assessed REASON FOR VISIT f/u PLAN OF CARE Activity Details Follow Up Next available Reason: F/U VITAL SIGNS MEDICATIONS Unknown Medications RESULTS No Results PROCEDURES Procedure Date Ordered Result Body Site Psychotherapy, patient &/family, 30 minutes, established patient Jul 27, 2018 INSTRUCTIONS MEDICATIONS ADMINISTERED No Known Medications MEDICAL (GENERAL) HISTORY Type Description Date Medical History Schizophrenia Medical History Intermitten Explosive Disorder Medical History Generalized anxiety disorder Medical History Moderate intellectual disability Medical History Bipolar Medical History asthma exercise induced Medical History Seizure disorder Surgical History Tubes in ears
--- NOTE | 2018-08-20 19:06 | ED Cough/URI ---
General Chief Complaint: Cough/Cold/Flu Symptoms Stated Complaint: FEELS "BURNING" IN LUNGS Nursing Triage Note: TO ROOM C/O BURNING IN LUNGS ONSET RN PACU. 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 HAD COLONOSCOPY 07/[address] 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 PSYCH: [facility] Allergies and Home Medications Allergies Coded Allergies: Latex, Natural Rubber (Unverified Allergy, Unknown, 07/27/18) amoxicillin (Unverified Allergy, Unknown, 07/17/18) clavulanic acid (Unverified Allergy, Unknown, 07/17/18) prednisone (Unverified Allergy, Unknown, 07/17/18) Home Medications Aripiprazole 5 Mg Tablet, 5 MG PO DAILY, (Reported) Calcium Citrate 250 Mg Tablet, 250 MG PO BID, (Reported) Cefdinir 300 Mg Capsule, 300 MG PO BID Prescribed by: DELGADO CABALLERO on 08/20/182053 Cyproheptadine HCl 4 Mg Tablet, 12 MG PO DAILY, (Reported) Lactobacillus Acidophilus 1 Each Capsule, 1 EACH PO DAILY, (Reported) Levetiracetam 500 Mg Tablet, 500 MG PO BID Prescribed by: ELROY GONZALEZ on 07/21/171718 Melatonin 3 Mg Tablet.er, 3 MG PO HS, (Reported) Oxcarbazepine 600 Mg Tablet, 600 MG PO TID Prescribed by: ELROY GONZALEZ on 07/21/171718 Sucralfate 1 Gm Tablet, 1 GM PO QID, (Reported) Patient Home Medication List Home Medication List Reviewed: Yes Review of Systems Review of Systems Constitutional: no symptoms reported; No fever EENTM: no symptoms reported; No nose congestion, No throat pain Respiratory: see HPI, cough, short of breath Cardiovascular: see HPI, chest pain Gastrointestinal: no symptoms reported; No abdominal pain, No nausea, No vomiting Genitourinary: no symptoms reported (HX OF INCONTINENCE) Musculoskeletal: no symptoms reported; No back pain Skin: no symptoms reported Psychiatric/Neurological: No Symptoms Reported, Pre-Existing Deficit (MENTALLY CHALLENGED) Hematologic/Lymphatic: No Symptoms Reported Immunological/Allergic: no symptoms reported Past Dubcwrs-Oziwat-Tteerk Hx Patient Social History Alcohol Use: Occasionally Uses Recreational Drug Use: No Smoking Status: Current Everyday Smoker Type Used: Cigars, Cigarettes 2nd Hand Smoke Exposure: Yes Recent Foreign Travel: No Contact w/Someone Who Travel: No Recent Infectious Disease Expo: No Recent Hopitalizations: No Immunizations Up To Date Tetanus Booster (TDap): Unknown Seasonal Allergies Seasonal Allergies: No Past Medical History Surgeries: Yes (COLONOSCOPY 07/27/18) Abdominal, Ear Surgery Respiratory: No Cardiac: No Neurological: Yes Developmental Disorder, Seizure Disorder Reproductive Disorders: No Genitourinary: Yes (urinary incontinence) UTI-Chronic Gastrointestinal: Yes (COLONOSCOPY 07/27/18--PROCTITIS/INTERNAL HEMORRHOIDS; CT NOTED COLOTIS ) Colitis, Hemorrhoids Musculoskeletal: No Endocrine: No HEENT: Yes (CONGENITAL FACIAL/SKULL DEFORMITY; ) Chronic Ear Infection Cancer: No Psychosocial: Yes (MR; INTERMMITTENT EXPLOSIVE DISORDER; PSYCHOSIS; HALLUCINATIONS; POSSIBLE PSEUDOSEIZURES) ADD/ADHD, Pseudo Seizures (??), Sleep Difficulties, Anxiety, Schizophrenia, Violent Behavior Integumentary: Yes Blood Disorders: No Family Medical History No Pertinent Family Hx Physical Exam Vital Signs - First Documented 08/20/18 08/20/18 18:24 21:40 Temp 98.1 Pulse 93 Resp 18 B/P (MAP) 128/78 (95) Pulse Ox 99 O2 Delivery Room Air Capillary Refill : Less Than 3 Seconds Height: 5'3.00" Weight: 210lbs. 0.0oz. 95.755541qr; 37.2 BMI Method:Stated General Appearance: WD/WN, no apparent distress HEENT: normal ENT inspection, TMs normal, pharynx normal Neck: non-tender, full range of motion, supple, normal inspection Respiratory: normal breath sounds, no respiratory distress, no accessory muscle use, other (TENDERNESS TO ANTERIOR ASPECT OF LOWER CHEST) Cardiovascular: normal peripheral pulses, regular rate, rhythm, no edema, no JVD, no murmur Gastrointestinal: normal bowel sounds, non tender, soft, no organomegaly Extremities: normal inspection, normal capillary refill Neurologic/Psychiatric: sas architect II-XII nml as tested, no motor/sensory deficits, alert, normal mood/affect, oriented x 3, other (MENTALLY CHALLENGED) Skin: normal color, warm/dry; No rash Progress/Results/Core Measures Suspected Sepsis Recent Fever Within 48 Hours: No Infection Criteria Present: None New/Unexplained Altered Menta: No Sepsis Screen: No Definite Risk SIRS Temperature:98.1 Pulse: 93 Respiratory Rate: 18 Laboratory Tests 08/20/18 19:30: White Blood Count 6.3 Blood Pressure 128 /78 Mean: 95 Laboratory Tests 08/20/18 19:30: Creatinine 0.76, INR Comment 1.1, Platelet Count 248, Total Bilirubin 0.5 Results/Orders Lab Results Laboratory Tests Test 08/20/18 19:25 08/20/18 19:30 08/20/18 20:28 Range/Units Glucometer 88 70-110 MG/DL White Blood Count 6.3 4.3-11.0 10^3/uL Red Blood Count 4.71 4.35-5.85 10^6/uL Hemoglobin 15.1 13.3-17.7 G/DL Hematocrit 42 40-54 % Mean Corpuscular Volume 89 80-99 FL Mean Corpuscular Hemoglobin 32 25-34 PG Mean Corpuscular Hemoglobin Concent 36 32-36 G/DL Red Cell Distribution Width 12.8 10.0-14.5 % Platelet Count 248 130-400 10^3/uL Mean Platelet Volume 9.3 7.4-10.4 FL Neutrophils (%) (Auto) 47 42-75 % Lymphocytes (%) (Auto) 38 12-44 % Monocytes (%) (Auto) 11 0-12 % Eosinophils (%) (Auto) 4 0-10 % Basophils (%) (Auto) 1 0-10 % Neutrophils # (Auto) 3.0 1.8-7.8 X 10^3 Lymphocytes # (Auto) 2.4 1.0-4.0 X 10^3 Monocytes # (Auto) 0.7 0.0-1.0 X 10^3 Eosinophils # (Auto) 0.2 0.0-0.3 10^3/uL Basophils # (Auto) 0.1 0.0-0.1 10^3/uL Prothrombin Time 14.1 12.2-14.7 SEC INR Comment 1.1 0.8-1.4 Activated Partial Thromboplast Time 30 24-35 SEC Sodium Level 126 L 135-145 MMOL/L Potassium Level 3.6 3.6-5.0 MMOL/L Chloride Level 91 L 98-107 MMOL/L Carbon Dioxide Level 25 21-32 MMOL/L Anion Gap 10 5-14 MMOL/L Blood Urea Nitrogen 8 7-18 MG/DL Creatinine 0.76 0.60-1.30 MG/DL Estimat Glomerular Filtration Rate > 60 BUN/Creatinine Ratio 11 Glucose Level 85 70-105 MG/DL Calcium Level 9.3 8.5-10.1 MG/DL Corrected Calcium 8.9 8.5-10.1 MG/DL Magnesium Level 1.9 1.8-2.4 MG/DL Total Bilirubin 0.5 0.1-1.0 MG/DL Aspartate Amino Transf (AST/SGOT) 24 5-34 U/L Alanine Aminotransferase (ALT/SGPT) 27 0-55 U/L Alkaline Phosphatase 53 40-136 U/L Troponin I < 0.30 <0.30 NG/ML B-Type Natriuretic Peptide < 10.0 <100.0 PG/ML Total Protein 6.8 6.4-8.2 GM/DL Albumin 4.5 3.2-4.5 GM/DL Amylase Level 50 25-125 U/L Lipase 10 8-78 U/L Valproic Acid (Depakene) Level 37.9 L 50.0-100.0 UG/ML Urine Color YELLOW Urine Clarity CLEAR Urine pH 8 5-9 Urine Specific [place] 1.010 L 1.016-1.022 Urine Protein NEGATIVE NEGATIVE Urine Glucose (UA) NEGATIVE NEGATIVE Urine Ketones NEGATIVE NEGATIVE Urine Nitrite NEGATIVE NEGATIVE Urine Bilirubin NEGATIVE NEGATIVE Urine Urobilinogen NORMAL NORMAL MG/DL Urine Leukocyte Esterase 2+ H NEGATIVE Urine RBC (Auto) NEGATIVE NEGATIVE Urine RBC NONE /HPF Urine WBC 2-5 /HPF Urine Squamous Epithelial Cells 5-10 /HPF Urine Crystals NONE /LPF Urine Bacteria FEW H /HPF Urine Casts NONE /LPF Urine Mucus NEGATIVE /LPF Urine Culture Indicated NO Micro Results Microbiology 08/20/18 Influenza Types A,B Antigen (JOSÉ MIGUEL) - Final, Complete My Orders Orders - DELGADO CABALLERO DO Influenza A And B Antigens (08/20/18 18:43) Chest Pa/Lat (2 View) (08/20/18 18:43) Accucheck Stat ONCE (08/20/18 18:48) Ekg Tracing (08/20/18 18:48) Monitor-Rhythm Ecg Trace Only (08/20/18 18:48) Amylase (08/20/18 18:48) BNP (08/20/18 18:48) Cbc With Automated Diff (08/20/18 18:48) Comprehensive Metabolic Panel (08/20/18 18:48) Lipase (08/20/18 18:48) Magnesium (08/20/18 18:48) Protime With Inr (08/20/18 18:48) Partial Thromboplastin Time (08/20/18 18:48) Troponin I (08/20/18 18:48) Blood Culture (08/20/18 18:48) Valproic Acid (08/20/18 19:21) Saline Lock/Iv-Start (08/20/18 20:20) Ns Iv 1000 Ml (Sodium Chloride 0.9%) (08/20/18 20:20) Ua Culture If Indicated (08/20/18 20:27) Cefdinir Capsule (Omnicef Capsule) (08/20/18 21:00) Urine Culture (08/20/18 20:53) Medications Given in ED Current Medications Medications Dose Ordered Sig/Omar Route Start Time Stop Time Status Last Admin Dose Admin Cefdinir 300 mg ONCE ONCE PO 08/20/18 21:00 08/20/18 21:01 DC 08/20/18 21:36 300 MG Sodium Chloride 1,000 ml @ 0 mls/hr Q0M ONCE IV 08/20/18 20:20 08/20/18 20:23 DC 08/20/18 20:53 999 MLS/HR Vital Signs/I&O 08/20/18 08/20/18 18:24 21:40 Temp 98.1 98.1 Pulse 93 93 Resp 18 18 B/P (MAP) 128/78 (95) 143/103 (116) Pulse Ox 99 O2 Delivery Room Air 08/21/18 00:00 Intake Total 1000 ml Balance 1000 ml Capillary Refill : Less Than 3 Seconds Blood Pressure Mean: 95 Progress Note : Progress Note UNEVENTFUL ER STAY PT COUGHED DURING EXAM A COUPLE OF TIMES. OTHERWISE NO COUGH FOR REMAINDER OF ER STAY NO COMPLAINTS OF CHEST PAIN FOR REMAINDER OF ER STAY ECG Initial ECG Impression Date: Aug 20, 2018 Initial ECG Impression Time: 18:48 Initial ECG Rate: 80 Initial ECG Rhythm: Normal Sinus Initial ECG Comparisson: No Previous ECG Available Diagnostic Imaging Comments CXR--NO ACUTE PROCESS, PER RADIOLOGIST REPORT @ 1939 Reviewed: Reviewed by Me Departure Impression Primary Impression: Bronchitis Additional Impressions: Chest wall pain Hyponatremia UTI (urinary tract infection) Disposition: 01 HOME, SELF-CARE Condition: Improved Departure-Patient Inst. Referrals: SEEMA GILBERT (Family) Primary Care Physician [facility] (PCP) Primary Care Physician Patient Instructions: Acute Bronchitis, Adult (DC), Chest Pain That Is Not Caused by the Heart (DC), Hyponatremia (DC), Urinary Tract Infection, Adult (DC) Add. Discharge Instructions: TYLENOL 1 GRAM / MOTRIN 600 MG 4 TIMES A DAY FOR PAIN OR FEVER LOTS OF FLUIDS--DRINK GATORADE DAILY TAKE YOUR PRESCRIBED COUGH MEDICATION NEEDED FOLLOW UP WITH [facility] IN 3-4 DAYS FOR RECHECK All discharge instructions reviewed with patient and/or family. Voiced understanding. Scripts Cefdinir (Cefdinir) 300 Mg Capsule 300 MG PO BID for FOR INFECTION, #20 CAP Prov: DELGADO CABALLERO DO 08/20/18 DELGADO CABALLERO DO Aug 20, 2018 19:06
--- NOTE | 2018-08-20 19:30 | Diagnostic Imaging Report ---
INDICATION: Lungs burning starting today, cough and shortness of air. COMPARISON STUDY: Chest from 07/21/2017. FINDINGS: Two views of the chest demonstrate the lungs to be clear. The heart, mediastinum, pulmonary vascularity and visualized bony thorax are normal. There are no pleural effusions. IMPRESSION: Normal chest. Dictated by: Dictated on workstation # [id number]
[2018-08-20 19:52] LABS: BASOPHILS # (AUTO) 0.1 10^3/uL (0.0-0.1); BASOPHILS % (AUTO) 1 % (0-10); EOSINOPHILS # (AUTO) 0.2 10^3/uL (0.0-0.3); EOSINOPHILS % (AUTO) 4 % (0-10); HEMATOCRIT 42 % (40-54); HEMOGLOBIN 15.1 G/DL (13.3-17.7); LYMPHOCYTES # (AUTO) 2.4 X 10^3 (1.0-4.0); LYMPHOCYTES % (AUTO) 38 % (12-44); MEAN CORPUSCULAR HEMOGLOBIN 32 PG (25-34); MEAN CORPUSCULAR HGB CONC 36 G/DL (32-36); MEAN CORPUSCULAR VOLUME 89 FL (80-99); MEAN PLATELET VOLUME 9.3 FL (7.4-10.4); MONOCYTES # (AUTO) 0.7 X 10^3 (0.0-1.0); MONOCYTES % (AUTO) 11 % (0-12); NEUTROPHILS % (AUTO) 47 % (42-75); PLATELET COUNT 248 10^3/uL (130-400); RED BLOOD COUNT 4.71 10^6/uL (4.35-5.85); RED CELL DISTRIBUTION WIDTH 12.8 % (10.0-14.5); WHITE BLOOD COUNT 6.3 10^3/uL (4.3-11.0)
[2018-08-20 20:12] LABS: ALANINE AMINOTRANSFERASE 27 U/L (0-55); ALBUMIN 4.5 GM/DL (3.2-4.5); ALKALINE PHOSPHATASE 53 U/L (40-136); AMYLASE 50 U/L (25-125); BILIRUBIN,TOTAL 0.5 MG/DL (0.1-1.0); BUN/CREATININE RATIO 11; CALCIUM 9.3 MG/DL (8.5-10.1); CARBON DIOXIDE 25 MMOL/L (21-32); CHLORIDE 91 MMOL/L (98-107); CREATININE SERUM 0.76 MG/DL (0.60-1.30); GFR ESTIMATED > 60; GLUCOSE 85 MG/DL (70-105); LIPASE 10 U/L (8-78); MAGNESIUM 1.9 MG/DL (1.8-2.4); POTASSIUM 3.6 MMOL/L (3.6-5.0); SODIUM 126 MMOL/L (135-145); TOTAL PROTEIN 6.8 GM/DL (6.4-8.2)
[2018-08-20] MEDS ORDERED: NS IV 1000 ML 1,000 ML IV ONE (20:20)
[2018-08-20 20:21] LABS: VALPROIC ACID 37.9 UG/ML (50.0-100.0)
[2018-08-20 20:31] LABS: INR 1.1 (0.8-1.4); PROTHROMBIN TIME PATIENT 14.1 SEC (12.2-14.7)
[2018-08-20] MEDS ORDERED: DOXY100C42 PO (20:34)
[2018-08-20 20:40] LABS: BILIRUBIN,URINE NEGATIVE (NEGATIVE); CLARITY,URINE CLEAR; COLOR,URINE YELLOW; GLUCOSE, URINE (UA) NEGATIVE (NEGATIVE); KETONES,URINE NEGATIVE (NEGATIVE); LEUKOCYTE ESTERASE ,URINE 2+ (NEGATIVE); NITRITE,URINE NEGATIVE (NEGATIVE); PH,URINE 8 (5-9); PROTEIN,URINE NEGATIVE (NEGATIVE); UROBILINOGEN,URINE NORMAL (NORMAL)
[2018-08-20 20:50] LABS: BACTERIA,URINE FEW /HPF
[2018-08-20] MEDS ORDERED: CEFD300C3 PO (20:54)
[2018-08-20] MEDS ORDERED: CEFDINIR 300 MG (OMNICEF) CAP PO ONE (21:00)
[2018-08-20 21:40] VITALS: BP 143/103
== END 2018-08-20 21:44 | disposition home or self-care (01) ==
LOC: EDUNIT# 18:22 → ER 18:23
DX: J40 Bronchitis, not specified as acute or chronic (principal); R07.89 Other chest pain; N39.0 Urinary tract infection, site not specified; E87.1 Hypo-osmolality and hyponatremia; F90.9 Attention-deficit hyperactivity disorder, unspecified type; F41.9 Anxiety disorder, unspecified; F20.9 Schizophrenia, unspecified; G40.909 Epilepsy, unspecified, not intractable, without status epilepticus; F17.210 Nicotine dependence, cigarettes, uncomplicated; Z87.440 Personal history of urinary (tract) infections; Z87.19 Personal history of other diseases of the digestive system; Z91.040 Latex allergy status; Z88.0 Allergy status to penicillin; Z88.8 Allergy status to other drugs, medicaments and biological substances
CPT/HCPCS: 36415; 71046; 80053; 80164; 81000; 82150; 82962; 83690; 83735; 83880; 84484; 85025; 85610; 85730; 87040; 87088; 87804; 93005; 93041

== ENCOUNTER 2018-10-04 17:04 | Emergency (ER) | payer MEDICAID ==
[~2018-10-04] VITALS: Ht 177.8 cm; Wt 89.8 kg
[~2018-10-04 17:04] MED LIST changes: +CEFD300C3 PO; +DOXY100C42 PO
--- OUTSIDE RECORDS SUMMARY | 2018-10-04 17:09 | XMS REPORT ---
Author Author GT MATTHEW [facility] Address [address] [place] [address] Care Team Providers Care Catering And Events Manager Name Role Phone Earle DEL REALYEN Unavailable PROBLEMS Type Condition ICD9-CM Code [id number] Code Onset Dates Condition Status SNOMED Code Problem Schizophrenia, unspecified type F20.9 Active 37875031 Problem ADHD (attention deficit hyperactivity disorder), combined type F90.2 Active 50781422 Problem ANA LILIA (generalized anxiety disorder) F41.1 Active 70230179 Problem Adjustment disorder with disturbance of emotion F43.29 Active 82460333 Problem Developmental delay, gross motor F82 Active 571350130 Problem 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 Active 17924504 Problem Adjustment disorder, unspecified type F43.20 Active 77783244 Problem Pulmonary nodule R91.1 Active 969399034 Problem Gastroesophageal reflux disease with esophagitis K21.0 Active 492868688 Problem Other schizophrenia F20.89 Active 84726989 Problem Intermittent explosive disorder F63.81 Active 33787041 Problem 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 Active 33746297 Problem Neuropathy G62.9 Active 927632052 ALLERGIES Substance Reaction Event Type Date Status PredniSONE Unknown Drug Allergy Sep, Active Augmentin Unknown Drug Allergy Sep, Active Natural Rubber Unknown Non Drug Allergy Sep, Active Latex Unknown Non Drug Allergy Sep, Active ENCOUNTERS Encounter Location Date Diagnosis [facility] [address] [facility] [id number] [address] Oct, [facility] [id number] [address] Oct, [facility] [id number] [address] Sep, Schizophrenia, unspecified type F20.9 ; ANA LILIA (generalized anxiety disorder) F41.1 ; Intermittent explosive disorder F63.81 ; ADHD ( attention deficit hyperactivity disorder), combined type F90.2 and 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 [facility] [id number] [place] [id number] Aug, Schizophrenia, unspecified type F20.9 and Intermittent explosive disorder F63.81 [facility] [id number] [place] [address] Aug, Schizophrenia, unspecified type F20.9 [facility] [id number] [place] [address] Aug, Urinary tract infection, site not specified N39.0 ; Bacterial infection A49.9 ; Hyponatremia E87.1 and Encounter for immunization Z23 [facility] [id number] [place] [address] 14 Aug, 2018 Schizophrenia, unspecified type F20.9 [place] [address] [address] Aug, [facility] [address] [address] Aug, [facility] [id number] [place] [address] Jul, [facility] [id number] [place] [address] Jul, Exposure to blood-borne pathogen Z77.21 [facility] [id number] [place] [id number] Jul, Dental examination Z01.20 [facility] [id number] [place] [address]43[address] Jul, Schizophrenia, unspecified type F20.9 and Intermittent explosive disorder F63.81 [facility] [id number] [place] [address]806- 7070 Jul, Pulmonary nodule R91.1 [facility] [address] [place] [address] 17 Jul, 2018 Gastroesophageal reflux disease with esophagitis K21.0 [place] [address] [address] Jul, Schizophrenia, unspecified type F20.9 ; ANA LILIA (generalized anxiety disorder) F41.1 ; Intermittent explosive disorder F63.81 ; ADHD ( attention deficit hyperactivity disorder), combined type F90.2 and 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 [place] [address] [address] 17 Jun, 2018 Excessive flatus R14.3 [place] [address] [address] 17 Jun, 2018 Schizophrenia, unspecified type F20.9 and Intermittent explosive disorder F63.81 [facility] [place] [address] [address] 14 Jun, 2018 Excessive gas R14.3 [facility] [address] [id number] May, Dental examination Z01.20 [place] [address] [address] May, Cramp of extremity R25.2 and Neuropathy G62.9 [place] [address] [address] May, Schizophrenia, unspecified type F20.9 and Intermittent explosive disorder F63.81 [facility] [id number] [place] [address] Apr, Viral URI J06.9 and Epigastric abdominal pain R10.13 [place] [address] [address] Apr, Schizophrenia, unspecified type F20.9 ; ANA LILIA (generalized anxiety disorder) F41.1 ; Intermittent explosive disorder F63.81 and ADHD ( attention deficit hyperactivity disorder), combined type F90.2 [facility] [address] [address] Apr, Schizophrenia, unspecified type F20.9 and Intermittent explosive disorder F63.81 [facility] [id number] [id number] Mar, Dental examination Z01.20 [facility] [id number] [place] [address]83- [address] Mar, Schizophrenia, unspecified type F20.9 and Intermittent explosive disorder F63.81 [facility] [address] [address] Mar, Acute nonintractable headache, unspecified headache type R51 [facility] [id number] [place] [address]26[address] February, Schizophrenia, unspecified type F20.9 ; ANA LILIA (generalized anxiety disorder) F41.1 ; Intermittent explosive disorder F63.81 and ADHD ( attention deficit hyperactivity disorder), combined type F90.2 [facility] [address] [address] February, Schizophrenia, unspecified type F20.9 and Intermittent explosive disorder F63.81 [facility] [address] [address] February, [facility] [address] [address] February, Schizophrenia, unspecified type F20.9 [facility] [address] [address] Jan, Schizophrenia, unspecified type F20.9 ; ANA LILIA (generalized anxiety disorder) F41.1 ; Intermittent explosive disorder F63.81 and ADHD ( attention deficit hyperactivity disorder), combined type F90.2 [facility] [address] [address] Jan, Schizophrenia, unspecified type F20.9 and Intermittent explosive disorder F63.81 [facility] [address] [address] Jan, Schizophrenia, unspecified type F20.9 ; ANA LILIA (generalized anxiety disorder) F41.1 ; Intermittent explosive disorder F63.81 and ADHD ( attention deficit hyperactivity disorder), combined type F90.2 [facility] [address] [place] [address]65[address] Jan, Schizophrenia, unspecified type F20.9 ; ANA LILIA (generalized anxiety disorder) F41.1 ; Intermittent explosive disorder F63.81 and ADHD ( attention deficit hyperactivity disorder), combined type F90.2 [facility] [id number] [place] [address] Dec, [facility] [id number] [place] [address]92[address] Dec, Schizophrenia, unspecified type F20.9 ; ANA LILIA (generalized anxiety disorder) F41.1 ; Intermittent explosive disorder F63.81 and ADHD ( attention deficit hyperactivity disorder), combined type F90.2 [facility] [id number] [place] [address] Dec, [facility] [id number] [id number] Dec, Encounter for dental examination Z01.20 [facility] [id number] [place] [address] Dec, Schizophrenia, unspecified type F20.9 ; ANA LILIA (generalized anxiety disorder) F41.1 ; Intermittent explosive disorder F63.81 and ADHD ( attention deficit hyperactivity disorder), combined type F90.2 [facility] [id number] [place] [address]797[address] Dec, Schizophrenia, unspecified type F20.9 ; ANA LILIA (generalized anxiety disorder) F41.1 ; Intermittent explosive disorder F63.81 and ADHD ( attention deficit hyperactivity disorder), combined type F90.2 [facility] [address] [place] [address] Dec, Seizures R56.9 ; Intermittent explosive disorder F63.81 and Developmental delay, gross motor F82 [facility] [address] [place] [address]07[address] Nov, ANA LILIA (generalized anxiety disorder) F41.1 ; Intermittent explosive disorder F63.81 ; ADHD (attention deficit hyperactivity disorder), combined type F90.2 ; Other alf (current) drug therapy Z79.899 ; Adjustment disorder, unspecified type F43.20 and Other schizophrenia F20.89 [facility] [address] [place] [address]14- [address] Nov, Schizophrenia, unspecified type F20.9 [facility] [address] [place] [address] 72872- 385[address] Oct, ANA LILIA (generalized anxiety disorder) F41.1 ; Intermittent explosive disorder F63.81 ; ADHD (attention deficit hyperactivity disorder), combined type F90.2 ; Other exterminator (current) drug therapy Z79.899 and Adjustment disorder, unspecified type F43.20 [facility] [address] [place] [address]88- 37[address] Oct, Schizophrenia, unspecified type F20.9 ; ANA LILIA (generalized anxiety disorder) F41.1 ; Intermittent explosive disorder F63.81 and ADHD ( attention deficit hyperactivity disorder), combined type F90.2 [facility] [address] [place] [id number] Oct, Dental examination Z01.20 [facility] [id number] [place] [address] 02257- [address]37 Oct, [facility] [id number] [place] [address]37- 6[address] Oct, Other exterminator (current) drug therapy Z79.899 [facility] [id number] [place] [address] 54728- [address]6 Sep, ANA LILIA (generalized anxiety disorder) F41.1 ; Intermittent explosive disorder F63.81 ; ADHD (attention deficit hyperactivity disorder), combined type F90.2 ; Other exterminator (current) drug therapy Z79.899 and Adjustment disorder, unspecified type F43.20 [facility] [address] [place] [address]- [address] 21 Sep, 2017 Schizophrenia, unspecified type F20.9 ; ANA LILIA (generalized anxiety disorder) F41.1 ; Intermittent explosive disorder F63.81 ; ADHD ( attention deficit hyperactivity disorder), combined type F90.2 and Other alf (current) drug therapy Z79.899 [facility] [address] [address] 18 Sep, 2017 Gastroenteritis K52.9 [facility] [id number] [place] [id number] 13 Sep, 2017 Encounter for dental examination Z01.20 [facility] [address] [address] Aug, Annual physical exam Z00.00 and Seizures R56.9 [facility] [id number] [place] [address] 88564- [address] Aug, Adjustment disorder with disturbance of emotion F43.29 ; Developmental delay disorder R62.50 ; Developmental delay, gross motor F82 and 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 [facility] [address] [place] [address] Aug, Moderate left ankle sprain, initial encounter S93.402A [facility] [id number] [place] [address] 46301- [address] 07 Aug, 2017 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 ; Developmental delay, gross motor F82 and Adjustment disorder with disturbance of emotion F43.29 [facility] [id number] [place] [address]2772 -[address] Aug, Fatigue, unspecified type R53.83 IMMUNIZATIONS No Known Immunizations SOCIAL HISTORY Never Assessed REASON FOR VISIT Psychiatric f/u-JjournotRN PLAN OF CARE Activity Details Follow Up 4 Weeks Reason: Follow-up VITAL SIGNS Height 70.25 in 2018-09-07 Weight 197.8 lbs 2018-09-07 Heart Rate 96 bpm 2018-09-07 Respiratory Rate 20 2018-09-07 BMI 28.18 kg/m2 2018-09-07 Blood pressure systolic 138 mmHg 2018-09-07 Blood pressure diastolic 96 mmHg 2018-09-07 MEDICATIONS Medication Instructions Dosage Frequency Start Date End Date Duration Status Doxycycline Not-Taking Carafate 1 GM Orally Twice a day 1 tablet 12h 31 Active Clindamycin-Benzoyl Per-Cleans 1-5 % Active Thera M Plus - Not-Taking Calcium 500 MG Orally Twice a day 1 tablet with meals 12h 30 day(s) Active Cefdinir 300 MG as directed Not-Taking Acetaminophen 500 MG Orally every 6 hrs 2 capsules as needed 6h Active Desmopressin Acetate 0.2 MG TAKE 3 TABLETS BY MOUTH DAILY 31 Active Olopatadine HCl 0.1 % Ophthalmic TID 1 drop into affected eye 8h Active Duac 1.2-5 % Externally Once a day Apply to affected area 24h 30 days Active Divalproex Sodium 500 mg Orally 2 times a day 1 tablet 12h Active Cyproheptadine HCl 4 MG Orally at bedtime 3 tablets Active BusPIRone HCl 10 MG TAKE 1 TABLET BY MOUTH TWICE DAILY Active Melatonin 3 MG Orally Once a day 1 tablet at bedtime as needed with food 24h Active Benztropine Mesylate 1 MG Orally daily 1 tablet in morning and two tablets at night 24h Active Oxcarbazepine 600 MG TAKE 1 TABLET BY MOUTH THREE TIMES DAILY 31 Active Loxapine Succinate 10 MG TAKE 1 CAPSULE BY MOUTH TWICE DAILY Active Aripiprazole 30 MG Orally Once a day every morning 1 tablet Active Chlorhexidine - Active Thera-M - TAKE 1 TABLET BY MOUTH DAILY 31 Active Acidophilus Probiotic Formula - Orally 2 times a day 1 capsule 12h 31 Active Siltussin SA 100 MG/5ML Orally [...]
--- OUTSIDE RECORDS SUMMARY | 2018-10-04 17:09 | XMS REPORT ---
Author Author SEEMA GILBERT Organization [facility] Address [address] [place] [address] Care Team Providers Care Flat Grinder Operator Name Role Phone SEEMA GILBERT Unavailable PROBLEMS Type Condition ICD9-CM Code DCD51-ZB Code Onset Dates Condition Status SNOMED Code Problem ANA LILIA (generalized anxiety disorder) F41.1 Active 13408838 Problem Intermittent explosive disorder F63.81 Active 37018446 Problem ADHD (attention deficit hyperactivity disorder), combined type F90.2 Active 01066073 Problem Chronic gingivitis K05.10 Active 49633414 Problem Pulmonary nodule R91.1 Active 290889008 Problem Neuropathy G62.9 Active 778579971 Problem Other schizophrenia F20.89 Active 91021396 Problem Gastroesophageal reflux disease with esophagitis K21.0 Active 368831025 Problem 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 Active 69019308 Problem Developmental delay, gross motor F82 Active 307269875 Problem 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 Active 76742450 Problem Adjustment disorder, unspecified type F43.20 Active 00066351 Problem Adjustment disorder with disturbance of emotion F43.29 Active 24577013 Problem Schizophrenia, unspecified type F20.9 Active 06905932 ALLERGIES No Information ENCOUNTERS Encounter Location Date Diagnosis [facility] [id number] [address] Oct, [facility] [address] [address] Oct, [facility] [id number] [place] [address] Sep, Chronic gingivitis K05.10 [facility] [id number] [address] Sep, Schizophrenia, unspecified type F20.9 ; ANA LILIA (generalized anxiety disorder) F41.1 ; Intermittent explosive disorder F63.81 ; ADHD ( attention deficit hyperactivity disorder), combined type F90.2 and 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 [facility] [id number] [place] [address] 26 Aug, 2018 Schizophrenia, unspecified type F20.9 and Intermittent explosive disorder F63.81 [facility] [address] [address] Aug, Schizophrenia, unspecified type F20.9 [facility] [id number] [place] [address] Aug, Urinary tract infection, site not specified N39.0 ; Bacterial infection A49.9 ; Hyponatremia E87.1 and Encounter for immunization Z23 [facility] [address] [address] 14 Aug, 2018 Schizophrenia, unspecified type F20.9 [facility] [address] [address] 14 Aug, 2018 [facility] [address] [address] Aug, [facility] [id number] [place] [address] 31 Jul, 2018 [facility] [id number] [place] [address] Jul, Exposure to blood-borne pathogen Z77.21 [facility] [address] [place] [id number] Jul, Dental examination Z01.20 [facility] [address] [address] Jul, Schizophrenia, unspecified type F20.9 and Intermittent explosive disorder F63.81 [facility] [address] [address] Jul, Pulmonary nodule R91.1 [place] [id number] [place] [address] 17 Jul, 2018 Gastroesophageal reflux disease with esophagitis K21.0 [place] [address] [address] Jul, Schizophrenia, unspecified type F20.9 ; ANA LILIA (generalized anxiety disorder) F41.1 ; Intermittent explosive disorder F63.81 ; ADHD ( attention deficit hyperactivity disorder), combined type F90.2 and 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 [place] [address] [address] 17 Jun, 2018 Excessive flatus R14.3 [place] [address] [address] 17 Jun, 2018 Schizophrenia, unspecified type F20.9 and Intermittent explosive disorder F63.81 [facility] [place] [address] [address] 14 Jun, 2018 Excessive gas R14.3 [facility] [address] [id number] May, Dental examination Z01.20 [place] [address] [address] 20 May, 2018 Cramp of extremity R25.2 and Neuropathy G62.9 [place] [address] [address] May, Schizophrenia, unspecified type F20.9 and Intermittent explosive disorder F63.81 [facility] [place] [address] [address] Apr, Viral URI J06.9 and Epigastric abdominal pain R10.13 [place] [id number] [place] [address]33[address] Apr, Schizophrenia, unspecified type F20.9 ; ANA LILIA (generalized anxiety disorder) F41.1 ; Intermittent explosive disorder F63.81 and ADHD ( attention deficit hyperactivity disorder), combined type F90.2 [facility] [address] [address] Apr, Schizophrenia, unspecified type F20.9 and Intermittent explosive disorder F63.81 [facility] [id number] [id number] Mar, Dental examination Z01.20 [facility] [id number] [place] [address] Mar, Schizophrenia, unspecified type F20.9 and Intermittent explosive disorder F63.81 [facility] [address] [address] Mar, Acute nonintractable headache, unspecified headache type R51 [facility] [address] [place] [address]- [address] February, Schizophrenia, unspecified type F20.9 ; ANA LILIA (generalized anxiety disorder) F41.1 ; Intermittent explosive disorder F63.81 and ADHD ( attention deficit hyperactivity disorder), combined type F90.2 [facility] [address] [place] [address] February, Schizophrenia, unspecified type F20.9 and Intermittent explosive disorder F63.81 [facility] [address], [place] [address] February, [facility] [address] [place] [address] February, Schizophrenia, unspecified type F20.9 [facility] [address], [place] [address] Jan, Schizophrenia, unspecified type F20.9 ; ANA LILIA (generalized anxiety disorder) F41.1 ; Intermittent explosive disorder F63.81 and ADHD ( attention deficit hyperactivity disorder), combined type F90.2 [facility] [address] [address] Jan, Schizophrenia, unspecified type F20.9 and Intermittent explosive disorder F63.81 [facility] [address] [place] [address]778- [address] Jan, Schizophrenia, unspecified type F20.9 ; ANA LILIA (generalized anxiety disorder) F41.1 ; Intermittent explosive disorder F63.81 and ADHD ( attention deficit hyperactivity disorder), combined type F90.2 [facility] [id number] [place], [place] [address] Jan, Schizophrenia, unspecified type F20.9 ; ANA LILIA (generalized anxiety disorder) F41.1 ; Intermittent explosive disorder F63.81 and ADHD ( attention deficit hyperactivity disorder), combined type F90.2 [facility] [id number] [place] [address]64- [address] Dec, [facility] [id number] [place] [address]5978[address] Dec, Schizophrenia, unspecified type F20.9 ; ANA LILIA (generalized anxiety disorder) F41.1 ; Intermittent explosive disorder F63.81 and ADHD ( attention deficit hyperactivity disorder), combined type F90.2 [facility] [id number] [place] [address]84- [address] Dec, [facility] [address] [place] [id number] Dec, Encounter for dental examination Z01.20 [facility] [id number] [place] [address] 10327- 3344 Dec, Schizophrenia, unspecified type F20.9 ; ANA LILIA (generalized anxiety disorder) F41.1 ; Intermittent explosive disorder F63.81 and ADHD ( attention deficit hyperactivity disorder), combined type F90.2 [facility] [address] [place] [address]65- [address] Dec, Schizophrenia, unspecified type F20.9 ; ANA LILIA (generalized anxiety disorder) F41.1 ; Intermittent explosive disorder F63.81 and ADHD ( attention deficit hyperactivity disorder), combined type F90.2 [facility] [address] [place] [address]167- [address] Dec, Seizures R56.9 ; Intermittent explosive disorder F63.81 and Developmental delay, gross motor F82 [facility] [id number] [place] [address]68- 39[address] 22 Nov, 2017 ANA LILIA (generalized anxiety disorder) F41.1 ; Intermittent explosive disorder F63.81 ; ADHD (attention deficit hyperactivity disorder), combined type F90.2 ; Other long-term (current) drug therapy Z79.899 ; Adjustment disorder, unspecified type F43.20 and Other schizophrenia F20.89 [facility] [id number] [place] [address] 57803- 1566 Nov, Schizophrenia, unspecified type F20.9 [facility] [id number] [place] [address] 93392- 7792 Oct, ANA LILIA (generalized anxiety disorder) F41.1 ; Intermittent explosive disorder F63.81 ; ADHD (attention deficit hyperactivity disorder), combined type F90.2 ; Other long-term (current) drug therapy Z79.899 and Adjustment disorder, unspecified type F43.20 [facility] [id number] [place] [address] 33729- 54[address] Oct, Schizophrenia, unspecified type F20.9 ; ANA LILIA (generalized anxiety disorder) F41.1 ; Intermittent explosive disorder F63.81 and ADHD ( attention deficit hyperactivity disorder), combined type F90.2 [facility] [address] [place] [address] [id number] Oct, Dental examination Z01.20 [facility] [id number] [place] [address] 83506- [address] Oct, [facility] [id number] [place] [address] 58496- 73[address] Oct, Other terminologist (current) drug therapy Z79.899 [facility] [id number] [place] [address] 25280- 1796 Sep, ANA LILIA (generalized anxiety disorder) F41.1 ; Intermittent explosive disorder F63.81 ; ADHD (attention deficit hyperactivity disorder), combined type F90.2 ; Other terminologist (current) drug therapy Z79.899 and Adjustment disorder, unspecified type F43.20 [facility] [address] [place] [address]- 74[address] Sep, Schizophrenia, unspecified type F20.9 ; ANA LILIA (generalized anxiety disorder) F41.1 ; Intermittent explosive disorder F63.81 ; ADHD ( attention deficit hyperactivity disorder), combined type F90.2 and Other long-term (current) drug therapy Z79.899 [facility] [address] [address] 18 Sep, 2017 Gastroenteritis K52.9 [facility] [address] [id number] 13 Sep, 2017 Encounter for dental examination Z01.20 [facility] [id number] [place] [address] 79540- [address]82 Aug, Annual physical exam Z00.00 and Seizures R56.9 [facility] [address] [address] Aug, Adjustment disorder with disturbance of emotion F43.29 ; Developmental delay disorder R62.50 ; Developmental delay, gross motor F82 and 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 [facility] [id number] [place] [address] 21194 [address]93 15 Aug, 2017 Moderate left ankle sprain, initial encounter S93.402A [facility] [id number] [place] [address] 74852- 4064 07 Aug, 2017 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 ; Developmental delay, gross motor F82 and Adjustment disorder with disturbance of emotion F43.29 [facility] [id number] [place] [address] 95477 -[address]6 Aug, Fatigue, unspecified type R53.83 IMMUNIZATIONS No Known Immunizations SOCIAL HISTORY Never Assessed REASON FOR VISIT Refill request PLAN OF CARE VITAL SIGNS MEDICATIONS Medication Instructions Dosage Frequency Start Date End Date Duration Status Peridex 0.12 % Mouth/Throat 2 times a day 15 ml Swish and spit 12h 14 Sep, 2018 30 days Active RESULTS No Results PROCEDURES [...]
--- OUTSIDE RECORDS SUMMARY | 2018-10-04 17:09 | XMS REPORT ---
Author Author DEMETRIUS FORDE [facility] Address [address] [place] [address] Care Team Providers Care Floor Scrubber Name Role Phone DEMETRIUS FORDE Unavailable PROBLEMS Type Condition ICD9-CM Code OSH07-FJ Code Onset Dates Condition Status SNOMED Code Problem Schizophrenia, unspecified type F20.9 Active 60133539 Problem ADHD (attention deficit hyperactivity disorder), combined type F90.2 Active 49198373 Problem ANA LILIA (generalized anxiety disorder) F41.1 Active 28194859 Problem Adjustment disorder with disturbance of emotion F43.29 Active 17671468 Problem Developmental delay, gross motor F82 Active 460350475 Problem 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 Active 47791509 Problem Adjustment disorder, unspecified type F43.20 Active 73003237 Problem Pulmonary nodule R91.1 Active 104937887 Problem Gastroesophageal reflux disease with esophagitis K21.0 Active 996259588 Problem Other schizophrenia F20.89 Active 94152845 Problem Intermittent explosive disorder F63.81 Active 82131551 Problem 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 Active 60367312 Problem Neuropathy G62.9 Active [id number] ALLERGIES No Information ENCOUNTERS Encounter Location Date Diagnosis [place] [id number] [place] [address]05- 0793 Oct, [facility] [address] [place] [address] 13459- 9497 Sep, [facility] [address] [place] [id number] [place] [address] 99257- 1455 Aug, Schizophrenia, unspecified type F20.9 and Intermittent explosive disorder F63.81 [facility] [address] [place] [address] 41139- 1191 Aug, Schizophrenia, unspecified type F20.9 [facility] [address] [place] [address] [id number] [place] [address] 31796- 6966 19 Aug, 2018 Urinary tract infection, site not specified N39.0 ; Bacterial infection A49.9 ; Hyponatremia E87.1 and Encounter for immunization Z23 [facility] [address] [place] [address] [id number] [place] [address] 73340- 3972 14 Aug, 2018 Schizophrenia, unspecified type F20.9 [place] [address] [address]- [address] 14 Aug, 2018 [place] [address] 22277- 1161 13 Aug, 2018 [place] [address] 86648- 5114 31 Jul, 2018 [facility] [address] [place] [address] [id number] [place] [address] 93021 -7262 Jul, Exposure to blood-borne pathogen Z77.21 [facility] [address] [id number] Jul, Dental examination Z01.20 [place] [address] 34182- 3299 Jul, Schizophrenia, unspecified type F20.9 and Intermittent explosive disorder F63.81 [place] [address] [place] [id number] [place] [address] 13999- 1119 Jul, Pulmonary nodule R91.1 [place] [address] [place] [id number] [place] [address] 97355- 7060 Jul, Gastroesophageal reflux disease with esophagitis K21.0 [place] [address] [place] [id number] [place] [address] 73090- 4564 Jul, Schizophrenia, unspecified type F20.9 ; ANA LILIA (generalized anxiety disorder) F41.1 ; Intermittent explosive disorder F63.81 ; ADHD ( attention deficit hyperactivity disorder), combined type F90.2 and 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 [place] [address] [place] [address] 17 Jun, 2018 Excessive flatus R14.3 [facility] [address] 38251- 4273 17 Jun, 2018 Schizophrenia, unspecified type F20.9 and Intermittent explosive disorder F63.81 [facility] [address] 97918 -3406 14 Jun, 2018 Excessive gas R14.3 [facility] [address] [id number] May, Dental examination Z01.20 [place] [address] 30141- 9398 May, Cramp of extremity R25.2 and Neuropathy G62.9 [place] [address] 31465- 7458 May, Schizophrenia, unspecified type F20.9 and Intermittent explosive disorder F63.81 [facility] [address] 8[address]0909 Apr, Viral URI J06.9 and Epigastric abdominal pain R10.13 [facility] [address] 07441- 5709 Apr, Schizophrenia, unspecified type F20.9 ; ANA LILIA (generalized anxiety disorder) F41.1 ; Intermittent explosive disorder F63.81 and ADHD ( attention deficit hyperactivity disorder), combined type F90.2 [facility] [address] [place] [address] [id number] [place] [address] 50225- 2028 Apr, Schizophrenia, unspecified type F20.9 and Intermittent explosive disorder F63.81 [facility] [address] [place] [id number] [place] [id number] Mar, Dental examination Z01.20 [facility] [address] 33448- 6509 Mar, Schizophrenia, unspecified type F20.9 and Intermittent explosive disorder F63.81 [facility] [address] [place] [address] Mar, Acute nonintractable headache, unspecified headache type R51 [facility] [address] [place] [address] February, Schizophrenia, unspecified type F20.9 ; ANA LILIA (generalized anxiety disorder) F41.1 ; Intermittent explosive disorder F63.81 and ADHD ( attention deficit hyperactivity disorder), combined type F90.2 [facility] [address] [place] [id number] [place] [address] 26133- 1827 February, Schizophrenia, unspecified type F20.9 and Intermittent explosive disorder F63.81 [facility] [address] [id number] [address] February, [facility] [address] [place] [id number] [place] [address] 27490- 9309 February, Schizophrenia, unspecified type F20.9 [facility] [address] [place] [id number] [place] [address] 11292- 1572 Jan, Schizophrenia, unspecified type F20.9 ; ANA LILIA (generalized anxiety disorder) F41.1 ; Intermittent explosive disorder F63.81 and ADHD ( attention deficit hyperactivity disorder), combined type F90.2 [facility] [address] [place] [address] Jan, Schizophrenia, unspecified type F20.9 and Intermittent explosive disorder F63.81 [facility] [address] [place] [address] Jan, Schizophrenia, unspecified type F20.9 ; ANA LILAI (generalized anxiety disorder) F41.1 ; Intermittent explosive disorder F63.81 and ADHD ( attention deficit hyperactivity disorder), combined type F90.2 [facility] [address] [place] [address] Jan, Schizophrenia, unspecified type F20.9 ; ANA LILIA (generalized anxiety disorder) F41.1 ; Intermittent explosive disorder F63.81 and ADHD ( attention deficit hyperactivity disorder), combined type F90.2 [facility] [address] [place] [address] Dec, [facility] [address] [place] [address] Dec, Schizophrenia, unspecified type F20.9 ; ANA LILIA (generalized anxiety disorder) F41.1 ; Intermittent explosive disorder F63.81 and ADHD ( attention deficit hyperactivity disorder), combined type F90.2 [facility] [address] [place] [address] Dec, [facility] [address] [id number] Dec, Encounter for dental examination Z01.20 [facility] [address] [place] [address] 07738- 3953 Dec, Schizophrenia, unspecified type F20.9 ; ANA LILIA (generalized anxiety disorder) F41.1 ; Intermittent explosive disorder F63.81 and ADHD ( attention deficit hyperactivity disorder), combined type F90.2 [facility] [address] [place] [address] 71[address] Dec, Schizophrenia, unspecified type F20.9 ; ANA LILIA (generalized anxiety disorder) F41.1 ; Intermittent explosive disorder F63.81 and ADHD ( attention deficit hyperactivity disorder), combined type F90.2 [facility] [address] [place] [address] Dec, Seizures R56.9 ; Intermittent explosive disorder F63.81 and Developmental delay, gross motor F82 [facility] [address] [place] [address] 82614- 3423 Nov, ANA LILIA (generalized anxiety disorder) F41.1 ; Intermittent explosive disorder F63.81 ; ADHD (attention deficit hyperactivity disorder), combined type F90.2 ; Other group home (current) drug therapy Z79.899 ; Adjustment disorder, unspecified type F43.20 and Other schizophrenia F20.89 [facility] [address] [place] [address] Nov, Schizophrenia, unspecified type F20.9 [facility] [address] [place] [id number] [address] Oct, ANA LILIA (generalized anxiety disorder) F41.1 ; Intermittent explosive disorder F63.81 ; ADHD (attention deficit hyperactivity disorder), combined type F90.2 ; Other long term care administrator (current) drug therapy Z79.899 and Adjustment disorder, unspecified type F43.20 [facility] [address] [place] [address] Oct, Schizophrenia, unspecified type F20.9 ; ANA LILIA (generalized anxiety disorder) F41.1 ; Intermittent explosive disorder F63.81 and ADHD ( attention deficit hyperactivity disorder), combined type F90.2 [facility] [address] [id number] Oct, Dental examination Z01.20 [facility] [address], [place] [address] Oct, [facility] [address] [place] [address] 62298- 0319 Oct, Other long term care administrator (current) drug therapy Z79.899 [facility] [address] [place] [address] 10895- 3691 Sep, ANA LILIA (generalized anxiety disorder) F41.1 ; Intermittent explosive disorder F63.81 ; ADHD (attention deficit hyperactivity disorder), combined type F90.2 ; Other group home (current) drug therapy Z79.899 and Adjustment disorder, unspecified type F43.20 [facility] [address] [place] [id number] [address] Sep, Schizophrenia, unspecified type F20.9 ; ANA LILIA (generalized anxiety disorder) F41.1 ; Intermittent explosive disorder F63.81 ; ADHD ( attention deficit hyperactivity disorder), combined type F90.2 and Other long term care administrator (current) drug therapy Z79.899 [facility] [address], [place] [address]- 8843 18 Sep, 2017 Gastroenteritis K52.9 [facility] [address] [address] 13 Sep, 2017 Encounter for dental examination Z01.20 [facility] [address] [place] [id number] [place] [address] 64900- 8938 22 Aug, 2017 Annual physical exam Z00.00 and Seizures R56.9 [facility] [address] [place] [address] 59440- 3869 22 Aug, 2017 Adjustment disorder with disturbance of emotion F43.29 ; Developmental delay disorder R62.50 ; Developmental delay, gross motor F82 and 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 [facility] [address] [place] [address] 67329 -4292 15 Aug, 2017 Moderate left ankle sprain, initial encounter S93.402A [facility] [address] [place] [address] 87603- 2176 07 Aug, 2017 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 ; Developmental delay, gross motor F82 and Adjustment disorder with disturbance of emotion F43.29 [facility] [address] [place] [address]39 -1997 01 Aug, 2017 Fatigue, unspecified type R53.83 IMMUNIZATIONS No Known Immunizations SOCIAL HISTORY Never Assessed REASON FOR VISIT f/u PLAN OF CARE Activity Details Follow Up Next available Reason: F/U VITAL SIGNS MEDICATIONS Unknown Medications RESULTS No Results PROCEDURES Procedure Date Ordered Result Body Site Psychotherapy, patient &/family, 30 minutes, established patient Aug 31, 2018 INSTRUCTIONS MEDICATIONS ADMINISTERED No Known Medications MEDICAL (GENERAL) HISTORY Type Description Date Medical History Schizophrenia Medical History Intermitten Explosive Disorder Medical History Generalized anxiety disorder Medical History Moderate intellectual disability Medical History Bipolar Medical History asthma exercise induced Medical History Seizure disorder Surgical History Tubes in ears
--- OUTSIDE RECORDS SUMMARY | 2018-10-04 17:09 | XMS REPORT ---
Author Author SEEMA GILBERT [facility] Address [address] [place] [address] Care Team Providers Care Teaching Specialists Name Role Phone SEEMA GILBERT Unavailable PROBLEMS Type Condition ICD9-CM Code ASP08-HT Code Onset Dates Condition Status SNOMED Code Problem Schizophrenia, unspecified type F20.9 Active 25187955 Problem ADHD (attention deficit hyperactivity disorder), combined type F90.2 Active 06553646 Problem ANA LILIA (generalized anxiety disorder) F41.1 Active 56563984 Problem Adjustment disorder with disturbance of emotion F43.29 Active 18648742 Problem Developmental delay, gross motor F82 Active 069663669 Problem 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 Active 41575676 Problem Adjustment disorder, unspecified type F43.20 Active 84302470 Problem Pulmonary nodule R91.1 Active 046778746 Problem Gastroesophageal reflux disease with esophagitis K21.0 Active 729985823 Problem Other schizophrenia F20.89 Active 75265943 Problem Intermittent explosive disorder F63.81 Active 39374584 Problem 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 Active 09226979 Problem Neuropathy G62.9 Active [id number] ALLERGIES Substance Reaction Event Type Date Status PredniSONE Unknown Drug Allergy Aug, Active Augmentin Unknown Drug Allergy Aug, Active Natural Rubber Unknown Non Drug Allergy Aug, Active Latex Unknown Non Drug Allergy Aug, Active ENCOUNTERS Encounter Location Date Diagnosis [facility] [place] [address] [facility] [id number] [address] Oct, [facility] [place] [address] [id number] [address] Sep, [facility] [place] [address] [id number] [address] Aug, Schizophrenia, unspecified type F20.9 and Intermittent explosive disorder F63.81 [place] [id number] [place] [address] [id number] [place] [address] Aug, Schizophrenia, unspecified type F20.9 [facility] [place] [address] [address] Aug, Urinary tract infection, site not specified N39.0 ; Bacterial infection A49.9 ; Hyponatremia E87.1 and Encounter for immunization Z23 [facility] [place] [address] [address] Aug, Schizophrenia, unspecified type F20.9 [place] [address] [address] Aug, [facility] [place] [address] [address] Aug, [facility] [place] [address] [address] Jul, [facility] [id number] [place] [address] Jul, Exposure to blood-borne pathogen Z77.21 [facility] [address] [id number] Jul, Dental examination Z01.20 [facility] [place] [id number] [place] [address] Jul, Schizophrenia, unspecified type F20.9 and Intermittent explosive disorder F63.81 [facility] [place] [id number] [place] [address] Jul, Pulmonary nodule R91.1 [facility] [place] [address] [address] Jul, Gastroesophageal reflux disease with esophagitis K21.0 [facility] [place] [id number] [place] [address] Jul, Schizophrenia, unspecified type F20.9 ; ANA LILIA (generalized anxiety disorder) F41.1 ; Intermittent explosive disorder F63.81 ; ADHD ( attention deficit hyperactivity disorder), combined type F90.2 and 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 [facility] [place] [address] [id number] 17 Jun, 2018 Excessive flatus R14.3 [place] [address] [address] 17 Jun, 2018 Schizophrenia, unspecified type F20.9 and Intermittent explosive disorder F63.81 [facility] [address] [address] 14 Jun, [address] [facility] [address] [id number] May, Dental examination Z01.20 [place] [address] [address] May, Cramp of extremity R25.2 and Neuropathy G62.9 [place] [address] [address] May, Schizophrenia, unspecified type F20.9 and Intermittent explosive disorder F63.81 [facility] [address] [address] Apr, Viral URI J06.9 and Epigastric abdominal pain R10.13 [place] [address] [address] Apr, Schizophrenia, unspecified type F20.9 ; ANA LILIA (generalized anxiety disorder) F41.1 ; Intermittent explosive disorder F63.81 and ADHD ( attention deficit hyperactivity disorder), combined type F90.2 [place] [address] [address] Apr, Schizophrenia, unspecified type F20.9 and Intermittent explosive disorder F63.[address] [facility] [id number] [place] [id number] Mar, Dental examination Z01.20 [facility] [place] [id number] [address] Mar, Schizophrenia, unspecified type F20.9 and Intermittent explosive disorder F63.81 [facility] [id number] [address] Mar, Acute nonintractable headache, unspecified headache type R51 [facility] [place] [id number] [place] [address] February, Schizophrenia, unspecified type F20.9 ; ANA LILIA (generalized anxiety disorder) F41.1 ; Intermittent explosive disorder F63.81 and ADHD ( attention deficit hyperactivity disorder), combined type F90.2 [place] [id number] [place] [address] February, Schizophrenia, unspecified type F20.9 and Intermittent explosive disorder F63.81 [facility] [place] [id number] [place] [address] February, [facility] [place] [id number] [place] [address] February, Schizophrenia, unspecified type F20.9 [facility] [place] [id number] [place] [address] Jan, Schizophrenia, unspecified type F20.9 ; ANA LILIA (generalized anxiety disorder) F41.1 ; Intermittent explosive disorder F63.81 and ADHD ( attention deficit hyperactivity disorder), combined type F90.2 [facility] [place] [id number] [place] [address] Jan, Schizophrenia, unspecified type F20.9 and Intermittent explosive disorder F63.81 [facility] [place] [id number] [place] [address] Jan, Schizophrenia, unspecified type F20.9 ; ANA LILIA (generalized anxiety disorder) F41.1 ; Intermittent explosive disorder F63.81 and ADHD ( attention deficit hyperactivity disorder), combined type F90.2 [facility] [place] [id number] [address] Jan, Schizophrenia, unspecified type F20.9 ; ANA LILIA (generalized anxiety disorder) F41.1 ; Intermittent explosive disorder F63.81 and ADHD ( attention deficit hyperactivity disorder), combined type F90.2 [facility] [place] [id number] [address] Dec, [facility] [place] [id number] [place] [address] Dec, Schizophrenia, unspecified type F20.9 ; ANA LILIA (generalized anxiety disorder) F41.1 ; Intermittent explosive disorder F63.81 and ADHD ( attention deficit hyperactivity disorder), combined type F90.2 [place] [id number], [place] [address] Dec, [facility] [id number] [place] [id number] Dec, Encounter for dental examination Z01.20 [facility] [place] [id number] [place] [address] Dec, Schizophrenia, unspecified type F20.9 ; ANA LILIA (generalized anxiety disorder) F41.1 ; Intermittent explosive disorder F63.81 and ADHD ( attention deficit hyperactivity disorder), combined type F90.2 [facility] [place] [id number], [place] [address] Dec, Schizophrenia, unspecified type F20.9 ; ANA LILIA (generalized anxiety disorder) F41.1 ; Intermittent explosive disorder F63.81 and ADHD ( attention deficit hyperactivity disorder), combined type F90.2 [place] [id number] [place] [address] Dec, Seizures R56.9 ; Intermittent explosive disorder F63.81 and Developmental delay, gross motor F82 [facility] [place] [address], [place] [address] Nov, ANA LILIA (generalized anxiety disorder) F41.1 ; Intermittent explosive disorder F63.81 ; ADHD (attention deficit hyperactivity disorder), combined type F90.2 ; Other usp (current) drug therapy Z79.899 ; Adjustment disorder, unspecified type F43.20 and Other schizophrenia F20.89 [facility] [place] [id number] [address] Nov, Schizophrenia, unspecified type F20.9 [facility] [place] [id number] [place] [address] Oct, ANA LILIA (generalized anxiety disorder) F41.1 ; Intermittent explosive disorder F63.81 ; ADHD (attention deficit hyperactivity disorder), combined type F90.2 ; Other usp (current) drug therapy Z79.899 and Adjustment disorder, unspecified type F43.20 [facility] [place] [id number] [place] [address] Oct, Schizophrenia, unspecified type F20.9 ; ANA LILIA (generalized anxiety disorder) F41.1 ; Intermittent explosive disorder F63.81 and ADHD ( attention deficit hyperactivity disorder), combined type F90.2 [facility] [id number] [place] [id number] Oct, Dental examination Z01.20 [facility] [place] [id number] [place] [address] Oct, [facility] [place] [id number] [place] [address] Oct, Other usp (current) drug therapy Z79.899 [facility] [place] [id number] [place] [address] Sep, ANA LILIA (generalized anxiety disorder) F41.1 ; Intermittent explosive disorder F63.81 ; ADHD (attention deficit hyperactivity disorder), combined type F90.2 ; Other adjunct faculty for medical terminology (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) drug therapy Z79.899 and Adjustment disorder, unspecified type F43.20 [facility] [place] [id number] [place] [address] Sep, Schizophrenia, unspecified type F20.9 ; ANA LILIA (generalized anxiety disorder) F41.1 ; Intermittent explosive disorder F63.81 ; ADHD ( attention deficit hyperactivity disorder), combined type F90.2 and Other adjunct faculty for medical terminology (current) drug therapy Z79.899 [facility] [place] [id number] [place] [address] 18 Sep, [address] 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 [facility] [id number] [place] [address] 15 Aug, 2017 Moderate left ankle sprain, initial encounter S93.402A [facility] [place] [id number] [place] [address] 07 Aug, 2017 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 ; Developmental delay, gross motor F82 and Adjustment disorder with disturbance of emotion F43.29 [facility] [id number] [place] [address] Aug, Fatigue, unspecified type R53.83 IMMUNIZATIONS Vaccine Route Administration Date Status FLULAVAL QUAD 0.5ML (6 MO & UP) 2018 IM Intramuscular Aug 24, 2018 Administered SOCIAL HISTORY Never Assessed REASON FOR VISIT Hospital f/u- [facility] Pt was in hospital recently for chest pain was told he had low sodium --LOIS Bianchi PLAN OF CARE Activity Details Follow Up prn Reason: VITAL SIGNS Height 70.25 in 2018-08-24 Weight 200.8 lbs 2018-08-24 Temperature 98.2 degrees Fahrenheit 2018-08-24 Heart Rate 92 bpm 2018-08-24 Respiratory Rate 20 2018-08-24 BMI 28.6 kg/m2 2018-08-24 Blood pressure systolic 126 mmHg 2018-08-24 Blood pressure diastolic 94 mmHg 2018-08-24 MEDICATIONS Medication Instructions Dosage Frequency Start Date End Date Duration Status Calcium 500 MG Orally Twice a day 1 tablet with meals 12h 30 day(s) Active Loxapine Succinate 10 MG TAKE 1 CAPSULE BY MOUTH TWICE DAILY Active Desmopressin Acetate 0.2 MG TAKE 3 TABLETS BY MOUTH DAILY 31 Active BusPIRone HCl 10 MG TAKE 1 TABLET BY MOUTH TWICE DAILY Active Chlorhexidine - Active Melatonin 3 MG Orally Once a day 1 tablet at bedtime as needed with food 24h 30 Active Aripiprazole 30 MG Orally Once a day every morning 1 tablet 31 days Active Cyproheptadine HCl 4 MG Orally at bedtime 3 tablets Active Olopatadine HCl 0.1 % Ophthalmic TID 1 drop into affected eye 8h Active Thera M Plus - Active Acetaminophen 500 MG Orally every 6 hrs 2 capsules as needed 6h Active Benztropine Mesylate 1 MG Orally daily 1 tablet in morning and two tablets at night 24h 31 days Active Thera-M - TAKE 1 TABLET BY MOUTH DAILY 31 Active Acidophilus Probiotic Formula - Orally 2 times a day 1 capsule 12h 31 Active Siltussin SA 100 MG/5ML Orally every 4 hrs 10 ml as needed 4h Active Doxycycline Active Carafate 1 GM Orally Twice a day 1 tablet 12h 31 Active Duac 1.2-5 % Externally Once a day Apply to affected area 24h 30 days Active Clindamycin-Benzoyl Per-Cleans 1-5 % Active Oxcarbazepine 600 MG TAKE 1 TABLET BY MOUTH THREE TIMES DAILY 31 Active Divalproex Sodium 500 mg Orally 2 times a day 1 tablet 12h Active Cefdinir 300 MG as directed Active RESULTS No Results PROCEDURES Procedure Date Ordered Result Body Site FLULAVAL QUAD 0.5ML (6 MO & UP) 2017Aug 24, 2018 SINGLE IMMUNIZATION ADMIN Aug 24, 2018 INSTRUCTIONS MEDICATIONS ADMINISTERED No Known Medications MEDICAL (GENERAL) HISTORY Type Description Date Medical History Schizophrenia Medical History Intermitten Explosive Disorder Medical History Generalized anxiety disorder Medical History Moderate intellectual disability Medical History Bipolar Medical History asthma exercise induced Medical History Seizure disorder Surgical History Tubes in ears
--- OUTSIDE RECORDS SUMMARY | 2018-10-04 17:10 | XMS REPORT ---
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 Name Role Phone [email or web address] Unavailable PROBLEMS Type Condition ICD9-CM Code LLN46-CX Code Onset Dates Condition Status SNOMED Code Problem Schizophrenia, unspecified type F20.9 Active 76721468 Problem ADHD (attention deficit hyperactivity disorder), combined type F90.2 Active 50103468 Problem ANA LILIA (generalized anxiety disorder) F41.1 Active 41068936 Problem Adjustment disorder with disturbance of emotion F43.29 Active 92281653 Problem Developmental delay, gross motor F82 Active 032070806 Problem 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 Active 59170759 Problem Adjustment disorder, unspecified type F43.20 Active 33151673 Problem Pulmonary nodule R91.1 Active 997065282 Problem Gastroesophageal reflux disease with esophagitis K21.0 Active 944730785 Problem Other schizophrenia F20.89 Active 23034936 Problem Intermittent explosive disorder F63.81 Active 93648817 Problem 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 Active 01096418 Problem Neuropathy G62.9 Active [id number] ALLERGIES No Information ENCOUNTERS Encounter Location Date Diagnosis [facility] [id number] [place] [address] Sep, [facility] [id number] [place] [address]- [address] Aug, [facility] [id number] [place] [address] 07496[address]60 Aug, Schizophrenia, unspecified type F20.9 [facility] [address] [address] Aug, [facility] [id number] [place] [address] 06283- 4770 Aug, [facility] [id number] [place] [address] 97234[address] 3929 Jul, [facility] [address] [address] Jul, Exposure to blood-borne pathogen Z77.21 [facility] [id number] [place] [phone] Jul, Dental examination Z01.20 [facility] [address] [address] Jul, Schizophrenia, unspecified type F20.9 and Intermittent explosive disorder F63.81 [place] [address] [address] Jul, Pulmonary nodule R91.[address] [address]- [address] Jul, Gastroesophageal reflux disease with esophagitis K21.0 [facility] [id number] [place] [address] 14333- 3426 Jul, Schizophrenia, unspecified type F20.9 ; ANA LILIA (generalized anxiety disorder) F41.1 ; Intermittent explosive disorder F63.81 ; ADHD ( attention deficit hyperactivity disorder), combined type F90.2 and 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 [place] [id number] [place] [address] 26472- 9106 Jun, Excessive flatus R14.3 [facility] [address] [address] 17 Jun, 2018 Schizophrenia, unspecified type F20.9 and Intermittent explosive disorder F63.81 [facility] [address] [address] 14 Jun, 2018 Excessive gas R14.3 [facility] [id number] [place] [phone] May, Dental examination Z01.20 [facility] [id number] [place] [address] 03970- 9618 May, Cramp of extremity R25.2 and Neuropathy G62.9 [place] [id number] [place] [address] 68788- 7611 May, Schizophrenia, unspecified type F20.9 and Intermittent explosive disorder F63.81 [facility] [address] [address] Apr, Viral URI J06.9 and Epigastric abdominal pain R10.13 [place] [address] [address]85- [address] Apr, Schizophrenia, unspecified type F20.9 ; ANA LILIA (generalized anxiety disorder) F41.1 ; Intermittent explosive disorder F63.81 and ADHD ( attention deficit hyperactivity disorder), combined type F90.2 [place] [address] [address]85 Apr, Schizophrenia, unspecified type F20.9 and Intermittent explosive disorder F63.81 [facility] [id number] [place] [phone] Mar, Dental examination Z01.20 [facility] [id number] [place] [address] 83277- 7958 Mar, Schizophrenia, unspecified type F20.9 and Intermittent explosive disorder F63.81 [facility] [id number] [place] [address] Mar, Acute nonintractable headache, unspecified headache type R51 [place] [address] [address] February, Schizophrenia, unspecified type F20.9 ; ANA LILIA (generalized anxiety disorder) F41.1 ; Intermittent explosive disorder F63.81 and ADHD ( attention deficit hyperactivity disorder), combined type F90.2 [place] [address] [address] February, Schizophrenia, unspecified type F20.9 and Intermittent explosive disorder F63.81 [place] [address] [address] February, [facility] [id number] [address] February, Schizophrenia, unspecified type F20.9 [facility] [facility] [id number] [place] [address] 78070- 9007 Jan, Schizophrenia, unspecified type F20.9 ; ANA LILIA (generalized anxiety disorder) F41.1 ; Intermittent explosive disorder F63.81 and ADHD ( attention deficit hyperactivity disorder), combined type F90.2 [place] [address] [address] Jan, Schizophrenia, unspecified type F20.9 and Intermittent explosive disorder F63.81 [place] [address] [address] Jan, Schizophrenia, unspecified type F20.9 ; ANA LILIA (generalized anxiety disorder) F41.1 ; Intermittent explosive disorder F63.81 and ADHD ( attention deficit hyperactivity disorder), combined type F90.2 [place] [address] [address] Jan, Schizophrenia, unspecified type F20.9 ; ANA LILIA (generalized anxiety disorder) F41.1 ; Intermittent explosive disorder F63.81 and ADHD ( attention deficit hyperactivity disorder), combined type F90.2 [place] [address] [address] Dec, [place] [id number] [place] [address] 20346- 4075 Dec, Schizophrenia, unspecified type F20.9 ; ANA LILIA (generalized anxiety disorder) F41.1 ; Intermittent explosive disorder F63.81 and ADHD ( attention deficit hyperactivity disorder), combined type F90.2 [place] [address] [address] Dec, [facility] [id number] [id number] Dec, Encounter for dental examination Z01.20 [facility] [address] [address] Dec, Schizophrenia, unspecified type F20.9 ; ANA LILIA (generalized anxiety disorder) F41.1 ; Intermittent explosive disorder F63.81 and ADHD ( attention deficit hyperactivity disorder), combined type F90.2 [facility] [address] [address] Dec, Schizophrenia, unspecified type F20.9 ; ANA LILIA (generalized anxiety disorder) F41.1 ; Intermittent explosive disorder F63.81 and ADHD ( attention deficit hyperactivity disorder), combined type F90.2 [facility] [address] [address] Dec, Seizures R56.9 ; Intermittent explosive disorder F63.81 and Developmental delay, gross motor F82 [facility] [address] [address] Nov, ANA LILIA (generalized anxiety disorder) F41.1 ; Intermittent explosive disorder F63.81 ; ADHD (attention deficit hyperactivity disorder), combined type F90.2 ; 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 ; Adjustment disorder, unspecified type F43.20 and Other schizophrenia F20.89 [facility] [address] [address] Nov, Schizophrenia, unspecified type F20.9 [facility] [address] [address] Oct, ANA LILIA (generalized anxiety disorder) F41.1 ; Intermittent explosive disorder F63.81 ; ADHD (attention deficit hyperactivity disorder), combined type F90.2 ; Other usp (current) drug therapy Z79.899 and Adjustment disorder, unspecified type F43.20 [facility] [address] [place] [address] 96974- 2399 Oct, Schizophrenia, unspecified type F20.9 ; ANA LILIA (generalized anxiety disorder) F41.1 ; Intermittent explosive disorder F63.81 and ADHD ( attention deficit hyperactivity disorder), combined type F90.2 [facility] [address] [place] [phone] Oct, Dental examination Z01.20 [facility] [id number] [place] [address] 61872- 6410 Oct, [place] [id number] [place] [address] 12713- 4935 Oct, Other usp (current) drug therapy Z79.899 [facility] [id number] [place] [address] 14756- 4922 Sep, ANA LILIA (generalized anxiety disorder) F41.1 ; Intermittent explosive disorder F63.81 ; ADHD (attention deficit hyperactivity disorder), combined type F90.2 ; 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 and Adjustment disorder, unspecified type F43.20 [facility] [id number] [place] [address] 71363- 1615 Sep, Schizophrenia, unspecified type F20.9 ; ANA LILIA (generalized anxiety disorder) F41.1 ; Intermittent explosive disorder F63.81 ; ADHD ( attention deficit hyperactivity disorder), combined type F90.2 and Other usp (current) drug therapy Z79.899 [facility] [id number] [place] [address] 05179- 4020 Sep, Gastroenteritis K52.9 [facility] [id number] [place] [address] [id number] Sep, Encounter for dental examination Z01.20 [facility] [id number] [place] [address] 66030- 6[address] Aug, Annual physical exam Z00.00 and Seizures R56.9 [facility] [id number] [place] [address] 13808- 4990 Aug, Adjustment disorder with disturbance of emotion F43.29 ; Developmental delay disorder R62.50 ; Developmental delay, gross motor F82 and 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 [facility] [id number] [address] Aug, Moderate left ankle sprain, initial encounter S93.402A [facility] [id number] [address] 07 Aug, 2017 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 ; Developmental delay, gross motor F82 and Adjustment disorder with disturbance of emotion F43.29 [facility] [id number] [address] Aug, Fatigue, unspecified type R53.83 IMMUNIZATIONS No Known Immunizations SOCIAL HISTORY Never Assessed REASON FOR VISIT Medication question PLAN OF CARE VITAL SIGNS MEDICATIONS Medication Instructions Dosage Frequency Start Date End Date Duration Status Benztropine Mesylate 1 MG Orally daily 1 tablet in morning and two tablets at night 24h 31 days Active Aripiprazole 30 MG Orally Once a day every morning 1 tablet 31 days Active RESULTS No Results PROCEDURES No Known procedures INSTRUCTIONS MEDICATIONS ADMINISTERED No Known Medications MEDICAL (GENERAL) HISTORY Type Description Date Medical History Schizophrenia Medical History Intermitten Explosive Disorder Medical History Generalized anxiety disorder Medical History Moderate intellectual disability Medical History Bipolar Medical History asthma exercise induced Medical History Seizure disorder Surgical History Tubes in ears
--- OUTSIDE RECORDS SUMMARY | 2018-10-04 17:10 | XMS REPORT ---
Author Author SEEMA GILBERT Organization [facility] Address [address] [place] [address] Care Team Providers Care Scenery Builder Name Role Phone SEEMA GILBERT Unavailable PROBLEMS Type Condition ICD9-CM Code MKT62-DS Code Onset Dates Condition Status SNOMED Code Problem Schizophrenia, unspecified type F20.9 Active 05558762 Problem ADHD (attention deficit hyperactivity disorder), combined type F90.2 Active 96514492 Problem ANA LILIA (generalized anxiety disorder) F41.1 Active 44654233 Problem Adjustment disorder with disturbance of emotion F43.29 Active 87615387 Problem Developmental delay, gross motor F82 Active 892846004 Problem 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 Active 25228578 Problem Adjustment disorder, unspecified type F43.20 Active 14545917 Problem Pulmonary nodule R91.1 Active 875296266 Problem Gastroesophageal reflux disease with esophagitis K21.0 Active 187395813 Problem Other schizophrenia F20.89 Active 28903317 Problem Intermittent explosive disorder F63.81 Active 52442891 Problem 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 Active 64388899 Problem Neuropathy G62.9 Active [id number] ALLERGIES No Information ENCOUNTERS Encounter Location Date Diagnosis [facility] [id number] [place] [address]37- 6769 Sep, [facility] [address] [place] [address] 19815[address] 7831 Aug, [facility] [id number] [place] [address] 80277- 8047 Aug, Schizophrenia, unspecified type F20.9 [facility] [address] [place] [address] 30836- 4128 Aug, [facility] [id number] [place] [address] 35888- 5955 Aug, [facility] [id number] [place] [address] 06229- 4814 Jul, [facility] [address] [address] Jul, Exposure to blood-borne pathogen Z77.21 [facility] [address] [id number] Jul, Dental examination Z01.20 [facility] [address] [address] Jul, Schizophrenia, unspecified type F20.9 and Intermittent explosive disorder F63.81 [place] [address] [address] 58[address] Jul, Pulmonary nodule R91.1 [place] [address] 26767- 27[address] Jul, Gastroesophageal reflux disease with esophagitis K21.0 [facility] [address] [address] Jul, Schizophrenia, unspecified type F20.9 ; ANA LILIA (generalized anxiety disorder) F41.1 ; Intermittent explosive disorder F63.81 ; ADHD ( attention deficit hyperactivity disorder), combined type F90.2 and 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 [place] [id number] [place] [address] 22633- 8998 Jun, Excessive flatus R14.3 [facility] [address] [address] 17 Jun, 2018 Schizophrenia, unspecified type F20.9 and Intermittent explosive disorder F63.81 [facility] [address] [address] 14 Jun, 2018 Excessive gas R14.3 [facility] [id number] [place] [id number] May, Dental examination Z01.20 [place] [id number] [place] [address] 11265- 0468 20 May, 2018 Cramp of extremity R25.2 and Neuropathy G62.9 [place] [id number] [place] [address] 56442- 1307 May, Schizophrenia, unspecified type F20.9 and Intermittent explosive disorder F63.81 [facility] [address] [address] Apr, Viral URI J06.9 and Epigastric abdominal pain R10.13 [place] [address] [address]07[address] Apr, Schizophrenia, unspecified type F20.9 ; ANA LILIA (generalized anxiety disorder) F41.1 ; Intermittent explosive disorder F63.81 and ADHD ( attention deficit hyperactivity disorder), combined type F90.2 [place] [address] 24738- 4[address] Apr, Schizophrenia, unspecified type F20.9 and Intermittent explosive disorder F63.81 [facility] [address] [id number] Mar, Dental examination Z01.20 [place] [id number] [place] [address] 39283- 9978 Mar, Schizophrenia, unspecified type F20.9 and Intermittent explosive disorder F63.81 [facility] [id number] [place] [address]128 [address] Mar, Acute nonintractable headache, unspecified headache type R51 [place] [address] 27[address] February, Schizophrenia, unspecified type F20.9 ; ANA LILIA (generalized anxiety disorder) F41.1 ; Intermittent explosive disorder F63.81 and ADHD ( attention deficit hyperactivity disorder), combined type F90.2 [place] [address] [address] February, Schizophrenia, unspecified type F20.9 and Intermittent explosive disorder F63.81 [place] [address] [address] February, [facility] [address] [address] February, Schizophrenia, unspecified type F20.9 [place] [id number] [place] [address] 64032- 2786 Jan, Schizophrenia, unspecified type F20.9 ; ANA LILIA (generalized anxiety disorder) F41.1 ; Intermittent explosive disorder F63.81 and ADHD ( attention deficit hyperactivity disorder), combined type F90.2 [place] [address] [address] Jan, Schizophrenia, unspecified type F20.9 and Intermittent explosive disorder F63.81 [place] [address] [place] [address] 65956- 9341 Jan, Schizophrenia, unspecified type F20.9 ; ANA LILIA (generalized anxiety disorder) F41.1 ; Intermittent explosive disorder F63.81 and ADHD ( attention deficit hyperactivity disorder), combined type F90.2 [place] [address] [address] Jan, Schizophrenia, unspecified type F20.9 ; ANA LILIA (generalized anxiety disorder) F41.1 ; Intermittent explosive disorder F63.81 and ADHD ( attention deficit hyperactivity disorder), combined type F90.2 [place] [address] [address] Dec, [place] [id number] [place] [address] 27422- 5154 Dec, Schizophrenia, unspecified type F20.9 ; ANA LILIA (generalized anxiety disorder) F41.1 ; Intermittent explosive disorder F63.81 and ADHD ( attention deficit hyperactivity disorder), combined type F90.2 [place] [id number] [address] Dec, [facility] [id number] [id number] Dec, Encounter for dental examination Z01.20 [facility] [address] [address] Dec, Schizophrenia, unspecified type F20.9 ; ANA LILIA (generalized anxiety disorder) F41.1 ; Intermittent explosive disorder F63.81 and ADHD ( attention deficit hyperactivity disorder), combined type F90.2 [facility] [address] [address] Dec, Schizophrenia, unspecified type F20.9 ; ANA LILIA (generalized anxiety disorder) F41.1 ; Intermittent explosive disorder F63.81 and ADHD ( attention deficit hyperactivity disorder), combined type F90.2 [facility] [address] [place] [address] 85806- 9198 Dec, Seizures R56.9 ; Intermittent explosive disorder F63.81 and Developmental delay, gross motor F82 [facility] [address] [place] [address] 41552- 1759 Nov, ANA LILIA (generalized anxiety disorder) F41.1 ; Intermittent explosive disorder F63.81 ; ADHD (attention deficit hyperactivity disorder), combined type F90.2 ; Other usp (current) drug therapy Z79.899 ; Adjustment disorder, unspecified type F43.20 and Other schizophrenia F20.89 [facility] [address] [address] Nov, Schizophrenia, unspecified type F20.9 [facility] [address] [place] [address] 73026- 6687 Oct, ANA LILIA (generalized anxiety disorder) F41.1 ; Intermittent explosive disorder F63.81 ; ADHD (attention deficit hyperactivity disorder), combined type F90.2 ; Other usp (current) drug therapy Z79.899 and Adjustment disorder, unspecified type F43.20 [facility] [address] [place] [address] 48436- 2910 Oct, Schizophrenia, unspecified type F20.9 ; ANA LILIA (generalized anxiety disorder) F41.1 ; Intermittent explosive disorder F63.81 and ADHD ( attention deficit hyperactivity disorder), combined type F90.2 [facility] [address] [place] [phone] Oct, Dental examination Z01.20 [facility] [id number] [place] [address] 09812- 2324 Oct, [place] [id number] [place] [address] 36497- 5243 Oct, Other usp (current) drug therapy Z79.899 [facility] [id number] [place] [address] 55486- 7798 Sep, ANA LILIA (generalized anxiety disorder) F41.1 ; Intermittent explosive disorder F63.81 ; ADHD (attention deficit hyperactivity disorder), combined type F90.2 ; Other usp (current) drug therapy Z79.899 and Adjustment disorder, unspecified type F43.20 [facility] [id number] [place] [address] 02539- 6826 Sep, Schizophrenia, unspecified type F20.9 ; ANA LILIA (generalized anxiety disorder) F41.1 ; Intermittent explosive disorder F63.81 ; ADHD ( attention deficit hyperactivity disorder), combined type F90.2 and 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29 ; Developmental delay disorder R62.50 ; Developmental delay, gross motor F82 and 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 [facility] [id number] [address] 15 Aug, 2017 Moderate left ankle sprain, initial encounter S93.402A [facility] [id number] [address] 07 Aug, 2017 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 ; Developmental delay, gross motor F82 and Adjustment disorder with disturbance of emotion F43.29 [facility] [id number] [address] Aug, Fatigue, unspecified type R53.83 IMMUNIZATIONS No Known Immunizations SOCIAL HISTORY Never Assessed REASON FOR VISIT medication request PLAN OF CARE VITAL SIGNS MEDICATIONS Medication Instructions Dosage Frequency Start Date End Date Duration Status Desmopressin Acetate 0.2 MG TAKE 3 TABLETS BY MOUTH DAILY 90 days Active Thera-M - TAKE 1 TABLET BY MOUTH DAILY 90 days Active RESULTS No Results PROCEDURES No Known procedures INSTRUCTIONS MEDICATIONS ADMINISTERED No Known Medications MEDICAL (GENERAL) HISTORY Type Description Date Medical History Schizophrenia Medical History Intermitten Explosive Disorder Medical History Generalized anxiety disorder Medical History Moderate intellectual disability Medical History Bipolar Medical History asthma exercise induced Medical History Seizure disorder Surgical History Tubes in ears
--- NOTE | 2018-10-04 18:26 | NUR ---
PT TO ROOM 4
--- NOTE | 2018-10-04 18:26 | NUR ---
SEE LIST FOR CURRENT MEDS
--- NOTE | 2018-10-04 19:00 | NUR ---
REPORT TO STAN GAMEZ
--- NOTE | 2018-10-04 19:49 | Diagnostic Imaging Report ---
INDICATION: Left thumb pain from running a hot saw. Swelling. TECHNIQUE: Three views of the left hand. CORRELATION STUDY: None FINDINGS: There is normal alignment and appearance of the osseous structures of the hand. The joint spaces are maintained. There is no acute fracture. Lateral projection is limited at the thumb with thumb held in flexure at time of imaging. IMPRESSION: 1. Negative for acute bony abnormality of the hand. Dictated by: Dictated on workstation # [id number]
--- NOTE | 2018-10-04 20:23 | Diagnostic Imaging Report ---
INDICATION: Pain and swelling of the thumb TECHNIQUE: 3 views of the left thumb CORRELATION STUDY: 11/25/2017 FINDINGS: There is normal alignment and appearance of the osseous structures of the thumb. The joint spaces are maintained. There is no acute fracture. The soft tissues are unremarkable. IMPRESSION: 1. Negative for acute bony abnormality of the left thumb. Dictated by: Dictated on workstation # [id number]
[2018-10-04] MEDS ORDERED: NAPROXEN 250 MG (NAPROSYN) TABLET PO ONE (20:30)
[2018-10-04] MEDS ORDERED: NAPR-915 PO (20:31)
--- NOTE | 2018-10-04 20:32 | ED Upper Extremity ---
General Chief Complaint: Upper Extremity Stated Complaint: L THUMB INJ Nursing Triage Note: PT CO OF L THUMB PAIN FROM RUNNING HOT SAW. PT CO OF PAIN AND SWELLING AT SITE STARTED LAST PM Nursing Sepsis Screen: No Definite Risk Allergies and Home Medications Allergies Coded Allergies: Latex, Natural Rubber (Unverified Allergy, Unknown, 07/27/18) amoxicillin (Unverified Allergy, Unknown, 07/17/18) clavulanic acid (Unverified Allergy, Unknown, 07/17/18) prednisone (Unverified Allergy, Unknown, 07/17/18) Home Medications Aripiprazole 5 Mg Tablet, 5 MG PO DAILY, (Reported) Calcium Citrate 250 Mg Tablet, 250 MG PO BID, (Reported) Cefdinir 300 Mg Capsule, 300 MG PO BID Prescribed by: DELGADO CABALLERO on 08/20/182053 Cyproheptadine HCl 4 Mg Tablet, 12 MG PO DAILY, (Reported) Lactobacillus Acidophilus 1 Each Capsule, 1 EACH PO DAILY, (Reported) Levetiracetam 500 Mg Tablet, 500 MG PO BID Prescribed by: ELROY GONZALEZ on 07/21/171718 Melatonin 3 Mg Tablet.er, 3 MG PO HS, (Reported) Oxcarbazepine 600 Mg Tablet, 600 MG PO TID Prescribed by: ELROY GONZALEZ on 07/21/171718 Sucralfate 1 Gm Tablet, 1 GM PO QID, (Reported) Past Hyyexqb-Xidmey-Zcvaen Hx Patient Social History Alcohol Use: Denies Use Recreational Drug Use: No Smoking Status: Current Everyday Smoker Type Used: Cigars, Cigarettes 2nd Hand Smoke Exposure: Yes Recent Foreign Travel: No Contact w/Someone Who Travel: No Recent Infectious Disease Expo: No Recent Hopitalizations: No Immunizations Up To Date Tetanus Booster (TDap): Less than 5yrs Seasonal Allergies Seasonal Allergies: No Past Medical History Surgeries: Yes (COLONOSCOPY 07/27/18) Abdominal, Ear Surgery Respiratory: No Cardiac: No Neurological: Yes Developmental Disorder, Seizure Disorder Reproductive Disorders: No Genitourinary: Yes (urinary incontinence) UTI-Chronic Gastrointestinal: Yes (COLONOSCOPY 07/27/18--PROCTITIS/INTERNAL HEMORRHOIDS; CT NOTED COLOTIS ) Colitis, Hemorrhoids Musculoskeletal: No Endocrine: No HEENT: Yes (CONGENITAL FACIAL/SKULL DEFORMITY; ) Chronic Ear Infection Cancer: No Psychosocial: Yes ADD/ADHD, Pseudo Seizures, Sleep Difficulties, Anxiety, Schizophrenia, Violent Behavior Integumentary: Yes Blood Disorders: No Family Medical History No Pertinent Family Hx Physical Exam Vital Signs Vital Signs - First Documented 10/04/18 17:45 Temp 97.2 Pulse 100 Resp 18 B/P (MAP) 137/81 (99) Pulse Ox 97 Capillary Refill : Less Than 3 Seconds Height, Weight, BMI Height: 5'10.00" Weight: 198lbs. 0.0oz. 89.371185qc; 37.2 BMI Method:Stated Procedures/Interventions Splinting and Joint Reduction : Splints: Thumb/Wrist Spica Progress/Results/Core Measures Results/Orders My Orders Orders - DELGADO CABALLERO DO Hand, Left, 3 Views (10/04/18 18:29) Naproxen Tablet (Naprosyn Tablet) (10/04/18 20:30) Thumb Spika (10/04/18 20:28) Vital Signs/I&O 10/04/18 17:45 Temp 97.2 Pulse 100 Resp 18 B/P (MAP) 137/81 (99) Pulse Ox 97 Blood Pressure Mean: 99 Diagnostic Imaging Comments XRAYS LEFT HAND AND THUMB--NO ACUTE PROCESS, PER RADIOLOGIST REPORT @ 2029 Departure Impression Primary Impression: Left thumb sprain Disposition: 01 HOME, SELF-CARE Condition: Stable Departure-Patient Inst. Referrals: [facility] (PCP) Primary Care Physician SEEMA GILBERT (Family) Primary Care Physician Patient Instructions: Sprained Thumb (DC) Add. Discharge Instructions: WEAR SPLINT AT ALL TIMES ICE TO AREA AT 20 MINUTE INTERVALS FOLLOW UP WITH [facility] IN 1 WEEK FOR FURTHER CARE All discharge instructions reviewed with patient and/or family. Voiced understanding. Scripts Naproxen (Naproxen) 500 Mg Tablet 500 MG PO BID, #20 TAB Prov: DELGADO CABALLERO DO 10/04/18 DELGADO CABALLERO DO Oct 04, 2018 20:31
[2018-10-04 20:51] VITALS: BP 159/76
== END 2018-10-04 20:51 | disposition home or self-care (01) ==
LOC: EDUNIT# 17:04 → ER 17:04
DX: S63.602A Unspecified sprain of left thumb, initial encounter (principal); G40.909 Epilepsy, unspecified, not intractable, without status epilepticus; F98.8 Other specified behavioral and emotional disorders with onset usually occurring in childhood and adolescence; F90.9 Attention-deficit hyperactivity disorder, unspecified type; F41.9 Anxiety disorder, unspecified; F20.9 Schizophrenia, unspecified; F17.210 Nicotine dependence, cigarettes, uncomplicated; Z98.890 Other specified postprocedural states; Z87.19 Personal history of other diseases of the digestive system; Z87.440 Personal history of urinary (tract) infections; Z91.040 Latex allergy status; Z88.0 Allergy status to penicillin; Z88.8 Allergy status to other drugs, medicaments and biological substances; X50.0XXA Overexertion from strenuous movement or load, initial encounter
CPT/HCPCS: 73130; 73140

== ENCOUNTER → 2018-12-10 | Outpatient (CLI) | payer MEDICAID ==
[~2018-12-10] MED LIST changes: -DESM0.2T2; +DESM0.2T29; +NAPR-915 PO
[2018-12-10 07:50] LABS: HEMOGLOBIN 16.6 G/DL (13.3-17.7); MEAN PLATELET VOLUME 9.3 FL (7.4-10.4); RED CELL DISTRIBUTION WIDTH 13.7 % (10.0-14.5); WHITE BLOOD COUNT 7.7 10^3/uL (4.3-11.0)
[2018-12-10 08:08] LABS: ALANINE AMINOTRANSFERASE 26 U/L (0-55); ALBUMIN 4.6 GM/DL (3.2-4.5); ALKALINE PHOSPHATASE 56 U/L (40-136); BILIRUBIN,TOTAL 0.4 MG/DL (0.1-1.0); BUN/CREATININE RATIO 21; CALCIUM 9.5 MG/DL (8.5-10.1); CARBON DIOXIDE 23 MMOL/L (21-32); CHLORIDE 110 MMOL/L (98-107); GFR ESTIMATED > 60; GLUCOSE 88 MG/DL (70-105); POTASSIUM 4.1 MMOL/L (3.6-5.0); SODIUM 143 MMOL/L (135-145); TOTAL PROTEIN 6.9 GM/DL (6.4-8.2)
[2018-12-10 08:14] LABS: VALPROIC ACID 35.6 UG/ML (50.0-100.0)
== END ==
LOC: LAB 07:35
PROVIDERS: ATTEND Psychiatry & Neurology Neurology
DX: R56.9 Unspecified convulsions (principal); Z79.899 Other long term (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
CPT/HCPCS: 36415; 80053; 80164; 85027

== ENCOUNTER → 2019-07-23 | Outpatient (CLI) | payer MEDICAID ==
[~2019-07-23] MED LIST changes: +HOLD METFORMIN - RECEIVED CONTRAST 20 ML VIAL IV SCH; +IOHEXOL 350 MG/ML 100 ML (OMNIPAQUE 350) VIAL IV ONE; +NS 100 ML (IVPB) BAG IV ONE
--- NOTE | 2019-07-23 09:05 | Diagnostic Imaging Report ---
EXAMINATION: CT Chest with intravenous contrast. TECHNIQUE: Multiple contiguous axial images were obtained through the chest after the uneventful administration of intravenous contrast. All CT scans use one or more of the following dose optimizing techniques: automated exposure control, MA and/or KvP adjustment based on a patient size and exam type, or iterative reconstruction. HISTORY: PULMONARY NODULE FINDINGS: No comparison available. The lungs are clear without edema or pneumonia. No pleural effusion or pneumothorax. There is a 6 mm average diameter right lower lobe pulmonary nodule (series 4, image 102). This is stable from the abdomen and pelvis CT dated 07/17/2018. Heart size is normal. No pericardial effusion. Aorta is normal in caliber. There is no axillary, supraclavicular or mediastinal lymphadenopathy. Limited views of the upper abdomen are unremarkable. There are no suspicious osseus lesions. IMPRESSION: 1. Stable small right lower lobe pulmonary nodule, almost certainly benign given patient's young age and stability. Fleischner Society guidelines do not apply to patients less than 35 years old and management decisions should be made on a case by case basis. Dictated by: Dictated on workstation # [id number]
== END ==
LOC: RAD 08:07
PROVIDERS: ATTEND Nurse Practitioner Community Health
DX: R91.1 Solitary pulmonary nodule (principal)
CPT/HCPCS: 71260

== ENCOUNTER 2021-01-03 10:05 | Emergency (ER) | payer MEDICAID ==
[~2021-01-03] VITALS: Ht 177 cm; Wt 90.0 kg
[~2021-01-03 10:05] MED LIST changes: -ARIP5TAB20 PO; +ARIP5TAB57 PO; -HOLD METFORMIN - RECEIVED CONTRAST 20 ML VIAL IV SCH; -IOHEXOL 350 MG/ML 100 ML (OMNIPAQUE 350) VIAL IV ONE; -NS 100 ML (IVPB) BAG IV ONE
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
[2021-01-03 11:10] VITALS: BP 124/80
== END 2021-01-03 11:10 ==
LOC: EDUNIT# 10:05 → ER 10:06
DX: F63.81 Intermittent explosive disorder (principal); F31.9 Bipolar disorder, unspecified; F41.1 Generalized anxiety disorder; F89 Unspecified disorder of psychological development; F90.9 Attention-deficit hyperactivity disorder, unspecified type; F20.9 Schizophrenia, unspecified; G40.909 Epilepsy, unspecified, not intractable, without status epilepticus; G47.9 Sleep disorder, unspecified; Z87.891 Personal history of nicotine dependence; Z88.1 Allergy status to other antibiotic agents; Z88.8 Allergy status to other drugs, medicaments and biological substances; Z91.040 Latex allergy status
CPT/HCPCS: 99283

== ENCOUNTER → 2021-02-17 | Outpatient (CLI) | payer MEDICAID ==
[~2021-02-17] MED LIST changes: -MELA3TAB12 PO; +MELA3TAB41 PO
--- NOTE | 2021-02-17 16:58 | Diagnostic Imaging Report ---
INDICATION: Right foot pain. TIME OF EXAM: 3:20 p.m. EXAMINATION: Three views of the right foot were obtained. FINDINGS: Metatarsals are intact. The phalanges are intact. Midfoot and hindfoot are unremarkable. No fractures are seen. IMPRESSION: No acute bony abnormality is detected. Dictated by: Dictated on workstation # [id number]
--- NOTE | 2021-02-17 16:58 | Diagnostic Imaging Report ---
INDICATION: Pain. EXAMINATION: Three view right ankle was obtained. FINDINGS: No fracture, dislocation or acute appearing articular irregularity. IMPRESSION: No acute appearing abnormality. Dictated by: Dictated on workstation # [id number]
== END ==
LOC: RAD 15:01
PROVIDERS: ATTEND Nurse Practitioner Family
DX: M25.571 Pain in right ankle and joints of right foot (principal); M79.671 Pain in right foot
CPT/HCPCS: 73610; 73630

== ENCOUNTER → 2021-02-23 | Outpatient (CLI) | payer MEDICAID ==
--- NOTE | 2021-02-23 10:31 | Diagnostic Imaging Report ---
PROCEDURE: US Hepatic (Liver). TECHNIQUE: Multiple real-time grayscale images were obtained over the right upper quadrant in various projections. INDICATION: Elevated liver function tests. The liver is normal in size at 15 cm. The portal vein is patent and shows normal direction of flow. No liver mass is detected. Gallbladder is without stones or sludge. No wall thickening or biliary ductal dilatation is seen. The pancreas is unremarkable. Aorta is nonaneurysmal. IVC is patent. Right kidney is without calculi or hydronephrosis. There is no ascites. IMPRESSION: Unremarkable right upper quadrant ultrasound. Dictated by: Dictated on workstation # [id number]
== END ==
LOC: RAD 08:23
PROVIDERS: ATTEND Family Medicine
DX: R79.89 Other specified abnormal findings of blood chemistry (principal)
CPT/HCPCS: 76705

== ENCOUNTER 2021-02-27 00:57 | Emergency (ER) | payer MEDICAID ==
[~2021-02-27] VITALS: Ht 177.8 cm; Wt 100.0 kg
[2021-02-27 03:03] LABS: BASOPHILS # (AUTO) 0.1 10^3/uL (0.0-0.1); BASOPHILS % (AUTO) 1 % (0-10); EOSINOPHILS # (AUTO) 0.2 10^3/uL (0.0-0.3); EOSINOPHILS % (AUTO) 3 % (0-10); HEMATOCRIT 44 % (40-54); HEMOGLOBIN 14.9 g/dL (13.3-17.7); LYMPHOCYTES # (AUTO) 2.7 10^3/uL (1.0-4.0); LYMPHOCYTES % (AUTO) 33 % (12-44); MEAN CORPUSCULAR HEMOGLOBIN 33 pg (25-34); MEAN CORPUSCULAR HGB CONC 34 g/dL (32-36); MEAN CORPUSCULAR VOLUME 95 fL (80-99); MEAN PLATELET VOLUME 9.5 fL (9.0-12.2); MONOCYTES # (AUTO) 0.9 10^3/uL (0.0-1.0); MONOCYTES % (AUTO) 11 % (0-12); NEUTROPHILS # (AUTO) 4.1 10^3/uL (1.8-7.8); NEUTROPHILS % (AUTO) 52 % (42-75); PLATELET COUNT 180 10^3/uL (130-400)
[2021-02-27 03:20] LABS: BILIRUBIN,URINE NEGATIVE (NEGATIVE); CLARITY,URINE CLEAR; COLOR,URINE YELLOW; GLUCOSE, URINE (UA) NEGATIVE (NEGATIVE); KETONES,URINE NEGATIVE (NEGATIVE); LEUKOCYTE ESTERASE ,URINE NEGATIVE (NEGATIVE); NITRITE,URINE NEGATIVE (NEGATIVE); PROTEIN,URINE NEGATIVE (NEGATIVE)
[2021-02-27 03:21] LABS: CHLORIDE 102 MMOL/L (98-107); POTASSIUM 3.9 MMOL/L (3.6-5.0); SODIUM 138 MMOL/L (135-145)
[2021-02-27 03:23] LABS: CALCIUM 9.3 MG/DL (8.5-10.1)
[2021-02-27 03:24] LABS: GLUCOSE 107 MG/DL (70-105); TOTAL PROTEIN 6.3 GM/DL (6.4-8.2)
[2021-02-27 03:25] LABS: CARBON DIOXIDE 24 MMOL/L (21-32)
[2021-02-27 03:26] LABS: BILIRUBIN,TOTAL 0.3 MG/DL (0.1-1.0)
[2021-02-27 03:28] LABS: ALKALINE PHOSPHATASE 41 U/L (40-136); CREATININE SERUM 0.81 MG/DL (0.60-1.30); GFR ESTIMATED > 60
[2021-02-27 03:29] LABS: BUN/CREATININE RATIO 19
[2021-02-27 03:30] LABS: SALICYLATE < 5.0 MG/DL (5.0-20.0)
[2021-02-27 03:31] LABS: ALANINE AMINOTRANSFERASE 33 U/L (0-55)
[2021-02-27 03:32] LABS: AMPHETAMINE SCREEN, URINE NEGATIVE (NEGATIVE); BACTERIA,URINE NEGATIVE /HPF; BARBITURATE SCREEN URINE NEGATIVE (NEGATIVE); BENZODIAZEPINES SCREEN URINE POSITIVE (NEGATIVE); CANNABINOID SCREEN, URINE NEGATIVE (NEGATIVE); COCAINE SCREEN URINE NEGATIVE (NEGATIVE); METHADONE STAT NEGATIVE (NEGATIVE); METHAMPHETAMINE SCREEN URINE S NEGATIVE (NEGATIVE); OPIATE SCREEN URINE NEGATIVE (NEGATIVE); OXYCODONE STAT NEGATIVE (NEGATIVE); PROPOXYPHENE STAT NEGATIVE (NEGATIVE); TRICYCLIC ANTIDEPRESSANTS SCRE NEGATIVE (NEGATIVE); WBC,URINE 0-2 /HPF
[2021-02-27 03:34] LABS: ACETAMINOPHEN < 10 UG/ML (10-30)
[2021-02-27 03:50] LABS: TSH (THYROID ANALYZER) 7.67 UIU/ML (0.35-4.94)
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
[2021-02-27 04:42] LABS: FREE T4 (FREE THYROXINE) 0.7 NG/DL (0.70-1.48)
[2021-02-27 07:40] VITALS: BP 128/58
== END 2021-02-27 07:40 | disposition home or self-care (01) ==
LOC: EDUNIT# 00:57 → ER 00:59
DX: R44.0 Auditory hallucinations (principal); G40.909 Epilepsy, unspecified, not intractable, without status epilepticus; F41.9 Anxiety disorder, unspecified; F17.290 Nicotine dependence, other tobacco product, uncomplicated; Z79.899 Other long term (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; Z86.59 Personal history of other mental and behavioral disorders
CPT/HCPCS: 80053; 80164; 80306; 81000; 84439; 84443; 85025; 99284; G0480 ×3; 36415; 80320; 80329

== ENCOUNTER 2021-03-25 19:18 | Emergency (ER) | payer MEDICAID ==
[~2021-03-25] VITALS: Ht 177.8 cm; Wt 100.0 kg
[~2021-03-25 19:18] MED LIST changes: +ARIP20TA20; -ARIP20TA9; +DOXY-311 PO; -DOXY100C42 PO
[2021-03-25 19:19] VITALS: BP 142/108
--- NOTE | 2021-03-25 19:26 | ED Psychosocial ---
General Chief Complaint: Psych/Social Disorder Stated Complaint: HEARING VOICES Source: patient, EMS Exam Limitations: no limitations History of Present Illness Date Seen by Provider: Mar 25, 2021 Time Seen by Provider: 19:24 Initial Comments To ER by EMS from a jail with reports of hearing voices that are telling him to kill. He is from a jail, intellectually disabled. Staff reports that when he does not want to do something is told to do something that he does not want to do he will either fake a seizure or say that he is suicidal or homicidal. Severity: moderate Associated Symptoms: denies symptoms Allergies and Home Medications Allergies Coded Allergies: Latex, Natural Rubber (Unverified Allergy, Unknown, 07/27/18) amoxicillin (Unverified Allergy, Unknown, 07/17/18) clavulanic acid (Unverified Allergy, Unknown, 07/17/18) prednisone (Unverified Allergy, Unknown, 07/17/18) Home Medications Aripiprazole 5 Mg Tablet, 5 MG PO DAILY, (Reported) Calcium Citrate 250 Mg Tablet, 250 MG PO BID, (Reported) Cefdinir 300 Mg Capsule, 300 MG PO BID Prescribed by: DELGADO CABALLERO on 08/20/182053 Cyproheptadine HCl 4 Mg Tablet, 12 MG PO DAILY, (Reported) Lactobacillus Acidophilus 1 Each Capsule, 1 EACH PO DAILY, (Reported) Levetiracetam 500 Mg Tablet, 500 MG PO BID Prescribed by: ELROY GONZALEZ on 07/21/171718 Melatonin 3 Mg Tablet.er, 3 MG PO HS, (Reported) Naproxen 500 Mg Tablet, 500 MG PO BID Prescribed by: DELGADO CABALLERO on 10/04/182030 Oxcarbazepine 600 Mg Tablet, 600 MG PO TID Prescribed by: ELROY GONZALEZ on 07/21/171718 Sucralfate 1 Gm Tablet, 1 GM PO QID, (Reported) Patient Home Medication List Home Medication List Reviewed: Yes (Yes) Review of Systems Constitutional: see HPI EENTM: see HPI Respiratory: no symptoms reported Cardiovascular: no symptoms reported Genitourinary: no symptoms reported Musculoskeletal: no symptoms reported Skin: no symptoms reported Past Ztositt-Xuemts-Ekhmbt Hx Patient Social History Type Used: Electronic/Vapor 2nd Hand Smoke Exposure: No Recent Hopitalizations: No Immunizations Up To Date Tetanus Booster (TDap): Less than 5yrs Seasonal Allergies Seasonal Allergies: No Past Medical History Surgeries: Yes (COLONOSCOPY 07/27/18) Abdominal, Ear Surgery Respiratory: No Cardiac: No Neurological: Yes Developmental Disorder, Seizure Disorder Reproductive Disorders: No Genitourinary: Yes (urinary incontinence) UTI-Chronic Gastrointestinal: Yes (COLONOSCOPY 07/27/18--PROCTITIS/INTERNAL HEMORRHOIDS; CT NOTED COLITIS ) Colitis, Hemorrhoids Musculoskeletal: No Endocrine: No HEENT: Yes (CONGENITAL FACIAL/SKULL DEFORMITY; ) Chronic Ear Infection Cancer: No Psychosocial: Yes ADD/ADHD, Pseudo Seizures, Sleep Difficulties, Anxiety, Schizophrenia, Violent Behavior Integumentary: Yes Blood Disorders: No Family Medical History No Pertinent Family Hx Physical Exam Vital Signs - First Documented 03/25/21 19:19 Temp 37.1 Pulse 110 Resp 18 B/P (MAP) 142/108 (119) O2 Delivery Room Air Capillary Refill : Height, Weight, BMI Height: 5'10.00" Weight: 198lbs. 0.0oz. 89.386203ja; 31.00 BMI Method:Stated General Appearance: WD/WN, no apparent distress, other (Cooperative. As soon as he arrives here he is laughing with us, telling us jokes) HEENT: PERRL/EOMI, normal ENT inspection Respiratory: no respiratory distress, no accessory muscle use Gastrointestinal: normal bowel sounds, non tender Neurologic/Psychiatric: alert, normal mood/affect, oriented x 3 Appearance/Memory: appropriate appearance, appropriate insight, neat Behavior/Eye Contact: cooperative, good eye contact Skin: normal color, warm/dry Not agitated.Cooperative, pleasant. Laughing and telling us jokes of the "white of the turkey across the road" caliber. Progress/Results/Core Measures Results/Orders My Orders Orders - CECIL HEREDIA APRN Alprazolam Tablet (Xanax Tablet) (03/25/21 19:30) Olanzapine Orally Dissolve Tab (Zyprexa (03/25/21 19:30) Alprazolam Tablet (Xanax Tablet) (03/25/21 19:30) Medications Given in ED Current Medications Medications Dose Ordered Sig/Omar Route Start Time Stop Time Status Last Admin Dose Admin Olanzapine 5 mg ONCE ONCE PO 03/25/21 19:30 03/25/21 19:31 DC 03/25/21 19:35 5 MG Vital Signs/I&O 03/25/21 19:19 Temp 37.1 Pulse 110 Resp 18 B/P (MAP) 142/108 (119) O2 Delivery Room Air Departure Communication (Admissions) Has been cooperative here I will discharge home with staff from his jail Impression Primary Impression: Auditory hallucinations Disposition: HOME, SELF-CARE Condition: Stable Departure-Patient Inst. Decision time for Depature: 19:26 Referrals: [facility] (PCP) Primary Care Physician СЕРГЕЙ SPENCE APRN (Family) Primary Care Physician Patient Instructions: NO INSTRUCTIONS GIVEN Add. Discharge Instructions: All discharge instructions reviewed with patient and/or family. Voiced understanding. CECIL HEREDIA [employer]OD HEEL FITTER MACHINE Mar 25, 2021 19:26
[2021-03-25] MEDS ORDERED: ALPRAZolam 0.5 MG (XANAX) TAB PO SCH (19:30)
[2021-03-25] MEDS ORDERED: ALPRAZolam 1 MG (XANAX) TAB PO ONE (19:30)
[2021-03-25] MEDS ORDERED: OLANZapine 5 MG ODT (ZyPREXA ZYDIS) PO ONE (19:30)
== END 2021-03-25 20:28 | disposition home or self-care (01) ==
LOC: EDUNIT# 19:18 → ER 19:19
DX: R44.0 Auditory hallucinations (principal); G40.909 Epilepsy, unspecified, not intractable, without status epilepticus; Z79.899 Other long term (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
CPT/HCPCS: 99283

== ENCOUNTER 2021-05-14 19:59 | Emergency (ER) | payer MEDICAID ==
[~2021-05-14] VITALS: Ht 177.8 cm; Wt 100.0 kg
--- NOTE | 2021-05-14 20:37 | ED General ---
General Stated Complaint: SEIZURE Source of Information: Patient Exam Limitations: No Limitations History of Present Illness Date Seen by Provider: May 14, 2021 Time Seen by Provider: 20:30 Initial Comments Patient is a 31-year-old male with a history of pervasive developmental delay who presents to the emergency department with a chief complaint of "seizure". Patient reportedly has a history of seizures and is on medications and told his caregiver this evening that he was having a seizure, it was noted that he was speaking at the same time he was having some generalized shaking all over. Apparently he did this again in the ambulance. He states he has a little bit of a cough and some shortness of breath he attributes to a smoker's cough. He states he has a little sore throat. He is Covid vaccinated back in October. No reported fevers or chills no nausea vomiting or diarrhea. No problems with bladder. No complaints of pain. When I arrived in the room the patient is shaking his right upper extremity and will not speak to me but shortly after my arrival he starts talking to me. No postictal state is noted. He complains of feeling "tired". He states that he missed breakfast and lunch today. He is hungry. No complaints of injury reported from the caregiver at the bedside. All other review of systems reviewed and negative except as stated. Timing/Duration: 1-3 Hours Severity: Mild Associated Systoms: Cough, Shortness of Air, Other (Sore throat) Allergies and Home Medications Allergies Coded Allergies: Latex, Natural Rubber (Unverified Allergy, Unknown, 07/27/18) amoxicillin (Unverified Allergy, Unknown, 07/17/18) clavulanic acid (Unverified Allergy, Unknown, 07/17/18) prednisone (Unverified Allergy, Unknown, 07/17/18) Home Medications Aripiprazole 5 Mg Tablet, 5 MG PO DAILY, (Reported) Calcium Citrate 250 Mg Tablet, 250 MG PO BID, (Reported) Cefdinir 300 Mg Capsule, 300 MG PO BID Prescribed by: DELGADO CABALLERO on 08/20/182053 Cyproheptadine HCl 4 Mg Tablet, 12 MG PO DAILY, (Reported) Lactobacillus Acidophilus 1 Each Capsule, 1 EACH PO DAILY, (Reported) Levetiracetam 500 Mg Tablet, 500 MG PO BID Prescribed by: ELROY GONZALEZ on 07/21/171718 Melatonin 3 Mg Tablet.er, 3 MG PO HS, (Reported) Naproxen 500 Mg Tablet, 500 MG PO BID Prescribed by: DELGADO CABALLERO on 10/04/182030 Oxcarbazepine 600 Mg Tablet, 600 MG PO TID Prescribed by: ELROY GONZALEZ on 07/21/171718 Sucralfate 1 Gm Tablet, 1 GM PO QID, (Reported) Patient Home Medication List Home Medication List Reviewed: Yes Review of Systems Review of Systems Constitutional: see HPI EENTM: throat pain Respiratory: cough, short of breath Cardiovascular: no symptoms reported Gastrointestinal: no symptoms reported Genitourinary: no symptoms reported Musculoskeletal: no symptoms reported Skin: no symptoms reported Psychiatric/Neurological: Other ("Seizure") All Other Systems Reviewed Negative Unless Noted: Yes Past Ldtebob-Ooypcp-Xytqrh Hx Immunizations Up To Date Tetanus Booster (TDap): Less than 5yrs Seasonal Allergies Seasonal Allergies: No Past Medical History Surgeries: Yes (COLONOSCOPY 07/27/18) Abdominal, Ear Surgery Respiratory: No Cardiac: No Neurological: Yes Developmental Disorder, Seizure Disorder Reproductive Disorders: No Genitourinary: Yes (urinary incontinence) UTI-Chronic Gastrointestinal: Yes (COLONOSCOPY 07/27/18--PROCTITIS/INTERNAL HEMORRHOIDS; CT NOTED COLITIS ) Colitis, Hemorrhoids Musculoskeletal: No Endocrine: No 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 0.0oz. 89.066291hy; 31.00 BMI Method:Stated General Appearance: No Apparent Distress, WD/WN Eyes: Bilateral Eye Normal Inspection, Bilateral Eye PERRL, Bilateral Eye EOMI HEENT: PERRL/EOMI Neck: Normal Inspection, Supple Respiratory: Lungs Clear, Normal Breath Sounds, No Accessory Muscle Use, No Respiratory Distress Cardiovascular: Regular Rate, Rhythm Gastrointestinal: Normal Bowel Sounds, Non Tender, Soft Extremity: Normal Capillary Refill, Normal Inspection, Normal Range of Motion, Non Tender, No Calf Tenderness Neurologic/Psychiatric: Alert, Oriented x3, No Motor/Sensory Deficits, Normal Mood/Affect Skin: Normal Color, Warm/Dry Progress/Results/Core Measures Suspected Sepsis SIRS Temperature: Pulse: Respiratory Rate: Laboratory Tests 05/14/21 20:35: White Blood Count 9.3 Blood Pressure / Mean: Laboratory Tests 05/14/21 20:35: Creatinine 0.74, Platelet Count 204 Results/Orders Lab Results Laboratory Tests Test 05/14/21 20:22 05/14/21 20:33 05/14/21 20:35 Range/Units Influenza Type A (RT-PCR) Not Detected Not Detecte Influenza Type B (RT-PCR) Not Detected Not Detecte SARS-CoV-2 RNA (RT-PCR) Not Detected Not Detecte Glucometer 100 70-110 MG/DL White Blood Count 9.3 4.3-11.0 10^3/uL Red Blood Count 4.83 4.30-5.52 10^6/uL Hemoglobin 15.7 13.3-17.7 g/dL Hematocrit 45 40-54 % Mean Corpuscular Volume 93 80-99 fL Mean Corpuscular Hemoglobin 33 25-34 pg Mean Corpuscular Hemoglobin Concent 35 32-36 g/dL Red Cell Distribution Width 12.6 10.0-14.5 % Platelet Count 204 130-400 10^3/uL Mean Platelet Volume 9.6 9.0-12.2 fL Immature Granulocyte % (Auto) 0 % Neutrophils (%) (Auto) 60 42-75 % Lymphocytes (%) (Auto) 26 12-44 % Monocytes (%) (Auto) 10 0-12 % Eosinophils (%) (Auto) 2 0-10 % Basophils (%) (Auto) 1 0-10 % Neutrophils # (Auto) 5.6 1.8-7.8 10^3/uL Lymphocytes # (Auto) 2.4 1.0-4.0 10^3/uL Monocytes # (Auto) 1.0 0.0-1.0 10^3/uL Eosinophils # (Auto) 0.2 0.0-0.3 10^3/uL Basophils # (Auto) 0.1 0.0-0.1 10^3/uL Immature Granulocyte # (Auto) 0.0 0.0-0.1 10^3/uL Sodium Level 133 L 135-145 MMOL/L Potassium Level 4.1 3.6-5.0 MMOL/L Chloride Level 100 98-107 MMOL/L Carbon Dioxide Level 24 21-32 MMOL/L Anion Gap 9 5-14 MMOL/L Blood Urea Nitrogen 9 7-18 MG/DL Creatinine 0.74 0.60-1.30 MG/DL Estimat Glomerular Filtration Rate 125 BUN/Creatinine Ratio 12 Glucose Level 87 70-105 MG/DL Calcium Level 9.4 8.5-10.1 MG/DL Valproic Acid (Depakene) Level 57.4 50.0-100.0 UG/ML My Orders Orders - HSUSEIN VARNER MD Ed Iv/Invasive Line Start (05/14/21 20:36) Cbc With Automated Diff (05/14/21 20:36) Basic Metabolic Panel (05/14/21 20:36) Valproic Acid (05/14/21 20:36) Covid 19 Inhouse Test (05/14/21 20:37) Influenza A And B By Pcr (05/14/21 20:37) Antacid Suspension (Mylanta Suspension (05/14/21 21:30) Lidocaine 2% Viscous 15 Ml (Xylocaine Vi (05/14/21 21:30) Sucralfate Tablet (Carafate Tablet) (05/14/21 21:30) Medications Given in ED Current Medications Medications Dose Ordered Sig/Omar Route Start Time Stop Time Status Last Admin Dose Admin Al Hydrox/Mg Hydrox/Simethicone 30 ml ONCE ONCE PO 05/14/21 21:30 05/14/21 21:31 DC 05/14/21 21:50 30 ML Lidocaine HCl 5 ml ONCE ONCE PO 05/14/21 21:30 05/14/21 21:31 DC 05/14/21 21:50 5 ML Sucralfate 1 gm ONCE ONCE PO 05/14/21 21:30 05/14/21 21:31 DC 05/14/21 21:50 1 GM Vital Signs/I&O 05/14/21 20:05 Temp 37.3 Pulse 80 Resp 18 B/P (MAP) 113/74 (87) Pulse Ox 96 Capillary Refill : Progress Note : Time: 21:54 Progress Note Patient seen and evaluated, complaint of "seizures". Patient has no postictal state and was noted to have some right upper extremity trembling. Basic labs were obtained and evaluated, no abnormal findings were identified. Patient has no clinical or objective findings to warrant further investigation from the emergency department at this time. He is Covid negative. He is on medications for seizure and is therapeutic on his valproic acid. He also has as needed orders for seizures at home. Patient will be discharged to follow-up with his primary care provider. Findings have been communicated to his staff who is at t he bedside. All questions are sought and answered. Patient is stable for discharge. He was treated with a GI cocktail as he was complaining of some chest discomfort/heartburn symptoms during this visit. Departure Impression Primary Impression: Seizure disorder Disposition: HOME, SELF-CARE Condition: Stable Departure-Patient Inst. Decision time for Depature: 21:56 Referrals: [facility] (PCP) Primary Care Physician СЕРГЕЙ SPENCE APRN (Family) Primary Care Physician Patient Instructions: Seizures, Adult ED Add. Discharge Instructions: Continue routine prescribed medications as well as the as needed medications for seizures. Drink plenty of fluids to stay well-hydrated. Please try and quit smoking. Return to the emergency department for any new, concerning or emergent symptoms. HUSSEIN VARNER MD May 14, 2021 20:37
[2021-05-14 20:44] LABS: BASOPHILS # (AUTO) 0.1 10^3/uL (0.0-0.1); BASOPHILS % (AUTO) 1 % (0-10); EOSINOPHILS # (AUTO) 0.2 10^3/uL (0.0-0.3); EOSINOPHILS % (AUTO) 2 % (0-10); HEMATOCRIT 45 % (40-54); HEMOGLOBIN 15.7 g/dL (13.3-17.7); LYMPHOCYTES # (AUTO) 2.4 10^3/uL (1.0-4.0); LYMPHOCYTES % (AUTO) 26 % (12-44); MEAN CORPUSCULAR HEMOGLOBIN 33 pg (25-34); MEAN CORPUSCULAR HGB CONC 35 g/dL (32-36); MEAN CORPUSCULAR VOLUME 93 fL (80-99); MEAN PLATELET VOLUME 9.6 fL (9.0-12.2); MONOCYTES % (AUTO) 10 % (0-12); NEUTROPHILS # (AUTO) 5.6 10^3/uL (1.8-7.8); NEUTROPHILS % (AUTO) 60 % (42-75); PLATELET COUNT 204 10^3/uL (130-400); WHITE BLOOD COUNT 9.3 10^3/uL (4.3-11.0)
[2021-05-14 21:11] LABS: CALCIUM 9.4 MG/DL (8.5-10.1); CREATININE SERUM 0.74 MG/DL (0.60-1.30); POTASSIUM 4.1 MMOL/L (3.6-5.0)
[2021-05-14 21:18] LABS: VALPROIC ACID 57.4 UG/ML (50.0-100.0)
[2021-05-14] MEDS ORDERED: ANTACID SUSP 30 ML UDC (MYLANTA) PO ONE (21:30)
[2021-05-14] MEDS ORDERED: LIDOCAINE 2% VISCOUS 15 ML UDC PO ONE (21:30)
[2021-05-14] MEDS ORDERED: SUCRALFATE 1 GM (CARAFATE) TAB PO ONE (21:30)
[2021-05-14 22:03] VITALS: BP 121/89
--- OUTSIDE RECORDS SUMMARY | 2021-05-15 18:05 | XMS REPORT | Clinical Summary ---
Author Author [facility] Organization [facility] Address Unknown Phone Unavailable Care Team Providers Care Anesthesiologist/Physician Name Role Phone PCP Unavailable Source Comments [facility] ([facility] Delivery) documents do not appear in the [facility] Allergies Not on File Medications Please verify current medications with patient. Not on file Active Problems Not on file Social History Date Tobacco Use Types Packs/Day Years Used Never Assessed Sex Assigned at Date Recorded Not on file Last Filed Vital Signs Not on file Plan of Treatment Health Maintenance Due Date Last Done Comments COVID-19 Vaccine (1) 2004 Influenza Vaccine (#1) 2021 HPV Vaccine Aged Out No longer eligible based on patient's age to complete this topic Pneumococcal Vaccine: Aged Out No longer eligib le based on patient's age to Pediatrics (0 to 5 Years) complete this topic and At-Risk Patients (6 to 64 Years) Results Not on filefrom Last 3 Months
--- OUTSIDE RECORDS SUMMARY | 2021-05-15 18:05 | XMS REPORT | Clinical Summary ---
Author Author [facility] Organization [facility] Address Unknown Phone Unavailable Care Team Providers Care Director Advertising Name Role Phone Self, Referral PCP Unavailable Magalie Ponce RN Unavailable Unavailable Source Comments Some departments are not documenting in the electronic medical record. If you d o not see the information that you expected, contact Release of Information in [facility] Information Management department at [phone] for further assistan ce in locating additional records.[facility] Allergies Comments Active Allergy Reactions Severity Noted Date Amoxicillin-Pot 03/09/2009 Clavulanate Latex 03/09/2009 Medications End Date Status Medication Sig Dispensed Refills Start Date Active CLINDAMYCIN PHOS/BENZOYL Apply to 0 PEROX (BENZACLIN TP) affected area. Active DESMOPRESSIN ACETATE Take 0.2 mg 0 (DDAVP PO) by mouth At Bedtime Daily. Active ZIPRASIDONE HCL (GEODON Take 80 mg by 0 PO) mouth Twice Daily. In am and pm Active FLUOXETINE HCL (PROZAC Take 10 mg by 0 PO) mouth Daily. In am Active loxapine (LOXITANE) 5 mg Take 5 mg by 0 capsule mouth Twice Daily. Am and pm Active clorazepate (TRANXENE) Take 1 Tab by QS 3 days 0 0 3.75 mg tablet mouth Daily. 9 Active phenytoin SR 200 mg Cap Take 2 Caps qs 1 month 1 by mouth At 9 Bedtime Daily. Active oxcarbazepine (TRILEPTAL) Take 1 Tab by 1month 1 600 mg tablet mouth Twice 9 Daily. Active Problems Problem Noted Date Seizures 03/16/2009 [address] syndrome 03/16/2009 Medical History Medical History Date Comments Mental retardation ADHD (attention deficit hyperactivity disorder) Bipolar affective (HCC) Social History Date Tobacco Use Types Packs/Day Years Used Never Assessed Sex Assigned at Date Recorded Not on file Last Filed Vital Signs Reading Time Taken Comments Vital Sign 130/94 03/21/2009 3:00 PM CDT pulling tape off head Blood Pressure 97 03/21/2009 3:00 PM CDT Pulse 36.4 C (97.5 F) 03/21/2009 3:00 PM CDT Temperature - - Respiratory Rate 99% 03/21/2009 3:00 PM CDT Oxygen Saturation - - Inhaled Oxygen Concentration 83.8 kg (184 lb 11.9 oz) 03/19/2009 5:00 PM CDT Weight 181.6 cm (5' 11.5") 03/16/2009 9:00 AM CDT Per Dad Height 25.41 03/16/2009 9:00 AM CDT Body Mass Index Plan of Treatment Health Maintenance Due Date Last Done Comments HIV SCREENING 02/28/2007 DTAP/TDAP VACCINES (1 - 02/28/2010 Tdap) HEPATITIS C SCREENING 02/28/2010 PHYSICAL (COMPREHENSIVE) 02/28/2010 EXAM INFLUENZA VACCINE 05/06/2020 Results Not on filefrom Last 3 Months
== END 2021-05-14 22:15 | disposition home or self-care (01) ==
LOC: EDUNIT# 19:59 → ER 20:00
DX: G40.909 Epilepsy, unspecified, not intractable, without status epilepticus (principal); Z20.822 Contact with and (suspected) exposure to COVID-19
CPT/HCPCS: 36415; 80048; 80164; 82947; 85025; 87636; 99283

== ENCOUNTER 2021-07-01 20:59 | Emergency (ER) | payer MEDICAID ==
[~2021-07-01] VITALS: Ht 177.8 cm; Wt 100.0 kg
--- NOTE | 2021-07-01 21:07 | ED Head Injury ---
General Chief Complaint: Neurological Problems Stated Complaint: SEIZURE Source: patient Exam Limitations: no limitations History of Present Illness Date Seen by Provider: Jul 01, 2021 Time Seen by Provider: 20:53 Initial Comments Patient ER by EMS from home with chief complaint that he went out for a cigarette and had a seizure. He has a history of epilepsy. Seizure lasted approximately 5 minutes according to staff. He was complaining of pain in the back of his head so was summonsed EMS. EMS could not do a very thorough examination of his head because he was complaining it hurts so bad so they brought him to the ER. He remembers everything since then and is alert and oriented. He is not having any weakness or numbness. He is taking his medications routinely. He denies being sick with any cough dysuria fever chills nausea vomiting diarrhea. Allergies and Home Medications Allergies Coded Allergies: Latex, Natural Rubber (Unverified Allergy, Unknown, 07/27/18) amoxicillin (Unverified Allergy, Unknown, 07/17/18) clavulanic acid (Unverified Allergy, Unknown, 07/17/18) prednisone (Unverified Allergy, Unknown, 07/17/18) Patient Home Medication List Home Medication List Reviewed: Yes Aripiprazole (Aripiprazole) 5 Mg Tablet, 5 MG PO DAILY, (Reported) Entered as Reported by: RAVI BARRAGAN on 07/23/18 1252 Calcium Citrate (Calcium Citrate) 250 Mg Tablet, 250 MG PO BID, (Reported) Entered as Reported by: RAVI BARRAGAN on 07/23/18 1252 Cefdinir (Cefdinir) 300 Mg Capsule, 300 MG PO BID Prescribed by: DELGADO CABALLERO on 08/20/182053 Cyproheptadine HCl (Cyproheptadine HCl) 4 Mg Tablet, 12 MG PO DAILY, (Reported) Entered as Reported by: YOSI ROA on 07/21/172131 Lactobacillus Acidophilus (Probiotic) 1 Each Capsule, 1 EACH PO DAILY, (Reported) Entered as Reported by: RAVI BARRAGAN on 07/23/18 1252 Levetiracetam (Keppra) 500 Mg Tablet, 500 MG PO BID Prescribed by: ELROY GONZALEZ on 07/21/17 1719 Melatonin (Melatonin) 3 Mg Tablet.er, 3 MG PO HS, (Reported) Entered as Reported by: RAVI BARRAGAN on 07/23/18 1252 Naproxen (Naproxen) 500 Mg Tablet, 500 MG PO BID Prescribed by: DELGADO CABALLERO on 10/04/182030 Oxcarbazepine (Oxcarbazepine) 600 Mg Tablet, 600 MG PO TID Prescribed by: ELROY GONZALEZ on 07/21/17 1719 Sucralfate (Carafate) 1 Gm Tablet, 1 GM PO QID, (Reported) Entered as Reported by: RAVI BARRAGAN on 07/23/18 1252 Review of Systems Review of Systems Constitutional: No chills, No diaphoresis Eyes: Denies Blindness, Denies Blurred Vision Ears, Nose, Mouth, Throat: denies ear pain, denies ear discharge Respiratory: No cough, No short of breath Cardiovascular: No edema, No palpitations Gastrointestinal: No abdominal pain, No nausea, No vomiting Genitourinary: No discharge, No dysuria All Other Systems Reviewed Negative Unless Noted: Yes Past Tqcvpcd-Sntkxs-Jxlwbw Hx Patient Social History Tobacco Use?: Yes Tobacco type used: Cigarettes Substance use?: No Immunizations Up To Date Tetanus Booster (TDap): Less than 5yrs Seasonal Allergies Seasonal Allergies: No Past Medical History Surgeries: Yes (COLONOSCOPY 07/27/18) Abdominal, Ear Surgery Respiratory: No Cardiac: No Neurological: Yes Developmental Disorder, Seizure Disorder Reproductive Disorders: No Genitourinary: Yes (urinary incontinence) UTI-Chronic Gastrointestinal: Yes (COLONOSCOPY 07/27/18--PROCTITIS/INTERNAL HEMORRHOIDS; CT NOTED COLITIS ) Colitis, Hemorrhoids Musculoskeletal: No Endocrine: No 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 0.0oz. 89.020195ez; 31.00 BMI Method:Stated General Appearance: WD/WN, no apparent distress HEENT: PERRL/EOMI (4 mm symmetric reactive), normal ENT inspection, TMs normal (Negative for hemotympanum), pharynx normal (Moist oral mucosa) Neck: non-tender, full range of motion, supple, normal inspection Cardiovascular: normal peripheral pulses, regular rate, rhythm Respiratory: no respiratory distress, no accessory muscle use Psychiatric: alert, oriented x 3 Crainal Nerves: normal hearing, normal speech, PERRL Coordination/Gait: normal finger to nose, normal gait Skin: normal color, warm/dry Progress/Results/Core Measures Progress Progress Note : Time: 21:09 Progress Note No external evidence of trauma to the back of his head. No laceration abrasion. Mildly tender to palpation. 1 g of Tylenol and he can go home. Patient is okay with this plan Departure Impression Primary Impression: Seizure disorder Additional Impression: Contusion of occipital region of scalp Qualified Codes: S00.03XA - Contusion of scalp, initial encounter Disposition: 01 HOME, SELF-CARE Condition: Stable Departure-Patient Inst. Decision time for Depature: 21:10 Referrals: [facility]/ (PCP) Primary Care Physician СЕРГЕЙ SPENCE APRN (Family) Primary Care Physician Patient Instructions: Seizures, Adult ED, Contusion (DC) Add. Discharge Instructions: Ice pack 20 minutes on every 2 hours for the first 1 to 2 days as necessary for pain in the back of his head. Tylenol 1000 mg every 8 hours as necessary for pain. Ibuprofen 800 mg every 8 hours as necessary for pain. All discharge instructions reviewed with patient and/or family. Voiced understanding. MIGUEL ÁNGEL APODACA Jul 01, 2021 21:07
[2021-07-01] MEDS ORDERED: ACETAMINOPHEN 500 MG TAB (TYLENOL) PO ONE (21:15)
[2021-07-01 21:20] VITALS: BP 135/96
== END 2021-07-01 21:20 | disposition home or self-care (01) ==
LOC: EDUNIT# 20:59 → ER 21:00
DX: G40.909 Epilepsy, unspecified, not intractable, without status epilepticus (principal); S00.03XA Contusion of scalp, initial encounter; K64.9 Unspecified hemorrhoids; F41.9 Anxiety disorder, unspecified; F17.210 Nicotine dependence, cigarettes, uncomplicated; Z79.899 Other long term (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; X58.XXXA Exposure to other specified factors, initial encounter
CPT/HCPCS: 99283

== ENCOUNTER 2021-11-11 23:12 | Emergency (ER) | payer MEDICAID ==
[~2021-11-11] VITALS: Ht 178 cm; Wt 100.0 kg
[2021-11-11] MEDS ORDERED: BUSP15TA60 (23:25)
[2021-11-11] MEDS ORDERED: HYDR-3781 (23:25)
[2021-11-11] MEDS ORDERED: CLOB20TA15 (23:25)
[2021-11-11] MEDS ORDERED: HYDR12.56 (23:25)
[2021-11-11] MEDS ORDERED: OLAN10TA71 (23:25)
[2021-11-11] MEDS ORDERED: BENZ1TAB6 (23:25)
[2021-11-11] MEDS ORDERED: LACT0.5T (23:25)
[2021-11-11] MEDS ORDERED: DESM0.2T29 (23:25)
[2021-11-11] MEDS ORDERED: DIVA500T15 (23:25)
[2021-11-11] MEDS ORDERED: MULT-349 (23:25)
[2021-11-11] MEDS ORDERED: LISI20TA26 (23:25)
[2021-11-11 23:30] LABS: BILIRUBIN,URINE NEGATIVE (NEGATIVE); CLARITY,URINE CLEAR; COLOR,URINE YELLOW; GLUCOSE, URINE (UA) NEGATIVE (NEGATIVE); KETONES,URINE TRACE (NEGATIVE); LEUKOCYTE ESTERASE ,URINE NEGATIVE (NEGATIVE); NITRITE,URINE NEGATIVE (NEGATIVE); PH,URINE 6.5 (5-9); PROTEIN,URINE NEGATIVE (NEGATIVE)
[2021-11-11] MEDS ORDERED: OLANZapine 5 MG ODT (ZyPREXA ZYDIS) PO ONE (23:30)
[2021-11-11 23:44] LABS: BASOPHILS # (AUTO) 0.1 10^3/uL (0.0-0.1); BASOPHILS % (AUTO) 1 % (0-10); EOSINOPHILS # (AUTO) 0.2 10^3/uL (0.0-0.3); EOSINOPHILS % (AUTO) 3 % (0-10); HEMATOCRIT 44 % (40-54); LYMPHOCYTES # (AUTO) 2.3 10^3/uL (1.0-4.0); LYMPHOCYTES % (AUTO) 26 % (12-44); MEAN CORPUSCULAR HEMOGLOBIN 32 pg (25-34); MEAN CORPUSCULAR HGB CONC 34 g/dL (32-36); MEAN CORPUSCULAR VOLUME 94 fL (80-99); MEAN PLATELET VOLUME 9.3 fL (9.0-12.2); MONOCYTES # (AUTO) 0.9 10^3/uL (0.0-1.0); MONOCYTES % (AUTO) 10 % (0-12); NEUTROPHILS # (AUTO) 5.2 10^3/uL (1.8-7.8); NEUTROPHILS % (AUTO) 60 % (42-75); PLATELET COUNT 264 10^3/uL (130-400); WHITE BLOOD COUNT 8.7 10^3/uL (4.3-11.0)
[2021-11-11 23:45] LABS: BACTERIA,URINE NEGATIVE /HPF; SQUAMOUS EPITHELIAL CELL,UR RARE /HPF
[2021-11-11 23:53] LABS: ALBUMIN 4.4 GM/DL (3.2-4.5); CHLORIDE 98 MMOL/L (98-107); POTASSIUM 3.6 MMOL/L (3.6-5.0); SODIUM 134 MMOL/L (135-145)
--- NOTE | 2021-11-11 23:54 | ED Psychosocial ---
General Chief Complaint: Psych/Social Disorder Stated Complaint: PSYCH Nursing Triage Note: brought in by [facility] from [facility] for behavior outburst. pt reports hearing voices telling him to kill. denies plan. Source: patient Exam Limitations: no limitations History of Present Illness Date Seen by Provider: Nov 11, 2021 Time Seen by Provider: 23:15 Initial Comments Here by EMS with written report of behavioral outburst that his mother is a call. Patient reports hearing voices telling him to kill. He is nonspecific about this but states that he does not want to hurt anybody and he is not trying to hurt himself. He has a few other visits for the same previously. He is on a variety of medicines including olanzapine which she has as needed dose of 5 mg 4. He has not taken that tonight. He is cooperative with us evaluate and no significant behavioral outburst currently. Timing/Duration: this evening Severity: mild, moderate Associated Symptoms: other Allergies and Home Medications Allergies Coded Allergies: Latex, Natural Rubber (Unverified Allergy, Unknown, 07/27/18) amoxicillin (Unverified Allergy, Unknown, 07/17/18) clavulanic acid (Unverified Allergy, Unknown, 07/17/18) prednisone (Unverified Allergy, Unknown, 07/17/18) Patient Home Medication List Home Medication List Reviewed: Yes Aripiprazole (Aripiprazole) 5 Mg Tablet, 5 MG PO DAILY, (Reported) Entered as Reported by: RAVI BARRAGAN on 07/23/18 1252 Benztropine Mesylate (Benztropine Mesylate) 1 Mg Tablet, (Reported) Entered as Reported by: YOSI ROA on 11/11/212324 Last Action: New Order Buspirone HCl (Buspirone HCl) 15 Mg Tablet, (Reported) Entered as Reported by: YOSI ROA on 11/11/212324 Last Action: New Order Calcium Citrate (Calcium Citrate) 250 Mg Tablet, 250 MG PO BID, (Reported) Entered as Reported by: RAVI BARRAGAN on 07/23/18 1252 Cefdinir (Cefdinir) 300 Mg Capsule, 300 MG PO BID Prescribed by: DELGADO CABALLERO on 08/20/182053 Clobazam (Clobazam) 20 Mg Tablet, (Reported) Entered as Reported by: YOSI ROA on 11/11/212324 Last Action: New Order Cyproheptadine HCl (Cyproheptadine HCl) 4 Mg Tablet, 12 MG PO DAILY, (Reported) Entered as Reported by: YOSI ROA on 07/21/172131 Desmopressin Acetate (Desmopressin Acetate) 0.2 Mg Tablet, (Reported) Entered as Reported by: YOSI ROA on 11/11/212324 Last Action: New Order Divalproex Sodium (Divalproex Sodium ER) 500 Mg Tab.er.24h, (Reported) Entered as Reported by: YOSI ROA on 11/11/212324 Last Action: New Order Hydrochlorothiazide (Hydrochlorothiazide) 12.5 Mg Tablet, (Reported) Entered as Reported by: YOSI ROA on 11/11/212324 Last Action: New Order Hydroxyzine Pamoate (Hydroxyzine Pamoate) 25 Mg Capsule, (Reported) Entered as Reported by: YOSI ROA on 11/11/212324 Last Action: New Order Lactobacillus Acidophilus (Probiotic) 1 Each Capsule, 1 EACH PO DAILY, (Reported) Entered as Reported by: RAVI BARRAGAN on 07/23/18 1252 Lactobacillus Acidophilus (Acidophilus Probiotic) 0.5 Mg Tablet, (Reported) Entered as Reported by: YOSI ROA on 11/11/212324 Last Action: New Order Levetiracetam (Keppra) 500 Mg Tablet, 500 MG PO BID Prescribed by: ELROY GONZALEZ on 07/21/17 1719 Lisinopril (Lisinopril) 20 Mg Tablet, (Reported) Entered as Reported by: YOSI ROA on 11/11/212324 Last Action: New Order Melatonin (Melatonin) 3 Mg Tablet.er, 3 MG PO HS, (Reported) Entered as Reported by: RAVI BARRAGAN on 07/23/18 1252 Multivit,Ther Iron,Ca,FA & Min (Thera-M Caplet) 1 Each Tablet, (Reported) Entered as Reported by: YOSI ROA on 11/11/212324 Last Action: New Order Multivit,Ther Iron,Ca,FA & Min (Thera-M Caplet) 1 Each Tablet, (Reported) Entered as Reported by: YOSI ROA on 11/11/212324 Last Action: New Order Naproxen (Naproxen) 500 Mg Tablet, 500 MG PO BID Prescribed by: DELGADO CABALLERO on 10/04/182030 Olanzapine (Olanzapine) 10 Mg Tablet, (Reported) Entered as Reported by: YOSI ROA on 11/11/212324 Last Action: New Order Oxcarbazepine (Oxcarbazepine) 600 Mg Tablet, 600 MG PO TID Prescribed by: ELROY GONZALEZ on 07/21/17 1719 Sucralfate (Carafate) 1 Gm Tablet, 1 GM PO QID, (Reported) Entered as Reported by: RAVI BARRAGAN on 07/23/18 1252 Review of Systems Constitutional: see HPI; No chills, No fever EENTM: No nose congestion, No throat pain Respiratory: No cough, No short of breath Cardiovascular: No chest pain, No edema Gastrointestinal: No nausea, No vomiting Genitourinary: no symptoms reported Musculoskeletal: No back pain, No muscle pain Skin: no symptoms reported Psychiatric/Neurological: Emotional Problems, Pre-Existing Deficit All Other Systems Reviewed Negative Unless Noted: Yes Past [id number]-[id number] Hx Patient Social History Tobacco Use?: Yes Tobacco type used: Cigarettes Substance use?: No Alcohol Use?: No Pt feels they are or have been: No Immunizations Up To Date Tetanus Booster (TDap): Less than 5yrs First/Initial COVID19 Vaccinat: oct 27 2020 Second COVID19 Vaccination Otis: nov 16 2020 Seasonal Allergies Seasonal Allergies: No Past Medical History Surgery/Hospitalization HX: mr, seizures, schizophrenia, bipolar, anxiety, explosive disorder, gender identity disorder, adhd, htn, asthma, uti, congenital skull deformity colonoscopy, ear Surgeries: Yes (COLONOSCOPY 07/27/18) Abdominal, Ear Surgery Respiratory: No Cardiac: No Neurological: Yes Developmental Disorder, Seizure Disorder Reproductive Disorders: No Genitourinary: Yes (urinary incontinence) UTI-Chronic Gastrointestinal: Yes (COLONOSCOPY 07/27/18--PROCTITIS/INTERNAL HEMORRHOIDS; CT NOTED COLITIS ) Colitis, Hemorrhoids Musculoskeletal: No Endocrine: No HEENT: Yes (CONGENITAL FACIAL/SKULL DEFORMITY) Chronic Ear Infection Cancer: No Psychosocial: Yes ADD/ADHD, Pseudo Seizures, Sleep Difficulties, Anxiety, Schizophrenia, Violent Behavior Integumentary: Yes Blood Disorders: No Family Medical History Reviewed Nursing Family Hx No Pertinent Family Hx Physical Exam Vital Signs - First Documented 11/11/21 23:15 Temp 36.4 Pulse 101 Resp 16 B/P (MAP) 118/103 (108) Pulse Ox 95 O2 Delivery Room Air Capillary Refill : Less Than 3 Seconds Height, Weight, BMI Height: 5'10.00" Weight: 198lbs. 0.0oz. [id number]; 31.00 BMI Method:Stated General Appearance: WD/WN, no apparent distress HEENT: PERRL/EOMI, pharynx normal Neck: full range of motion, supple Respiratory: lungs clear, normal breath sounds Cardiovascular: regular rate, rhythm, no murmur Gastrointestinal: non tender, soft Extremities: non-tender, normal inspection Neurologic/Psychiatric: alert, normal mood/affect Appearance/Memory: appropriate appearance, appropriate insight Behavior/Eye Contact: cooperative, good eye contact, normal speech Thoughts/Hallucinations: auditory hallucinations Skin: normal color, warm/dry Progress/Results/Core Measures Results/Orders Lab Results Laboratory Tests Test 11/11/21 23:23 11/11/21 23:34 Range/Units Urine Color YELLOW Urine Clarity CLEAR Urine pH 6.5 5-9 Urine Specific [place] 1.020 1.016-1.022 Urine Protein NEGATIVE NEGATIVE Urine Glucose (UA) NEGATIVE NEGATIVE Urine Ketones TRACE H NEGATIVE Urine Nitrite NEGATIVE NEGATIVE Urine Bilirubin NEGATIVE NEGATIVE Urine Urobilinogen 0.2 < = 1.0 MG/DL Urine Leukocyte Esterase NEGATIVE NEGATIVE Urine RBC (Auto) NEGATIVE NEGATIVE Urine RBC NONE /HPF Urine WBC NONE /HPF Urine Squamous Epithelial Cells RARE /HPF Urine Crystals NONE /LPF Urine Bacteria NEGATIVE /HPF Urine Casts NONE /LPF Urine Mucus SMALL H /LPF Urine Culture Indicated NO Urine Opiates Screen NEGATIVE NEGATIVE Urine Oxycodone Screen NEGATIVE NEGATIVE Urine Methadone Screen NEGATIVE NEGATIVE Urine Propoxyphene Screen NEGATIVE NEGATIVE Urine Barbiturates Screen NEGATIVE NEGATIVE Ur Tricyclic Antidepressants Screen NEGATIVE NEGATIVE Urine Phencyclidine Screen NEGATIVE NEGATIVE Urine Amphetamines Screen NEGATIVE NEGATIVE Urine Methamphetamines Screen NEGATIVE NEGATIVE Urine Benzodiazepines Screen POSITIVE H NEGATIVE Urine Cocaine Screen NEGATIVE NEGATIVE Urine Cannabinoids Screen NEGATIVE NEGATIVE White Blood Count 8.7 4.3-11.0 10^3/uL Red Blood Count 4.63 4.30-5.52 10^6/uL Hemoglobin 15.0 13.3-17.7 g/dL Hematocrit 44 40-54 % Mean Corpuscular Volume 94 80-99 fL Mean Corpuscular Hemoglobin 32 25-34 pg Mean Corpuscular Hemoglobin Concent 34 32-36 g/dL Red Cell Distribution Width 13.2 10.0-14.5 % Platelet Count 264 130-400 10^3/uL Mean Platelet Volume 9.3 9.0-12.2 fL Immature Granulocyte % (Auto) 1 % Neutrophils (%) (Auto) 60 42-75 % Lymphocytes (%) (Auto) 26 12-44 % Monocytes (%) (Auto) 10 0-12 % Eosinophils (%) (Auto) 3 0-10 % Basophils (%) (Auto) 1 0-10 % Neutrophils # (Auto) 5.2 1.8-7.8 10^3/uL Lymphocytes # (Auto) 2.3 1.0-4.0 10^3/uL Monocytes # (Auto) 0.9 0.0-1.0 10^3/uL Eosinophils # (Auto) 0.2 0.0-0.3 10^3/uL Basophils # (Auto) 0.1 0.0-0.1 10^3/uL Immature Granulocyte # (Auto) 0.0 0.0-0.1 10^3/uL Sodium Level 134 L 135-145 MMOL/L Potassium Level 3.6 3.6-5.0 MMOL/L Chloride Level 98 98-107 MMOL/L Carbon Dioxide Level 22 21-32 MMOL/L Anion Gap 14 5-14 MMOL/L Blood Urea Nitrogen 10 7-18 MG/DL Creatinine 0.77 0.60-1.30 MG/DL Estimat Glomerular Filtration Rate 124 BUN/Creatinine Ratio 13 Glucose Level 113 H 70-105 MG/DL Calcium Level 9.2 8.5-10.1 MG/DL Corrected Calcium 8.9 8.5-10.1 MG/DL Total Bilirubin 0.3 0.1-1.0 MG/DL Aspartate Amino Transf (AST/SGOT) 28 5-34 U/L Alanine Aminotransferase (ALT/SGPT) 38 0-55 U/L Alkaline Phosphatase 53 40-136 U/L Total Protein 7.0 6.4-8.2 GM/DL Albumin 4.4 3.2-4.5 GM/DL Salicylates Level < 5.0 L 5.0-20.0 MG/DL Acetaminophen Level < 10 L 10-30 UG/ML Serum Alcohol < 10 <10 MG/DL My Orders Orders - JERRY HANKS MD Ua Culture If Indicated (11/11/21:) Cbc With Automated Diff (11/11/21:25) Comprehensive Metabolic Panel (11/11/21:25) Alcohol (11/11/21 23:25) Drug Screen Stat (Urine) (11/11/21:) Acetaminophen (11/11/21:) Salicylate (11/11/21:25) Ekg Tracing (11/11/21:) Monitor-Rhythm Ecg Trace Only (11/11/21:) Olanzapine Orally Dissolve Tab (Zyprexa (11/11/21:) Medications Given in ED Current Medications Medications Dose Ordered Sig/Omar Route Start Time Stop Time Status Last Admin Dose Admin Olanzapine 5 mg ONCE ONCE PO 11/11/21 23:30 11/11/21 23:31 DC 11/11/21 23:34 5 MG Vital Signs/I&O 11/11/21 23:15 Temp 36.4 Pulse 101 Resp 16 B/P (MAP) 118/103 (108) Pulse Ox 95 O2 Delivery Room Air Blood Pressure Mean: 108 Progress Progress Note : Progress Note Seen and evaluated. Patient cooperative currently. We will go ahead and give olanzapine 5 mg p.o. now. Medical screening initiated. Patient denies HI or SI currently but does state that he still hears the voice that says kill. There is no other instructions and he does not feel like he is going to act on this. This is not a new voice or instruction for the patient. Monitor patient. 0006: Overall doing better. His nighttime care worker is here and states that he really never has problems with him. The patient denies any voices currently and denies SI or HI. At this point, I think it is safe for him to go home and continue his previous care plan. Patient would like to go home and care worker is very comfortable with this and is able to take him home. You should follow- up with his normal counselor. He has appropriate care team and plans. Discharged home with return precautions. Patient and care worker verbalized understanding instructions and agreement with plan. Initial ECG Impression Date: Nov 11, 2021 Initial ECG Impression Time: 23:18 Initial ECG Rate: 96 Initial ECG Rhythm: Normal Sinus Initial ECG Impression: Normal Comment Sinus rhythm with normal axis. No evidence of ST elevation [place]. Interpreted by me. Departure Impression Primary Impression: Auditory hallucinations Additional Impression: Schizophrenia Qualified Codes: F20.9 - Schizophrenia, unspecified Disposition: 01 HOME, SELF-CARE Condition: Improved Departure-Patient Inst. Decision time for Depature: 00:07 Referrals: [facility] (PCP) Primary Care Physician СЕРГЕЙ SPENCE APRN (Family) Primary Care Physician Patient Instructions: Schizophrenia (DC) Add. Discharge Instructions: All discharge instructions reviewed with patient and/or family. Voiced understanding. Continue home medications as previously prescribed. Follow-up with his counselor this week for recheck and further evaluation. Return for suicidal or homicidal thoughts. Medical screening complete and he is medically cleared for evaluation and inpatient stay if needed. He is much improved currently and may continue with current care plan. JERRY HANKS MD Nov 11, 2021 23:54
[2021-11-11 23:55] LABS: CALCIUM 9.2 MG/DL (8.5-10.1)
[2021-11-11 23:56] LABS: GLUCOSE 113 MG/DL (70-105)
[2021-11-11 23:57] LABS: CARBON DIOXIDE 22 MMOL/L (21-32)
[2021-11-11 23:58] LABS: BILIRUBIN,TOTAL 0.3 MG/DL (0.1-1.0)
[2021-11-12] LABS: AMPHETAMINE SCREEN, URINE NEGATIVE (NEGATIVE); BARBITURATE SCREEN URINE NEGATIVE (NEGATIVE); BENZODIAZEPINES SCREEN URINE POSITIVE (NEGATIVE); CANNABINOID SCREEN, URINE NEGATIVE (NEGATIVE); COCAINE SCREEN URINE NEGATIVE (NEGATIVE); METHADONE STAT NEGATIVE (NEGATIVE); METHAMPHETAMINE SCREEN URINE S NEGATIVE (NEGATIVE); OPIATE SCREEN URINE NEGATIVE (NEGATIVE); OXYCODONE STAT NEGATIVE (NEGATIVE); PROPOXYPHENE STAT NEGATIVE (NEGATIVE); TRICYCLIC ANTIDEPRESSANTS SCRE NEGATIVE (NEGATIVE)
[2021-11-12] LABS: ALKALINE PHOSPHATASE 53 U/L (40-136); CREATININE SERUM 0.77 MG/DL (0.60-1.30); GFR ESTIMATED 124
[2021-11-12 00:01] LABS: BUN/CREATININE RATIO 13
[2021-11-12 00:02] LABS: SALICYLATE < 5.0 MG/DL (5.0-20.0)
[2021-11-12 00:03] LABS: ALANINE AMINOTRANSFERASE 38 U/L (0-55)
[2021-11-12 00:04] LABS: ACETAMINOPHEN < 10 UG/ML (10-30)
[2021-11-12 00:10] VITALS: BP 124/79
== END 2021-11-12 00:12 | disposition home or self-care (01) ==
LOC: EDUNIT# 23:12 → ER 23:13
DX: F20.9 Schizophrenia, unspecified (principal); I10 Essential (primary) hypertension; J45.909 Unspecified asthma, uncomplicated; F41.9 Anxiety disorder, unspecified; G47.9 Sleep disorder, unspecified; G40.909 Epilepsy, unspecified, not intractable, without status epilepticus; F31.9 Bipolar disorder, unspecified; F17.210 Nicotine dependence, cigarettes, uncomplicated; Z91.040 Latex allergy status; Z79.899 Other long term (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
CPT/HCPCS: 80053; 80306; 81000; 85025; 93005; 93041; 99284; G0480 ×3; 36415; 80320; 80329

== ENCOUNTER 2022-05-21 22:08 | Emergency (ER) | payer MEDICAID ==
[~2022-05-21 22:08] MED LIST changes: +BUSP15TA60; +CLOB20TA15; +DIVA500T15; +HYDR-3781; +HYDR12.56; +LACT0.5T; +LISI20TA26; +MULT-349; +OLAN10TA71; -OLOP5DRO13; +OLOP5DRO26
[2022-05-21] MEDS ORDERED: LACTATED RINGERS 1,000 ML IV ONE (22:15)
--- NOTE | 2022-05-21 22:32 | ED General ---
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, AND HAD BEEN THERE FOR 1 WEEK PT HAS LONGSTANDING SEIZURE DISORDER, AND LONGSTANDING PSYCH ISSUES WITH FREQUENT HALLUCINATIONS AND ANXIETY SHE REPORTED TO EMS THAT PT HAS HAD "A BUNCH OF LITTLE SEIZURES" SINCE 2099 TONIGHT--EACH LASTING LESS THAN 30 SECONDS EMS REPORT THAT PT WAS NOT POST ICTAL WHEN THEY ARRIVED AT THE SCENE, BUT THEY DID WITNESS PT HAVING A VERY BRIEF SEIZURE THAT LASTED LESS THAN 15 SECONDS, AND PT WAS IMMEDIATELY AWAKE AND TALKING AND AT NORMAL BASELINE MENTATION BOTANY PROFESSOR CALLED EMS BECAUSE DURING ONE OF THE SEIZURES HE HIT HIS HEAD ON THE DOOR FRAME NO BLEEDING ANYWHERE NO OTHER OBVIOUS TRAUMA. PT ONLY COMPLAINS OF HIS HEAD HURTING PT KNOWS HE HIT HIS HEAD, BUT STATES HE DOES NOT REMEMBER HITTING HIS HEAD PT IS ABLE TO RECALL WHAT HE ATE FOR DINNER ( " 8 FISH PATTIES" ), AND STATES HE HAS NOT HAD HIS REGULAR NIGHT TIME MEDICATION BOTANY PROFESSOR ALSO REPORTED TO EMS THAT EARLIER THIS EVENING, HE WAS HALLUCINATING/HEARING VOICES AND HAVING SOME ANXIETY, AND SHE GAVE HIM BENZTROPINE, DEPAKOTE, AND HYDROXYZINE--SHE HAD REPORTED TO EMS THAT SHE HAD NEVER GIVEN HIM THOSE MEDICATIONS BEFORE. PCP: [facility] Allergies and Home Medications Allergies Coded Allergies: Latex, Natural Rubber (Unverified Allergy, Unknown, 07/27/18) amoxicillin (Unverified Allergy, Unknown, 07/17/18) clavulanic acid (Unverified Allergy, Unknown, 07/17/18) prednisone (Unverified Allergy, Unknown, 07/17/18) Patient Home Medication List Home Medication List Reviewed: Yes Aripiprazole (Aripiprazole) 5 Mg Tablet, 5 MG PO DAILY, (Reported) Entered as Reported by: RAVI BARRAGAN on 07/23/18 1252 Benztropine Mesylate (Benztropine Mesylate) 1 Mg Tablet, (Reported) Entered as Reported by: YOSI ROA on 11/11/212324 Buspirone HCl (Buspirone HCl) 15 Mg Tablet, (Reported) Entered as Reported by: YOSI ROA on 11/11/212324 Calcium Citrate (Calcium Citrate) 250 Mg Tablet, 250 MG PO BID, (Reported) Entered as Reported by: RAVI BARRAGAN on 07/23/18 125 Cefdinir (Cefdinir) 300 Mg Capsule, 300 MG PO BID Prescribed by: DELGADO CABALLERO on 08/20/182053 Clobazam (Clobazam) 20 Mg Tablet, (Reported) Entered as Reported by: YOSI ROA on 11/11/212324 Cyproheptadine HCl (Cyproheptadine HCl) 4 Mg Tablet, 12 MG PO DAILY, (Reported) Entered as Reported by: YOSI ROA on 07/21/172131 Desmopressin Acetate (Desmopressin Acetate) 0.2 Mg Tablet, (Reported) Entered as Reported by: YOSI ROA on 11/11/212324 Divalproex Sodium (Divalproex Sodium ER) 500 Mg Tab.er.24h, (Reported) Entered as Reported by: YOSI ROA on 11/11/212324 Hydrochlorothiazide (Hydrochlorothiazide) 12.5 Mg Tablet, (Reported) Entered as Reported by: YOSI ROA on 11/11/212324 Hydroxyzine Pamoate (Hydroxyzine Pamoate) 25 Mg Capsule, (Reported) Entered as Reported by: YOSI ROA on 11/11/212324 Lactobacillus Acidophilus (Probiotic) 1 Each Capsule, 1 EACH PO DAILY, (Reported) Entered as Reported by: RAVI BARRAGAN on 07/23/18 125 Lactobacillus Acidophilus (Acidophilus Probiotic) 0.5 Mg Tablet, (Reported) Entered as Reported by: YOSI ROA on 11/11/212324 Levetiracetam (Keppra) 500 Mg Tablet, 500 MG PO BID Prescribed by: ELROY GONZALEZ on 07/21/17 171 Lisinopril (Lisinopril) 20 Mg Tablet, (Reported) Entered as Reported by: YOSI ROA on 11/11/212324 Melatonin (Melatonin) 3 Mg Tablet.er, 3 MG PO HS, (Reported) Entered as Reported by: RAVI BARRAGAN on 07/23/18 1252 Multivit,Ther Iron,Ca,FA & Min (Thera-M Caplet) 1 Each Tablet, (Reported) Entered as Reported by: YOSI ROA on 11/11/212324 Multivit,Ther Iron,Ca,FA & Min (Thera-M Caplet) 1 Each Tablet, (Reported) Entered as Reported by: YOSI ROA on 11/11/212324 Naproxen (Naproxen) 500 Mg Tablet, 500 MG PO BID Prescribed by: DELGADO CABALLERO on 10/04/182030 Olanzapine (Olanzapine) 10 Mg Tablet, (Reported) Entered as Reported by: YOSI ROA on 11/11/212324 Oxcarbazepine (Oxcarbazepine) 600 Mg Tablet, 600 MG PO TID Prescribed by: ELROY GONZALEZ on 07/21/17 171 Sucralfate (Carafate) 1 Gm Tablet, 1 GM PO QID, (Reported) Entered as Reported by: RAVI BARRAGAN on 07/23/18 1252 Review of Systems Review of Systems Constitutional: no symptoms reported EENTM: no symptoms reported Respiratory: no symptoms reported Cardiovascular: no symptoms reported Gastrointestinal: no symptoms reported Genitourinary: no symptoms reported Musculoskeletal: no symptoms reported Skin: no symptoms reported Psychiatric/Neurological: See HPI Hematologic/Lymphatic: No Symptoms Reported Immunological/Allergic: no symptoms reported Past Pxjqvhi-Onzpvl-Iwuivs Hx Patient Social History Tobacco Use?: Yes Tobacco type used: Cigarettes Smoking Status: Current Everyday Smoker Smokeless Tobacco Frequency: Unknown if Ever Used Use of E-Cig and/or Vaping Osvaldo: Unknown if Ever Used Substance use?: Yes Substance type: Marijuana Additional substance use comme: HX OF THC USE Alcohol Use?: Unable to obtain Immunizations Up To Date Tetanus Booster (TDap): Less than 5yrs First/Initial COVID19 Vaccinat: oct 27 2020 Second COVID19 Vaccination Otis: nov 16 2020 Seasonal Allergies Seasonal Allergies: No Past Medical History Surgery/Hospitalization HX: mr, seizures, schizophrenia, bipolar, anxiety, explosive disorder, gender identity disorder, adhd, htn, asthma, uti, congenital skull deformity, HALLUCINATIONS colonoscopy, ear Surgeries: Yes (COLONOSCOPY 07/27/18) Abdominal, Ear Surgery Respiratory: No Cardiac: No Neurological: Yes Developmental Disorder, Seizure Disorder Reproductive Disorders: No Genitourinary: Yes (urinary incontinence) UTI-Chronic Gastrointestinal: Yes (COLONOSCOPY 07/27/18--PROCTITIS/INTERNAL HEMORRHOIDS; CT NOTED COLITIS ) Colitis, Hemorrhoids Musculoskeletal: No Endocrine: No HEENT: Yes (CONGENITAL FACIAL/SKULL DEFORMITY) Chronic Ear Infection Cancer: No Psychosocial: Yes (HALLUCINATIONS) ADD/ADHD, Pseudo Seizures, Sleep Difficulties, Anxiety, Schizophrenia, Violent Behavior Integumentary: No Blood Disorders: No Family Medical History No Pertinent Family Hx Physical Exam Vital Signs Vital Signs - First Documented 05/21/22 22:08 Temp 37.0 Pulse 90 Resp 16 B/P (MAP) 119/74 (89) Pulse Ox 97 O2 Delivery Room Air Capillary Refill : Height, Weight, BMI Height: 5'10.00" Weight: 198lbs. 0.0oz. [id number]; 31.00 BMI Method:Stated General Appearance: No Apparent Distress, WD/WN HEENT: PERRL/EOMI, TMs Normal, Normal ENT Inspection, Pharynx Normal, Other (TENDERNESS TO TOP OF HEAD, BUT NO EXTERNAL EVIDENCE OF TRAUMA ANYWHERE TO SCALP) Neck: Full Range of Motion, Normal Inspection, Non Tender, Supple Respiratory: Normal Breath Sounds, No Accessory Muscle Use, No Respiratory Distress Cardiovascular: Regular Rate, Rhythm, No Murmur Gastrointestinal: Non Tender, Soft Back: Normal Inspection, No CVA Tenderness, No Vertebral Tenderness Extremity: Normal Capillary Refill, Normal Range of Motion, Non Tender Neurologic/Psychiatric: Alert, No Motor/Sensory Deficits, 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 PT WITH OBVIOUS M.R. AND IS AT NORMAL BASELINE, SPEECH IS SLOW BUT NOT SLURRED. ) Skin: Normal Color, Warm/Dry; No Ecchymosis, No Rash Progress/Results/Core Measures Suspected Sepsis SIRS Temperature: Pulse: Respiratory Rate: Laboratory Tests 05/21/22 23:00: White Blood Count 8.1 Blood Pressure / Mean: Laboratory Tests 05/21/22 23:00: Creatinine 0.86, Platelet Count 222, Total Bilirubin 0.2 Results/Orders Lab Results Laboratory Tests Test 05/21/22 22:50 05/21/22 23:00 Range/Units Urine Color YELLOW Urine Clarity CLEAR Urine pH 6.0 5-9 Urine Specific [place] >=1.030 1.016-1.022 Urine Protein NEGATIVE NEGATIVE Urine Glucose (UA) NEGATIVE NEGATIVE Urine Ketones NEGATIVE NEGATIVE Urine Nitrite NEGATIVE NEGATIVE Urine Bilirubin NEGATIVE NEGATIVE Urine Urobilinogen 0.2 < = 1.0 MG/DL Urine Leukocyte Esterase NEGATIVE NEGATIVE Urine RBC (Auto) NEGATIVE NEGATIVE Urine RBC NONE /HPF Urine WBC NONE /HPF Urine Squamous Epithelial Cells RARE /HPF Urine Crystals NONE /LPF Urine Bacteria NEGATIVE /HPF Urine Casts NONE /LPF Urine Mucus SMALL H /LPF Urine Culture Indicated NO Urine Opiates Screen NEGATIVE NEGATIVE Urine Oxycodone Screen NEGATIVE NEGATIVE Urine Methadone Screen NEGATIVE NEGATIVE Urine Propoxyphene Screen NEGATIVE NEGATIVE Urine Barbiturates Screen NEGATIVE NEGATIVE Ur Tricyclic Antidepressants Screen NEGATIVE NEGATIVE Urine Phencyclidine Screen NEGATIVE NEGATIVE Urine Amphetamines Screen NEGATIVE NEGATIVE Urine Methamphetamines Screen NEGATIVE NEGATIVE Urine Benzodiazepines Screen POSITIVE H NEGATIVE Urine Cocaine Screen NEGATIVE NEGATIVE Urine Cannabinoids Screen NEGATIVE NEGATIVE SARS-CoV-2 RNA (RT-PCR) Not Detected Not Detecte White Blood Count 8.1 4.3-11.0 10^3/uL Red Blood Count 4.45 4.30-5.52 10^6/uL Hemoglobin 14.6 13.3-17.7 g/dL Hematocrit 42 40-54 % Mean Corpuscular Volume 93 80-99 fL Mean Corpuscular Hemoglobin 33 25-34 pg Mean Corpuscular Hemoglobin Concent 35 32-36 g/dL Red Cell Distribution Width 12.9 10.0-14.5 % Platelet Count 222 130-400 10^3/uL Mean Platelet Volume 9.5 9.0-12.2 fL Immature Granulocyte % (Auto) 1 % Neutrophils (%) (Auto) 55 42-75 % Lymphocytes (%) (Auto) 30 12-44 % Monocytes (%) (Auto) 9 0-12 % Eosinophils (%) (Auto) 4 0-10 % Basophils (%) (Auto) 1 0-10 % Neutrophils # (Auto) 4.5 1.8-7.8 10^3/uL Lymphocytes # (Auto) 2.5 1.0-4.0 10^3/uL Monocytes # (Auto) 0.7 0.0-1.0 10^3/uL Eosinophils # (Auto) 0.3 0.0-0.3 10^3/uL Basophils # (Auto) 0.1 0.0-0.1 10^3/uL Immature Granulocyte # (Auto) 0.1 0.0-0.1 10^3/uL Sodium Level 136 135-145 MMOL/L Potassium Level 4.0 3.6-5.0 MMOL/L Chloride Level 102 98-107 MMOL/L Carbon Dioxide Level 22 21-32 MMOL/L Anion Gap 12 5-14 MMOL/L Blood Urea Nitrogen 16 7-18 MG/DL Creatinine 0.86 0.60-1.30 MG/DL Estimat Glomerular Filtration Rate 119 BUN/Creatinine Ratio 19 Glucose Level 121 H 70-105 MG/DL Calcium Level 8.9 8.5-10.1 MG/DL Corrected Calcium 9.0 8.5-10.1 MG/DL Magnesium Level 2.0 1.6-2.4 MG/DL Total Bilirubin 0.2 0.1-1.0 MG/DL Aspartate Amino Transf (AST/SGOT) 21 5-34 U/L Alanine Aminotransferase (ALT/SGPT) 30 0-55 U/L Alkaline Phosphatase 49 40-136 U/L Total Creatine Kinase 370 H 30-200 U/L Creatine Kinase MB 2.6 <6.6 NG/ML Myoglobin 62.9 10.0-92.0 NG/ML Total Protein 6.4 6.4-8.2 GM/DL Albumin 3.9 3.2-4.5 GM/DL Valproic Acid (Depakene) Level 96.9 50.0-100.0 UG/ML Serum Alcohol < 10 <10 MG/DL My Orders Orders - DELGADO CABALLERO DO Ed Iv/Invasive Line Start (05/21/22 22:12) Monitor-Rhythm Ecg Trace Only (05/21/22 22:12) Ct Head/Cervical Spine Wo (05/21/22 22:12) Alcohol (05/21/22 22:12) Cbc With Automated Diff (05/21/22 22:12) Comprehensive Metabolic Panel (05/21/22 22:12) Creatine Kinase (05/21/22 22:12) Creatine Kinase Mb (05/21/22 22:12) Drug Screen Stat (Urine) (05/21/22 22:12) Magnesium (05/21/22 22:12) Ua Culture If Indicated (05/21/22 22:12) Valproic Acid (05/21/22 22:12) Ed Iv/Invasive Line Start (05/21/22 22:12) Myoglobin Serum (05/21/22 22:12) Lactated Ringers (Lr 1000 Ml Iv Solution (05/21/22 22:15) Covid 19 Inhouse Test (05/21/22 22:14) Isolation Central Supply Req (05/21/22 22:14) Ammonia Inhalation (Ammonia Inhalation) (05/22/22 00:26) Medications Given in ED Current Medications Medications Dose Ordered Sig/Omar Route Start Time Stop Time Status Last Admin Dose Admin Lactated Ringer's 1,000 ml @ 0 mls/hr Q0M ONCE IV 05/21/22 22:15 05/21/22 22:16 DC 05/21/22 23:06 999 MLS/HR Vital Signs/I&O 05/21/22 05/22/22 22:08 00:23 Temp 37.0 37.0 Pulse 90 75 Resp 16 16 B/P (MAP) 119/74 (89) 112/63 Pulse Ox 97 97 O2 Delivery Room Air Room Air Capillary Refill : Progress Note : Progress Note UNEVENTFUL ER STAY NO SEIZURE ACTIVITY DURING ER STAY SLEPT THROUGH REMAINDER OF ER STAY NO DETERIORATION IN PT'S CONDITION DURING ER STAY Diagnostic Imaging Comments CT HEAD/CERVICAL SPINE--PER RADIOLOGIST REPORT AT 2305 CT HEAD: CT images of the head were obtained. FINDINGS: Ventricles and sulci are within normal limits for size. There is no intracranial hemorrhage identified. There is no abnormal mass effect or shift of midline structures. IMPRESSION: Unremarkable CT of the head. CT CERVICAL SPINE: Multiple contiguous axial CT images of the cervical spine were obtained with sagittal and coronal reformatted images produced. FINDINGS: There is loss of normal cervical lordosis. There is mild right convexity curvature.. Vertebral body heights and disc spaces are maintained. Prevertebral soft tissues are unremarkable, and there is no evidence of paraspinous hematoma. IMPRESSION: Loss of normal cervical lordosis which may be due to positioning or muscle spasm. There is, otherwise, no CT evidence of acute cervical spinal abnormality. Reviewed: Reviewed by Me Departure Impression Primary Impression: Minor head injury Additional Impressions: Seizure disorder Mentally challenged Disposition: 01 HOME, SELF-CARE Condition: Stable Departure-Patient Inst. Decision time for Depature: 00:04 Referrals: [facility] (PCP) Primary Care Physician СЕРГЕЙ SPENCE APRN (Family) Primary Care Physician Patient Instructions: Minor Head Injury, Adult ED, Seizures, Adult (DC) Add. Discharge Instructions: TYLENOL NEEDED FOR PAIN TAKE YOUR MEDICATIONS PRESCRIBED FOLLOW UP WITH YOUR DR THIS WEEK FOR FURTHER CARE All discharge instructions reviewed with patient and/or family. Voiced understan ding. DELGADO CABALLERO DO May 21, 2022 22:32
[2022-05-21 22:59] LABS: BILIRUBIN,URINE NEGATIVE (NEGATIVE); CLARITY,URINE CLEAR; COLOR,URINE YELLOW; GLUCOSE, URINE (UA) NEGATIVE (NEGATIVE); KETONES,URINE NEGATIVE (NEGATIVE); LEUKOCYTE ESTERASE ,URINE NEGATIVE (NEGATIVE); NITRITE,URINE NEGATIVE (NEGATIVE); PROTEIN,URINE NEGATIVE (NEGATIVE)
--- NOTE | 2022-05-21 23:01 | Diagnostic Imaging Report ---
PROCEDURE: CT head and CT cervical spine without contrast. TECHNIQUE: Multiple contiguous axial images were obtained through the brain and cervical spine without the use of intravenous contrast. Sagittal and coronal reformations through the cervical spine were then performed. Auto Exposure Controls were utilized during the CT exam to meet ALARA standards for radiation dose reduction. INDICATION: Trauma with head and neck injury CT HEAD: CT images of the head were obtained. FINDINGS: Ventricles and sulci are within normal limits for size. There is no intracranial hemorrhage identified. There is no abnormal mass effect or shift of midline structures. IMPRESSION: Unremarkable CT of the head. CT CERVICAL SPINE: Multiple contiguous axial CT images of the cervical spine were obtained with sagittal and coronal reformatted images produced. FINDINGS: There is loss of normal cervical lordosis. There is mild right convexity curvature.. Vertebral body heights and disc spaces are maintained. Prevertebral soft tissues are unremarkable, and there is no evidence of paraspinous hematoma. IMPRESSION: Loss of normal cervical lordosis which may be due to positioning or muscle spasm. There is, otherwise, no CT evidence of acute cervical spinal abnormality. Dictated by: Dictated on workstation # [id number]
[2022-05-21 23:08] LABS: AMPHETAMINE SCREEN, URINE NEGATIVE (NEGATIVE); BACTERIA,URINE NEGATIVE /HPF; BARBITURATE SCREEN URINE NEGATIVE (NEGATIVE); BENZODIAZEPINES SCREEN URINE POSITIVE (NEGATIVE); CANNABINOID SCREEN, URINE NEGATIVE (NEGATIVE); COCAINE SCREEN URINE NEGATIVE (NEGATIVE); METHADONE STAT NEGATIVE (NEGATIVE); OPIATE SCREEN URINE NEGATIVE (NEGATIVE); OXYCODONE STAT NEGATIVE (NEGATIVE); PROPOXYPHENE STAT NEGATIVE (NEGATIVE); SQUAMOUS EPITHELIAL CELL,UR RARE /HPF; TRICYCLIC ANTIDEPRESSANTS SCRE NEGATIVE (NEGATIVE)
[2022-05-21 23:15] LABS: BASOPHILS # (AUTO) 0.1 10^3/uL (0.0-0.1); BASOPHILS % (AUTO) 1 % (0-10); EOSINOPHILS # (AUTO) 0.3 10^3/uL (0.0-0.3); EOSINOPHILS % (AUTO) 4 % (0-10); HEMATOCRIT 42 % (40-54); HEMOGLOBIN 14.6 g/dL (13.3-17.7); LYMPHOCYTES # (AUTO) 2.5 10^3/uL (1.0-4.0); LYMPHOCYTES % (AUTO) 30 % (12-44); MEAN CORPUSCULAR HEMOGLOBIN 33 pg (25-34); MEAN CORPUSCULAR HGB CONC 35 g/dL (32-36); MEAN CORPUSCULAR VOLUME 93 fL (80-99); MEAN PLATELET VOLUME 9.5 fL (9.0-12.2); MONOCYTES # (AUTO) 0.7 10^3/uL (0.0-1.0); MONOCYTES % (AUTO) 9 % (0-12); NEUTROPHILS # (AUTO) 4.5 10^3/uL (1.8-7.8); NEUTROPHILS % (AUTO) 55 % (42-75); PLATELET COUNT 222 10^3/uL (130-400); WHITE BLOOD COUNT 8.1 10^3/uL (4.3-11.0)
[2022-05-21 23:28] LABS: ALBUMIN 3.9 GM/DL (3.2-4.5); CHLORIDE 102 MMOL/L (98-107); SODIUM 136 MMOL/L (135-145)
[2022-05-21 23:29] LABS: CALCIUM 8.9 MG/DL (8.5-10.1)
[2022-05-21 23:31] LABS: GLUCOSE 121 MG/DL (70-105); TOTAL PROTEIN 6.4 GM/DL (6.4-8.2)
[2022-05-21 23:32] LABS: BILIRUBIN,TOTAL 0.2 MG/DL (0.1-1.0); CARBON DIOXIDE 22 MMOL/L (21-32)
[2022-05-21 23:34] LABS: ALKALINE PHOSPHATASE 49 U/L (40-136); CREATININE SERUM 0.86 MG/DL (0.60-1.30); GFR ESTIMATED 119
[2022-05-21 23:35] LABS: BUN/CREATININE RATIO 19
[2022-05-21 23:37] LABS: ALANINE AMINOTRANSFERASE 30 U/L (0-55)
[2022-05-21 23:38] LABS: CREATINE KINASE 370 U/L (30-200)
[2022-05-21 23:44] LABS: CREATINE KINASE MB 2.6 NG/ML (<6.6)
[2022-05-21 23:45] LABS: VALPROIC ACID 96.9 UG/ML (50.0-100.0)
[2022-05-22 00:23] VITALS: BP 112/63
[2022-05-22] MEDS ORDERED: AMMONIA INHALATION 0.33 ML AMP ONE (00:26)
== END 2022-05-22 00:29 | disposition home or self-care (01) ==
LOC: EDUNIT# 22:10 → ER 22:12
DX: S09.90XA Unspecified injury of head, initial encounter (principal); G43.909 Migraine, unspecified, not intractable, without status migrainosus; F79 Unspecified intellectual disabilities; F17.210 Nicotine dependence, cigarettes, uncomplicated; Z91.040 Latex allergy status; Z20.822 Contact with and (suspected) exposure to COVID-19
CPT/HCPCS: 70450; 72125; 80053; 80164; 80306; 81000; 82550; 82553; 83735; 83874; 85025; 87636; 93041; 99284; G0480; 36415; 80320

== ENCOUNTER 2022-07-05 22:32 | Emergency (ER) | payer MEDICAID ==
[~2022-07-05] VITALS: Ht 177.8 cm; Wt 112.0 kg
[2022-07-06 01:21] LABS: BILIRUBIN,URINE NEGATIVE (NEGATIVE); CLARITY,URINE CLEAR; COLOR,URINE YELLOW; GLUCOSE, URINE (UA) NEGATIVE (NEGATIVE); KETONES,URINE 1+ (NEGATIVE); LEUKOCYTE ESTERASE ,URINE NEGATIVE (NEGATIVE); NITRITE,URINE NEGATIVE (NEGATIVE); PROTEIN,URINE TRACE (NEGATIVE)
[2022-07-06 01:34] LABS: AMPHETAMINE SCREEN, URINE NEGATIVE (NEGATIVE); BARBITURATE SCREEN URINE NEGATIVE (NEGATIVE); BENZODIAZEPINES SCREEN URINE POSITIVE (NEGATIVE); CANNABINOID SCREEN, URINE NEGATIVE (NEGATIVE); COCAINE SCREEN URINE NEGATIVE (NEGATIVE); METHADONE STAT NEGATIVE (NEGATIVE); OPIATE SCREEN URINE NEGATIVE (NEGATIVE); OXYCODONE STAT NEGATIVE (NEGATIVE); PROPOXYPHENE STAT NEGATIVE (NEGATIVE); TRICYCLIC ANTIDEPRESSANTS SCRE NEGATIVE (NEGATIVE)
[2022-07-06 01:43] LABS: BACTERIA,URINE TRACE /HPF; WBC,URINE 0-2 /HPF
[2022-07-06 01:44] LABS: HYALINE CASTS, URINE 0-2 /LPF
[2022-07-06 01:58] LABS: BASOPHILS # (AUTO) 0.1 10^3/uL (0.0-0.1); BASOPHILS % (AUTO) 1 % (0-10); EOSINOPHILS # (AUTO) 0.2 10^3/uL (0.0-0.3); EOSINOPHILS % (AUTO) 2 % (0-10); HEMATOCRIT 45 % (40-54); HEMOGLOBIN 16.1 g/dL (13.3-17.7); LYMPHOCYTES # (AUTO) 2.7 10^3/uL (1.0-4.0); LYMPHOCYTES % (AUTO) 30 % (12-44); MEAN CORPUSCULAR HEMOGLOBIN 33 pg (25-34); MEAN CORPUSCULAR HGB CONC 36 g/dL (32-36); MEAN CORPUSCULAR VOLUME 94 fL (80-99); MEAN PLATELET VOLUME 10.1 fL (9.0-12.2); MONOCYTES # (AUTO) 0.7 10^3/uL (0.0-1.0); MONOCYTES % (AUTO) 8 % (0-12); NEUTROPHILS # (AUTO) 5.2 10^3/uL (1.8-7.8); NEUTROPHILS % (AUTO) 58 % (42-75); PLATELET COUNT 213 10^3/uL (130-400)
[2022-07-06 02:05] LABS: ALBUMIN 4.3 GM/DL (3.2-4.5); CHLORIDE 99 MMOL/L (98-107); POTASSIUM 4.7 MMOL/L (3.6-5.0); SODIUM 136 MMOL/L (135-145)
[2022-07-06 02:06] LABS: CALCIUM 9.7 MG/DL (8.5-10.1)
[2022-07-06 02:07] LABS: GLUCOSE 87 MG/DL (70-105); TOTAL PROTEIN 7.3 GM/DL (6.4-8.2)
[2022-07-06 02:09] LABS: BILIRUBIN,TOTAL 0.3 MG/DL (0.1-1.0); CARBON DIOXIDE 26 MMOL/L (21-32)
[2022-07-06 02:11] LABS: ALKALINE PHOSPHATASE 63 U/L (40-136); CREATININE SERUM 0.87 MG/DL (0.60-1.30); GFR ESTIMATED 119
[2022-07-06 02:13] LABS: BUN/CREATININE RATIO 17
[2022-07-06 02:14] LABS: ACETAMINOPHEN < 10 UG/ML (10-30); ALANINE AMINOTRANSFERASE 62 U/L (0-55); SALICYLATE < 5.0 MG/DL (5.0-20.0)
[2022-07-06 02:21] LABS: VALPROIC ACID 84.6 UG/ML (50.0-100.0)
--- NOTE | 2022-07-06 05:14 | ED Psychosocial ---
General Chief Complaint: Psych/Social Disorder Stated Complaint: HEALTH SCREENING Nursing Triage Note: PT AMB TO ED WITH [facility] STAFF WITH C/O VOICES TELLING HIM TO KILL NEW [place] STAFF MEMBER SINCE 0 TODAY. STAFF REPORTS PT WAS GIVEN DANZEPINE AT 2014 AND LORAZEPAM AT 2032. PT DENIES THAT THE VOICES ARE TELLING HIM TO HARM HIMSELF OR ANYONE OTHER THAN [facility] STAFF MEMBER. PT DENIES THE VOICES TELLING HIM A SPECIFIC WAY TO HARM HER, STATES "JUST KILL HER." PT CALM AND COOPERATIVE AT THIS TIME. Source: patient, caregiver Exam Limitations: other (Developmental disability) History of Present Illness Date Seen by Provider: Jul 06, 2022 Time Seen by Provider: 00:22 Allergies and Home Medications Allergies Coded Allergies: Latex, Natural Rubber (Unverified Allergy, Unknown, 07/27/18) amoxicillin (Unverified Allergy, Unknown, 07/17/18) clavulanic acid (Unverified Allergy, Unknown, 07/17/18) prednisone (Unverified Allergy, Unknown, 07/17/18) Patient Home Medication List Aripiprazole (Aripiprazole) 5 Mg Tablet, 5 MG PO DAILY, (Reported) Entered as Reported by: RAVI BARRAGAN on 07/23/18 1252 Benztropine Mesylate (Benztropine Mesylate) 1 Mg Tablet, (Reported) Entered as Reported by: YOSI ROA on 11/11/212324 Buspirone HCl (Buspirone HCl) 15 Mg Tablet, (Reported) Entered as Reported by: YOSI ROA on 11/11/212324 Calcium Citrate (Calcium Citrate) 250 Mg Tablet, 250 MG PO BID, (Reported) Entered as Reported by: RAVI BARRAGAN on 07/23/18 125 Cefdinir (Cefdinir) 300 Mg Capsule, 300 MG PO BID Prescribed by: DELGADO CABALLERO on 08/20/182053 Clobazam (Clobazam) 20 Mg Tablet, (Reported) Entered as Reported by: YOSI ROA on 11/11/212324 Cyproheptadine HCl (Cyproheptadine HCl) 4 Mg Tablet, 12 MG PO DAILY, (Reported) Entered as Reported by: YOSI ROA on 07/21/172131 Desmopressin Acetate (Desmopressin Acetate) 0.2 Mg Tablet, (Reported) Entered as Reported by: YOSI ROA on 11/11/212324 Divalproex Sodium (Divalproex Sodium ER) 500 Mg Tab.er.24h, (Reported) Entered as Reported by: YOSI ROA on 11/11/212324 Hydrochlorothiazide (Hydrochlorothiazide) 12.5 Mg Tablet, (Reported) Entered as Reported by: YOSI ROA on 11/11/212324 Hydroxyzine Pamoate (Hydroxyzine Pamoate) 25 Mg Capsule, (Reported) Entered as Reported by: YOSI ROA on 11/11/212324 Lactobacillus Acidophilus (Probiotic) 1 Each Capsule, 1 EACH PO DAILY, (Reported) Entered as Reported by: RAVI BARRAGAN on 07/23/18 125 Lactobacillus Acidophilus (Acidophilus Probiotic) 0.5 Mg Tablet, (Reported) Entered as Reported by: YOSI ROA on 11/11/212324 Levetiracetam (Keppra) 500 Mg Tablet, 500 MG PO BID Prescribed by: ELROY GONZALEZ on 07/21/171718 Lisinopril (Lisinopril) 20 Mg Tablet, (Reported) Entered as Reported by: YOSI ROA on 11/11/212324 Melatonin (Melatonin) 3 Mg Tablet.er, 3 MG PO HS, (Reported) Entered as Reported by: RAVI BARRAGAN on 07/23/18 125 Multivit,Ther Iron,Ca,FA & Min (Thera-M Caplet) 1 Each Tablet, (Reported) Entered as Reported by: YOSI ROA on 11/11/212324 Multivit,Ther Iron,Ca,FA & Min (Thera-M Caplet) 1 Each Tablet, (Reported) Entered as Reported by: YOSI ROA on 11/11/212324 Naproxen (Naproxen) 500 Mg Tablet, 500 MG PO BID Prescribed by: DELGADO CABALLERO on 10/04/182030 Olanzapine (Olanzapine) 10 Mg Tablet, (Reported) Entered as Reported by: YOSI ROA on 11/11/212324 Oxcarbazepine (Oxcarbazepine) 600 Mg Tablet, 600 MG PO TID Prescribed by: ELROY GONZALEZ on 07/21/171718 Sucralfate (Carafate) 1 Gm Tablet, 1 GM PO QID, (Reported) Entered as Reported by: RAVI BARRAGAN on 07/23/18 1252 Past Xpncazz-Ltgllf-Ozazde Hx Patient Social History Tobacco Use?: Yes Tobacco type used: Cigars, Cigarettes Smoking Status: Current Everyday Smoker Use of E-Cig and/or Vaping dev: No Substance use?: No Alcohol Use?: Yes Alcohol type: Beer Alcohol Frequency: Once in a while Pt feels they are or have been: No Immunizations Up To Date Tetanus Booster (TDap): Less than 5yrs Influenza Vaccine Up-to-Date: No; Not Current First/Initial COVID19 Vaccinat: oct 27 2020 Second COVID19 Vaccination Otis: nov 16 2020 Third COVID19 Vaccination Date: 2020 Seasonal Allergies Seasonal Allergies: No Past Medical History Surgery/Hospitalization HX: mr, seizures, schizophrenia, bipolar, anxiety, explosive disorder, gender identity disorder, adhd, htn, asthma, uti, congenital skull deformity,HALLUCINATIONS Surgeries: Yes (COLONOSCOPY 07/27/18) Abdominal, Ear Surgery Respiratory: No Cardiac: No Neurological: Yes Developmental Disorder, Seizure Disorder Reproductive Disorders: No Genitourinary: Yes (urinary incontinence) UTI-Chronic Gastrointestinal: Yes (COLONOSCOPY 07/27/18--PROCTITIS/INTERNAL HEMORRHOIDS; CT NOTED COLITIS ) Colitis, Hemorrhoids Musculoskeletal: No Endocrine: No HEENT: Yes (CONGENITAL FACIAL/SKULL DEFORMITY) Chronic Ear Infection Cancer: No Psychosocial: Yes (HALLUCINATIONS) ADD/ADHD, Pseudo Seizures, Sleep Difficulties, Anxiety, Schizophrenia, Violent Behavior Integumentary: No Blood Disorders: No Family Medical History No Pertinent Family Hx Physical Exam Vital Signs - First Documented 07/05/22 23:13 Temp 36.4 Pulse 84 Resp 16 B/P (MAP) 125/77 (93) Pulse Ox 97 O2 Delivery Room Air Capillary Refill : Less Than 3 Seconds Height, Weight, BMI Height: 5'10.00" Weight: 198lbs. 0.0oz. 89.576394kb; 35.00 BMI Method:Stated Progress/Results/Core Measures Results/Orders Lab Results Laboratory Tests Test 07/06/22 00:15 07/06/22 01:24 07/06/22 01:50 Range/Units Urine Color YELLOW Urine Clarity CLEAR Urine pH 6.0 5-9 Urine Specific [place] 1.025 H 1.016-1.022 Urine Protein TRACE H NEGATIVE Urine Glucose (UA) NEGATIVE NEGATIVE Urine Ketones 1+ H NEGATIVE Urine Nitrite NEGATIVE NEGATIVE Urine Bilirubin NEGATIVE NEGATIVE Urine Urobilinogen 1.0 < = 1.0 MG/DL Urine Leukocyte Esterase NEGATIVE NEGATIVE Urine RBC (Auto) NEGATIVE NEGATIVE Urine RBC NONE /HPF Urine WBC 0-2 /HPF Urine Crystals NONE /LPF Urine Bacteria TRACE /HPF Urine Casts PRESENT /LPF Urine Hyaline Casts 0-2 H /LPF Urine Mucus SMALL H /LPF Urine Culture Indicated NO Urine Opiates Screen NEGATIVE NEGATIVE Urine Oxycodone Screen NEGATIVE NEGATIVE Urine Methadone Screen NEGATIVE NEGATIVE Urine Propoxyphene Screen NEGATIVE NEGATIVE Urine Barbiturates Screen NEGATIVE NEGATIVE Ur Tricyclic Antidepressants Screen NEGATIVE NEGATIVE Urine Phencyclidine Screen NEGATIVE NEGATIVE Urine Amphetamines Screen NEGATIVE NEGATIVE Urine Methamphetamines Screen NEGATIVE NEGATIVE Urine Benzodiazepines Screen POSITIVE H NEGATIVE Urine Cocaine Screen NEGATIVE NEGATIVE Urine Cannabinoids Screen NEGATIVE NEGATIVE Influenza Type A (RT-PCR) Not Detected Not Detecte Influenza Type B (RT-PCR) Not Detected Not Detecte SARS-CoV-2 RNA (RT-PCR) Not Detected Not Detecte White Blood Count 9.0 4.3-11.0 10^3/uL Red Blood Count 4.84 4.30-5.52 10^6/uL Hemoglobin 16.1 13.3-17.7 g/dL Hematocrit 45 40-54 % Mean Corpuscular Volume 94 80-99 fL Mean Corpuscular Hemoglobin 33 25-34 pg Mean Corpuscular Hemoglobin Concent 36 32-36 g/dL Red Cell Distribution Width 13.8 10.0-14.5 % Platelet Count 213 130-400 10^3/uL Mean Platelet Volume 10.1 9.0-12.2 fL Immature Granulocyte % (Auto) 1 % Neutrophils (%) (Auto) 58 42-75 % Lymphocytes (%) (Auto) 30 12-44 % Monocytes (%) (Auto) 8 0-12 % Eosinophils (%) (Auto) 2 0-10 % Basophils (%) (Auto) 1 0-10 % Neutrophils # (Auto) 5.2 1.8-7.8 10^3/uL Lymphocytes # (Auto) 2.7 1.0-4.0 10^3/uL Monocytes # (Auto) 0.7 0.0-1.0 10^3/uL Eosinophils # (Auto) 0.2 0.0-0.3 10^3/uL Basophils # (Auto) 0.1 0.0-0.1 10^3/uL Immature Granulocyte # (Auto) 0.1 0.0-0.1 10^3/uL Sodium Level 136 135-145 MMOL/L Potassium Level 4.7 3.6-5.0 MMOL/L Chloride Level 99 98-107 MMOL/L Carbon Dioxide Level 26 21-32 MMOL/L Anion Gap 11 5-14 MMOL/L Blood Urea Nitrogen 15 7-18 MG/DL Creatinine 0.87 0.60-1.30 MG/DL Estimat Glomerular Filtration Rate 119 BUN/Creatinine Ratio 17 Glucose Level 87 70-105 MG/DL Calcium Level 9.7 8.5-10.1 MG/DL Corrected Calcium 9.5 8.5-10.1 MG/DL Total Bilirubin 0.3 0.1-1.0 MG/DL Aspartate Amino Transf (AST/SGOT) 49 H 5-34 U/L Alanine Aminotransferase (ALT/SGPT) 62 H 0-55 U/L Alkaline Phosphatase 63 40-136 U/L Total Protein 7.3 6.4-8.2 GM/DL Albumin 4.3 3.2-4.5 GM/DL TSH [place] Testing 1.86 0.35-4.94 UIU/ML Salicylates Level < 5.0 L 5.0-20.0 MG/DL Acetaminophen Level < 10 L 10-30 UG/ML Valproic Acid (Depakene) Level 84.6 50.0-100.0 UG/ML Serum Alcohol < 10 <10 MG/DL My Orders Orders - ELROY CHAMORRO MD Ua Culture If Indicated (07/06/22 00:22) Cbc With Automated Diff (07/06/22 00:22) Comprehensive Metabolic Panel (07/06/22 00:22) Alcohol (07/06/22 00:22) Drug Screen Stat (Urine) (07/06/22:22) Acetaminophen (07/06/22 00:22) Salicylate (07/06/22:22) Ed Iv/Invasive Line Start (07/06/22:22) Thyroid Analyzer (07/06/22 00:22) Monitor-Rhythm Ecg Trace Only (07/06/22:22) Bh Status Checks/Observation O Q15M (07/06/22 00:22) Ed Iv/Invasive Line Start (07/06/22 00:22) Valproic Acid (07/06/22 00:24) Covid 19 Inhouse Test (07/06/22 01:22) Influenza A And B By Pcr (07/06/22 01:22) Vital Signs/I&O 07/05/22 07/06/22 23:13 05:27 Temp 36.4 36.4 Pulse 84 79 Resp 16 16 B/P (MAP) 125/77 (93) 115/93 Pulse Ox 97 98 O2 Delivery Room Air Room Air Blood Pressure Mean: 93 Progress Progress Note : Time: 05:14 Progress Note Work-up was unremarkable. Patient is cheerful at present. He is currently denying any auditory command hallucinations. He denies any homicidal or suicidal ideation. He believes it would be safe for both he and his staff for him to return home. Patient's behavior has been calm and cooperative throughout the ER stay. He did not actually directly threaten or assault anyone according to reports received by this provider. Based on his current status and the history provided, a formal screening does not seem necessary at this time. I discussed discharge with his current caregiver, Jonh. Jonh is agreeable and states he has had no difficulty with Ankit. This ER stay. Patient states that he feels fine and is just hungry. He is enjoying a lunch tray at present. He is smiling and in good spirits. Departure Impression Primary Impression: Auditory hallucinations Additional Impressions: Seizure-like activity History of command hallucinations Disposition: 01 HOME, SELF-CARE Condition: Improved Departure-Patient Inst. Decision time for Depature: 05:11 Referrals: [facility] (PCP) Primary Care Physician СЕРГЕЙ SPENCE APRN (Family) Primary Care Physician Patient Instructions: Schizophrenia Add. Discharge Instructions: Continue with usual medications. Discuss symptoms and medications with the behavioral health prescriber as soon as possible. Return to care if there are worsening symptoms. All discharge instructions reviewed with patient and/or family. Voiced understanding. ELROY CHAMORRO MD Jul 06, 2022 05:14
[2022-07-06 05:27] VITALS: BP 115/93
== END 2022-07-06 05:27 | disposition home or self-care (01) ==
LOC: EDUNIT# 22:32 → ER 22:36
DX: G40.909 Epilepsy, unspecified, not intractable, without status epilepticus (principal); R44.0 Auditory hallucinations; F17.210 Nicotine dependence, cigarettes, uncomplicated; Z91.040 Latex allergy status; Z20.822 Contact with and (suspected) exposure to COVID-19
CPT/HCPCS: 80053; 80164; 80306; 81000; 84443; 85025; 87636; 99283; G0480 ×3; 36415; 80320; 80329

== ENCOUNTER 2022-11-28 15:46 | Emergency (ER) | payer MEDICAID ==
[~2022-11-28] VITALS: Ht 177.8 cm; Wt 100.0 kg
[~2022-11-28 15:46] MED LIST changes: -DOXY-311 PO; +DOXY-444 PO
--- NOTE | 2022-11-28 15:54 | ED General ---
General Stated Complaint: SEIZURE History of Present Illness Date Seen by Provider: Nov 28, 2022 Time Seen by Provider: 15:54 Initial Comments 32-year-old male brought in by EMS. Patient was at physicians office being evaluated for some dizziness nausea vomiting and diarrhea that been gone for a day or so. Patient had a "seizure" while at the physician office. Patient has a history of seizures. However family member reports that he frequently has these seizure-like activity when he shakes his right arm but he can come out of it to answer questions etc. He does have some developmental delay schizophrenia and bipolar diagnosis in addition. Allergies and Home Medications Allergies Coded Allergies: Latex, Natural Rubber (Unverified Allergy, Unknown, 07/27/18) amoxicillin (Unverified Allergy, Unknown, 07/17/18) clavulanic acid (Unverified Allergy, Unknown, 07/17/18) prednisone (Unverified Allergy, Unknown, 07/17/18) Patient Home Medication List Home Medication List Reviewed: Yes Aripiprazole (Aripiprazole) 5 Mg Tablet, 5 MG PO DAILY, (Reported) Entered as Reported by: RAVI BARRAGAN on 07/23/18 1252 Benztropine Mesylate (Benztropine Mesylate) 1 Mg Tablet, (Reported) Entered as Reported by: YOSI ROA on 11/11/212324 Buspirone HCl (Buspirone HCl) 15 Mg Tablet, (Reported) Entered as Reported by: YOSI ROA on 11/11/212324 Calcium Citrate (Calcium Citrate) 250 Mg Tablet, 250 MG PO BID, (Reported) Entered as Reported by: RAVI BARRAGAN on 07/23/18 1252 Cefdinir (Cefdinir) 300 Mg Capsule, 300 MG PO BID Prescribed by: DELGADO CABALLERO on 08/20/182053 Clobazam (Clobazam) 20 Mg Tablet, (Reported) Entered as Reported by: YOSI ROA on 11/11/212324 Cyproheptadine HCl (Cyproheptadine HCl) 4 Mg Tablet, 12 MG PO DAILY, (Reported) Entered as Reported by: YOSI ROA on 07/21/172131 Desmopressin Acetate (Desmopressin Acetate) 0.2 Mg Tablet, (Reported) Entered as Reported by: YOSI ROA on 11/11/212324 Divalproex Sodium (Divalproex Sodium ER) 500 Mg Tab.er.24h, (Reported) Entered as Reported by: YOSI ROA on 11/11/212324 Hydrochlorothiazide (Hydrochlorothiazide) 12.5 Mg Tablet, (Reported) Entered as Reported by: YOSI ROA on 11/11/212324 Hydroxyzine Pamoate (Hydroxyzine Pamoate) 25 Mg Capsule, (Reported) Entered as Reported by: YOSI ROA on 11/11/212324 Lactobacillus Acidophilus (Probiotic) 1 Each Capsule, 1 EACH PO DAILY, (Reported) Entered as Reported by: RAVI BARRAGAN on 07/23/18 125 Lactobacillus Acidophilus (Acidophilus Probiotic) 0.5 Mg Tablet, (Reported) Entered as Reported by: YOSI ROA on 11/11/212324 Levetiracetam (Keppra) 500 Mg Tablet, 500 MG PO BID Prescribed by: ELROY GONZALEZ on 07/21/171718 Lisinopril (Lisinopril) 20 Mg Tablet, (Reported) Entered as Reported by: YOSI ROA on 11/11/212324 Melatonin (Melatonin) 3 Mg Tablet.er, 3 MG PO HS, (Reported) Entered as Reported by: RAVI BARRAGAN on 07/23/18 125 Multivit,Ther Iron,Ca,FA & Min (Thera-M Caplet) 1 Each Tablet, (Reported) Entered as Reported by: YOSI ROA on 11/11/212324 Multivit,Ther Iron,Ca,FA & Min (Thera-M Caplet) 1 Each Tablet, (Reported) Entered as Reported by: YOSI ROA on 11/11/212324 Naproxen (Naproxen) 500 Mg Tablet, 500 MG PO BID Prescribed by: DELGADO CABALLERO on 10/04/182030 Olanzapine (Olanzapine) 10 Mg Tablet, (Reported) Entered as Reported by: YOSI ROA on 11/11/212324 Oxcarbazepine (Oxcarbazepine) 600 Mg Tablet, 600 MG PO TID Prescribed by: ELROY GONZALEZ on 07/21/171718 Sucralfate (Carafate) 1 Gm Tablet, 1 GM PO QID, (Reported) Entered as Reported by: RAVI BARRAGAN on 07/23/18 1252 Review of Systems Review of Systems Constitutional: No chills; dizziness; No fever Gastrointestinal: No abdominal pain; diarrhea, nausea, vomiting Genitourinary: no symptoms reported Musculoskeletal: no symptoms reported Skin: no symptoms reported Psychiatric/Neurological: See HPI, Seizure Hematologic/Lymphatic: No Symptoms Reported Immunological/Allergic: no symptoms reported Past Hatlgkj-Wlykra-Yfxeil Hx Immunizations Up To Date Tetanus Booster (TDap): Less than 5yrs First/Initial COVID19 Vaccinat: oct 27 2020 Second COVID19 Vaccination Otis: nov 16 2020 Third COVID19 Vaccination Date: 2020 Seasonal Allergies Seasonal Allergies: No Past Medical History Surgery/Hospitalization HX: mr, seizures, schizophrenia, bipolar, anxiety, explosive disorder, gender identity disorder, adhd, htn, asthma, uti, congenital skull deformity,HALLUCINATIONS Surgeries: Yes (COLONOSCOPY 07/27/18) Abdominal, Ear Surgery Respiratory: No Cardiac: No Neurological: Yes Developmental Disorder, Seizure Disorder Reproductive Disorders: No Genitourinary: Yes (urinary incontinence) UTI-Chronic Gastrointestinal: Yes (COLONOSCOPY 07/27/18--PROCTITIS/INTERNAL HEMORRHOIDS; CT NOTED COLITIS ) Colitis, Hemorrhoids Musculoskeletal: No Endocrine: No HEENT: Yes (CONGENITAL FACIAL/SKULL DEFORMITY) Chronic Ear Infection Cancer: No Psychosocial: Yes (HALLUCINATIONS) ADD/ADHD, Pseudo Seizures, Sleep Difficulties, Anxiety, Schizophrenia, Violent Behavior Integumentary: No Blood Disorders: No Family Medical History No Pertinent Family Hx Physical Exam Vital Signs Vital Signs - First Documented 11/28/22 15:46 Temp 36.5 Pulse 87 Resp 16 B/P (MAP) 132/93 (106) O2 Delivery Room Air Capillary Refill : Height, Weight, BMI Height: 5'10.00" Weight: 198lbs. 0.0oz. 89.375097ri; 35.00 BMI Method:Stated General Appearance: No Apparent Distress, WD/WN, Other (developmental delay ) HEENT: PERRL/EOMI Respiratory: Lungs Clear, Normal Breath Sounds Cardiovascular: Regular Rate, Rhythm, No Edema Gastrointestinal: Non Tender, Soft Extremity: Normal Capillary Refill, Normal Inspection, Normal Range of Motion Neurologic/Psychiatric: Alert, Oriented x3 Progress/Results/Core Measures Suspected Sepsis SIRS Temperature: Pulse: Respiratory Rate: Laboratory Tests 11/28/22 15:50: White Blood Count 8.3 Blood Pressure / Mean: Laboratory Tests 11/28/22 15:50: Creatinine 0.79, Platelet Count 255, Total Bilirubin 0.4 Results/Orders Lab Results Laboratory Tests Test 11/28/22 15:50 11/28/22 16:05 11/28/22 16:06 Range/Units White Blood Count 8.3 4.3-11.0 10^3/uL Red Blood Count 4.56 4.30-5.52 10^6/uL Hemoglobin 15.2 13.3-17.7 g/dL Hematocrit 43 40-54 % Mean Corpuscular Volume 93 80-99 fL Mean Corpuscular Hemoglobin 33 25-34 pg Mean Corpuscular Hemoglobin Concent 36 32-36 g/dL Red Cell Distribution Width 13.1 10.0-14.5 % Platelet Count 255 130-400 10^3/uL Mean Platelet Volume 9.3 9.0-12.2 fL Immature Granulocyte % (Auto) 0 % Neutrophils (%) (Auto) 67 42-75 % Lymphocytes (%) (Auto) 22 12-44 % Monocytes (%) (Auto) 9 0-12 % Eosinophils (%) (Auto) 1 0-10 % Basophils (%) (Auto) 1 0-10 % Neutrophils # (Auto) 5.6 1.8-7.8 10^3/uL Lymphocytes # (Auto) 1.8 1.0-4.0 10^3/uL Monocytes # (Auto) 0.8 0.0-1.0 10^3/uL Eosinophils # (Auto) 0.1 0.0-0.3 10^3/uL Basophils # (Auto) 0.1 0.0-0.1 10^3/uL Immature Granulocyte # (Auto) 0.0 0.0-0.1 10^3/uL Sodium Level 135 135-145 MMOL/L Potassium Level 4.0 3.6-5.0 MMOL/L Chloride Level 98 98-107 MMOL/L Carbon Dioxide Level 27 21-32 MMOL/L Anion Gap 10 5-14 MMOL/L Blood Urea Nitrogen 9 7-18 MG/DL Creatinine 0.79 0.60-1.30 MG/DL Estimat Glomerular Filtration Rate 123 BUN/Creatinine Ratio 11 Glucose Level 91 70-105 MG/DL Calcium Level 9.8 8.5-10.1 MG/DL Corrected Calcium 9.4 8.5-10.1 MG/DL Magnesium Level 1.8 1.6-2.4 MG/DL Total Bilirubin 0.4 0.1-1.0 MG/DL Aspartate Amino Transf (AST/SGOT) 23 5-34 U/L Alanine Aminotransferase (ALT/SGPT) 24 0-55 U/L Alkaline Phosphatase 47 40-136 U/L Total Protein 7.3 6.4-8.2 GM/DL Albumin 4.5 3.2-4.5 GM/DL Lipase 20 8-78 U/L Valproic Acid (Depakene) Level 86.9 50.0-100.0 UG/ML Influenza Type A (RT-PCR) Not Detected Not Detecte Influenza Type B (RT-PCR) Not Detected Not Detecte SARS-CoV-2 RNA (RT-PCR) Not Detected Not Detecte Urine Color YELLOW Urine Clarity CLEAR Urine pH 6.5 5-9 Urine Specific [place] 1.010 L 1.016-1.022 Urine Protein NEGATIVE NEGATIVE Urine Glucose (UA) NEGATIVE NEGATIVE Urine Ketones TRACE H NEGATIVE Urine Nitrite NEGATIVE NEGATIVE Urine Bilirubin NEGATIVE NEGATIVE Urine Urobilinogen 1.0 < = 1.0 MG/DL Urine Leukocyte Esterase NEGATIVE NEGATIVE Urine RBC (Auto) TRACE-I H NEGATIVE Urine RBC RARE /HPF Urine WBC NONE /HPF Urine Squamous Epithelial Cells RARE /HPF Urine Crystals NONE /LPF Urine Bacteria TRACE /HPF Urine Casts NONE /LPF Urine Mucus NEGATIVE /LPF Urine Culture Indicated NO My Orders Orders - ALBERTO,SONIA L DO Cbc With Automated Diff (11/28/22 15:55) Comprehensive Metabolic Panel (11/28/22 15:55) Lipase (11/28/22 15:55) Magnesium (11/28/22 15:55) Ua Culture If Indicated (11/28/22 15:55) Influenza A And B By Pcr (11/28/22 15:55) Covid 19 Inhouse Test (11/28/22 15:55) Ondansetron Injection (Zofran Injectio (11/28/22 16:00) Ns Iv 1000 Ml (Sodium Chloride 0.9%) (11/28/22 15:55) Valproic Acid (11/28/22 15:55) Medications Given in ED Current Medications Medications Dose Ordered Sig/Omar Route Start Time Stop Time Status Last Admin Dose Admin Ondansetron HCl 4 mg ONCE ONCE IVP 11/28/22 16:00 11/28/22 16:01 DC 11/28/22 16:02 4 MG Vital Signs/I&O 11/28/22 15:46 Temp 36.5 Pulse 87 Resp 16 B/P (MAP) 132/93 (106) O2 Delivery Room Air Capillary Refill : Progress Note : Progress Note Patient labs were reviewed and showed no acute findings. Patient had "multiple seizure-like activities" that were always the same with him cane or rolling his right arm clamping his eyes. He was distracted out of it and responded to physical activity while having his "seizure activity" discussed with his caregivers that seems more like pseudoseizures which they agreed since he is able to be distracted out of home at his care center. Patient has intermittent nausea and vomiting none today. I will provide him some Zofran if he developed some nausea or vomiting. I did review patient's note that was sent with him from his primary care office. Patient is doing well. He is stable and discharged back to his care center. I did obtain additional information from 2 different care providers and family members. Departure Impression Primary Impression: Seizure-like activity Additional Impression: Nausea & vomiting Qualified Codes: R11.2 - Nausea with vomiting, unspecified Disposition: 01 HOME, SELF-CARE Condition: Stable Departure-Patient Inst. Referrals: [facility] [place] ([place]/Family) Primary Care Physician Patient Instructions: Seizures, Adult (DC), Nausea and Vomiting, Adult ED Add. Discharge Instructions: follow up with primary care provider as needed. Scripts Ondansetron (Ondansetron Odt) 4 Mg Tab.rapdis 4 MG PO Q6H PRN for NAUSEA/VOMITING, #20 TAB 0 Refills Prov: SONIA ALBERTO DO 11/28/22 SONIA ALBERTO DO Nov 28, 2022 15:54
[2022-11-28] MEDS ORDERED: NS IV 1000 ML 1,000 ML IV STA (15:55)
[2022-11-28] MEDS ORDERED: ONDANSETRON 4 MG/2 ML (SDV) Z0FRAN IVP ONE (16:00)
[2022-11-28 16:06] LABS: BASOPHILS # (AUTO) 0.1 10^3/uL (0.0-0.1); BASOPHILS % (AUTO) 1 % (0-10); EOSINOPHILS # (AUTO) 0.1 10^3/uL (0.0-0.3); EOSINOPHILS % (AUTO) 1 % (0-10); HEMATOCRIT 43 % (40-54); HEMOGLOBIN 15.2 g/dL (13.3-17.7); LYMPHOCYTES # (AUTO) 1.8 10^3/uL (1.0-4.0); LYMPHOCYTES % (AUTO) 22 % (12-44); MEAN CORPUSCULAR HEMOGLOBIN 33 pg (25-34); MEAN CORPUSCULAR HGB CONC 36 g/dL (32-36); MEAN CORPUSCULAR VOLUME 93 fL (80-99); MEAN PLATELET VOLUME 9.3 fL (9.0-12.2); MONOCYTES # (AUTO) 0.8 10^3/uL (0.0-1.0); MONOCYTES % (AUTO) 9 % (0-12); NEUTROPHILS # (AUTO) 5.6 10^3/uL (1.8-7.8); NEUTROPHILS % (AUTO) 67 % (42-75); PLATELET COUNT 255 10^3/uL (130-400); WHITE BLOOD COUNT 8.3 10^3/uL (4.3-11.0)
[2022-11-28 16:12] LABS: BILIRUBIN,URINE NEGATIVE (NEGATIVE); CLARITY,URINE CLEAR; COLOR,URINE YELLOW; GLUCOSE, URINE (UA) NEGATIVE (NEGATIVE); KETONES,URINE TRACE (NEGATIVE); LEUKOCYTE ESTERASE ,URINE NEGATIVE (NEGATIVE); NITRITE,URINE NEGATIVE (NEGATIVE); PH,URINE 6.5 (5-9); PROTEIN,URINE NEGATIVE (NEGATIVE)
[2022-11-28 16:14] LABS: ALBUMIN 4.5 GM/DL (3.2-4.5)
[2022-11-28 16:16] LABS: CALCIUM 9.8 MG/DL (8.5-10.1)
[2022-11-28 16:17] LABS: TOTAL PROTEIN 7.3 GM/DL (6.4-8.2)
[2022-11-28 16:19] LABS: BILIRUBIN,TOTAL 0.4 MG/DL (0.1-1.0)
[2022-11-28 16:21] LABS: CREATININE SERUM 0.79 MG/DL (0.60-1.30)
[2022-11-28 16:23] LABS: MAGNESIUM 1.8 MG/DL (1.6-2.4)
[2022-11-28 16:30] LABS: VALPROIC ACID 86.9 UG/ML (50.0-100.0)
[2022-11-28 16:34] LABS: BACTERIA,URINE TRACE /HPF; RBC,URINE RARE /HPF; SQUAMOUS EPITHELIAL CELL,UR RARE /HPF
[2022-11-28] MEDS ORDERED: ONDA4TAB11 PO (16:47)
[2022-11-28 17:00] VITALS: BP 134/86
== END 2022-11-28 17:02 | disposition home or self-care (01) ==
LOC: EDUNIT# 15:46 → ER 15:47
DX: G40.909 Epilepsy, unspecified, not intractable, without status epilepticus (principal); R11.2 Nausea with vomiting, unspecified; Z20.822 Contact with and (suspected) exposure to COVID-19; Z28.310 Unvaccinated for COVID-19
CPT/HCPCS: 36415; 80053; 80164; 81000; 83690; 83735; 85025; 87636; 99283

== ENCOUNTER 2022-12-15 09:25 | Emergency (ER) | payer MEDICAID ==
[~2022-12-15 09:25] MED LIST changes: -BENZ1TAB6; +BENZ1TAB74; +ONDA4TAB11 PO
--- NOTE | 2022-12-15 09:37 | ED General ---
General Stated Complaint: SOA Source of Information: Patient, EMS Exam Limitations: Physical Impairments History of Present Illness Date Seen by Provider: Dec 15, 2022 Time Seen by Provider: 08:25 Initial Comments Patient is a 32-year-old male with a history of intellectual disability who presents to the emergency room chief complaint "difficulty breathing" per EMS. Patient has a 24-hour in-home caregiver. The caregiver reported to EMS that the patient started having difficulty last night. He does not use oxygen at home EMS reported that the patient was seeming to "breathe hard" on purpose while at the residence. They initially got 70% room air sats oxygen saturations but the patient was not really compliant with vital sign taking. No reported recent illnesses. He does have a history of seizure disorder on antiseizure medications. Patient states that he smokes. He states that he is nauseous. He denies any pain. Caregiver apparently reported to EMS that occasionally he has "behavior issues" where he manufactures things to "get attention". reportedly he refused his nighttime medications last evening, but took his morning meds. 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 On arrival patient's room air oxygen is 100%. He is not tachycardic, his BP is in the mid 80's/90 Systolic. he is not febrile. He does answer questions appropriately. He does intermittently turn his head to the left and squint his eyes closed and have tremoring on his right side but then is easily distractible. Associated Systoms: Malaise, Nausea/Vomiting Allergies and Home Medications Allergies Coded Allergies: Latex, Natural Rubber (Unverified Allergy, Unknown, 07/27/18) amoxicillin (Unverified Allergy, Unknown, 07/17/18) clavulanic acid (Unverified Allergy, Unknown, 07/17/18) prednisone (Unverified Allergy, Unknown, 07/17/18) Patient Home Medication List Home Medication List Reviewed: Yes Aripiprazole (Aripiprazole) 5 Mg Tablet, 5 MG PO DAILY, (Reported) Entered as Reported by: RAVI BARRAGAN on 07/23/18 1252 Benztropine Mesylate (Benztropine Mesylate) 1 Mg Tablet, (Reported) Entered as Reported by: YOSI ROA on 11/11/21 7398 Buspirone HCl (Buspirone HCl) 15 Mg Tablet, (Reported) Entered as Reported by: YOSI ROA on 11/11/212324 Calcium Citrate (Calcium Citrate) 250 Mg Tablet, 250 MG PO BID, (Reported) Entered as Reported by: RAVI BARRAGAN on 07/23/18 125 Cefdinir (Cefdinir) 300 Mg Capsule, 300 MG PO BID Prescribed by: DELGADO CABALLERO on 08/20/182053 Clobazam (Clobazam) 20 Mg Tablet, (Reported) Entered as Reported by: YOSI ROA on 11/11/212324 Cyproheptadine HCl (Cyproheptadine HCl) 4 Mg Tablet, 12 MG PO DAILY, (Reported) Entered as Reported by: YOSI ROA on 07/21/172131 Desmopressin Acetate (Desmopressin Acetate) 0.2 Mg Tablet, (Reported) Entered as Reported by: YOSI ROA on 11/11/212324 Divalproex Sodium (Divalproex Sodium ER) 500 Mg Tab.er.24h, (Reported) Entered as Reported by: YOSI ROA on 11/11/212324 Hydrochlorothiazide (Hydrochlorothiazide) 12.5 Mg Tablet, (Reported) Entered as Reported by: YOSI ROA on 11/11/212324 Hydroxyzine Pamoate (Hydroxyzine Pamoate) 25 Mg Capsule, (Reported) Entered as Reported by: YOSI ROA on 11/11/212324 Lactobacillus Acidophilus (Probiotic) 1 Each Capsule, 1 EACH PO DAILY, (Reported) Entered as Reported by: RAVI BARRAGAN on 07/23/18 125 Lactobacillus Acidophilus (Acidophilus Probiotic) 0.5 Mg Tablet, (Reported) Entered as Reported by: YOSI ROA on 11/11/212324 Levetiracetam (Keppra) 500 Mg Tablet, 500 MG PO BID Prescribed by: ELROY GONZALEZ on 07/21/17 171 Lisinopril (Lisinopril) 20 Mg Tablet, (Reported) Entered as Reported by: YOSI ROA on 11/11/212324 Melatonin (Melatonin) 3 Mg Tablet.er, 3 MG PO HS, (Reported) Entered as Reported by: RAVI BARRAGAN on 07/23/18 1252 Multivit,Ther Iron,Ca,FA & Min (Thera-M Caplet) 1 Each Tablet, (Reported) Entered as Reported by: YOSI ROA on 11/11/21 232 Multivit,Ther Iron,Ca,FA & Min (Thera-M Caplet) 1 Each Tablet, (Reported) Entered as Reported by: YOSI ROA on 11/11/21 2325 Naproxen (Naproxen) 500 Mg Tablet, 500 MG PO BID Prescribed by: DELGADO CABALLERO on 10/04/18 203 Olanzapine (Olanzapine) 10 Mg Tablet, (Reported) Entered as Reported by: YOSI ROA on 11/11/21 232 Ondansetron (Ondansetron Odt) 4 Mg Tab.rapdis, 4 MG PO Q6H PRN for NAUSEA/VOMITING Prescribed by: SONIA ALBERTO on 11/28/22 1647 Ondansetron (Ondansetron Odt) 4 Mg Tab.rapdis, 4 MG SL Q8H PRN for NAUSEA/VOMITING Prescribed by: HUSSEIN VARNER on 12/15/22 1201 Oxcarbazepine (Oxcarbazepine) 600 Mg Tablet, 600 MG PO TID Prescribed by: ELROY GONZALEZ on 07/21/17 1719 Sucralfate (Carafate) 1 Gm Tablet, 1 GM PO QID, (Reported) Entered as Reported by: RAVI BARRAGAN on 07/23/18 1252 Review of Systems Review of Systems Constitutional: see HPI ROS unreliable due to patient's Intellectual disability; obtained from day-time caregiver Past Vdyxrwt-Ewynsp-Rujtxk Hx Immunizations Up To Date Tetanus Booster (TDap): Less than 5yrs First/Initial COVID19 Vaccinat: oct 27 2020 Second COVID19 Vaccination Otis: nov 16 2020 Third COVID19 Vaccination Date: 2020 Seasonal Allergies Seasonal Allergies: No Past Medical History Surgery/Hospitalization HX: mr, seizures, schizophrenia, bipolar, anxiety, explosive disorder, gender identity disorder, adhd, htn, asthma, uti, congenital skull deformity,HALLUCINATIONS Surgeries: Yes (COLONOSCOPY 07/27/18) Abdominal, Ear Surgery Respiratory: No Cardiac: No Neurological: Yes Developmental Disorder, Seizure Disorder Reproductive Disorders: No Genitourinary: Yes (urinary incontinence) UTI-Chronic Gastrointestinal: Yes (COLONOSCOPY 07/27/18--PROCTITIS/INTERNAL HEMORRHOIDS; CT NOTED COLITIS ) Colitis, Hemorrhoids Musculoskeletal: No Endocrine: No HEENT: Yes (CONGENITAL FACIAL/SKULL DEFORMITY) Chronic Ear Infection Cancer: No Psychosocial: Yes (HALLUCINATIONS) ADD/ADHD, Pseudo Seizures, Sleep Difficulties, Anxiety, Schizophrenia, Violent Behavior Integumentary: No Blood Disorders: No Family Medical History No Pertinent Family Hx Physical Exam Vital Signs Vital Signs - First Documented 12/15/22 12/15/22 09:26 09:38 Temp 36.9 Pulse 101 Resp 16 B/P (MAP) 85/57 (66) O2 Delivery Room Air Capillary Refill : Height, Weight, BMI Height: 5'10.00" Weight: 198lbs. 0.0oz. 89.492333cx; 31.00 BMI Method:Stated General Appearance: No Apparent Distress, WD/WN, Anxious Eyes: Bilateral Eye Normal Inspection, Bilateral Eye PERRL, Bilateral Eye EOMI HEENT: PERRL/EOMI, Pharynx Normal, Moist Mucous Membranes Neck: Full Range of Motion Respiratory: No Accessory Muscle Use, No Respiratory Distress, Wheezing (scattered exp wheezes; no distress) Cardiovascular: Regular Rate, Rhythm, Normal Peripheral Pulses Gastrointestinal: Soft; No Distended Extremity: Normal Capillary Refill, Normal Range of Motion Neurologic/Psychiatric: Alert, No Motor/Sensory Deficits, Normal Mood/Affect, news camera person II-XII Norm as Tested Skin: Normal Color, Warm/Dry Progress/Results/Core Measures Suspected Sepsis SIRS Temperature: Pulse: Respiratory Rate: Laboratory Tests 12/15/22 09:50: White Blood Count 7.4 Blood Pressure / Mean: Laboratory Tests 12/15/22 09:50: Creatinine 0.73, Platelet Count 269 Results/Orders Lab Results Laboratory Tests Test 12/15/22 09:50 12/15/22 10:14 Range/Units White Blood Count 7.4 4.3-11.0 10^3/uL Red Blood Count 4.64 4.30-5.52 10^6/uL Hemoglobin 15.4 13.3-17.7 g/dL Hematocrit 44 40-54 % Mean Corpuscular Volume 94 80-99 fL Mean Corpuscular Hemoglobin 33 25-34 pg Mean Corpuscular Hemoglobin Concent 35 32-36 g/dL Red Cell Distribution Width 13.4 10.0-14.5 % Platelet Count 269 130-400 10^3/uL Mean Platelet Volume 9.7 9.0-12.2 fL Immature Granulocyte % (Auto) 1 % Neutrophils (%) (Auto) 41 L 42-75 % Lymphocytes (%) (Auto) 47 H 12-44 % Monocytes (%) (Auto) 8 0-12 % Eosinophils (%) (Auto) 3 0-10 % Basophils (%) (Auto) 1 0-10 % Neutrophils # (Auto) 3.1 1.8-7.8 10^3/uL Lymphocytes # (Auto) 3.5 1.0-4.0 10^3/uL Monocytes # (Auto) 0.6 0.0-1.0 10^3/uL Eosinophils # (Auto) 0.2 0.0-0.3 10^3/uL Basophils # (Auto) 0.1 0.0-0.1 10^3/uL Immature Granulocyte # (Auto) 0.0 0.0-0.1 10^3/uL Sodium Level 136 135-145 MMOL/L Potassium Level 4.1 3.6-5.0 MMOL/L Chloride Level 98 98-107 MMOL/L Carbon Dioxide Level 24 21-32 MMOL/L Anion Gap 14 5-14 MMOL/L Blood Urea Nitrogen 11 7-18 MG/DL Creatinine 0.73 0.60-1.30 MG/DL Estimat Glomerular Filtration Rate 126 BUN/Creatinine Ratio 15 Glucose Level 87 70-105 MG/DL Calcium Level 10.2 H 8.5-10.1 MG/DL Valproic Acid (Depakene) Level 75.3 50.0-100.0 UG/ML Urine Color DARK YELLOW Urine Clarity SL CLOUDY Urine pH 6.0 5-9 Urine Specific [place] 1.025 H 1.016-1.022 Urine Protein NEGATIVE NEGATIVE Urine Glucose (UA) NEGATIVE NEGATIVE Urine Ketones NEGATIVE NEGATIVE Urine Nitrite NEGATIVE NEGATIVE Urine Bilirubin NEGATIVE NEGATIVE Urine Urobilinogen 1.0 < = 1.0 MG/DL Urine Leukocyte Esterase NEGATIVE NEGATIVE Urine RBC (Auto) NEGATIVE NEGATIVE Urine RBC NONE /HPF Urine WBC NONE /HPF Urine Squamous Epithelial Cells NONE /HPF Urine Crystals NONE /LPF Urine Bacteria NEGATIVE /HPF Urine Casts PRESENT /LPF Urine Hyaline Casts 2-5 H /LPF Urine Mucus NEGATIVE /LPF Urine Culture Indicated NO My Orders Orders - TELLY,HUSSEIN M MD Cbc With Automated Diff (12/15/22 09:37) Basic Metabolic Panel (12/15/22 09:37) Chest 1 View, Ap/Pa Only (12/15/22 09:37) Ed Iv/Invasive Line Start (12/15/22 09:41) Valproic Acid (12/15/22 09:41) Ondansetron Injection (Zofran Injectio (12/15/22 09:45) Ns Iv 1000 Ml (Sodium Chloride 0.9%) (12/15/22 09:42) Ua Culture If Indicated (12/15/22 11:31) Medications Given in ED Current Medications Medications Dose Ordered Sig/Omar Route Start Time Stop Time Status Last Admin Dose Admin Ondansetron HCl 4 mg ONCE ONCE IVP 12/15/22 09:45 12/15/22 09:46 DC 12/15/22 09:51 4 MG Vital Signs/I&O 12/15/22 12/15/22 12/15/22 09:26 09:38 12:07 Temp 36.9 36.9 Pulse 101 88 Resp 16 16 B/P (MAP) 85/57 (66) 116/94 O2 Delivery Room Air Room Air Capillary Refill : Progress Note : Time: 11:50 Progress Note Patient seen and evaluated by me. Evaluation today includes physical exam, CBC, Chem-12, UA, valproic acid level and chest x-ray. Pertinent physical exam findings, well-developed well-nourished male in no acute distress. He is tremulous and intermittently will not make eye contact. Has tremors in the bilateral upper extremities and will close his eyes and turn his head simulating "seizure-like" activity, however when I ask him questions and manually open his eyes he is immediately alert and will answer questions. Vital signs are stable. He does have scattered expiratory wheezes without signs of respiratory distress. He is not tachycardic, not febrile. Abdomen is soft, he moves all extremities. Differential diagnosis based on history and physical examination bronchitis, pneumonia, valproic acid toxicity, stomach flu. Labs reviewed, CBC is normal, chemistry is normal urinalysis is without any signs of infection. Valproic acid level is therapeutic and chest x-ray is clear. Patient is treated with 4 Zofran as the report to paramedics had been that the patient was "up all night vomiting". He tolerated p.o. here in the emergency department, received IV fluids normal saline. No vomiting noted here in the emergency department. His vital signs remained stable. No clinical or objective findings to warrant further testing. Consideration for CT abdomen and pelvis to rule out intra-abdominal pathology however history and physical exam and laboratory findings do not support the need. Return precautions provided to the caregiver who is at the bedside. All questions have been sought and answered. Patient stable for discharge Diagnostic Imaging Diagonstic Imaging: Xray Plain Films/CT/US/NM/MRI: chest Comments [facility] [employer] [facility]. [place], [place] NAME: MEGAN TIDWELL [facility] REC#: [id number] PT STATUS: REG ER : 1990 PHYSICIAN: HUSSEIN VARNER MD ADMIT DATE: 12/15/22/ER Draft Date of Exam:12/15/22 CHEST 1 VIEW, AP/PA ONLY EXAMINATION: Chest 1 view HISTORY: SOB, wheezing COMPARISON: 07/21/2017 FINDINGS: The lungs are clear without edema or pneumonia. No pleural effusion or pneumothorax. Heart size is normal. IMPRESSION: 1. Clear lungs. Dictated on workstation # [id number] Dict: 12/15/22 0950 Trans: 12/15/22 0952 [facility] [id number] Interpreted by: LORNA RODRIGUEZ MD Electronically signed by: Departure Impression Primary Impression: Nausea & vomiting Qualified Codes: R11.2 - Nausea with vomiting, unspecified Additional Impression: Behavior concern Disposition: 01 HOME, SELF-CARE Condition: Improved Departure-Patient Inst. Decision time for Depature: 12:00 Referrals: [facility] (PCP/Family) Primary Care Physician Patient Instructions: Nausea and Vomiting, Adult (DC) Add. Discharge Instructions: Encourage fluids so that he stays well hydrated. Continue his daily medications as prescribed. Zofran 4mg every 8 hours as needed for nausea. If any new, concerning or emergent complaints develop, please bring him back to the Emergency Department for re-evaluation. Scripts Ondansetron (Ondansetron Odt) 4 Mg Tab.rapdis 4 MG SL Q8H PRN for NAUSEA/VOMITING, #12 TAB Prov: HUSSEIN VARNER MD 12/15/22 HUSSEIN VARNER MD Dec 15, 2022 09:37
[2022-12-15] MEDS ORDERED: NS IV 1000 ML 1,000 ML IV STA (09:42)
[2022-12-15] MEDS ORDERED: ONDANSETRON 4 MG/2 ML (SDV) Z0FRAN IVP ONE (09:45)
--- NOTE | 2022-12-15 09:52 | Diagnostic Imaging Report ---
EXAMINATION: Chest 1 view HISTORY: SOB, wheezing COMPARISON: 07/21/2017 FINDINGS: The lungs are clear without edema or pneumonia. No pleural effusion or pneumothorax. Heart size is normal. IMPRESSION: 1. Clear lungs. Dictated by: Dictated on workstation # [email or web address]
[2022-12-15 10:00] LABS: BASOPHILS # (AUTO) 0.1 10^3/uL (0.0-0.1); BASOPHILS % (AUTO) 1 % (0-10); EOSINOPHILS # (AUTO) 0.2 10^3/uL (0.0-0.3); EOSINOPHILS % (AUTO) 3 % (0-10); HEMATOCRIT 44 % (40-54); HEMOGLOBIN 15.4 g/dL (13.3-17.7); LYMPHOCYTES # (AUTO) 3.5 10^3/uL (1.0-4.0); LYMPHOCYTES % (AUTO) 47 % (12-44); MEAN CORPUSCULAR HEMOGLOBIN 33 pg (25-34); MEAN CORPUSCULAR HGB CONC 35 g/dL (32-36); MEAN CORPUSCULAR VOLUME 94 fL (80-99); MEAN PLATELET VOLUME 9.7 fL (9.0-12.2); MONOCYTES # (AUTO) 0.6 10^3/uL (0.0-1.0); MONOCYTES % (AUTO) 8 % (0-12); NEUTROPHILS # (AUTO) 3.1 10^3/uL (1.8-7.8); NEUTROPHILS % (AUTO) 41 % (42-75); PLATELET COUNT 269 10^3/uL (130-400); WHITE BLOOD COUNT 7.4 10^3/uL (4.3-11.0)
[2022-12-15 10:13] LABS: POTASSIUM 4.1 MMOL/L (3.6-5.0)
[2022-12-15 10:14] LABS: CALCIUM 10.2 MG/DL (8.5-10.1)
[2022-12-15 10:18] LABS: CREATININE SERUM 0.73 MG/DL (0.60-1.30)
[2022-12-15 10:27] LABS: VALPROIC ACID 75.3 UG/ML (50.0-100.0)
[2022-12-15 11:36] LABS: BILIRUBIN,URINE NEGATIVE (NEGATIVE); CLARITY,URINE SL CLOUDY; COLOR,URINE DARK YELLOW; GLUCOSE, URINE (UA) NEGATIVE (NEGATIVE); KETONES,URINE NEGATIVE (NEGATIVE); LEUKOCYTE ESTERASE ,URINE NEGATIVE (NEGATIVE); NITRITE,URINE NEGATIVE (NEGATIVE); PROTEIN,URINE NEGATIVE (NEGATIVE)
[2022-12-15 11:46] LABS: BACTERIA,URINE NEGATIVE /HPF
[2022-12-15] MEDS ORDERED: ONDA4TAB11 SL (12:01)
[2022-12-15 12:07] VITALS: BP 116/94
== END 2022-12-15 12:10 | disposition home or self-care (01) ==
LOC: ER 09:25 → EDUNIT# 09:25 → ER 12:10
DX: R11.2 Nausea with vomiting, unspecified (principal); F79 Unspecified intellectual disabilities
CPT/HCPCS: 36415; 71045; 80048; 80164; 81000; 85025

== ENCOUNTER 2023-07-30 22:21 | Emergency (ER) | payer MEDICAID ==
[~2023-07-30] VITALS: Ht 177.8 cm; Wt 81.6 kg
[~2023-07-30 22:21] MED LIST changes: +ONDA4TAB11 SL
[2023-07-30] MEDS ORDERED: Tetanus/Diphtheria/Pertussis (Acell) ADULT Vaccine 0.5 ML IM ONE (22:45)
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
[2023-07-30] MEDS ORDERED: LIDOCAINE 1% INJ 20 ML VIAL ONE (23:04)
[2023-07-30] MEDS ORDERED: IBUPROFEN 600 MG TABLET PO ONE (23:15)
[2023-07-31] MEDS ORDERED: LIDOCAINE 1% INJ 20 ML VIAL INJ ONE (01:15)
[2023-07-31] MEDS ORDERED: IBUPROFEN 600 MG TABLET PO ONE (01:15)
[2023-07-31 01:20] VITALS: BP 121/87
== END 2023-07-31 01:20 | disposition home or self-care (01) ==
LOC: EDUNIT# 22:21 → ER 22:23
DX: S51.811A Laceration without foreign body of right forearm, initial encounter (principal); S51.812A Laceration without foreign body of left forearm, initial encounter; S41.112A Laceration without foreign body of left upper arm, initial encounter; F17.210 Nicotine dependence, cigarettes, uncomplicated; Z23 Encounter for immunization; Z91.040 Latex allergy status; W22.8XXA Striking against or struck by other objects, initial encounter; Y92.59 Other trade areas as the place of occurrence of the external cause
CPT/HCPCS: 12002; 90471; 90715

== ENCOUNTER 2023-08-12 15:52 | Emergency (ER) | payer MEDICAID ==
[2023-08-12 16:36] VITALS: BP 124/82
== END 2023-08-12 16:52 | disposition home or self-care (01) ==
LOC: EDUNIT# 15:52 → ER 15:54
DX: Z48.02 Encounter for removal of sutures (principal)